=== PATIENT | male | born 1970 | race Caucasian/White ===

== ENCOUNTER → 2016-11-22 | Outpatient (CLI) | payer BC, OTHER ==
[~2016-11-22] MED LIST: ASPI81TA28 PO; ATOR-26 PO; CLOP1TAB15 PO; FENO48TA9 PO; INSDGI SC; INSDGI SQ; INSU100I SC; INSU100I2 SC; METO25TA3 PO; MULT-506 PO; NCY50 PO; NTRGSL/4 UT; ONDA4TAB10 SL; OXYC1TAB3 PO; PANT1TAB48 PO; TAMS0.4C38 PO; TAPE100T2 PO; ZOLP10TA PO
== END ==
LOC: C.PAIN 10:27
PROVIDERS: ATTEND Anesthesiology

== ENCOUNTER 2016-12-01 13:51 | Emergency (ER) | payer BC, OTHER ==
[~2016-12-01] VITALS: Ht 182.9 cm; Wt 133.8 kg
[~2016-12-01 13:51] MED LIST changes: -ATOR-26 PO; -INSDGI SC; -INSU100I SC; -METO25TA3 PO; -MULT-506 PO; -NTRGSL/4 UT; -ONDA4TAB10 SL; -TAMS0.4C38 PO; -TAPE100T2 PO; -ZOLP10TA PO
[2016-12-01 13:58] VITALS: TEMP 36.7; Ht 182.9 cm; Wt 133.8 kg
[2016-12-01] MEDS ORDERED: INSDGI SC (14:38)
[2016-12-01 14:40] LABS: BASO % 0.2 %; BASO ABS # 0.02 K/uL (0-0.2); COMPLETE YES; EOS % 1.4 %; HEMATOCRIT 43.6 % (42-52); IG% 0.6 %; LYMPH % 18.5 %; LYMPH ABS # 2.09 K/uL (1.2-3.4); MEAN CELL VOLUME 86.5 fL (80-100); MEAN CORPUSCULAR HEMOGLOBIN 31.2 pg (25-34); MEAN PLATELET VOLUME 12.1 fL (7.4-10.4); MONO % 12.6 %; NEUT % 66.7 %; PLATELET COUNT 237 K/uL (130-400); RED BLOOD COUNT 5.04 M/uL (4.7-6.1); WHITE BLOOD COUNT 11.28 K/uL (4.8-10.8)
[2016-12-01 14:46] LABS: INR 0.9 (0.9-1.1); PARTIAL THROMBOPLASTIN RATIO 0.9
[2016-12-01 14:46] LABS: URINE APPEARANCE CLEAR (CLEAR); URINE BILIRUBIN NEG (NEG); URINE COLOR YELLOW; URINE NITRITE NEG (NEG); URINE SPECIFIC GRAVITY 1.023 (1.000-1.030); UROBILINOGEN NEG (NEG); ZZUR CULT IF INDIC CLEAN CATCH NO
[2016-12-01 14:47] LABS: BUN/CREATININE RATIO 16.8 (10-20); CALCIUM 8.8 mg/dl (8.5-10.1); CREATININE 1.1 mg/dl (0.60-1.40); MAGNESIUM 1.9 mg/dl (1.8-2.4); POTASSIUM 4.6 mmol/L (3.5-5.1)
[2016-12-01 14:47] LABS: MANUAL MICROSCOPIC REQUIRED? NO; REVIEW REQ? NO
--- NOTE | 2016-12-01 14:47 | DIAGNOSTIC IMAGING REPORT ---
SINGLE VIEW CHEST CLINICAL HISTORY: Atypical chest pain. Angina. FINDINGS: An AP, portable, upright chest radiograph is compared to study dated 06/22/2016 and correlated with chest CT dated 01/10/2016. The examination is degraded by portable technique and large body habitus. An indeterminant catheter/line projects over the mid chest, possibly intrathecal in location. The patient is status post midline sternotomy. The heart is mildly enlarged and there is atherosclerotic calcification of the thoracic aorta. The pulmonary vasculature is noncongested. The lungs and pleural spaces are clear. No pneumothorax is seen. The bony thorax is grossly intact. IMPRESSION: Mild cardiac enlargement with no acute cardiopulmonary abnormality. Electronically signed by: Fernando Galindo M.D. 12/01/2016 2:45 PM Dictated Date/Time: 12/01/2016 2:43 PM
--- NOTE | 2016-12-01 14:56 | EMERGENCY ROOM VISIT NOTE ---
ED Visit Note First contact with patient: 14:07 I have seen and examined this patient with Robe Roman and generally agree with the treatment plan as discussed. GENERAL: Patient is a healthy-appearing well-nourished male HEAD: Normocephalic atraumatic EYES: Ocular movements intact pupils equal and react to light OROPHARYNX mucous membranes are moist no exudates present no erythema or edema present NECK: Supple no nuchal rigidity CHEST: Good equal expansion LUNGS: Clear and equal to auscultation CARDIAC: Normal S1 and S2 ABDOMEN: Soft nontender no guarding BACK: No CVA tenderness EXTREMITIES: No pain upon palpation normal muscle strength in all groups no clubbing cyanosis or edema NEURO: Patient is following commands is answering questions appropriately. Alert and oriented x3 Cranial Nerves 2-12 grossly intact This is a 46-year-old male who presents emergency part complaint of chest pain that was relieved by nitroglycerin. Pt was given 324 ASA and Nitropaste. Repeat examination revealed improvement in the pt symptoms. The patient's troponin is noted to be 10. The patient's case was discussed with Dr. Forte who came and saw the patient. He felt that the patient should be transferred to [place]. Transfer paperwork was obtained and signed by the patient. The patient was sent on IV heparin drip here in the emergency department. He was observed for a total of 9 hours while waiting transferred to [place]. I have personally spent greater than 90 minutes of critical care time in the direct management of this patient. This includes bedside care, interpretation of diagnostic studies, and testing, discussion with consultants, patient, and family members, and other required patient management activities. This 90 minutes is in excess of all separately billable procedures. Problem List Medical Problems: (1) Appendectomy Status: Resolved (2) Asthma Status: Chronic (3) Cardiac catheterization Status: Chronic (4) Coronary artery bypass grafts x 5 Status: Resolved (5) Coronary artery disease Status: Chronic (6) Diabetes Status: Chronic (7) Diabetes mellitus Status: Chronic (8) Hypertension Status: Chronic (9) Kidney stones Status: Resolved Current/Historical Medications Scheduled Aspirin (Aspirin Ec), 81 MG PO QAM Atorvastatin (Lipitor), 80 MG PO QAM Clopidogrel (Plavix), 75 MG PO QAM Fenofibrate (Tricor), 48 MG PO QAM Insulin Glargine (Lantus), 100 UNITS SQ QAM Metoprolol Succinate (Toprol Xl), 25 MG PO QAM Multivitamin (Multivitamin), 1 TAB PO DAILY Nitroglycerin (Nitrostat), 0.4 MG UT PRN Tapentadol HCl (Nucynta), 50 MG PO DAILY Zolpidem Tartrate (Ambien), 10 MG PO HS Scheduled PRN Insulin Glargine (Lantus), Unknown Dose SC QPM PRN for PRN Insulin Lispro (Human) (Humalog), UD PRN for PRN Allergies Coded Allergies: No Known Allergies (Verified , 12/01/16) Vital Signs Date Time Temp Pulse Resp B/P Pulse Ox O2 Delivery O2 Flow Rate FiO2 12/01/16 20:16 86 18 101/60 95 Room Air 12/01/16 18:39 88 18 107/57 97 Room Air 12/01/16 17:29 89 107/66 97 Room Air 12/01/16 16:19 94 17 147/85 98 12/01/16 15:05 90 18 113/68 97 Room Air 12/01/16 14:30 86 12/01/16 14:30 Room Air 12/01/16 14:09 97 Room Air 12/01/16 13:58 36.7 93 16 93/65 97 Room Air Laboratory Results 12/01/16 14:11 Red Blood Count 5.04, Mean Corpuscular Volume 86.5, Mean Corpuscular Hemoglobin 31.2, Mean Corpuscular Hemoglobin Concent 36.0, Mean Platelet Volume 12.1, Neutrophils (%) (Auto) 66.7, Lymphocytes (%) (Auto) 18.5, Monocytes (%) (Auto) 12.6, Eosinophils (%) (Auto) 1.4, Basophils (%) (Auto) 0.2, Neutrophils # (Auto ) 7.52, Lymphocytes # (Auto) 2.09, Monocytes # (Auto) 1.42, Eosinophils # (Auto ) 0.16, Basophils # (Auto) 0.02 12/01/16 14:11 Test 12/01/16 14:11 12/01/16 14:25 White Blood Count 11.28 K/uL (4.8-10.8) Red Blood Count 5.04 M/uL (4.7-6.1) Hemoglobin 15.7 g/dL (14.0-18.0) Hematocrit 43.6 % (42-52) Mean Corpuscular Volume 86.5 fL (80-100) Mean Corpuscular Hemoglobin 31.2 pg (25-34) Mean Corpuscular Hemoglobin Concent 36.0 g/dl (32-36) Platelet Count 237 K/uL (130-400) Mean Platelet Volume 12.1 fL (7.4-10.4) Neutrophils (%) (Auto) 66.7 % Lymphocytes (%) (Auto) 18.5 % Monocytes (%) (Auto) 12.6 % Eosinophils (%) (Auto) 1.4 % Basophils (%) (Auto) 0.2 % Neutrophils # (Auto) 7.52 K/uL (1.4-6.5) Lymphocytes # (Auto) 2.09 K/uL (1.2-3.4) Monocytes # (Auto) 1.42 K/uL (0.11-0.59) Eosinophils # (Auto) 0.16 K/uL (0-0.5) Basophils # (Auto) 0.02 K/uL (0-0.2) RDW Standard Deviation 40.2 fL (36.4-46.3) RDW Coefficient of Variation 12.6 % (11.5-14.5) Immature Granulocyte % (Auto) 0.6 % Immature Granulocyte # (Auto) 0.07 K/uL (0.00-0.02) Prothrombin Time 10.0 SECONDS (9.0-12.0) Prothromb Time International Ratio 0.9 (0.9-1.1) Activated Partial Thromboplast Time 24.4 SECONDS (21.0-31.0) Partial Thromboplastin Ratio 0.9 Anion Gap 12.0 mmol/L (3-11) Est Creatinine Clear Calc Drug Dose 118.8 ml/min Estimated GFR () 92.8 Estimated GFR (Non- 80.1 BUN/Creatinine Ratio 16.8 (10-20) Calcium Level 8.8 mg/dl (8.5-10.1) Magnesium Level 1.9 mg/dl (1.8-2.4) Total Bilirubin 0.6 mg/dl (0.2-1) Aspartate Amino Transf (AST/SGOT) 104 U/L (15-37) Alanine Aminotransferase (ALT/SGPT) 49 U/L (12-78) Alkaline Phosphatase 51 U/L (45-117) Total Creatine Kinase 464 U/L (39-308) Creatine Kinase MB 22.2 ng/ml (0.5-3.6) Creatine Kinase MB Ratio 4.8 (0-3.0) Troponin I 10.800 ng/ml (0-0.045) Total Protein 7.2 gm/dl (6.4-8.2) Albumin 3.7 gm/dl (3.4-5.0) Globulin 3.5 gm/dl (2.5-4.0) Albumin/Globulin Ratio 1.1 (0.9-2) Lipase 211 U/L (73-393) Thyroid Stimulating Hormone (TSH) 1.160 uIu/ml (0.300-4.500) Urine Color YELLOW Urine Appearance CLEAR (CLEAR) Urine pH 5.0 (4.5-7.5) Urine Specific [place] 1.023 (1.000-1.030) Urine Protein NEG (NEG) Urine Glucose (UA) 1+ (NEG) Urine Ketones NEG (NEG) Urine Occult Blood NEG (NEG) Urine Nitrite NEG (NEG) Urine Bilirubin NEG (NEG) Urine Urobilinogen NEG (NEG) Urine Leukocyte Esterase NEG (NEG) Medications Administered Medications (Trade) Dose Ordered Sig/Rainer Route Start Time Stop Time Status Last Admin Dose Admin Aspirin (Aspirin Chew) 324 mg NOW STAT PO 12/01/16 15:29 12/01/16 15:31 DC 12/01/16 16:20 324 MG Nitroglycerin (Nitroglycerin 2% Oint) 1 inch NOW STAT EXT 12/01/16 15:29 12/01/16 15:31 DC 12/01/16 16:23 1 INCH Heparin Sodium/ Dextrose 1 ea NOW STAT N/A 12/01/16 16:12 12/01/16 16:13 DC 12/01/16 16:56 1 EA Heparin Sodium/ Dextrose (Heparin 25,000 Unit/500ml D5W) 25,000 unit STK-MED ONCE .ROUTE 12/01/16 16:34 12/01/16 16:37 DC 12/01/16 16:41 25,000 UNIT Heparin Sodium (Porcine) (Heparin Sq 5000 Unit/0.5ml) 10,000 unit STK-MED ONCE .ROUTE 12/01/16 16:34 12/01/16 16:37 DC 12/01/16 16:43 8,000 UNIT Morphine Sulfate (MoRPHine SULFATE INJ) 4 mg NOW ONCE IV 12/01/16 20:00 12/01/16 20:01 DC 12/01/16 20:00 4 MG Morphine Sulfate (MoRPHine SULFATE INJ) 4 mg NOW ONCE IV 12/01/16 21:30 12/01/16 21:31 DC 12/01/16 21:27 4 MG Departure Information Impression Primary Impression: NSTEMI (non-ST elevated myocardial infarction) Referrals Clare JohnsonDCeciliaOCecilia (PCP) Patient Instructions My [facility]
[2016-12-01 15:14] LABS: ALB/GLOB RATIO 1.1 (0.9-2); THYROID STIMULATING HORMONE 1.16 uIu/ml (0.300-4.500)
[2016-12-01] MEDS ORDERED: NITROGLYCERIN OINT 2% 1GM PACKET EXT STA (15:29)
[2016-12-01] MEDS ORDERED: ASPIRIN 81 MG CHEW PO STA (15:29)
[2016-12-01 15:59] LABS: CKMB/CK RATIO 4.8 (0-3.0)
--- NOTE | 2016-12-01 16:03 | EMERGENCY ROOM VISIT NOTE ---
History First contact with patient: 14:07 Chief Complaint: CARDIAC ASSESSMENT Stated Complaint: HEART AND BLOODWORK/VERIFIED WITH OUT PT NO ORDERS Nursing Triage Summary: Pt denies CP and SOB at present time. History of Present Illness The patient is a 46 year old male who presents to the Emergency Room with complaints of intermittent chest pain that radiates into his left sided jaw for the past 3-4 days. The patient has an extensive cardiac history with multivessel bypass 7 years ago when the patient was 39 years old. The patient follows with [facility] cardiology, and attempted to be seen by his primary care physician today, but was referred to the ER for further management. The patient states that about one week ago he was able to go [place] and walking through [place] without any difficulty. He states over the past 3 days he has had chest pain while laying on the couch. His pain has been relieved with nitroglycerin at home. He states that he had an episode about 14 hours ago where his chest pain woke him from sleep, he took nitroglycerin, and was able to go back to bed. The patient does not have chest pain or shortness of breath at this time. He states that he does have intermittent anginal symptoms, but he has never had radiation to his jaw like he has had the past few days. He has been without fever or chills. He is on Plavix. He did not take aspirin today. He is diabetic. He rates his current discomfort a 0/10. Review of Systems More than 10 systems were reviewed and otherwise negative with the exception of history of present illness. Past Medical/Surgical History Medical Problems: (1) Appendectomy (2) Asthma (3) Cardiac catheterization (4) Coronary artery bypass grafts x 5 (5) Coronary artery disease (6) Diabetes (7) Diabetes mellitus (8) Hypertension (9) Kidney stones Family History Diabetes mellitus Gallbladder disease Heart disease Hypertension Kidney disease Kidney stones Social History Smoking Status: Never Smoker Alcohol Use: occasionally Drug Use: none Marital Status: Housing Status: lives with family Occupation Status: employed Current/Historical Medications Scheduled Aspirin (Aspirin Ec), 81 MG PO QAM Atorvastatin (Lipitor), 80 MG PO QAM Clopidogrel (Plavix), 75 MG PO QAM Fenofibrate (Tricor), 48 MG PO QAM Insulin Glargine (Lantus), 100 UNITS SQ QAM Metoprolol Succinate (Toprol Xl), 25 MG PO QAM Multivitamin (Multivitamin), 1 TAB PO DAILY Nitroglycerin (Nitrostat), 0.4 MG UT PRN Tapentadol HCl (Nucynta), 50 MG PO DAILY Zolpidem Tartrate (Ambien), 10 MG PO HS Scheduled PRN Insulin Glargine (Lantus), Unknown Dose SC QPM PRN for PRN Insulin Lispro (Human) (Humalog), UD PRN for PRN Allergies Coded Allergies: No Known Allergies (Verified , 12/01/16) Physical Exam Vital Signs Date Time Temp Pulse Resp B/P Pulse Ox O2 Delivery O2 Flow Rate FiO2 12/01/16 20:16 86 18 101/60 95 Room Air 12/01/16 18:39 88 18 107/57 97 Room Air 12/01/16 17:29 89 107/66 97 Room Air 12/01/16 16:19 94 17 147/85 98 12/01/16 15:05 90 18 113/68 97 Room Air 12/01/16 14:30 86 12/01/16 14:30 Room Air 12/01/16 14:09 97 Room Air 12/01/16 13:58 36.7 93 16 93/65 97 Room Air Physical Exam VITALS: Vitals are noted on the nurse's note and reviewed by myself. Vital signs stable. GENERAL: Well-developed, well-nourished, white male, who is in no acute distress and resting comfortably. Patient is cooperative with the examination. HEAD: Normocephalic atraumatic. NECK: Supple without nuchal rigidity. No lymphadenopathy. No thyromegaly. Cervical spine is nontender. HEART: Regular rate and rhythm without murmurs gallops or rubs. LUNGS: Clear to auscultation bilaterally without wheezes, rales or rhonchi. No retractions or accessory muscle use. MUSCULOSKELETAL: No muscle atrophy, erythema, or edema noted. Full range of motion without joint tenderness in all extremities. NEURO: Patient was alert and oriented to person place and time. CN II through XII grossly intact. Medical Decision & Procedures ER Provider Diagnostic Interpretation: SINGLE VIEW CHEST CLINICAL HISTORY: Atypical chest pain. Angina. FINDINGS: An AP, portable, upright chest radiograph is compared to study dated 06/22/2016 and correlated with chest CT dated 01/10/2016. The examination is degraded by portable technique and large body habitus. An indeterminant catheter/line projects over the mid chest, possibly intrathecal in location. The patient is status post midline sternotomy. The heart is mildly enlarged and there is atherosclerotic calcification of the thoracic aorta. The pulmonary vasculature is noncongested. The lungs and pleural spaces are clear. No pneumothorax is seen. The bony thorax is grossly intact. IMPRESSION: Mild cardiac enlargement with no acute cardiopulmonary abnormality. Laboratory Results 12/01/16 14:11 Red Blood Count 5.04, Mean Corpuscular Volume 86.5, Mean Corpuscular Hemoglobin 31.2, Mean Corpuscular Hemoglobin Concent 36.0, Mean Platelet Volume 12.1, Neutrophils (%) (Auto) 66.7, Lymphocytes (%) (Auto) 18.5, Monocytes (%) (Auto) 12.6, Eosinophils (%) (Auto) 1.4, Basophils (%) (Auto) 0.2, Neutrophils # (Auto ) 7.52, Lymphocytes # (Auto) 2.09, Monocytes # (Auto) 1.42, Eosinophils # (Auto ) 0.16, Basophils # (Auto) 0.02 12/01/16 14:11 Test 12/01/16 14:11 12/01/16 14:25 White Blood Count 11.28 K/uL (4.8-10.8) Red Blood Count 5.04 M/uL (4.7-6.1) Hemoglobin 15.7 g/dL (14.0-18.0) Hematocrit 43.6 % (42-52) Mean Corpuscular Volume 86.5 fL (80-100) Mean Corpuscular Hemoglobin 31.2 pg (25-34) Mean Corpuscular Hemoglobin Concent 36.0 g/dl (32-36) Platelet Count 237 K/uL (130-400) Mean Platelet Volume 12.1 fL (7.4-10.4) Neutrophils (%) (Auto) 66.7 % Lymphocytes (%) (Auto) 18.5 % Monocytes (%) (Auto) 12.6 % Eosinophils (%) (Auto) 1.4 % Basophils (%) (Auto) 0.2 % Neutrophils # (Auto) 7.52 K/uL (1.4-6.5) Lymphocytes # (Auto) 2.09 K/uL (1.2-3.4) Monocytes # (Auto) 1.42 K/uL (0.11-0.59) Eosinophils # (Auto) 0.16 K/uL (0-0.5) Basophils # (Auto) 0.02 K/uL (0-0.2) RDW Standard Deviation 40.2 fL (36.4-46.3) RDW Coefficient of Variation 12.6 % (11.5-14.5) Immature Granulocyte % (Auto) 0.6 % Immature Granulocyte # (Auto) 0.07 K/uL (0.00-0.02) Prothrombin Time 10.0 SECONDS (9.0-12.0) Prothromb Time International Ratio 0.9 (0.9-1.1) Activated Partial Thromboplast Time 24.4 SECONDS (21.0-31.0) Partial Thromboplastin Ratio 0.9 Anion Gap 12.0 mmol/L (3-11) Est Creatinine Clear Calc Drug Dose 118.8 ml/min Estimated GFR () 92.8 Estimated GFR (Non- 80.1 BUN/Creatinine Ratio 16.8 (10-20) Calcium Level 8.8 mg/dl (8.5-10.1) Magnesium Level 1.9 mg/dl (1.8-2.4) Total Bilirubin 0.6 mg/dl (0.2-1) Aspartate Amino Transf (AST/SGOT) 104 U/L (15-37) Alanine Aminotransferase (ALT/SGPT) 49 U/L (12-78) Alkaline Phosphatase 51 U/L (45-117) Total Creatine Kinase 464 U/L (39-308) Creatine Kinase MB 22.2 ng/ml (0.5-3.6) Creatine Kinase MB Ratio 4.8 (0-3.0) Troponin I 10.800 ng/ml (0-0.045) Total Protein 7.2 gm/dl (6.4-8.2) Albumin 3.7 gm/dl (3.4-5.0) Globulin 3.5 gm/dl (2.5-4.0) Albumin/Globulin Ratio 1.1 (0.9-2) Lipase 211 U/L (73-393) Thyroid Stimulating Hormone (TSH) 1.160 uIu/ml (0.300-4.500) Urine Color YELLOW Urine Appearance CLEAR (CLEAR) Urine pH 5.0 (4.5-7.5) Urine Specific [place] 1.023 (1.000-1.030) Urine Protein NEG (NEG) Urine Glucose (UA) 1+ (NEG) Urine Ketones NEG (NEG) Urine Occult Blood NEG (NEG) Urine Nitrite NEG (NEG) Urine Bilirubin NEG (NEG) Urine Urobilinogen NEG (NEG) Urine Leukocyte Esterase NEG (NEG) Medications Administered Medications (Trade) Dose Ordered Sig/Rainer Route Start Time Stop Time Status Last Admin Dose Admin Aspirin (Aspirin Chew) 324 mg NOW STAT PO 12/01/16 15:29 12/01/16 15:31 DC 12/01/16 16:20 324 MG Nitroglycerin (Nitroglycerin 2% Oint) 1 inch NOW STAT EXT 12/01/16 15:29 12/01/16 15:31 DC 12/01/16 16:23 1 INCH Heparin Sodium/ Dextrose 1 ea NOW STAT N/A 12/01/16 16:12 12/01/16 16:13 DC 12/01/16 16:56 1 EA Heparin Sodium/ Dextrose (Heparin 25,000 Unit/500ml D5W) 25,000 unit STK-MED ONCE .ROUTE 12/01/16 16:34 12/01/16 16:37 DC 12/01/16 16:41 25,000 UNIT Heparin Sodium (Porcine) (Heparin Sq 5000 Unit/0.5ml) 10,000 unit STK-MED ONCE .ROUTE 12/01/16 16:34 12/01/16 16:37 DC 12/01/16 16:43 8,000 UNIT Morphine Sulfate (MoRPHine SULFATE INJ) 4 mg NOW ONCE IV 12/01/16 20:00 12/01/16 20:01 DC 12/01/16 20:00 4 MG Morphine Sulfate (MoRPHine SULFATE INJ) 4 mg NOW ONCE IV 12/01/16 21:30 12/01/16 21:31 DC 12/01/16 21:27 4 MG ECG Change: Normal sinus rhythm Incomplete right bundle branch block Right ventricular hypertrophy Septal infarct (cited on or before 20-AUG-2013) Abnormal ECG When compared with ECG of 22-JUN-2016 18:17, Incomplete right bundle branch block is now Present Questionable change in initial forces of Septal leads Confirmed by JAIR PAINTING ([id number]) on 12/01/2016 3:34:16 PM ED Course Physical exam and history were performed. Nursing notes and EMR were reviewed. Patient appears to have a significant cardiac history that is now presenting with what sounds like unstable angina. EKG was performed and is as above. IV access was established and labs were obtained. Single view chest x-ray did not show acute findings. The patient was placed on a monitoring specialist. The case was discussed with my attending physician, Dr. Fong, who also evaluated the patient. The patient's blood work is as above and was reviewed. He does not have a significantly elevated white blood count, gross anemia, bandemia, or significant electrolyte imbalance. Glucose is elevated over 200. The patient's troponin is markedly elevated at 10.80. Upon discussion of this with Dr. Fong, we did start patient on aspirin and nitroglycerin. Heparin was initiated. I discussed the case with the on-call [facility] tile power shear operator, Dr. Forte, who agreed to evaluate the patient here in the emergency department. Following discussion with the patient and patient's family, Dr. Forte recommended transfer to [facility] in [place] for further care and management. The patient will likely need a catheterization, and anatomically is very challenging due to his extensive cardiac history. The matlab developer here is unable to perform any interventions because of his unique situation, and overall the patient was felt to be best cared for in [place]. The family was agreeable to this, and Dr. Forte was able to discuss the case with the accepting physician in [facility]. Dr. Fong completed appropriate consents to transfer paperwork. The patient remained in stable addition throughout the remainder of his emergency department course. He did require small amounts of IV morphine after developing a headache from nitroglycerin. The patient was also given a small amount of Zofran for nausea. The patient was transferred via ALS without deterioration of his condition. The chart was completed utilizing [employer] Speech Voice Recognition Software. Grammatical errors, random word insertions, pronoun errors, and incomplete sentences are an occasional consequence of this system due to software limitations, ambient noise, and hardware issues. Any formal questions or concerns about the content, text, or information contained within the body of this dictation should be directly addressed to the provider for clarification. . Medical Decision Differential diagnosis includes, but is not limited to: Myocardial infarction, dysrhythmia, pericarditis, pneumothorax, aortic aneurysm/dissection, DVT/PE, anxiety, GERD, PUD, electrolyte imbalance, thyroid disorder, pneumonia, bronchitis, pancreatitis, and others Impression Primary Impression: NSTEMI (non-ST elevated myocardial infarction) Additional Impressions: Elevated troponin Chest pain Departure Information Referrals Clare Johnson D.O. (PCP) Patient Instructions My [facility] Problem Qualifiers
[2016-12-01] MEDS ORDERED: NITROGLYCERIN OINT 2% 1GM PACKET ONE (16:19)
[2016-12-01] MEDS ORDERED: HEPARIN 25000 UNIT/500 ML D5W ONE (16:34)
[2016-12-01] MEDS ORDERED: HEPARIN SOD 5000 UNIT/0.5 ML CARP ONE (16:34)
[2016-12-01] MEDS ORDERED: ATOR-26 PO (16:38)
[2016-12-01] MEDS ORDERED: METO25TA3 PO (16:38)
[2016-12-01] MEDS ORDERED: INSU100I (16:39)
[2016-12-01] MEDS ORDERED: ZOLP10TA PO (16:41)
[2016-12-01] MEDS ORDERED: NTRGSL/4 UT (16:42)
[2016-12-01] MEDS ORDERED: MULT-506 PO (16:42)
--- NOTE | 2016-12-01 16:48 | CARDIOLOGY CONSULTATION ---
DATE OF CONSULTATION: 12/01/2016 ADDENDUM Discussion was made with the patient regarding current complaints and symptoms consistent with crescendo angina, significant elevated troponin of 10, now pain free. Suggested the patient to undergo diagnostic cardiac catheterization and he wishes to have procedure performed at [facility] and [place], given past histories and treatment there. I noted this would likely entail procedure done on Sunday with the patient to be maintained on medical therapy until then he is aware of plans. Will begin initial therapies with aspirin, heparin and topical nitrates and an additional dose of Toprol this evening. Arrangements have been made for transfer to [facility] as a bed becomes available this evening. Receiving physician, Dr. Tomasa Norris.
--- NOTE | 2016-12-01 17:09 | CARDIOLOGY CONSULTATION ---
DATE OF CONSULTATION: 12/01/2016 REFERRING PHYSICIAN: Roni Fong M.D. PRIMARY CARE PHYSICIAN: Clare Johnson DO PRIMARY MEDIA MARKETING COORDINATOR: Robe Valverde DO INDICATIONS: Crescendo angina, elevated troponin. HISTORY OF PRESENT ILLNESS: The patient is a 46-year-old male whose history is notable for prior coronary bypass grafting for premature coronary atherosclerosis in 2009 at age 36. The patient at that time received 5 separate grafts including a VALENZUELA graft to the LAD and 4 saphenous vein grafts; a saphenous vein graft sequentially from D1 to OM1 and OM2 and a saphenous vein graft to posterior descending artery. The patient since that time has undergone balloon angioplasty to the distal LAD for recurrent angina in 2012. Last diagnostic cardiac catheterization was performed in September 2014 with medical management recommended at that time for diffuse atherosclerosis, but patent grafts. The patient had been doing well and made modifications in lifestyle and habits per records and history with weight loss and attention to medical care. He presents now having done well recently until approximately 2-3 days prior to presentation when he began experiencing symptoms of chest pain generally at rest, experienced a severe episode the day prior to admission with severe pain radiating to the left jaw. He used nitroglycerin for complaints and did not feel it work "quite well today" and presented to the Emergency Room for further evaluation. Initial EKGs did not demonstrate a dynamic ST elevation. There is mild fluctuation at baseline ST segment changes. Troponins, however, returned significantly elevated with a troponin of 10.0. He is currently pain free. Notes no recent fevers, chills or infections. Notes no cough, hoarseness, wheeze or hemoptysis. Notes no melena or hematochezia, dysuria or hematuria. Notes no medical noncompliance and has remained on Plavix, so he has been "out of aspirin" very recently. REVIEW OF SYSTEMS: Otherwise negative. ALLERGIES: None. MEDICATIONS: Prior to hospitalization were aspirin 81 mg per day, though patient currently out; Plavix 75 mg p.o. every day; fenofibrate 48 mg p.o. every day; Lantus insulin and Nucynta 50 mg b.i.d. PAST SURGICAL HISTORY: As described, notable for coronary bypass grafting in 2009, coronary intervention with balloon angioplasty to left descending in 2011, appendectomy, bilateral carpal tunnel surgery, vasectomy and left knee arthroscopic surgery. FAMILY HISTORY: Positive for coronary artery disease. SOCIAL HISTORY: The patient is a nonsmoker, nondrinker. MEDICAL HISTORY: As above, notable for type 2 diabetes mellitus insulin requiring, obesity, and dyslipidemia. PHYSICAL EXAMINATION: VITAL SIGNS: Heart rate is 88. Blood pressure is 113/68. HEENT: Normocephalic, atraumatic. Nares without discharge. Throat was clear. NECK: Supple without thyromegaly, lymphadenopathy, JVD or bruit. LUNGS: Clear to auscultation. CARDIOVASCULAR: Regular with a less than grade 1/6 systolic murmur. There is no diastolic murmur. ABDOMEN: Soft, nontender. No hepatosplenomegaly or hepatojugular reflux. EXTREMITIES: Without cyanosis or clubbing. No peripheral edema. LABORATORY DATA: EKG reveals sinus rhythm with a rate of 88 with incomplete right bundle branch block, voltage criteria for right ventricular hypertrophy and minor ST flattening in leads II and AVR, V5 and V6. IMPRESSION: A 46-year-old male with underlying history of ischemic heart disease presents now with symptoms of crescendo angina and significantly elevated troponin. PLAN: We will discuss with the patient options of management raised considering whether to proceed with diagnostic cardiac catheterization either here or through [facility]. We will accommodate all cares after further recommendations and further thorough discussion with the patient.
[2016-12-01] MEDS ORDERED: MoRPHine SULFATE 4 MG/ML 1 ML CARP\\VIAL IV ONE ×2 (20:00→21:30)
[2016-12-01] MEDS ORDERED: ONDANSETRON INJ 2 MG/ML 2 ML VIAL IV STA (21:22)
[2016-12-01 22:39] VITALS: BP 103/62; PULSE 89; O2SAT 96
== END 2016-12-01 23:01 | disposition short-term general hospital (02) ==
LOC: C.EDB 14:38
DX: I21.4 Non-ST elevation (NSTEMI) myocardial infarction (principal); R79.89 Other specified abnormal findings of blood chemistry; R07.9 Chest pain, unspecified; J45.909 Unspecified asthma, uncomplicated; I25.10 Atherosclerotic heart disease of native coronary artery without angina pectoris; E11.9 Type 2 diabetes mellitus without complications; I10 Essential (primary) hypertension; Z79.82 Long term (current) use of aspirin; Z79.4 Long term (current) use of insulin; Z95.5 Presence of coronary angioplasty implant and graft; Z87.442 Personal history of urinary calculi; Z83.3 Family history of diabetes mellitus; Z82.49 Family history of ischemic heart disease and other diseases of the circulatory system; Z84.1 Family history of disorders of kidney and ureter

== ENCOUNTER 2017-08-13 14:33 | Emergency (ER) | payer BC, OTHER ==
[~2017-08-13] VITALS: Ht 182.9 cm; Wt 133.0 kg
[~2017-08-13 14:33] MED LIST changes: -ASPI81TA28 PO; -CLOP1TAB15 PO; -INSDGI SQ; -INSU100I2 SC; +MULT-506 PO; -OXYC1TAB3 PO; -PANT1TAB48 PO
[2017-08-13] MEDS ORDERED: INSDGI SC (14:38)
[2017-08-13 14:44] VITALS: TEMP 36.7; Ht 182.9 cm; Wt 133.0 kg
[2017-08-13] MEDS ORDERED: HYDROmorphone INJ 1 MG/ML SYR IV STA (15:01)
[2017-08-13] MEDS ORDERED: KETOROLAC TROMETHAMINE 30 MG/ML VIAL IV STA (15:01)
[2017-08-13] MEDS ORDERED: ONDANSETRON INJ 2 MG/ML 2 ML VIAL IV STA (15:01)
[2017-08-13] MEDS ORDERED: SODIUM CHLORIDE 0.9% 1000ML 1,000 ML IV STA (15:01)
[2017-08-13 15:21] LABS: URINE APPEARANCE CLEAR (CLEAR); URINE BILIRUBIN NEG (NEG); URINE COLOR YELLOW; URINE EPITHELIAL CELL AUTO 0-5 /lpf (0-5); URINE NITRITE NEG (NEG); UROBILINOGEN NEG (NEG)
[2017-08-13 15:26] LABS: MANUAL MICROSCOPIC REQUIRED? NO; REVIEW REQ? NO
[2017-08-13 15:29] LABS: BASO % 0.3 %; BASO ABS # 0.02 K/uL (0-0.2); COMPLETE YES; EOS % 2.5 %; HEMATOCRIT 42.4 % (42-52); IG% 0.4 %; LYMPH % 27.5 %; LYMPH ABS # 2.09 K/uL (1.2-3.4); MEAN CELL VOLUME 87.2 fL (80-100); MEAN CORPUSCULAR HEMOGLOBIN 30.5 pg (25-34); MEAN CORPUSCULAR HGB CONC 34.9 g/dl (32-36); MEAN PLATELET VOLUME 11.3 fL (7.4-10.4); MONO % 9.1 %; NEUT % 60.2 %; PLATELET COUNT 203 K/uL (130-400); RED BLOOD COUNT 4.86 M/uL (4.7-6.1)
[2017-08-13] MEDS ORDERED: TAPE100T2 PO (15:34)
--- NOTE | 2017-08-13 15:59 | DIAGNOSTIC IMAGING REPORT ---
CT SCAN OF THE ABDOMEN AND PELVIS WITHOUT CONTRAST CLINICAL HISTORY: RIGHT FLANK PAIN COMPARISON STUDY: 06/15/2016 TECHNIQUE: CT scan of the abdomen and pelvis was performed from the lung bases to the proximal femurs. Images are reviewed in the axial, sagittal, and coronal planes. IV contrast was not administered for this examination. A dose lowering technique was utilized adhering to the principles of ALARA. CT DOSE: 1911.69 mGy.cm FINDINGS: Lower chest: There is a 7.8 mm subpleural left lower lobe pulmonary nodule, similar in size to the preceding study. Liver: The unenhanced liver is normal in size, contour, and attenuation. There is no intrahepatic biliary ductal dilatation. Gallbladder: Unremarkable. Spleen: Normal in size and attenuation. Pancreas: Unremarkable. Adrenal glands: Bilateral adrenal nodules remain stable. The left adrenal nodule contains macroscopic fat and probably represents an adenoma. The right adrenal nodule also likely represents an adenoma. Kidneys: There is a 2 mm nonobstructing right renal calculus. No left renal calculi are visualized. There is no hydronephrosis. No ureteral or bladder calculi are visualized. Bowel: There are no transition zone to indicate bowel obstruction. The appendix appears surgically absent. There is no acute diverticulitis. Peritoneum: There is no intraperitoneal free air or abdominal ascites. Vasculature: The abdominal aorta is normal in course and caliber. Adenopathy: None. Pelvic viscera: The bladder, and pelvic viscera are unremarkable. Skeletal structures: An intrathecal catheters visualized. No destructive skeletal lesions are delineated. IMPRESSION: 1. Nonobstructing 2 mm right renal calculus 2. No ureteral or bladder calculi identified 3. No evidence of bowel obstruction. No evidence of free air 4. Surgically absent appendix. No evidence of acute diverticulitis 5. Stable adrenal nodules. 6. Essentially stable 7.8 mm left lower lobe pulmonary nodule Electronically signed by: Samm Vivar M.D. 08/13/2017 3:58 PM Dictated Date/Time: 08/13/2017 3:53 PM
[2017-08-13] MEDS ORDERED: HYDROmorphone INJ 0.5 MG/0.5 ML SYR IV STA ×2 (16:08→17:31)
[2017-08-13 16:36] LABS: CREATININE 0.95 mg/dl (0.60-1.40)
[2017-08-13 16:38] LABS: BUN/CREATININE RATIO 18.7 (10-20); CALCIUM 8.3 mg/dl (8.5-10.1)
[2017-08-13] MEDS ORDERED: ATOR-26 PO (16:38)
[2017-08-13] MEDS ORDERED: METO25TA3 PO (16:38)
[2017-08-13] MEDS ORDERED: INSU100I SC (16:39)
[2017-08-13] MEDS ORDERED: ZOLP10TA PO (16:41)
[2017-08-13] MEDS ORDERED: NTRGSL/4 UT (16:42)
[2017-08-13 17:03] LABS: ALB/GLOB RATIO 1.1 (0.9-2); POTASSIUM 4.4 mmol/L (3.5-5.1)
[2017-08-13] MEDS ORDERED: ONDA4TAB10 SL (17:34)
[2017-08-13] MEDS ORDERED: OXYC1TAB3 PO (17:34)
[2017-08-13] MEDS ORDERED: TAMS0.4C38 PO (17:34)
--- NOTE | 2017-08-13 17:35 | EMERGENCY ROOM VISIT NOTE ---
History First contact with patient: 14:50 Chief Complaint: FLANK PAIN Stated Complaint: SHOOTING PAIN IN BACK, VOMITING History of Present Illness Patient is a 47-year-old white male with past medical history significant for coronary artery disease status post ND and CABG, hypertension, dyslipidemia, and insulin-requiring diabetes, and history of kidney stones who presents the emergency department for evaluation of right flank pain that started today. Patient states that he did not feel well yesterday, but attributed this to being outside in the cold/rainy weather the day prior for the first day of . Patient notes that when he woke up today, he had some aching in the right back/flank. He tried using [id number] medications including Tylenol and ibuprofen with minimal relief. The pain was manageable at first, and he tried going back to bed to see if the rest would help, but he woke up around 1:00, roughly 2 hours ago, with severe, colicky right flank pain. It is located in the right mid back, wrapping slightly around to the right side. He vomited once at home, and once en route while driving himself to the hospital. He does have a history of kidney stones, but states that he hasn't had one in over 20 years. He believes that he noticed some blood in his urine earlier today. He otherwise has been able to void. He denies any fever or chills. He rates his discomfort and 8/10. He is status post appendectomy. Review of Systems Review of systems as per HPI. All other systems reviewed were negative. 10 systems reviewed. Past Medical/Surgical History Medical Problems: (1) Abdominal pain (2) Asthma (3) Brachial Plexus Disorders (4) Chest pain (5) Coronary artery disease (6) Diabetes mellitus (7) Elevated troponin (8) Hyperlipidemia Nec/Nos (9) Hypertension (10) Kidney stones (11) Morbid Obesity (12) Myocardial infarction (13) Nausea & vomiting (14) NSTEMI (non-ST elevated myocardial infarction) (15) Right upper quadrant abdominal pain Surgical Problems: (1) Appendectomy (2) Cardiac catheterization (3) Coronary artery bypass grafts x 5 Electronic medical records are reviewed and summarized as above/below. See Problem List. Family History Diabetes mellitus Gallbladder disease Heart disease Hypertension Kidney disease Kidney stones Social History Smoking Status: Never Smoker Alcohol Use: occasionally Drug Use: none Marital Status: Housing Status: lives with family Occupation Status: employed Current/Historical Medications Scheduled Aspirin (Aspirin Ec), 81 MG PO QAM Atorvastatin (Lipitor), 80 MG PO QAM Clopidogrel (Plavix), 75 MG PO QAM Fenofibrate (Tricor), 48 MG PO QAM Insulin Glargine (Lantus), 100 UNITS SQ QAM Metoprolol Succinate (Toprol Xl), 25 MG PO QAM Tamsulosin Hcl (Flomax), 0.4 MG PO DAILY Tapentadol Hcl (Nucynta), 100 MG PO DAILY Zolpidem Tartrate (Ambien), 10 MG PO HS Scheduled PRN Insulin Glargine (Lantus), 1 DOSE SC QPM PRN for Hyperglycemia Insulin Lispro (Human) (Humalog), 1 DOSE SC UD PRN for Coverage Elevated BSG Nitroglycerin (Nitrostat), 0.4 MG UT UD PRN for Chest Pain Ondasetron Odt (Zofran Odt), 4 MG SL Q4 PRN for Nausea or Vomiting Oxycodone Immediate Rel Tab (Roxicodone Ir), 1-2 TAB PO Q4H PRN for Severe Pain Physical Exam Vital Signs Date Time Temp Pulse Resp B/P (MAP) Pulse Ox O2 Delivery O2 Flow Rate FiO2 08/13/17 18:00 80 18 148/80 99 Room Air 08/13/17 16:06 82 144/80 98 Room Air 08/13/17 14:44 36.7 93 22 142/96 95 Room Air Physical Exam CONSTITUTIONAL: Patient is an overweight 47-year-old white male who is awake and alert and in moderate distress due to his stated complaint. EYES: Pupils equal, round, reactive to light and accommodation. EOMs intact without nystagmus. Sclera are anicteric. ENT: Tympanic membranes intact, with normal landmarks. External canals are clear. Oral and nasopharynx are clear. Mucous membranes are moist, no lesions , tongue and gums appear normal. CARDIOVASCULAR: Regular rate and rhythm. Peripheral pulses easily palpable. RESPIRATORY: Breath sounds equal and clear to auscultation without wheezes, rales, or rhonchi heard. Full and equal chest expansion without accessory muscle use or retractions. ABDOMEN: Bowel sounds are present. Abdomen is soft, nondistended, mild tenderness to deep palpation in the right lower quadrant without guarding, rebound or rigidity. Positive right CVA tenderness. INTEGUMENTARY: No lesions or rash, normal skin turgor. LYMPH: No lymphadenopathy. Medical Decision & Procedures ER Provider Diagnostic Interpretation: CT SCAN OF THE ABDOMEN AND PELVIS WITHOUT CONTRAST CLINICAL HISTORY: RIGHT FLANK PAIN COMPARISON STUDY: 06/15/2016 TECHNIQUE: CT scan of the abdomen and pelvis was performed from the lung bases to the proximal femurs. Images are reviewed in the axial, sagittal, and coronal planes. IV contrast was not administered for this examination. A dose lowering technique was utilized adhering to the principles of ALARA. CT DOSE: 1911.69 mGy.cm FINDINGS: Lower chest: There is a 7.8 mm subpleural left lower lobe pulmonary nodule, similar in size to the preceding study. Liver: The unenhanced liver is normal in size, contour, and attenuation. There is no intrahepatic biliary ductal dilatation. Gallbladder: Unremarkable. Spleen: Normal in size and attenuation. Pancreas: Unremarkable. Adrenal glands: Bilateral adrenal nodules remain stable. The left adrenal nodule contains macroscopic fat and probably represents an adenoma. The right adrenal nodule also likely represents an adenoma. Kidneys: There is a 2 mm nonobstructing right renal calculus. No left renal calculi are visualized. There is no hydronephrosis. No ureteral or bladder calculi are visualized. Bowel: There are no transition zone to indicate bowel obstruction. The appendix appears surgically absent. There is no acute diverticulitis. Peritoneum: There is no intraperitoneal free air or abdominal ascites. Vasculature: The abdominal aorta is normal in course and caliber. Adenopathy: None. Pelvic viscera: The bladder, and pelvic viscera are unremarkable. Skeletal structures: An intrathecal catheters visualized. No destructive skeletal lesions are delineated. IMPRESSION: 1. Nonobstructing 2 mm right renal calculus 2. No ureteral or bladder calculi identified 3. No evidence of bowel obstruction. No evidence of free air 4. Surgically absent appendix. No evidence of acute diverticulitis 5. Stable adrenal nodules. 6. Essentially stable 7.8 mm left lower lobe pulmonary nodule Laboratory Results 08/13/17 15:10 Red Blood Count 4.86, Mean Corpuscular Volume 87.2, Mean Corpuscular Hemoglobin 30.5, Mean Corpuscular Hemoglobin Concent 34.9, Mean Platelet Volume 11.3, Neutrophils (%) (Auto) 60.2, Lymphocytes (%) (Auto) 27.5, Monocytes (%) (Auto) 9.1, Eosinophils (%) (Auto) 2.5, Basophils (%) (Auto) 0.3, Neutrophils # (Auto) 4.58, Lymphocytes # (Auto) 2.09, Monocytes # (Auto) 0.69, Eosinophils # (Auto) 0.19, Basophils # (Auto) 0.02 08/13/17 15:10 Test 08/13/17 15:04 08/13/17 15:10 Urine Color YELLOW Urine Appearance CLEAR (CLEAR) Urine pH 5.0 (4.5-7.5) Urine Specific [place] 1.030 (1.000-1.030) Urine Protein NEG (NEG) Urine Glucose (UA) 3+ (NEG) Urine Ketones TRACE (NEG) Urine Occult Blood 3+ (NEG) Urine Nitrite NEG (NEG) Urine Bilirubin NEG (NEG) Urine Urobilinogen NEG (NEG) Urine Leukocyte Esterase NEG (NEG) Urine WBC (Auto) 1-5 /hpf (0-5) Urine RBC (Auto) >30 /hpf (0-4) Urine Hyaline Casts (Auto) 1-5 /lpf (0-5) Urine Epithelial Cells (Auto) 0-5 /lpf (0-5) Urine Bacteria (Auto) NEG (NEG) White Blood Count 7.60 K/uL (4.8-10.8) Red Blood Count 4.86 M/uL (4.7-6.1) Hemoglobin 14.8 g/dL (14.0-18.0) Hematocrit 42.4 % (42-52) Mean Corpuscular Volume 87.2 fL (80-100) Mean Corpuscular Hemoglobin 30.5 pg (25-34) Mean Corpuscular Hemoglobin Concent 34.9 g/dl (32-36) Platelet Count 203 K/uL (130-400) Mean Platelet Volume 11.3 fL (7.4-10.4) Neutrophils (%) (Auto) 60.2 % Lymphocytes (%) (Auto) 27.5 % Monocytes (%) (Auto) 9.1 % Eosinophils (%) (Auto) 2.5 % Basophils (%) (Auto) 0.3 % Neutrophils # (Auto) 4.58 K/uL (1.4-6.5) Lymphocytes # (Auto) 2.09 K/uL (1.2-3.4) Monocytes # (Auto) 0.69 K/uL (0.11-0.59) Eosinophils # (Auto) 0.19 K/uL (0-0.5) Basophils # (Auto) 0.02 K/uL (0-0.2) RDW Standard Deviation 39.6 fL (36.4-46.3) RDW Coefficient of Variation 12.3 % (11.5-14.5) Immature Granulocyte % (Auto) 0.4 % Immature Granulocyte # (Auto) 0.03 K/uL (0.00-0.02) Anion Gap 7.0 mmol/L (3-11) Est Creatinine Clear Calc Drug Dose 135.7 ml/min Estimated GFR () 110.0 Estimated GFR (Non- 94.9 BUN/Creatinine Ratio 18.7 (10-20) Calcium Level 8.3 mg/dl (8.5-10.1) Total Bilirubin 0.7 mg/dl (0.2-1) Aspartate Amino Transf (AST/SGOT) 29 U/L (15-37) Alanine Aminotransferase (ALT/SGPT) 37 U/L (12-78) Alkaline Phosphatase 56 U/L (45-117) Total Protein 6.9 gm/dl (6.4-8.2) Albumin 3.6 gm/dl (3.4-5.0) Globulin 3.3 gm/dl (2.5-4.0) Albumin/Globulin Ratio 1.1 (0.9-2) Lipase 312 U/L (73-393) Beta-Hydroxybutyric Acid 1.59 mg/dL (0.2-2.81) Chemistry Specimen Hemolysis Medications Administered Medications (Trade) Dose Ordered Sig/Rainer Route Start Time Stop Time Status Last Admin Dose Admin Sodium Chloride 1,000 ml @ 999 mls/hr Q1H1M STAT IV 08/13/17 15:01 08/13/17 16:01 DC 08/13/17 15:11 999 MLS/HR Ondansetron HCl (Zofran Inj) 4 mg NOW STAT IV 08/13/17 15:01 08/13/17 15:04 DC 08/13/17 15:11 4 MG Ketorolac Tromethamine (Toradol Inj) 30 mg NOW STAT IV 08/13/17 15:01 08/13/17 15:04 DC 08/13/17 15:18 30 MG Hydromorphone HCl (Dilaudid Inj) 1 mg NOW STAT IV 08/13/17 15:01 08/13/17 15:04 DC 08/13/17 15:18 1 MG Hydromorphone HCl (Dilaudid Inj) 0.5 mg NOW STAT IV 08/13/17 16:08 08/13/17 16:09 DC 08/13/17 16:16 0.5 MG Hydromorphone HCl (Dilaudid Inj) 0.5 mg NOW STAT IV 08/13/17 17:31 08/13/17 17:32 DC 08/13/17 17:47 0.5 MG Tamsulosin HCl (Flomax Cap) 0.4 mg NOW ONCE PO 08/13/17 17:45 08/13/17 17:46 DC 08/13/17 17:46 0.4 MG ED Course The patient was seen and evaluated as above. Old records were reviewed, including prior diagnostic imaging studies. IV lock was initiated and he was hydrated with normal saline solution. CBC with differential, CMP, lipase and urinalysis were ordered. He was medicated with Zofran 4 mg IV, Toradol 30 mg IV and received a total of 2 mg of Dilaudid IV for pain. He was later given Flomax 0.4 mg orally. Given his history of kidney stones and his colicky right flank pain, CT scan of the abdomen and pelvis without contrast was ordered. Laboratory studies noted a normal white count at 7600, H&H is normal. Electrolytes and renal functions are completely within normal limits. LFTs are not elevated. Lipase is normal. Urinalysis notes trace ketones, 3+ occult blood and greater than 30 RBCs. No nitrates, leuk esterase, white blood cells or bacteria to suspect infection. CT scan of the abdomen and pelvis noted a 2 mm nonobstructing right renal calculus, without ureteral or bladder calculi identified. There was no hydronephrosis noted. There is no evidence for bowel obstruction, free air or acute diverticulitis. All laboratory and diagnostic imaging studies were reviewed with attending physician, and discussed with the patient at length. He has noted nephrolithiasis. There is no ureteral calculi are high, but the patient could be passing debris that is too small to be detected by CAT scan, particularly given the hematuria. He is otherwise well-appearing and hemodynamically stable. Renal function is normal. Glucose was elevated on the venous blood draw. This was discussed with the patient and he prefers to correct for this at home with his own insulin. Conservative care measures were discussed. He will be placed on Flomax for the next 2 weeks, and was encouraged to strain his urine to see if he passes any debris. He otherwise has had kidney stones in the past and is aware of what to expect. He was prescribed Zofran and OxyIR for pain and nausea. He was educated on the worrisome signs or symptoms for which she should return to the emergency department. The patient rated his pain a 6.5/10 at discharge. His is driving. Differential diagnoses entertained included UTI, pyelonephritis, renal colic, bowel obstruction, perforation, hernia, testicular torsion, epididymitis, orchitis, musculoskeletal pain, shingles, among others. Medical Decision See Emergency Department course. [place] Drug Monitoring Program Search Results: patient reviewed within database, no issues identified Medication Reconcilliation Current Medication List: was personally reviewed by me Blood Pressure Screening Patient's blood pressure: Elevated blood pressure Blood pressure disposition: Elevated BP felt to be situational Impression Primary Impression: Right flank pain Additional Impression: Hematuria Departure Information Prescriptions Oxycodone Immediate Rel Tab (ROXICODONE IR) 5 Mg Tab 1-2 TAB PO Q4H Y for Severe Pain, #30 TAB For Initial Treatment Prov: Acacia Oliva PA 08/13/17 Ondasetron Odt (ZOFRAN ODT) 4 Mg Tab 4 MG SL Q4 Y for Nausea or Vomiting, #20 TAB Prov: Acacia Oliva PA 08/13/17 Tamsulosin Hcl (FLOMAX) 0.4 Mg Cap 0.4 MG PO DAILY, #14 CAP Prov: Acacia Oliva PA 08/13/17 Referrals Clare Johnson D.O. (PCP) Patient Instructions My [facility] Additional Instructions DO NOT drive, drink alcohol, operate machinery, or perform dangerous activities today. You were given medications in the ER that can affect your ability to safely function or operate a vehicle. Oxycodone Immediate Release (OxyIR) 5mg: Take 1-2 pills every four hours for pain. Avoid alcohol, operating machinery or dangerous equipment, working on ladders or roofs, DRIVING, or situations where being under the influence may be dangerous. It is recommended to use an [id number] stool softener such as Colace, 100mg twice daily while taking this medication to avoid constipation. Zofran(odansetron) tablets 4mg: Take one and allow it to dissolve in your mouth every four to six hours as needed for nausea or vomiting. Flomax 0.4 mg: Take 1 tablet daily 2 weeks Acetaminophen(Tylenol) may be used for fever or pain. Use 1000mg every six hours as needed. Avoid using more than 4000mg in a 24 hour period. This medication can be taken if you need to drive, work, or perform activities which may be dangerous when taking narcotic pain medication. Strain your urine and collect all the stones or debris for possible analysis. Rest and avoid strenuous activity until your stone passes and symptoms resolve. Drink plenty of fluids. Continue current medications. Monitor your blood sugars closely, and corrected accordingly. Return to the ER for worsening abdominal or back pain, vomiting, fevers, passing out, or as needed. Follow up with your primary care provider next week for recheck and follow-up ED visit. Problem Qualifiers
[2017-08-13 17:40] LABS: BETA-HYDROXYBUTYRATE 1.59 mg/dL (0.2-2.81)
[2017-08-13] MEDS ORDERED: TAMSULOSIN HCL 0.4 MG CAP PO ONE (17:45)
[2017-08-13] MEDS ORDERED: INSDGI SQ (17:59)
[2017-08-13 18:00] VITALS: BP 148/80; PULSE 80; O2SAT 99
[2017-08-13] MEDS ORDERED: ASPI81TA28 PO (18:26)
[2017-08-13] MEDS ORDERED: CLOP1TAB15 PO (18:33)
== END 2017-08-13 18:03 | disposition home or self-care (01) ==
LOC: C.EDB 14:34 → C.EDC 18:03
DX: N20.0 Calculus of kidney (principal); I25.10 Atherosclerotic heart disease of native coronary artery without angina pectoris; I25.2 Old myocardial infarction; Z95.1 Presence of aortocoronary bypass graft; I10 Essential (primary) hypertension; E78.5 Hyperlipidemia, unspecified; E11.9 Type 2 diabetes mellitus without complications; Z87.442 Personal history of urinary calculi; J45.909 Unspecified asthma, uncomplicated; E66.01 Morbid (severe) obesity due to excess calories; Z68.39 Body mass index [BMI] 39.0-39.9, adult; Z83.3 Family history of diabetes mellitus; Z82.49 Family history of ischemic heart disease and other diseases of the circulatory system; Z84.1 Family history of disorders of kidney and ureter; Z79.82 Long term (current) use of aspirin; Z79.01 Long term (current) use of anticoagulants; Z79.4 Long term (current) use of insulin; Z79.899 Other long term (current) drug therapy

== ENCOUNTER 2017-11-08 18:01 | Emergency (ER) | payer OTHER ==
[~2017-11-08] VITALS: Ht 182.9 cm; Wt 129.0 kg
[~2017-11-08 18:01] MED LIST changes: +ASPI81TA28 PO; +ATOR-26 PO; +CLOP1TAB15 PO; +INSDGI SC; +INSDGI SQ; +INSU100I SC; +METO25TA4 PO; -MULT-506 PO; -NCY50 PO; +NTRGSL/4 UT; +ONDA4TAB10 SL; +OXYC1TAB3 PO; +TAPE100T2 PO; +ZOLP10TA PO
[2017-11-08 18:10] VITALS: Ht 182.9 cm; Wt 129.0 kg
[2017-11-08 18:24] VITALS: O2SAT 98
[2017-11-08 18:40] LABS: BASO % 0.1 %; BASO ABS # 0.01 K/uL (0-0.2); EOS % 3.3 %; EOS ABS # 0.22 K/uL (0-0.5); HEMATOCRIT 41.4 % (42-52); HEMOGLOBIN 14.7 g/dL (14.0-18.0); IG# 0.05 K/uL (0.00-0.02); LYMPH % 35.7 %; LYMPH ABS # 2.41 K/uL (1.2-3.4); MEAN CELL VOLUME 85.5 fL (80-100); MEAN CORPUSCULAR HEMOGLOBIN 30.4 pg (25-34); MEAN CORPUSCULAR HGB CONC 35.5 g/dl (32-36); MEAN PLATELET VOLUME 11.2 fL (7.4-10.4); MONO % 11.1 %; MONO ABS # 0.75 K/uL (0.11-0.59); NEUT % 49.1 %; NEUT ABS # 3.31 K/uL (1.4-6.5); PLATELET COUNT 215 K/uL (130-400); RED CELL DISTRIBUTION WIDTH CV 12.6 % (11.5-14.5); RED CELL DISTRIBUTION WIDTH SD 39.5 fL (36.4-46.3); WHITE BLOOD COUNT 6.75 K/uL (4.8-10.8)
[2017-11-08 18:50] LABS: PTT PATIENT 22.7 SECONDS (21.0-31.0)
[2017-11-08 18:58] LABS: ALBUMIN 3.9 gm/dl (3.4-5.0); ALT/SGPT 33 U/L (12-78); AST/SGOT 19 U/L (15-37); BLOOD UREA NITROGEN 10 mg/dl (7-18); CALCIUM 8.6 mg/dl (8.5-10.1); CARBON DIOXIDE 24 mmol/L (21-32); CREATININE 0.95 mg/dl (0.60-1.40); GLUCOSE 75 mg/dl (70-99); LIPASE 351 U/L (73-393); POTASSIUM 3.8 mmol/L (3.5-5.1); SODIUM 138 mmol/L (136-145)
--- NOTE | 2017-11-08 19:07 | EMERGENCY ROOM VISIT NOTE ---
History First contact with patient: 18:28 Chief Complaint: CHEST PAIN Stated Complaint: CHEST PAIN, SOB- PREVIOUS HISTORY OF HEART ATTACK Nursing Triage Summary: pt has significant cardiac hx pt had 5 bipasses at 39, [place] and stents 1 year ago pt has had intermittent chest pain last few days pain in right side of jaw pt has anxious affect on arrival History of Present Illness The patient is a 47 year old male who presents to the Emergency Room with complaints of chest pain. Patient has significant past medical history of cardiac disease including 5 bypasses at age 39, and stents about a year ago. He presented today with chest heaviness associated with shortness of breath on exertion. He also complains of some jaw pain but denies any palpitations, dizziness or lightheadedness. He stated that he took 4 baby aspirins prior to arrival. Denies any orthopnea or shortness of breath at rest. Denies any nausea, vomiting, abdominal pain, diaphoresis, heartburn. Denies any history of smoking, long haul travels or recent immobilization. Denies calf swelling or tenderness. Denies any fevers or chills, coughing. Source of History: patient, family Symptom Intensity: mild Quality: other (heaviness) Timing: constant Modifying Factors (Worsening): exertion Associated Symptoms: + SOB, No fevers, No chills, No headache, No cough Review of Systems See HPI for pertinent positives & negatives. A total of 10 systems reviewed and were otherwise negative. Constitutional: No fever, No chills Eyes: No worsening of vision ENT: No hearing loss Respiratory: + shortness of breath, + dyspnea on exertion, No cough Cardiovascular: + chest pain Abdomen: No pain, No nausea, No vomiting Musculoskeletal: No joint pain Genitourinary - Male: No hematuria Neurologic: No memory loss Psychiatric: No depression symptoms Past Medical/Surgical History Medical Problems: (1) Abdominal pain (2) Asthma (3) Brachial Plexus Disorders (4) Chest pain (5) Coronary artery disease (6) Diabetes mellitus (7) Elevated troponin (8) Heart disease (9) Hyperlipidemia Nec/Nos (10) Hypertension (11) Kidney stones (12) Morbid Obesity (13) Myocardial infarction (14) Nausea & vomiting (15) NSTEMI (non-ST elevated myocardial infarction) (16) Pulmonary embolism (17) Right upper quadrant abdominal pain Surgical Problems: (1) Appendectomy (2) Cardiac catheterization (3) Coronary artery bypass grafts x 5 (4) H/O heart artery stent (5) Hx of CABG Family History Diabetes mellitus Gallbladder disease Heart disease Hypertension Kidney disease Kidney stones Social History Smoking Status: Never Smoker Alcohol Use: occasionally Drug Use: none Marital Status: Housing Status: lives with family Occupation Status: employed Current/Historical Medications Scheduled Amitriptyline HCl (Amitriptyline HCl), 10 MG PO HS Aspirin (Aspirin Ec), 81 MG PO QAM Atorvastatin (Lipitor), 80 MG PO QAM Clopidogrel (Plavix), 75 MG PO QAM Insulin Glargine (Lantus), 100 UNITS SQ QAM Zolpidem Tartrate (Ambien), 10 MG PO HS Scheduled PRN Insulin Glargine (Lantus), 1 DOSE SC QPM PRN for Hyperglycemia Insulin Lispro (Human) (Humalog), 1 DOSE SC UD PRN for Coverage Elevated BSG Nitroglycerin (Nitrostat), 0.4 MG UT UD PRN for Chest Pain Physical Exam Vital Signs Date Time Temp Pulse Resp B/P (MAP) Pulse Ox O2 Delivery O2 Flow Rate FiO2 11/08/17 20:58 80 16 133/76 97 11/08/17 20:01 90 16 130/86 96 Room Air 11/08/17 18:42 92 11/08/17 18:28 Room Air 11/08/17 18:24 98 Room Air 11/08/17 18:10 97 Room Air 11/08/17 18:10 99 20 130/92 98 Room Air Physical Exam GENERAL: Patient is in no acute distress. HEENT: No acute trauma, normocephalic atraumatic, mucous membranes moist, no nasal congestion, no scleral icterus. NECK: No stridor, no adenopathy, no meningismus, trachea is midline. LUNGS: Clear to auscultation bilaterally, no wheeze, no rhonchi, breath sounds equal. HEART: Without murmurs gallops or rubs, regular rate and rhythm. ABDOMEN: Soft, nontender, bowel sounds positive, no hernias, no peritonitis. EXTREMITIES: No cyanosis or edema, full range of motion of all the joints without pain or difficulty, no signs for acute trauma. NEUROLOGIC: Oriented x 3, no acute motor or sensory deficits, no focal weakness. SKIN: No rash, no jaundice, no diaphoresis. Medical Decision & Procedures ER Provider Diagnostic Interpretation: [~ rep ct add3]] CHEST ONE VIEW PORTABLE HISTORY: Evaluate Fever/Sepsis COMPARISON: Chest 12/01/2016. FINDINGS: The heart remains mildly enlarged. There are poststernotomy changes. No pneumothorax. No pleural effusions. The lungs are clear. No evidence for pulmonary edema. Intrathecal catheter is seen throughout the thoracic and lumbar spine and is only partially imaged. This remains unchanged. IMPRESSION: No significant change compared to the prior study. No acute process. Electronically signed by: Anderson Mcelroy M.D. 11/08/2017 7:47 PM Dictated Date/Time: 11/08/2017 7:46 PM Laboratory Results 11/08/17 18:25 Red Blood Count 4.84, Mean Corpuscular Volume 85.5, Mean Corpuscular Hemoglobin 30.4, Mean Corpuscular Hemoglobin Concent 35.5, Mean Platelet Volume 11.2, Neutrophils (%) (Auto) 49.1, Lymphocytes (%) (Auto) 35.7, Monocytes (%) (Auto) 11.1, Eosinophils (%) (Auto) 3.3, Basophils (%) (Auto) 0.1, Neutrophils # (Auto ) 3.31, Lymphocytes # (Auto) 2.41, Monocytes # (Auto) 0.75, Eosinophils # (Auto ) 0.22, Basophils # (Auto) 0.01 11/08/17 18:25 Test 11/08/17 18:25 11/08/17 19:10 White Blood Count 6.75 K/uL (4.8-10.8) Red Blood Count 4.84 M/uL (4.7-6.1) Hemoglobin 14.7 g/dL (14.0-18.0) Hematocrit 41.4 % (42-52) Mean Corpuscular Volume 85.5 fL (80-100) Mean Corpuscular Hemoglobin 30.4 pg (25-34) Mean Corpuscular Hemoglobin Concent 35.5 g/dl (32-36) Platelet Count 215 K/uL (130-400) Mean Platelet Volume 11.2 fL (7.4-10.4) Neutrophils (%) (Auto) 49.1 % Lymphocytes (%) (Auto) 35.7 % Monocytes (%) (Auto) 11.1 % Eosinophils (%) (Auto) 3.3 % Basophils (%) (Auto) 0.1 % Neutrophils # (Auto) 3.31 K/uL (1.4-6.5) Lymphocytes # (Auto) 2.41 K/uL (1.2-3.4) Monocytes # (Auto) 0.75 K/uL (0.11-0.59) Eosinophils # (Auto) 0.22 K/uL (0-0.5) Basophils # (Auto) 0.01 K/uL (0-0.2) RDW Standard Deviation 39.5 fL (36.4-46.3) RDW Coefficient of Variation 12.6 % (11.5-14.5) Immature Granulocyte % (Auto) 0.7 % Immature Granulocyte # (Auto) 0.05 K/uL (0.00-0.02) Prothrombin Time 10.0 SECONDS (9.0-12.0) Prothromb Time International Ratio 1.0 (0.9-1.1) Activated Partial Thromboplast Time 22.7 SECONDS (21.0-31.0) Partial Thromboplastin Ratio 0.9 Anion Gap 7.0 mmol/L (3-11) Est Creatinine Clear Calc Drug Dose 133.5 ml/min Estimated GFR () 110.0 Estimated GFR (Non- 94.9 BUN/Creatinine Ratio 10.3 (10-20) Calcium Level 8.6 mg/dl (8.5-10.1) Total Bilirubin 0.5 mg/dl (0.2-1) Direct Bilirubin 0.1 mg/dl (0-0.2) Aspartate Amino Transf (AST/SGOT) 19 U/L (15-37) Alanine Aminotransferase (ALT/SGPT) 33 U/L (12-78) Alkaline Phosphatase 56 U/L (45-117) Total Creatine Kinase 159 U/L (39-308) Creatine Kinase MB 2.2 ng/ml (0.5-3.6) Creatine Kinase MB Ratio 1.4 (0-3.0) Troponin I < 0.015 ng/ml (0-0.045) Total Protein 7.2 gm/dl (6.4-8.2) Albumin 3.9 gm/dl (3.4-5.0) Lipase 351 U/L (73-393) Thyroid Stimulating Hormone (TSH) 1.740 uIu/ml (0.300-4.500) Bedside Glucose 103 mg/dl (70-99) ECG Per My Interpretation Indication: chest pain Rate (beats per minute): 95 Rhythm: normal sinus Findings: RBBB (vital) Medical Decision Prior records/ancillary studies reviewed. Triage Nursing notes reviewed. Additional history obtained from patient and his . The patient's history was concerning for chest pain. Differential diagnosis: Etiologies such as cardiac ischemia, aortic dissection, pulmonary embolism, pneumonia, pneumothorax, musculoskeletal, infections, pericarditis, myocarditis , esophageal rupture, gastrointestinal, as well as others were entertained. Physical examination: As above. ER treatment provided: CBC, CMP, troponin , chest x-ray was ordered On reassessment the patient felt better. Diagnostic interpretation by me: The electrocardiogram was negative for pathologic change. Imaging studies: Chest x-ray as above By the evaluation outlined above emergent etiologies such as cardiac ischemia, aortic dissection, pulmonary embolism, pneumonia, pneumothorax, infections, pericarditis, myocarditis, gastrointestinal, as well as others were deemed relatively unlikely. The patient was informed about the findings as listed above. All questions were answered and is pleased with the treatment. Return instructions were outlined and the patient was discharged in stable condition. Referral: The patient was referred back to his primary care physician and mailroom messenger for follow-up in 2 to 3 days for a recheck of the current condition. 47-year-old with the significant past medical history of heart disease including 5 bypasses and stents presented with chest pain and shortness of breath on exertion he was evaluated in the ER with CBC, CMP, troponins, EKG and a chest x-ray which were unremarkable. He was hyperglycemic while in the ER with a blood sugar of 66 and was given crackers with some orange juice and repeat check on his blood sugar was 105. He was discharged in stable condition and recommended to follow-up with his PCP and mailroom messenger in the next few days Impression Primary Impression: Substernal precordial chest pain Departure Information Referrals Clare Johnson D.O. (PCP) Patient Instructions My [facility] Resident Tracking Resident Involvement: Resident Care Provided Care Provided: Adult ED
[2017-11-08 19:09] LABS: ALKALINE PHOSPHATASE 56 U/L (45-117); CKMB 2.2 ng/ml (0.5-3.6); TOTAL PROTEIN 7.2 gm/dl (6.4-8.2)
[2017-11-08] MEDS ORDERED: AMT10 PO (19:23)
--- NOTE | 2017-11-08 19:49 | DIAGNOSTIC IMAGING REPORT ---
CHEST ONE VIEW PORTABLE HISTORY: Evaluate Fever/Sepsis COMPARISON: Chest 12/01/2016. FINDINGS: The heart remains mildly enlarged. There are poststernotomy changes. No pneumothorax. No pleural effusions. The lungs are clear. No evidence for pulmonary edema. Intrathecal catheter is seen throughout the thoracic and lumbar spine and is only partially imaged. This remains unchanged. IMPRESSION: No significant change compared to the prior study. No acute process. Electronically signed by: Anderson Mcelroy M.D. 11/08/2017 7:47 PM Dictated Date/Time: 11/08/2017 7:46 PM
--- NOTE | 2017-11-08 20:40 | EMERGENCY ROOM VISIT NOTE ---
History Report prepared by Merry: Judah Coffey Under the Supervision of: Dr. Roni Moscoso D.O. First contact with patient: 18:23 Chief Complaint: CHEST PAIN Stated Complaint: CHEST PAIN, SOB- PREVIOUS HISTORY OF HEART ATTACK Nursing Triage Summary: pt has significant cardiac hx pt had 5 bipasses at 39, [place] and stents 1 year ago pt has had intermittent chest pain last few days pain in right side of jaw pt has anxious affect on arrival History of Present Illness The patient is a 47 year old male who presents to the Emergency Room with complaints of constant, mild chest pain beginning 2 days ago. The patient states that he has a history of heart disease and has had multiple bypasses and stents placed. He notes that he had 5 bypasses 8 years ago, and 2 stents placed two years ago. He reports that following his bypasses, he had 2 heart attacks. The patient also complains of SOB on exertion, jaw pain, and mild anxiety. He states that his current symptoms feel similar to when he had his previous heart attacks. He denies any diaphoresis and nausea. He notes that he currently takes Plavix, aspirin, Lipitor, and lisinopril. He reports that he took 4 aspirin prior to arriving to the emergency department. The patient states that he also has a history of diabetes. Source of History: patient, other (resident) Onset: 2 days ago Position: chest Symptom Intensity: mild Timing: constant Associated Symptoms: + SOB (on exertion), No diaphoresis, No nausea Note: He also complains of jaw pain and mild anxiety. Review of Systems See HPI for pertinent positives & negatives. A total of 10 systems reviewed and were otherwise negative. Past Medical & Surgical Medical Problems: (1) Abdominal pain (2) Asthma (3) Brachial Plexus Disorders (4) Chest pain (5) Coronary artery disease (6) Diabetes mellitus (7) Elevated troponin (8) Heart disease (9) Hyperlipidemia Nec/Nos (10) Hypertension (11) Kidney stones (12) Morbid Obesity (13) Myocardial infarction (14) Nausea & vomiting (15) NSTEMI (non-ST elevated myocardial infarction) (16) Pulmonary embolism (17) Right upper quadrant abdominal pain Surgical Problems: (1) Appendectomy (2) Cardiac catheterization (3) Coronary artery bypass grafts x 5 (4) H/O heart artery stent (5) Hx of CABG Family History Diabetes mellitus Gallbladder disease Heart disease Hypertension Kidney disease Kidney stones Social History Smoking Status: Never Smoker Alcohol Use: occasionally Drug Use: none Marital Status: Housing Status: lives with family Occupation Status: employed Current/Historical Medications Scheduled Amitriptyline HCl (Amitriptyline HCl), 10 MG PO HS Aspirin (Aspirin Ec), 81 MG PO QAM Atorvastatin (Lipitor), 80 MG PO QAM Clopidogrel (Plavix), 75 MG PO QAM Insulin Glargine (Lantus), 100 UNITS SQ QAM Zolpidem Tartrate (Ambien), 10 MG PO HS Scheduled PRN Insulin Glargine (Lantus), 1 DOSE SC QPM PRN for Hyperglycemia Insulin Lispro (Human) (Humalog), 1 DOSE SC UD PRN for Coverage Elevated BSG Nitroglycerin (Nitrostat), 0.4 MG UT UD PRN for Chest Pain Allergies Coded Allergies: No Known Allergies (Verified , 11/08/17) Physical Exam Vital Signs Date Time Temp Pulse Resp B/P (MAP) Pulse Ox O2 Delivery O2 Flow Rate FiO2 11/08/17 20:01 90 16 130/86 96 Room Air 11/08/17 18:42 92 11/08/17 18:28 Room Air 11/08/17 18:24 98 Room Air 11/08/17 18:10 97 Room Air 11/08/17 18:10 99 20 130/92 98 Room Air Physical Exam CONSTITUTIONAL/VITAL SIGNS: Reviewed / noted above. GENERAL: Non-toxic in appearance. INTEGUMENTARY: Warm, dry, and [place]. HEAD: Normocephalic. EYES: without scleral icterus or trauma. ENT/OROPHARYNX: clear and moist. LYMPHADENOPATHY/NECK: Is supple without lymphadenopathy or meningismus. RESPIRATORY: Lungs clear and equal. CARDIOVASCULAR: Regular rate and rhythm. GI/ABDOMEN: Soft and nontender. No organomegaly or pulsatile mass. No rebound or guarding. Normal bowel sounds. EXTREMITIES: Warm and well perfused. BACK: No CVA tenderness. NEUROLOGICAL: Intact without focal deficits. PSYCHIATRIC: normal affect. MUSCULOSKELETAL: Normally developed with good muscle tone. Medical Decision & Procedures ER Provider Diagnostic Interpretation: Radiology results as stated below per my review and radiologist interpretation: CHEST ONE VIEW PORTABLE FINDINGS: The heart remains mildly enlarged. There are poststernotomy changes. No pneumothorax. No pleural effusions. The lungs are clear. No evidence for pulmonary edema. Intrathecal catheter is seen throughout the thoracic and lumbar spine and is only partially imaged. This remains unchanged. IMPRESSION: No significant change compared to the prior study. No acute process. Electronically signed by: Anderson Mcelroy M.D. 11/08/2017 7:47 PM Laboratory Results 11/08/17 18:25 Red Blood Count 4.84, Mean Corpuscular Volume 85.5, Mean Corpuscular Hemoglobin 30.4, Mean Corpuscular Hemoglobin Concent 35.5, Mean Platelet Volume 11.2, Neutrophils (%) (Auto) 49.1, Lymphocytes (%) (Auto) 35.7, Monocytes (%) (Auto) 11.1, Eosinophils (%) (Auto) 3.3, Basophils (%) (Auto) 0.1, Neutrophils # (Auto ) 3.31, Lymphocytes # (Auto) 2.41, Monocytes # (Auto) 0.75, Eosinophils # (Auto ) 0.22, Basophils # (Auto) 0.01 11/08/17 18:25 Test 11/08/17 18:25 White Blood Count 6.75 K/uL (4.8-10.8) Red Blood Count 4.84 M/uL (4.7-6.1) Hemoglobin 14.7 g/dL (14.0-18.0) Hematocrit 41.4 % (42-52) Mean Corpuscular Volume 85.5 fL (80-100) Mean Corpuscular Hemoglobin 30.4 pg (25-34) Mean Corpuscular Hemoglobin Concent 35.5 g/dl (32-36) Platelet Count 215 K/uL (130-400) Mean Platelet Volume 11.2 fL (7.4-10.4) Neutrophils (%) (Auto) 49.1 % Lymphocytes (%) (Auto) 35.7 % Monocytes (%) (Auto) 11.1 % Eosinophils (%) (Auto) 3.3 % Basophils (%) (Auto) 0.1 % Neutrophils # (Auto) 3.31 K/uL (1.4-6.5) Lymphocytes # (Auto) 2.41 K/uL (1.2-3.4) Monocytes # (Auto) 0.75 K/uL (0.11-0.59) Eosinophils # (Auto) 0.22 K/uL (0-0.5) Basophils # (Auto) 0.01 K/uL (0-0.2) RDW Standard Deviation 39.5 fL (36.4-46.3) RDW Coefficient of Variation 12.6 % (11.5-14.5) Immature Granulocyte % (Auto) 0.7 % Immature Granulocyte # (Auto) 0.05 K/uL (0.00-0.02) Prothrombin Time 10.0 SECONDS (9.0-12.0) Prothromb Time International Ratio 1.0 (0.9-1.1) Activated Partial Thromboplast Time 22.7 SECONDS (21.0-31.0) Partial Thromboplastin Ratio 0.9 Anion Gap 7.0 mmol/L (3-11) Est Creatinine Clear Calc Drug Dose 133.5 ml/min Estimated GFR () 110.0 Estimated GFR (Non- 94.9 BUN/Creatinine Ratio 10.3 (10-20) Calcium Level 8.6 mg/dl (8.5-10.1) Total Bilirubin 0.5 mg/dl (0.2-1) Direct Bilirubin 0.1 mg/dl (0-0.2) Aspartate Amino Transf (AST/SGOT) 19 U/L (15-37) Alanine Aminotransferase (ALT/SGPT) 33 U/L (12-78) Alkaline Phosphatase 56 U/L (45-117) Total Creatine Kinase 159 U/L (39-308) Creatine Kinase MB 2.2 ng/ml (0.5-3.6) Creatine Kinase MB Ratio 1.4 (0-3.0) Troponin I < 0.015 ng/ml (0-0.045) Total Protein 7.2 gm/dl (6.4-8.2) Albumin 3.9 gm/dl (3.4-5.0) Lipase 351 U/L (73-393) Thyroid Stimulating Hormone (TSH) 1.740 uIu/ml (0.300-4.500) Laboratory results as stated above per my review. ECG Per My Interpretation Indication: chest pain Rate (beats per minute): 95 Rhythm: normal sinus Findings: other (Incomplete RBBB, no ST elevations) ED Course 1906: Previous medical records were reviewed. The patient was evaluated in room C5. A complete history and physical examination was performed. Medical Decision the differential was considered includes acute myocardial infarction, acute coronary syndrome, myocarditis, pericarditis, pericardial effusions /tamponade, esophageal perforation, thoracic aortic dissection, pulmonary embolism, pneumonia, pneumothorax, pancreatitis, shingles, acute cholecystitis, perforated abdominal viscus. This is a 47-year-old male who presents to the ED with a chief complaint of chest discomfort. The patient has a history of bypass surgery when he was 39 and has had stents since then. The patient has intermittent chest pains and some intermittent right jaw pain. Further details are listed above. The patient is a diabetic. His physical exam was normal. His EKG shows a normal sinus rhythm without acute ischemic changes. A CBC and complete metabolic panel were normal, troponin was negative, TSH was normal and a chest x-ray did not show acute disease. The patient was told the results of the test. He felt comfortable going home. He was to follow-up with his PCP and return for any worsening or changes. Impression Primary Impression: Substernal precordial chest pain Scribe Attestation The scribe's documentation has been prepared under my direction and personally reviewed by me in its entirety. I confirm that the note above accurately reflects all work, treatment, procedures, and medical decision making performed by me. Departure Information Referrals Clare Johnson D.O. (PCP) Patient Instructions My [facility]
[2017-11-08 20:58] VITALS: BP 133/76; PULSE 80; O2SAT 97
== END 2017-11-08 20:58 | disposition home or self-care (01) ==
LOC: C.EDB 18:03 → C.EDC 20:58
DX: R07.2 Precordial pain (principal); I25.2 Old myocardial infarction; Z95.1 Presence of aortocoronary bypass graft; J45.909 Unspecified asthma, uncomplicated; I25.10 Atherosclerotic heart disease of native coronary artery without angina pectoris; E11.9 Type 2 diabetes mellitus without complications; E78.5 Hyperlipidemia, unspecified; I10 Essential (primary) hypertension; Z87.442 Personal history of urinary calculi; E66.01 Morbid (severe) obesity due to excess calories; Z86.711 Personal history of pulmonary embolism; Z83.3 Family history of diabetes mellitus; Z83.79 Family history of other diseases of the digestive system; Z82.49 Family history of ischemic heart disease and other diseases of the circulatory system; Z84.1 Family history of disorders of kidney and ureter; Z79.82 Long term (current) use of aspirin; Z79.02 Long term (current) use of antithrombotics/antiplatelets; Z79.4 Long term (current) use of insulin; Z79.899 Other long term (current) drug therapy

== ENCOUNTER 2020-08-02 17:02 | Observation (INO) ==
[2020-08-02 18:25] LABS: Basophils # (auto) 0.02 K/uL (0-0.2); Basophils % (auto) 0.3 %; Eosinophils # (auto) 0.22 K/uL (0-0.5); Hematocrit (blood only) 39.5 % (42-52); Hemoglobin 13.5 g/dL (14.0-18.0); Immature Granulocytes # (auto) 0.09 K/uL (0.00-0.02); Immature Granulocytes % (auto) 1.2 %; Lymphocytes % (auto) 16.5 %; Mean Corpuscular Hemoglobin 30.5 pg (25-34); Mean Corpuscular Hgb Conc 34.2 g/dL (32-36); Mean Corpuscular Volume 89.4 fL (80-100); Mean Platelet Volume 10.7 fL (7.4-10.4); Monocytes # (auto) 1.31 K/uL (0.11-0.59); Neutrophils # (auto) 4.42 K/uL (1.4-6.5); Platelet Count 303 K/uL (130-400); RDW Coefficient of Variation 12.6 % (11.5-14.5); RDW Standard Deviation 40.7 fL (36.4-46.3); Red Blood Count 4.42 M/uL (4.7-6.1); White Blood Count 7.26 K/uL (4.8-10.8)
[2020-08-02 18:36] LABS: Partial Thromboplastin Ratio 0.9; Partial Thromboplastin Time 24.8 Seconds (21.0-31.0); Prothrombin Time 10.8 Seconds (9.0-12.0)
--- NOTE | 2020-08-02 18:42 | XRay Report ---
SINGLE VIEW CHEST CLINICAL HISTORY: Sepsis. Recent cardiac catheterization. FINDINGS: An AP, portable, upright chest radiograph is compared to study dated 07/25/2020. The examina tion is degraded by portable technique and apical lordotic positioning. The the patient is status pos t midline sternotomy. The heart is enlarged noting atherosclerotic calcification of the thoracic aort a. A coronary artery stent is noted. The pulmonary vasculature is noncongested. There is chronic elev ation of the right hemidiaphragm with associated atelectasis. The lungs and pleural spaces are otherw ise clear. No pneumothorax is seen. The bony thorax is grossly intact. A stimulator lead projects ove r the cervicothoracic spine. IMPRESSION: Cardiomegaly with no acute cardiopulmonary abnormality. ACT 112: Negative or not required by law. Electronically signed by: Fernando Galindo M.D. 08/02/2020 6:41 PM
[2020-08-02 18:50] LABS: Albumin Level 3.7 gm/dl (3.4-5.0); BUN Creatinine Ratio 10.7 (10-20); Calcium 10.2 mg/dl (8.5-10.1); Creatinine Clr Calc Pharmacy 67.5 ml/min; Est GFR (African American) 45.2; Magnesium 2.3 mg/dl (1.8-2.4); Potassium 4.3 mmol/L (3.5-5.1)
[2020-08-02 18:53] LABS: Albumin Globulin Ratio 0.8 (0.9-2); Bilirubin,Total 0.5 mg/dl (0.2-1); Globulin 4.5 gm/dl (2.5-4.0); Total Protein 8.2 gm/dl (6.4-8.2)
[2020-08-02 19:04] LABS: Procalcitonin 0.35 ng/ml (0-0.5)
[2020-08-02 19:14] LABS: Lyme Ab IgM w/WB Rflx Negative (Negative)
[2020-08-02 19:16] LABS: Lyme Ab IgG w/WB Rflx Positive (Negative)
[2020-08-02 19:28] LABS: Adenovirus PCR Not Detected (NotDetected); Bordetella parapertussis PCR Not Detected (NotDetected); Bordetella pertussis PCR Not Detected (NotDetected); Chlamydia pneumoniae PCR Not Detected (NotDetected); Coronavirus 229E PCR Not Detected (NotDetected); Coronavirus CoV-2 (COVID19)PCR Not Detected (NotDetected); Coronavirus HKU1 PCR Not Detected (NotDetected); Coronavirus NL63 PCR Not Detected (NotDetected); Coronavirus OC43PCR Not Detected (NotDetected); Human Metapneumovirus PCR Not Detected (NotDetected); Influenza A PCR Not Detected (NotDetected); Influenza B PCR Not Detected (NotDetected); Mycoplasma pneumoniae PCR Not Detected (NotDetected); Parainfluenza Virus 1 PCR Not Detected (NotDetected); Parainfluenza Virus 2 PCR Not Detected (NotDetected); Parainfluenza Virus 3 PCR Not Detected (NotDetected); Parainfluenza Virus 4 PCR Not Detected (NotDetected); Respiratory Syncytial VirusPCR Not Detected (NotDetected); Rhinovirus/Enterovirus PCR Not Detected (NotDetected)
[2020-08-02] MEDS ORDERED: SODIUM CHLORIDE 0.9% 1000ML 1,000 ML IV ONE (19:41)
[2020-08-02] MEDS ORDERED: cefTRIAXone SODIUM 2,000 MG/70 ML BAG IV STA (19:41)
--- NOTE | 2020-08-02 20:01 | CT Scan Report ---
CT SCAN OF THE BRAIN WITHOUT IV CONTRAST CLINICAL HISTORY: Fall. Change in mental status. COMPARISON STUDY: CT of the brain dated 07/28/2020. TECHNIQUE: Unenhanced axial CT scan of the brain is performed from the vertex to the skull base. A d ose lowering technique was utilized adhering to the principles of ALARA. CT DOSE: 853.38 mGy.cm FINDINGS: Brain parenchyma: There is minimal microangiopathic disease. The chronic lacunar infarct within the l eft internal capsule/mendoza radiata is unchanged. There is no hemorrhage, mass effect, or evidence of acute territorial ischemia by CT criteria. Forman-white matter differentiation is preserved. No extra- axial fluid collection is seen. Ventricles, sulci, cisterns: Normal in configuration. Intracranial vasculature: There is atherosclerotic calcification of the cavernous carotid arteries. Calvarium: Unremarkable. Sinuses and mastoids: The visualized paranasal sinuses are clear. The mastoid air cells are well pneu matized. Orbits: The bony orbits are grossly intact. IMPRESSION: There is no hemorrhage, mass effect, or evidence of acute territorial ischemia by CT agustin palacios. ACT 112: Negative or not required by law. Electronically signed by: Fernando Galindo M.D. 08/02/2020 8:00 PM
--- NOTE | 2020-08-02 22:26 | History & Physical Report ---
Date of Service August 02, 2020 Assessment & Plan (1) Head injury: (2) Acute shoulder pain: (3) Nocturnal hypoxemia: (4) Severe obstructive sleep apnea: (5) Attention deficit disorder without hyperactivity: (6) Type 2 diabetes mellitus: (7) History of non-ST elevation myocardial infarction (NSTEMI): (8) Obesity: (9) Coronary artery disease: (10) Fall: (11) Fever: Americo is a 50-year-old male with a history of sleep apnea, ADHD, type 2 diabetes, hypertension, CAD with CABG/PCI/multiple catheterizations, hyperlipidemia, and several episodes of Lyme disease who presents with fever, muscle aches, concern for desaturations. Fever Several tick exposures Mild transaminitis, febrile to [id number] Respiratory panel including Covid negative Lyme serology positive IgG with recent negative prior Suspect Lyme versus anaplasmosis Patient with headache/photosensitivity, suspect due to concussion Rocephin daily Doxy 100 mg twice daily IV Anaplasmosis testing pending Tylenol 650 mg every 4 hours as needed - EKG nsr without heart block Concussion Patient with a fall sustaining a concussion with subsequent sequelae including difficulty with balance, headache, photosensitivity CThead negative No saccade/nystagmus on neuro exam Follow clinically Zofran as needed DINA - Suspect prerenal with decreased appetite/vomting -Balance fluid hydration with severe CAD and reduced EF. - IVFM, recieved 1 L ED - Cr 1.95 from baseline <1 - BMP daily - Hold ANDIE and torsemide - Lactate elevated, trend CAD with hx CABG, PCI - Pt with recurrent severe CAD - Last cath in the past month, shows graft occlusion not amenable to stending per pt - Follow clinically, no chest pain at time of admit - Continue DAPT, BB. ANDIE held for DINA - Continue rosuvastatin DM - Glucose checks ac/hs - Lantus + SSi weight based BMP daily DVT PPx: SCDs, Heparin SQ. Diet: DM Dispo: Medtele Code: Full History of Present Illness Chief Complaint: Fever, hypoxia Primary Care Provider: Clare Johnson DO Americo is a 50-year-old male with a history of sleep apnea, ADHD, type 2 diabetes, hypertension, CAD with CABG/PCI/multiple catheterizations, hyperlipidemia, and several episodes of Lyme disease who presents with fever, muscle aches, concern for desaturations. He reports that 4 days ago he had a 101 fever and muscle aches and body aches. He had had a femoral heart cath for worsening exercise tolerance and shortness of breath previously, access site was not red/warm/tender/swollen. 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 He has not had an erythema migrans rash. He reports he has had some headache and photosensitivity which she attributes to a concussion, see further below. He was last treated with Doxy in April 2019. Not had a cough, but has felt short of breath with desaturation to the 70s to 80s. He has been working with his PCP and deputy program manager to try to get set up with oxygen with his BiPAP due to evening desats and a sleep apnea index of 38, however this is been difficult during and he is potentially pending a work-up and sleep study this Sunday. He reports a history of recurrent severe cardiac disease. He had a heart cath July 23 for worsening in exercise tolerance and diaphoresis with shortness of breath. His heart cath showed a 100% bypass occlusion and 50% additional occlusion which was not amenable to stenting. He is continuing to be followed by cardiology. He reports he had an echo in April that showed an EF in the 40s. He has not had swelling in his legs and his feet, however he notes that his breathing has been improved since his deputy program manager put him on torsemide 10 mg every morning. Reports he also fell and struck the back of his head on a concrete wall 6 days ago when he tripped over a baby gate used for his pets. He did not have a loss of consciousness, but is felt dizzy with poor balance since. He has had nausea and vomiting 3 times over the last week. He is not nauseous at time of assessment. No diarrhea or constipation. With his concussion and with his fever his appetite has been decreased. He has not had any urinary changes or dysuria. Hay retention. Family history: Strong family history of coronary artery disease (father with a heart attack at 62, mother 56), mother and her other children all had diabetes. Medications: Reviewed with patient. Surgical history: Reviewed in EMR Allergies: No known drug allergies Social: Denies tobacco use, alcohol 2 to 3 glasses per night. Last 1 several days without alcohol last week. No history of tremors or withdrawal symptoms. Denies recreational drug use. Lives with his , 3 children occasionally in the house none of which have been sick. He has had negative Covid test. CODE STATUS: Full code Allergies Allergy/AdvReac Type Severity Reaction Status Date / Time No Known Allergies Allergy Verified 08/02/20 22:24 Home Medications Home Medications Medication Instructions Recorded Confirmed Type clopidogrel 75 mg PO QAM 01/28/19 08/02/20 History rosuvastatin 40 mg PO HS 01/28/19 08/02/20 History zolpidem 10 mg PO HS PRN 01/28/19 08/02/20 History Basaglar KwikPen U-100 Insulin 100 unit SUBCUT BID 02/04/19 08/02/20 History insulin aspart U-100 [Novolog See Rx Instructions .ROUTE .COMPLEX 02/04/19 08/02/20 History U-100 Insulin aspart] nitroglycerin 0.4 mg SUBLINGUAL DIRECTED PRN 02/24/19 08/02/20 History sildenafil 100 mg tablet 100 mg PO DAILY PRN 11/03/19 08/02/20 History amitriptyline 25 mg PO HS 05/10/20 08/02/20 History diazepam 5 mg PO QID PRN 05/10/20 08/02/20 History hydroxyzine HCl 25 mg PO HS PRN 05/10/20 08/02/20 History multivitamin 1 tab PO QAM 05/10/20 08/02/20 History pantoprazole 40 mg PO QAM 05/10/20 08/02/20 History duloxetine 30 mg capsule,delayed 60 mg PO QAM 30 Days #60 cap 05/21/20 08/02/20 Rx release torsemide 10 mg tablet 10 mg PO QAM 07/19/20 08/02/20 History aspirin [Aspirin Low Dose] 81 mg PO AMHS 08/02/20 08/02/20 History lisinopril 2.5 mg PO HS 08/02/20 08/02/20 History metformin 500 mg PO HS 08/02/20 08/02/20 History metoprolol succinate 100 mg PO QAM 08/02/20 08/02/20 History nitroglycerin 1 patch TOPICAL DIRECTED 08/02/20 08/02/20 History oxycodone 5 mg PO Q6H PRN 08/02/20 08/02/20 History doxycycline hyclate 100 mg PO BID 14 Days #28 cap 08/03/20 Rx Past Med/Surg History Medical History (Updated 08/04/20 @ 00:02 by William Dhillon) Acute shoulder pain Brachial plexopathy Right Coronary artery disease Fall History of non-ST elevation myocardial infarction (NSTEMI) History of Salmonella gastroenteritis Hx of renal calculi Hyperlipidemia Hypertension Neuropathic pain Obesity Seizure AGE 10 S/P ACCIDENT-WAS ON MEDS COUPLE YRS-OFF MEDS AND NO SEIZURES 30+ YRS Substernal precordial chest pain Surgical History History of appendectomy History of arthroscopic knee surgery 1985, LEFT History of cardiac cath MULTIPLE-LAST ONE 12/2018?-NO STENTS NEEDED LAST STENT PLACED 10/2017 [facility] [place] History of carpal tunnel release of both wrists History of coronary artery bypass graft 5 [facility] History of tonsillectomy and adenoidectomy History of vasectomy Hx of heart artery stent X5-LAST ONE 10/2017 [facility] [place] Status post insertion of spinal cord stimulator [employer] Family History Grandfather (Maternal) Family history of diabetes mellitus Mother Family history of diabetes mellitus Stroke Uncle Obstructive sleep apnea Grandmother (Maternal) Stroke Father Coronary heart disease Social History Smoking Status: Never smoker Second Hand Exposure: Yes (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 NAD. Cooperative. no erythema migrans appreciated. HEENT: Atraumatic, normocephalic.Visual acuity intact, hearing intact. Pulm: CTAB A&P. -wheezes, -rales, -rhonchi. Symmetrical chest rise. No increase work of breathing. No respiratory distress. Cardiac: RRR, -mrg. Radial pulses intact and symmetrical. Abdominal: Nontender, nondistended, soft. BS present. CRANIAL NERVES: II: Pupils equal and reactive, no relative afferent pupillary defect III, IV, : EOM intact, no gaze preference or deviation, no nystagmus, no saccades V: normal sensation in V1, V2, and V3 segments bilaterally VII: no asymmetry, no nasolabial fold flattening VIII: normal hearing to speech IX, X: normal palatal elevation, no uvular deviation XI: 5/5 head turn XII: midline tongue protrusion MOTOR: RUE: 5/5 Shoulder internal rotation, external rotation, flexion, extension, abduction, adduction 5/5 Elbow flexion/extension, wrist flexion/extension 5/5 oil rag washer strength, finger flexion/extension, interosseus LUE: 5/5 Shoulder internal rotation, external rotation, flexion, extension, abduction, adduction 5/5 Elbow flexion/extension, wrist flexion/extension 5/5 oil rag washer strength, finger flexion/extension, interosseus RLE: 5/5 to hip flexion/extension, ankle dorsiflexion/plantarflexion LLE: 5/5 to hip flexion/extension, ankle dorsiflexion/plantarflexion SENSORY: Normal to touch in upper and lower extremities without deficit or asymmetry No hemineglect, no extinction to double sided stimulation (visual & tactile) Romberg absent COORD: Normal finger to nose and heel to long, no tremor, no dysmetria Results & Data Results & Data ([facility]) Vital Signs (Past 12 Hours) Vital Signs Temp Pulse Pulse Resp BP BP Pulse Ox 08/02/20 20:30 96 08/02/20 20:02 94 08/02/20 20:00 98/58 L 94 08/02/20 19:59 97/46 L 94 08/02/20 19:30 88 128/72 95 08/02/20 19:00 84 120/57 L 98 08/02/20 18:30 122/64 99 08/02/20 18:14 86 14 113/60 99 08/02/20 18:00 90 20 99 08/02/20 17:50 86 18 100 08/02/20 17:43 86 20 99 08/02/20 17:40 86 20 107/57 L 94 08/02/20 17:39 86 20 107/57 L 100 08/02/20 17:13 37.1 C 87 20 92/59 L 99 Supervising Physician Co-Signing Physician Notes Attending addendum: I have physically seen this patient, have supervised the medical residents activities, and agree with the H&P unless as otherwise noted. Assessment and Plan: Febrile illness- Recurrent tick exposures, with history of Lyme and anaplasmosis infections that were treated. Laboratories show conversion of Lyme IgG from being negative on 05/10 to positive today 08/02. Ceftriaxone 1 g IV daily. Doxycycline 100 mg IV twice daily Follow anaplasmosis testing Postconcussive syndrome- Symptoms may overlap with Lyme infection. Continue to follow clinically. Remaining orders and notations as noted Resident Activity Tracking Resident Involvement: Resident Care Provided Care Provided: Adult Hospital Medicine (1) Acute shoulder pain Laterality: left Qualified Code(s): M25.512 - Pain in left shoulder (2) Head injury Encounter type: initial encounter Qualified Code(s): S09.90XA - Unspecified injury of head, initial encounter (3) Fall Encounter type: initial encounter Qualified Code(s): W19.XXXA - Unspecified fall, initial encounter
[2020-08-02 23:43] LABS: Appearance Urine Clear (Clear); Bilirubin Urine Negative (Negative); Blood Urine 1+ (Negative); Color Urine Yellow; Epithelial Cell Urine Auto >30 /lpf (0-5); Glucose Urine UA Negative (Negative); Ketones Urine Negative (Negative); Leukocyte Esterase Urine Negative (Negative); Nitrite Urine Negative (Negative); Protein Urine 1+ (Negative); RBC Urine Automated 0-4 /hpf (0-4); Specific Gravity Urine 1.013 (1.000-1.030); Urobilinogen Urine Negative (Negative)
--- NOTE | 2020-08-02 23:47 | Emergency Department Note ---
History of Present Illness General Chief complaint: Fever Stated complaint: CONCUSSION, OXYGEN LEVEL LOW, FEVER, COVID- Time Seen by Provider: 08/02/20 17:40 Source: patient and RN notes reviewed Mode of arrival: ambulatory Limitations: no limitations History of Present Illness Provider complaint: Fevers, concussion Maximum Pain Intensity: 8 This patient is a 50-year-old male who presents emergency department with complaints of intermittent fevers, confusion, muscle aches and fatigue. His states he had a cardiac catheterization done at the end of June. The patient has had temperatures up to 102 to 103 degrees. His states he has been in the emergency department twice over the last week. He did develop his fevers the night after his cardiac catheterization and was seen in the ED the next night. He had a chest x-ray that was clear at that time. He had been placed on Bactrim for an apparent urinary tract infection however the urine culture was negative. Patient states several days later he had a fall down the stairs and hurt his shoulder and neck. He came to the emergency department at that time and had a negative CT scan of the head and neck. 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 He was treated for Lyme and anaplasmosis in 2019. He denies any significant cough or headache at this time. He states he is much more fatigued than usual and unable to keep up with his normal levels of exerti on. He denies any chest pain, shortness of breath, abdominal pain or diarrhea. Home Medications Home Medications Medication Instructions Recorded Confirmed Type clopidogrel 75 mg PO QAM 01/28/19 08/02/20 History rosuvastatin 40 mg PO HS 01/28/19 08/02/20 History zolpidem 10 mg PO HS PRN 01/28/19 08/02/20 History Basaglar KwikPen U-100 Insulin 100 unit SUBCUT BID 02/04/19 08/02/20 History insulin aspart U-100 [Novolog See Rx Instructions .ROUTE .COMPLEX 02/04/19 08/02/20 History U-100 Insulin aspart] nitroglycerin 0.4 mg SUBLINGUAL DIRECTED PRN 02/24/19 08/02/20 History sildenafil 100 mg tablet 100 mg PO DAILY PRN 11/03/19 08/02/20 History amitriptyline 25 mg PO HS 05/10/20 08/02/20 History diazepam 5 mg PO QID PRN 05/10/20 08/02/20 History hydroxyzine HCl 25 mg PO HS PRN 05/10/20 08/02/20 History multivitamin 1 tab PO QAM 05/10/20 08/02/20 History pantoprazole 40 mg PO QAM 05/10/20 08/02/20 History duloxetine 30 mg capsule,delayed 60 mg PO QAM 30 Days #60 cap 05/21/20 08/02/20 Rx release torsemide 10 mg tablet 10 mg PO QAM 07/19/20 08/02/20 History aspirin [Aspirin Low Dose] 81 mg PO AMHS 08/02/20 08/02/20 History lisinopril 2.5 mg PO HS 08/02/20 08/02/20 History metformin 500 mg PO HS 08/02/20 08/02/20 History metoprolol succinate 100 mg PO QAM 08/02/20 08/02/20 History nitroglycerin 1 patch TOPICAL DIRECTED 08/02/20 08/02/20 History oxycodone 5 mg PO Q6H PRN 08/02/20 08/02/20 History doxycycline hyclate 100 mg PO BID 14 Days #28 cap 08/03/20 Rx Allergies Allergy/AdvReac Type Severity Reaction Status Date / Time No Known Allergies Allergy Verified 08/02/20 22:24 Past Med/Surg History Medical History (Updated 08/06/20 @ 11:35 by Aidee Sol MD) Acute shoulder pain Brachial plexopathy Right Coronary artery disease Fall History of non-ST elevation myocardial infarction (NSTEMI) History of Salmonella gastroenteritis Hx of renal calculi Hyperlipidemia Hypertension Neuropathic pain Obesity Seizure AGE 10 S/P ACCIDENT-WAS ON MEDS COUPLE YRS-OFF MEDS AND NO SEIZURES 30+ YRS Substernal precordial chest pain Surgical History History of appendectomy History of arthroscopic knee surgery 1986, LEFT History of cardiac cath MULTIPLE-LAST ONE 12/2018?-NO STENTS NEEDED LAST STENT PLACED 10/2017 [facility] [place] History of carpal tunnel release of both wrists History of coronary artery bypass graft 5 [facility] History of tonsillectomy and adenoidectomy History of vasectomy Hx of heart artery stent X5-LAST ONE 10/2017 [facility] Status post insertion of spinal cord stimulator [employer] Family History Grandfather (Maternal) Family history of diabetes mellitus Mother Family history of diabetes mellitus Stroke Uncle Obstructive sleep apnea Grandmother (Maternal) Stroke Father Coronary heart disease Social History Smoking Status: Never smoker Second Hand Exposure: Yes (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 and A total of 10 systems reviewed and were otherwise negative Physical Exam Vital Signs Vital Signs - 24 hr 08/02/20 17:13 08/02/20 17:39 08/02/20 17:40 Temperature 37.1 C Temperature Source Oral Pulse Rate 87 86 Pulse Rate [Apical] 86 Pulse Rate from SpO2 Sensor 86 Respiratory Rate 20 20 20 Respiratory Effort / Characteristics Non-Labored Non-Labored Spontaneous Respiratory Depth Normal Normal Respiratory Pattern Regular Regular Blood Pressure 92/59 L 107/57 L Blood Pressure [Right Arm] 107/57 L Blood Pressure Mean 70 64 Blood Pressure Mean [Right Arm] 73 Blood Pressure Position Sitting Pulse Oximetry 99 100 94 Oxygen Delivery Method Room Air Room Air Sepsis Recent Fever Within 48 Hours Yes Sepsis New/Unexplained Change in Mental Status No Sepsis Action Taken by Nursing No Action Required 08/02/20 17:43 08/02/20 17:50 08/02/20 18:00 Temperature Temperature Source Pulse Rate 86 86 90 Pulse Rate [Apical] Pulse Rate from SpO2 Sensor 86 91 H Respiratory Rate 20 18 20 Respiratory Effort / Characteristics Respiratory Depth Respiratory Pattern Blood Pressure Blood Pressure [Right Arm] Blood Pressure Mean Blood Pressure Mean [Right Arm] Blood Pressure Position Pulse Oximetry 99 100 99 Oxygen Delivery Method Room Air Sepsis Recent Fever Within 48 Hours Sepsis New/Unexplained Change in Mental Status Sepsis Action Taken by Nursing 08/02/20 18:14 08/02/20 18:30 08/02/20 19:00 Temperature Temperature Source Pulse Rate 86 84 Pulse Rate [Apical] Pulse Rate from SpO2 Sensor 86 89 84 Respiratory Rate 14 Respiratory Effort / Characteristics Respiratory Depth Respiratory Pattern Blood Pressure 113/60 122/64 120/57 L Blood Pressure [Right Arm] Blood Pressure Mean 82 80 64 Blood Pressure Mean [Right Arm] Blood Pressure Position Pulse Oximetry 99 99 98 Oxygen Delivery Method Sepsis Recent Fever Within 48 Hours Sepsis New/Unexplained Change in Mental Status Sepsis Action Taken by Nursing 08/02/20 19:30 08/02/20 19:59 08/02/20 20:00 Temperature Temperature Source Pulse Rate 88 Pulse Rate [Apical] Pulse Rate from SpO2 Sensor 89 89 89 Respiratory Rate Respiratory Effort / Characteristics Respiratory Depth Respiratory Pattern Blood Pressure 128/72 97/46 L 98/58 L Blood Pressure [Right Arm] Blood Pressure Mean 94 68 68 Blood Pressure Mean [Right Arm] Blood Pressure Position Pulse Oximetry 95 94 94 Oxygen Delivery Method Sepsis Recent Fever Within 48 Hours Sepsis New/Unexplained Change in Mental Status Sepsis Action Taken by Nursing 08/02/20 20:02 08/02/20 20:30 Temperature Temperature Source Pulse Rate Pulse Rate [Apical] Pulse Rate from SpO2 Sensor 89 86 Respiratory Rate Respiratory Effort / Characteristics Respiratory Depth Respiratory Pattern Blood Pressure Blood Pressure [Right Arm] Blood Pressure Mean Blood Pressure Mean [Right Arm] Blood Pressure Position Pulse Oximetry 94 96 Oxygen Delivery Method Sepsis Recent Fever Within 48 Hours Sepsis New/Unexplained Change in Mental Status Sepsis Action Taken by Nursing Vital signs reviewed. General: Obese, somewhat ill-appearing 50-year-old male, in some discomfort. HEENT: No scleral icterus, PERRLA, neck supple. Cardiovascular: Regular rate and rhythm, no extra sounds. Distant heart tones. Pulmonary: Clear to auscultation bilaterally, normal work of breathing. Abdomen: Soft, obese, nontender, nondistended, positive bowel sounds. Musculoskeletal: Atraumatic, no peripheral edema. No significant discomfort to palpation of cervical paraspinous muscles, trapezius, nontender cervical spine. Neurologic: Patient awake alert and oriented x 3, full strength in all 4 extremities. Cranial nerves 2 through 12 grossly intact. No meningeal signs. Skin: Warm, dry, no rash Course Administered Medications Discontinued Medications Clopidogrel [facility]ulfate ([facility]op[facility] 75 Mg Tab) [facility] [place]: 09/02/20 08:59 Last Admin: 08/03/20 08:36 Dose: 75 mg Documented by: [id number] Duloxetine HCl (Duloxetine Hcl 60 Mg Cap) 60 mg PO QAM PERRY Stop: 09/02/20 08:59 Last Admin: 08/03/20 08:36 Dose: 60 mg Documented by: [id number] Heparin Sodium (Porcine) (Heparin Sod 5,000 Unit/0.5 Ml Vial) 5,000 units SQ Q8 PERRY Stop: 09/02/20 05:59 Last Admin: 08/03/20 12:28 Dose: 5,000 units Documented by: [id number] Admin: 08/03/20 05:52 Dose: 5,000 units Documented by: [id number] Hydroxyzine HCl (Hydroxyzine Hcl 25 Mg Tab) 25 mg PO HS PRN PRN Reason: Anxiety Stop: 09/01/20 23:49 Last Admin: 08/03/20 00:32 Dose: 25 mg Documented by: [id number] Sodium Chloride (Nss 1000ml) 1,000 mls @ 999 mls/hr IV .Q1H1M ONE Stop: 08/02/20 20:41 Last Infusion: 08/02/20 22:10 Dose: 0 mls/hr Documented by: [id number] Admin: 08/02/20 20:38 Dose: 999 mls/hr Documented by: [id number] Ceftriaxone Sodium (Rocephin) 2,000 mg in 70 mls @ 140 mls/hr IV NOW STA Stop: 08/02/20 20:10 Last Infusion: 08/02/20 21:10 Dose: 0 mls/hr Documented by: [id number] Admin: 08/02/20 20:38 Dose: 140 mls/hr Documented by: [id number] Sodium Chloride (Nss 1000ml) 1,000 mls @ 100 mls/hr IV .Q10H PERRY Stop: 08/04/20 15:49 Last Infusion: 08/03/20 16:00 Dose: 0 mls/hr Documented by: [id number] Infusion: 08/03/20 15:25 Dose: 999 mls/hr Documented by: [id number] Admin: 08/03/20 10:54 Dose: 100 mls/hr Documented by: [id number] Infusion: 08/03/20 10:32 Dose: 100 mls/hr Documented by: [id number] Admin: 08/03/20 00:32 Dose: 100 mls/hr Documented by: [id number] Doxycycline Hyclate 100 mg/ (Dextrose) 110 mls @ 50 mls/hr IV Q12H [facility] Stop: 08/13/20 00:00 Last Infusion: 08/03/20 15:06 Dose: 0 mls/hr Documented by: [id number] Admin: 08/03/20 12:55 Dose: 50 mls/hr Documented by: [id number] Infusion: 08/03/20 02:51 Dose: 0 mls/hr Documented by: [id number] Admin: 08/03/20 00:31 Dose: 50 mls/hr Documented by: [id number] Insulin Aspart (Insulin Aspart 100 Units/Ml 3 Ml Pen) 0 units SC ACHS [facility] Stop: 09/02/20 07:29 Last Admin: 08/03/20 17:53 Dose: 27 units Documented by: [id number] Cosigned by: [id number] Admin: 08/03/20 12:26 Dose: 20 units Documented by: [id number] Cosigned by: [id number] Admin: 08/03/20 08:37 Dose: 5 units Documented by: [id number] Cosigned by: [id number] Insulin Glargine (Insulin Glargine Solostar 100 Units/Ml 3 Ml Pen) 14 units SC BID [facility] Stop: 09/02/20 08:59 Last Admin: 08/03/20 08:39 Dose: 14 units Documented by: [id number] Cosigned by: [id number] Insulin Glargine (Insulin Glargine Solostar 100 Units/Ml 3 Ml Pen) 50 units SC BID [facility] Stop: 09/02/20 11:59 Last Admin: 08/03/20 12:28 Dose: 50 units Documented by: [id number] Cosigned by: [id number] Metoprolol Succinate (Metoprolol Succ 50mg Ext Rel Tab) 50 mg PO QAM [facility] Stop: 09/02/20 08:59 Last Admin: 08/03/20 08:36 Dose: 50 mg Documented by: [id number] Pantoprazole Sodium (Pantoprazole 40 Mg Tab) 40 mg PO QAM [facility] Stop: 09/02/20 08:59 Last Admin: 08/03/20 08:36 Dose: 40 mg Documented by: [id number] Medical Decision Making Differential Diagnosis Viral syndrome, Covid, tickborne illness, otitis, pharyngitis, pneumonia, influenza, meningitis, urinary tract infection, sepsis, bacteremia, as well as other pathologies. Medical Records Attestation: I reviewed the patient's medical records. Home Medications Current Medication List: was personally reviewed by me Laboratory Data Attestation: I reviewed the patient's lab results. Result diagrams: 08/03/20 07:46 08/03/20 07:46 Lab Results 08/02/20 08/02/20 08/02/20 Range/Units 18:00 18:10 18:10 WBC 7.26 (4.8-10.8) K/uL RBC 4.42 L (4.7-6.1) M/uL Hgb 13.5 L (14.0-18.0) g/dL Hct 39.5 L (42-52) % MCV 89.4 (80-100) fL MCH 30.5 (25-34) pg MCHC 34.2 (32-36) g/dL RDW Std Deviation 40.7 (36.4-46.3) fL RDW Coeff of Triny 12.6 (11.5-14.5) % Plt Count 303 (130-400) K/uL MPV 10.7 H (7.4-10.4) fL Immature Gran % (Auto) 1.2 % Neut % (Auto) 61.0 % Lymph % (Auto) 16.5 % Russell % (Auto) 18.0 % Eos % (Auto) 3.0 % Baso % (Auto) 0.3 % Neut # (Auto) 4.42 (1.4-6.5) K/uL Lymph # (Auto) 1.20 (1.2-3.4) K/uL Russell # (Auto) 1.31 H (0.11-0.59) K/uL Eos # (Auto) 0.22 (0-0.5) K/uL Baso # (Auto) 0.02 (0-0.2) K/uL Immature Gran # (Auto) 0.09 H (0.00-0.02) K/uL PT 10.8 (9.0-12.0) Seconds INR 1.0 (0.9-1.1) APTT 24.8 (21.0-31.0) Seconds PTT Ratio 0.9 Sodium (136-145) mmol/L Potassium (3.5-5.1) mmol/L Chloride (98-107) mmol/L Carbon Dioxide (21-32) mmol/L Anion Gap (3-11) BUN (7-18) mg/dl Creatinine (0.6-1.4) mg/dl Est Cr Clr Drug Dosing ml/min Est GFR ( Amer) Est GFR (Non-Af Amer) BUN/Creatinine Ratio (10-20) Glucose (70-99) mg/dl Lactate (0.4-2.0) mmol/L Calcium (8.5-10.1) mg/dl Magnesium (1.8-2.4) mg/dl Total Bilirubin (0.2-1) mg/dl AST (15-37) U/L ALT (12-78) U/L Alkaline Phosphatase (45-117) U/L Total Creatine Kinase (39-308) U/L Total Protein (6.4-8.2) gm/dl Albumin (3.4-5.0) gm/dl Globulin (2.5-4.0) gm/dl Albumin/Globulin Ratio (0.9-2) Procalcitonin (0-0.5) ng/ml Urine Color Urine Appearance (Clear) Urine pH (4.5-7.5) Ur Specific [place] (1.000-1.030) Urine Protein (Negative) Urine Glucose (UA) (Negative) Urine Ketones (Negative) Urine Blood (Negative) Urine Nitrite (Negative) Urine Bilirubin (Negative) Urine Urobilinogen (Negative) Ur Leukocyte Esterase (Negative) Urine WBC (Auto) (0-5) /hpf Urine RBC (Auto) (0-4) /hpf U Hyaline Cast (Auto) (0-5) /lpf U Epithel Cells (Auto) (0-5) /lpf Urine Bacteria (Auto) (Negative) Ur Renal Epithelial Cell Urine Mucus (None Prsent) Adenovirus (PCR) Not Detected (NotDetected) Anaplasma Smear See Comment A. phagocytophilum DNA B. pertussis DNA (PCR) Not Detected (NotDetected) B.parapertussis DNA PCR Not Detected (NotDetected) Lyme Disease IgG Ab (Negative) Lyme IgG (Western Blot) (NEGATIVE) Lyme IgG 18 kDa Band Lyme IgG 23 kDa Band Lyme IgG 28 kDa Band Lyme IgG 30 kDa Band Lyme IgG 39 kDa Band Lyme IgG 41 kDa Band Lyme IgG 45 kDa Band Lyme IgG 58 kDa Band Lyme IgG 66 kDa Band Lyme IgG 93 kDa Band Lyme IgM Ab (WB) (NEGATIVE) Lyme Disease IgM Ab (Negative) Lyme IgM 23 kDa Band Lyme IgM 39 kDa Band Lyme IgM 41 kDa Band C. pneumoniae DNA (PCR) Not Detected (NotDetected) Coronavirus OC43 (PCR) Not Detected (NotDetected) Coronavirus HKU1 (PCR) Not Detected (NotDetected) Coronavirus 229E (PCR) Not Detected (NotDetected) COVID-19 PCR Not Detected (NotDetected) Coronavirus NL63 (PCR) Not Detected (NotDetected) Human Metapneumovir PCR Not Detected (NotDetected) Influenza Type A (PCR) Not Detected (NotDetected) Influenza Type B (PCR) Not Detected (NotDetected) M. pneumoniae (PCR) Not Detected (NotDetected) Parainfluenza 1 (PCR) Not Detected (NotDetected) Parainfluenza 2 (PCR) Not Detected (NotDetected) Parainfluenza 3 (PCR) Not Detected (NotDetected) Parainfluenza 4 (PCR) Not Detected (NotDetected) RSV (PCR) Not Detected (NotDetected) Entero/Rhino (PCR) Not Detected (NotDetected) 08/02/20 08/02/20 08/02/20 Range/Units 18:10 18:10 18:10 WBC (4.8-10.8) K/uL RBC (4.7-6.1) M/uL Hgb (14.0-18.0) g/dL Hct (42-52) % MCV (80-100) fL MCH (25-34) pg MCHC (32-36) g/dL RDW Std Deviation (36.4-46.3) fL RDW Coeff of Triny (11.5-14.5) % Plt Count (130-400) K/uL MPV (7.4-10.4) fL Immature Gran % (Auto) % Neut % (Auto) % Lymph % (Auto) % Russell % (Auto) % Eos % (Auto) % Baso % (Auto) % Neut # (Auto) (1.4-6.5) K/uL Lymph # (Auto) (1.2-3.4) K/uL Russell # (Auto) (0.11-0.59) K/uL Eos # (Auto) (0-0.5) K/uL Baso # (Auto) (0-0.2) K/uL Immature Gran # (Auto) (0.00-0.02) K/uL PT (9.0-12.0) Seconds INR (0.9-1.1) APTT (21.0-31.0) Seconds PTT Ratio Sodium 130 L (136-145) mmol/L Potassium 4.3 (3.5-5.1) mmol/L Chloride 97 L (98-107) mmol/L Carbon Dioxide 26 (21-32) mmol/L Anion Gap 7.0 (3-11) BUN 21 H (7-18) mg/dl Creatinine 1.95 H (0.6-1.4) mg/dl Est Cr Clr Drug Dosing 67.5 ml/min Est GFR ( Amer) 45.2 Est GFR (Non-Af Amer) 39.0 BUN/Creatinine Ratio 10.7 (10-20) Glucose 251 H (70-99) mg/dl Lactate 2.1 H* (0.4-2.0) mmol/L Calcium 10.2 H (8.5-10.1) mg/dl Magnesium 2.3 (1.8-2.4) mg/dl Total Bilirubin 0.5 (0.2-1) mg/dl AST 74 H (15-37) U/L ALT 93 H (12-78) U/L Alkaline Phosphatase 74 (45-117) U/L Total Creatine Kinase (39-308) U/L Total Protein 8.2 (6.4-8.2) gm/dl Albumin 3.7 (3.4-5.0) gm/dl Globulin 4.5 H (2.5-4.0) gm/dl Albumin/Globulin Ratio 0.8 L (0.9-2) Procalcitonin 0.35 (0-0.5) ng/ml Urine Color Urine Appearance (Clear) Urine pH (4.5-7.5) Ur Specific [place] (1.000-1.030) Urine Protein (Negative) Urine Glucose (UA) (Negative) Urine Ketones (Negative) Urine Blood (Negative) Urine Nitrite (Negative) Urine Bilirubin (Negative) Urine Urobilinogen (Negative) Ur Leukocyte Esterase (Negative) Urine WBC (Auto) (0-5) /hpf Urine RBC (Auto) (0-4) /hpf U Hyaline Cast (Auto) (0-5) /lpf U Epithel Cells (Auto) (0-5) /lpf Urine Bacteria (Auto) (Negative) Ur Renal Epithelial Cell Urine Mucus (None Prsent) Adenovirus (PCR) (NotDetected) Anaplasma Smear A. phagocytophilum DNA B. pertussis DNA (PCR) (NotDetected) B.parapertussis DNA PCR (NotDetected) Lyme Disease IgG Ab Positive A (Negative) Lyme IgG (Western Blot) (NEGATIVE) Lyme IgG 18 kDa Band Lyme IgG 23 kDa Band Lyme IgG 28 kDa Band Lyme IgG 30 kDa Band Lyme IgG 39 kDa Band Lyme IgG 41 kDa Band Lyme IgG 45 kDa Band Lyme IgG 58 kDa Band Lyme IgG 66 kDa Band Lyme IgG 93 kDa Band Lyme IgM Ab (WB) (NEGATIVE) Lyme Disease IgM Ab Negative (Negative) Lyme IgM 23 kDa Band Lyme IgM 39 kDa Band Lyme IgM 41 kDa Band C. pneumoniae DNA (PCR) (NotDetected) Coronavirus OC43 (PCR) (NotDetected) Coronavirus HKU1 (PCR) (NotDetected) Coronavirus 229E (PCR) (NotDetected) COVID-19 PCR (NotDetected) Coronavirus NL63 (PCR) (NotDetected) Human Metapneumovir PCR (NotDetected) Influenza Type A (PCR) (NotDetected) Influenza Type B (PCR) (NotDetected) M. pneumoniae (PCR) (NotDetected) Parainfluenza 1 (PCR) (NotDetected) Parainfluenza 2 (PCR) (NotDetected) Parainfluenza 3 (PCR) (NotDetected) Parainfluenza 4 (PCR) (NotDetected) RSV (PCR) (NotDetected) Entero/Rhino (PCR) (NotDetected) 08/02/20 08/02/20 08/02/20 Range/Units 18:10 18:10 18:10 WBC (4.8-10.8) K/uL RBC (4.7-6.1) M/uL Hgb (14.0-18.0) g/dL Hct (42-52) % MCV (80-100) fL MCH (25-34) pg MCHC (32-36) g/dL RDW Std Deviation (36.4-46.3) fL RDW Coeff of Triny (11.5-14.5) % Plt Count (130-400) K/uL MPV (7.4-10.4) fL Immature Gran % (Auto) % Neut % (Auto) % Lymph % (Auto) % Russell % (Auto) % Eos % (Auto) % Baso % (Auto) % Neut # (Auto) (1.4-6.5) K/uL Lymph # (Auto) (1.2-3.4) K/uL Russell # (Auto) (0.11-0.59) K/uL Eos # (Auto) (0-0.5) K/uL Baso # (Auto) (0-0.2) K/uL Immature Gran # (Auto) (0.00-0.02) K/uL PT (9.0-12.0) Seconds INR (0.9-1.1) APTT (21.0-31.0) Seconds PTT Ratio Sodium (136-145) mmol/L Potassium (3.5-5.1) mmol/L Chloride (98-107) mmol/L Carbon Dioxide (21-32) mmol/L Anion Gap (3-11) BUN (7-18) mg/dl Creatinine (0.6-1.4) mg/dl Est Cr Clr Drug Dosing ml/min Est GFR ( Amer) Est GFR (Non-Af Amer) BUN/Creatinine Ratio (10-20) Glucose (70-99) mg/dl Lactate (0.4-2.0) mmol/L Calcium (8.5-10.1) mg/dl Magnesium (1.8-2.4) mg/dl Total Bilirubin (0.2-1) mg/dl AST (15-37) U/L ALT (12-78) U/L Alkaline Phosphatase (45-117) U/L Total Creatine Kinase 129 (39-308) U/L Total Protein (6.4-8.2) gm/dl Albumin (3.4-5.0) gm/dl Globulin (2.5-4.0) gm/dl Albumin/Globulin Ratio (0.9-2) Procalcitonin (0-0.5) ng/ml Urine Color Urine Appearance (Clear) Urine pH (4.5-7.5) Ur Specific [place] (1.000-1.030) Urine Protein (Negative) Urine Glucose (UA) (Negative) Urine Ketones (Negative) Urine Blood (Negative) Urine Nitrite (Negative) Urine Bilirubin (Negative) Urine Urobilinogen (Negative) Ur Leukocyte Esterase (Negative) Urine WBC (Auto) (0-5) /hpf Urine RBC (Auto) (0-4) /hpf U Hyaline Cast (Auto) (0-5) /lpf U Epithel Cells (Auto) (0-5) /lpf Urine Bacteria (Auto) (Negative) Ur Renal Epithelial Cell Urine Mucus (None Prsent) Adenovirus (PCR) (NotDetected) Anaplasma Smear A. phagocytophilum DNA Cancelled B. pertussis DNA (PCR) (NotDetected) B.parapertussis DNA PCR (NotDetected) Lyme Disease IgG Ab (Negative) Lyme IgG (Western Blot) NEGATIVE (NEGATIVE) Lyme IgG 18 kDa Band REACTIVE A Lyme IgG 23 kDa Band NON-REACTIVE Lyme IgG 28 kDa Band NON-REACTIVE Lyme IgG 30 kDa Band NON-REACTIVE Lyme IgG 39 kDa Band REACTIVE A Lyme IgG 41 kDa Band NON-REACTIVE Lyme IgG 45 kDa Band NON-REACTIVE Lyme IgG 58 kDa Band NON-REACTIVE Lyme IgG 66 kDa Band NON-REACTIVE Lyme IgG 93 kDa Band NON-REACTIVE Lyme IgM Ab (WB) NEGATIVE (NEGATIVE) Lyme Disease IgM Ab (Negative) Lyme IgM 23 kDa Band NON-REACTIVE Lyme IgM 39 kDa Band REACTIVE A Lyme IgM 41 kDa Band NON-REACTIVE C. pneumoniae DNA (PCR) (NotDetected) Coronavirus OC43 (PCR) (NotDetected) Coronavirus HKU1 (PCR) (NotDetected) Coronavirus 229E (PCR) (NotDetected) COVID-19 PCR (NotDetected) Coronavirus NL63 (PCR) (NotDetected) Human Metapneumovir PCR (NotDetected) Influenza Type A (PCR) (NotDetected) Influenza Type B (PCR) (NotDetected) M. pneumoniae (PCR) (NotDetected) Parainfluenza 1 (PCR) (NotDetected) Parainfluenza 2 (PCR) (NotDetected) Parainfluenza 3 (PCR) (NotDetected) Parainfluenza 4 (PCR) (NotDetected) RSV (PCR) (NotDetected) Entero/Rhino (PCR) (NotDetected) 08/02/20 08/02/20 Range/Units 20:31 23:30 WBC (4.8-10.8) K/uL RBC (4.7-6.1) M/uL Hgb (14.0-18.0) g/dL Hct (42-52) % MCV (80-100) fL MCH (25-34) pg MCHC (32-36) g/dL RDW Std Deviation (36.4-46.3) fL RDW Coeff of Triny (11.5-14.5) % Plt Count (130-400) K/uL MPV (7.4-10.4) fL Immature Gran % (Auto) % Neut % (Auto) % Lymph % (Auto) % Russell % (Auto) % Eos % (Auto) % Baso % (Auto) % Neut # (Auto) (1.4-6.5) K/uL Lymph # (Auto) (1.2-3.4) K/uL Russell # (Auto) (0.11-0.59) K/uL Eos # (Auto) (0-0.5) K/uL Baso # (Auto) (0-0.2) K/uL Immature Gran # (Auto) (0.00-0.02) K/uL PT (9.0-12.0) Seconds INR (0.9-1.1) APTT (21.0-31.0) Seconds PTT Ratio Sodium (136-145) mmol/L Potassium (3.5-5.1) mmol/L Chloride (98-107) mmol/L Carbon Dioxide (21-32) mmol/L Anion Gap (3-11) BUN (7-18) mg/dl Creatinine (0.6-1.4) mg/dl Est Cr Clr Drug Dosing ml/min Est GFR ( Amer) Est GFR (Non-Af Amer) BUN/Creatinine Ratio (10-20) Glucose (70-99) mg/dl Lactate 2.4 H* (0.4-2.0) mmol/L Calcium (8.5-10.1) mg/dl Magnesium (1.8-2.4) mg/dl Total Bilirubin (0.2-1) mg/dl AST (15-37) U/L ALT (12-78) U/L Alkaline Phosphatase (45-117) U/L Total Creatine Kinase (39-308) U/L Total Protein (6.4-8.2) gm/dl Albumin (3.4-5.0) gm/dl Globulin (2.5-4.0) gm/dl Albumin/Globulin Ratio (0.9-2) Procalcitonin (0-0.5) ng/ml Urine Color Yellow Urine Appearance Clear (Clear) Urine pH 6.0 (4.5-7.5) Ur Specific [place] 1.013 (1.000-1.030) Urine Protein 1+ H (Negative) Urine Glucose (UA) Negative (Negative) Urine Ketones Negative (Negative) Urine Blood 1+ H (Negative) Urine Nitrite Negative (Negative) Urine Bilirubin Negative (Negative) Urine Urobilinogen Negative (Negative) Ur Leukocyte Esterase Negative (Negative) Urine WBC (Auto) 5-10 H (0-5) /hpf Urine RBC (Auto) 0-4 (0-4) /hpf U Hyaline Cast (Auto) 0 (0-5) /lpf U Epithel Cells (Auto) >30 H (0-5) /lpf Urine Bacteria (Auto) 1+ H (Negative) Ur Renal Epithelial Cell Not Reportable Urine Mucus Present A (None Prsent) Adenovirus (PCR) (NotDetected) Anaplasma Smear A. phagocytophilum DNA B. pertussis DNA (PCR) (NotDetected) B.parapertussis DNA PCR (NotDetected) Lyme Disease IgG Ab (Negative) Lyme IgG (Western Blot) (NEGATIVE) Lyme IgG 18 kDa Band Lyme IgG 23 kDa Band Lyme IgG 28 kDa Band Lyme IgG 30 kDa Band Lyme IgG 39 kDa Band Lyme IgG 41 kDa Band Lyme IgG 45 kDa Band Lyme IgG 58 kDa Band Lyme IgG 66 kDa Band Lyme IgG 93 kDa Band Lyme IgM Ab (WB) (NEGATIVE) Lyme Disease IgM Ab (Negative) Lyme IgM 23 kDa Band Lyme IgM 39 kDa Band Lyme IgM 41 kDa Band C. pneumoniae DNA (PCR) (NotDetected) Coronavirus OC43 (PCR) (NotDetected) Coronavirus HKU1 (PCR) (NotDetected) Coronavirus 229E (PCR) (NotDetected) COVID-19 PCR (NotDetected) Coronavirus NL63 (PCR) (NotDetected) Human Metapneumovir PCR (NotDetected) Influenza Type A (PCR) (NotDetected) Influenza Type B (PCR) (NotDetected) M. pneumoniae (PCR) (NotDetected) Parainfluenza 1 (PCR) (NotDetected) Parainfluenza 2 (PCR) (NotDetected) Parainfluenza 3 (PCR) (NotDetected) Parainfluenza 4 (PCR) (NotDetected) RSV (PCR) (NotDetected) Entero/Rhino (PCR) (NotDetected) Imaging Data Radiologist's Impression: CT SCAN OF THE BRAIN WITHOUT IV CONTRAST CLINICAL HISTORY: Fall. Change in mental status. COMPARISON STUDY: CT of the brain dated 07/28/2020. TECHNIQUE: Unenhanced axial CT scan of the brain is performed from the vertex to the skull base. A dose lowering technique was utilized adhering to the princi ples of COLLINS. CT DOSE: 853.38 mGy.cm FINDINGS: Brain parenchyma: There is minimal microangiopathic disease. The chronic lacunar infarct within the left internal capsule/mendoza radiata is unchanged. There is no hemorrhage, mass effect, or evidence of acute territorial ischemia by CT criteria. Forman-white matter differentiation is preserved. No extra-axial fluid collection is seen. Ventricles, sulci, cisterns: Normal in configuration. Intracranial vasculature: There is atherosclerotic calcification of the cavernous carotid arteries. Calvarium: Unremarkable. Sinuses and mastoids: The visualized paranasal sinuses are clear. The mastoid air cells are well pneumatized. Orbits: The bony orbits are grossly intact. IMPRESSION: There is no hemorrhage, mass effect, or evidence of acute terr itorial ischemia by CT criteria. ACT 112: Negative or not required by law. Electronically signed by: Fernando Galindo M.D. 08/02/2020 8:00 PM Dictated: 08/02/[id number]: 08/02/201956 SINGLE VIEW CHEST CLINICAL HISTORY: Sepsis. Recent cardiac catheterization. FINDINGS: An AP, portable, upright chest radiograph is compared to study dated 07/25/2020. The examination is degraded by portable technique and apical lordotic positioning. The the patient is status post midline sternotomy. The heart is enlarged noting atherosclerotic calcification of the thoracic aorta. A coronary artery stent is noted. The pulmonary vasculature is noncongested. There is chronic elevation of the right hemidiaphragm with associated atelectasis. The lungs and pleural spaces are otherwise clear. No pneumothorax is seen. The bony thorax is grossly intact. A stimulator lead projects over the cervicothoracic spine. IMPRESSION: Cardiomegaly with no acute cardiopulmonary abnormality. ACT 112: Negative or not required by law. Electronically signed by: Fernando Galindo M.D. 08/02/2020 6:41 PM Dictated: 08/02/[id number]: 08/02/201838 Blood Pressure Blood Pressure Findings: Low blood pressure Blood Pressure Disposition: further management by hospitalist MDM Narrative This pt was evaluated and appeared to be in no distress, but in some discomfort. IV access was obtained and lab work was drawn. An order for cardiac monitoring was placed and the pt is noted to be in a NSR at 86 bpm. IVF were initiated. Lab work reveals a normal WBC but an DINA, likely prerenal. Blood cx were obtained. Biofire is negative for COVID, flu. Lyme IgG is positive, IgM negative. Anaplasma and babesiosis are pending. Pt had previously tested Lyme negative. 2 gm IV ceftriaxone were administered. Pt case was d/w [facility] hospitalist service who will evaluate for further management. Pt and are aware of the plan and agree. Impression & Plan Fever, intermittent, Positive Lyme disease serology, CHI (closed head injury), Morbid obesity with BMI of 40.0-44.9, adult, DINA (acute kidney injury) Discharge Plan Visit Data Chief Complaint: Fever Stated Complaint: CONCUSSION, OXYGEN LEVEL LOW, FEVER, COVID- ED Provider: Aidee Sol Discharge Problem: Fever, intermittent, Positive Lyme disease serology, CHI (closed head injury), Morbid obesity with BMI of 40.0-44.9, adult, DINA (acute kidney injury) Patient Disposition: Admitted As Inpatient Discharge Instructions Interventions: ED Discharge Assessment Last Done: 08/03/20 00:15 Discharge Problem: CHI (closed head injury) Qualifiers: Encounter type: subsequent encounter Qualified Code(s): S09.90XD - Unspecified injury of head, subsequent encounter
[2020-08-02] MEDS ORDERED: GLUCOSE 10 TABS/TUBE PO PRN (23:50)
[2020-08-02] MEDS ORDERED: hydrOXYzine HCl 25 MG TAB PO PRN (23:50)
[2020-08-02] MEDS ORDERED: DEXTROSE 50% 50 ML SYRINGE IV PRN (23:50)
[2020-08-02] MEDS ORDERED: GLUCAGON FOR INJ 1 MG VIAL SQ PRN (23:50)
[2020-08-02] MEDS ORDERED: GLUCOSE 40% GEL 15 GM TUBE PO PRN (23:50)
[2020-08-02] MEDS ORDERED: ACETAMINOPHEN 325 MG TAB PO PRN (23:50)
[2020-08-02] MEDS ORDERED: CARBOHYDRATES FOR HYPOGLYCEMIA PO PRN (23:50)
[2020-08-03 00:01] LABS: Bacteria Urine Automated 1+ (Negative); Mucus Urine Present (None Prsent)
[2020-08-03 00:02] LABS: Cast Urine Automated 0 /lpf (0-5)
[2020-08-03] MEDS: DOXYCYCLINE HYCLATE 100 MG in DEXTROSE 5% 100 ML IV SCH ×2 (00:31→12:55)
[2020-08-03] MEDS: SODIUM CHLORIDE 0.9% 1000ML 1,000 ML IV SCH ×2 (00:32→10:54)
[2020-08-03] MEDS: HEPARIN SOD 5,000 UNIT/0.5 ML VIAL SQ SCH ×2 (05:52→12:28)
[2020-08-03 08:23] LABS: Basophils # (auto) 0.01 K/uL (0-0.2); Basophils % (auto) 0.1 %; Eosinophils # (auto) 0.26 K/uL (0-0.5); Eosinophils % (auto) 3.7 %; Hematocrit (blood only) 36.8 % (42-52); Hemoglobin 12.4 g/dL (14.0-18.0); Immature Granulocytes # (auto) 0.08 K/uL (0.00-0.02); Immature Granulocytes % (auto) 1.1 %; Lymphocytes # (auto) 1.46 K/uL (1.2-3.4); Lymphocytes % (auto) 20.7 %; Mean Corpuscular Hemoglobin 29.9 pg (25-34); Mean Corpuscular Hgb Conc 33.7 g/dL (32-36); Mean Corpuscular Volume 88.7 fL (80-100); Mean Platelet Volume 10.6 fL (7.4-10.4); Monocytes # (auto) 1.44 K/uL (0.11-0.59); Monocytes % (auto) 20.4 %; Neutrophils # (auto) 3.82 K/uL (1.4-6.5); Platelet Count 292 K/uL (130-400); RDW Coefficient of Variation 12.7 % (11.5-14.5); RDW Standard Deviation 40.7 fL (36.4-46.3); Red Blood Count 4.15 M/uL (4.7-6.1); White Blood Count 7.07 K/uL (4.8-10.8)
[2020-08-03] MEDS: INSULIN ASPART 100 UNITS/ML 3 ML PEN SC SCH ×3 (08:37→17:53)
[2020-08-03 08:57] LABS: Albumin Level 3.2 gm/dl (3.4-5.0); BUN Creatinine Ratio 10.5 (10-20); Calcium 9.5 mg/dl (8.5-10.1); Creatinine Clr Calc Pharmacy 76.3 ml/min; Est GFR (African American) 52.2; Potassium 3.9 mmol/L (3.5-5.1)
[2020-08-03 09:00] LABS: Albumin Globulin Ratio 0.8 (0.9-2); Bilirubin,Total 0.6 mg/dl (0.2-1); Globulin 4.2 gm/dl (2.5-4.0); Total Protein 7.4 gm/dl (6.4-8.2)
[2020-08-03] MEDS ORDERED: PANTOprazole 40 MG TAB PO SCH (09:00)
[2020-08-03] MEDS ORDERED: INSULIN GLARGINE SOLOSTAR 100 UNITS/ML 3 ML PEN SC SCH ×2 (09:00→12:00)
[2020-08-03] MEDS ORDERED: METOPROLOL SUCC 50MG EXT REL TAB PO SCH (09:00)
[2020-08-03] MEDS ORDERED: CLOPIDOGREL BISULFATE 75 MG TAB PO SCH (09:00)
[2020-08-03] MEDS ORDERED: DULoxetine HCL 60 MG CAP PO SCH (09:00)
--- NOTE | 2020-08-03 11:40 | Electrocardiogram Report ---
Test Reason : Blood Pressure : / mmHG Vent. Rate : 085 BPM Atrial Rate : 085 BPM P-R Int : 200 ms QRS Dur : 100 ms QT Int : 374 ms P-R-T Axes : -13 114 076 degrees QTc Int : 445 ms Normal sinus rhythm Right axis deviation Abnormal ECG When compared with ECG of 10-MAY-2020 08:50, No significant change Confirmed by Sheldon Leal ([id number]) on 08/03/2020 11:40:14 AM Referred By: REFERRED SELF Confirmed By:Sheldon Leal
[2020-08-03] MEDS ORDERED: PHARMACY GLYCEMIC MGMT CONSULT PRN (11:43)
--- NOTE | 2020-08-03 12:28 | Pharmacy Report ---
Glycemic Control Consultation - Date of Service August 03, 2020 - Scope Scope: Glycemic Pharmacist consulted for glycemic control and to write orders per [facility] inpatient glycemic control protocol. - Objective Weight: 147.6 kg Accuchecks BSG (last 24hrs): 08/02/20 08/03/20 08/03/20 18:10 07:38 07:46 Glucose 251 H 138 H POC Glucose 146 H 08/03/20 11:18 Glucose POC Glucose 226 H Laboratory Data (last 24hrs): 08/02/20 08/03/20 18:10 07:46 Potassium 4.3 3.9 Carbon Dioxide 26 24 Anion Gap 7.0 9.0 Creatinine 1.95 H 1.73 H Est Cr Clr Drug Dosing 67.5 76.3 - Recent Pertinent Medications Outpatient Anti-diabetic Regimen: * Basaglar 100 units BID * Regular insulin up to 200-300 units/day * A1c ordered The patient is currently receiving: * Basal insulin: Lantus 14 units every 12 hours * Correctional Insulin: Novolog Correction per scale ACHS Goal Range: Low 110 mg/dL - High 140 mg/dL Correction Factor: 30 mg/dL/unit * Prandial insulin: Per carb ratio of 1 unit per 10 grams CHO consumed * Oral Agents: Risk Factors for Insulin Resistance: * Infection: Rocephin and doxycycline * Diet: T2DM - Assessment & Plan Assessment & Plan: ASSESSMENT: * Mr Forman is a very pleasant 50 y/o M admitted with a fall. He is currently on Rocephin and doxycycline. HbA1C ordered for tomorrow. * Per interview with patient, he has insulin resistance. Confirmed Basaglar 100 units BID plus regular insulin based upon what he eats. Patient reports that high carb, refined meals require high insulin coverage. He was concerned about insulin being received here. * Reviewed plan with patient -- will give Lantus 50 units BID starting at lunch extra 14 units will likely not impact BSG control). Will utilize weight-based stress of 3 Novolog for now. Can tighten carbohydrate coverage based upon BSG trends. PLAN FOR INPATIENT GLYCEMIC CONTROL: * Basal insulin * Lantus 50 units SQ BID * Bolus insulin * NovoLog per scale ACHS or Q6hrs while NPO * Goal Range: Low 110 mg/dL - High 140 mg/dL * Correction Factor: 15 mg/dL/unit * Nutritional / Prandial insulin per carb ratio of 1 unit per 4 grams CHO consumed * Please note that the plan above was derived based on current level of insulin resistance and hospital stress. These recommendations are appropriate for inpatient admission only. Plan of care upon discharge will need to be reassessed to avoid potential outpatient hypo/hyperglycemia. Thank you.
[2020-08-03] MEDS ORDERED: Continuous Glucose Monitor SCH (16:30)
--- NOTE | 2020-08-03 16:58 | Discharge Summary ---
Date of Service August 03, 2020 Admission HPI Per Admitting Provider Americo is a 50-year-old male with a history of sleep apnea, ADHD, type 2 diabetes, hypertension, CAD with CABG/PCI/multiple catheterizations, hyperlipidemia, and several episodes of Lyme disease who presents with fever, muscle aches, concern for desaturations. He reports that 4 days ago he had a 101 fever and muscle aches and body aches. He had had a femoral heart cath for worsening exercise tolerance and shortness of breath previously, access site was not red/warm/tender/swollen. 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 He has not had an erythema migrans rash. He reports he has had some headache and photo sensitivity which she attributes to a concussion, see further below. He was last treated with Doxy in April 2019. Not had a cough, but has felt short of breath with desaturation to the 70s to 80s. He has been working with his PCP and foundry worker to try to get set up with oxygen with his BiPAP due to evening desats and a sleep apnea index of 38, however this is been difficult during and he is potentially pending a work-up and sleep study this Sunday. He reports a history of recurrent severe cardiac disease. He had a heart cath July 23 for worsening in exercise tolerance and diaphoresis with shortness of breath. His heart cath showed a 100% bypass occlusion and 50% additional occlusion which was not amenable to stenting. He is continuing to be followed by cardiology. He reports he had an echo in April that showed an EF in the 40s. He has not had swelling in his legs and his feet, however he notes that his breathing has been improved since his foundry worker put him on torsemide 10 mg every morning. Reports he also fell and struck the back of his head on a concrete wall 6 days ago when he tripped over a baby gate used for his pets. He did not have a loss of consciousness, but is felt dizzy with poor balance since. He has had nausea and vomiting 3 times over the last week. He is not nauseous at time of assessment. No diarrhea or constipation. With his concussion and with his fever his appetite has been decreased. He has not had any urinary changes or dysuria. Hay retention. Family history: Strong family history of coronary artery disease (father with a heart attack at 62, mother 56), mother and her other children all had diabetes. Medications: Reviewed with patient. Surgical history: Reviewed in EMR Allergies: No known drug allergies Social: Denies tobacco use, alcohol 2 to 3 glasses per night. Last 1 several days without alcohol last week. No history of tremors or withdrawal symptoms. Denies recreational drug use. Lives with his , 3 children occasionally in the house none of which have been sick. He has had negative Covid test. CODE STATUS: Full code Admission Exam Per Admitting Provider General: A&Ox3. NAD. Cooperative. no erythema migrans appreciated. HEENT: Atraumatic, normocephalic.Visual acuity intact, hearing intact. Pulm: CTAB A&P. -wheezes, -rales, -rhonchi. Symmetrical chest rise. No increase work of breathing. No respiratory distress. Cardiac: RRR, -mrg. Radial pulses intact and symmetrical. Abdominal: Nontender, nondistended, soft. BS present. CRANIAL NERVES: II: Pupils equal and reactive, no relative afferent pupillary defect III, IV, : EOM intact, no gaze preference or deviation, no nystagmus, no saccades V: normal sensation in V1, V2, and V3 segments bilaterally VII: no asymmetry, no nasolabial fold flattening VIII: normal hearing to speech IX, X: normal palatal elevation, no uvular deviation XI: 5/5 head turn XII: midline tongue protrusion MOTOR: RUE: 5/5 Shoulder internal rotation, external rotation, flexion, extension, abduction, adduction 5/5 Elbow flexion/extension, wrist flexion/extension 5/5 screen making technician strength, finger flexion/extension, interosseus LUE: 5/5 Shoulder internal rotation, external rotation, flexion, extension, abduction, adduction 5/5 Elbow flexion/extension, wrist flexion/extension 5/5 screen making technician strength, finger flexion/extension, interosseus RLE: 5/5 to hip flexion/extension, ankle dorsiflexion/plantarflexion LLE: 5/5 to hip flexion/extension, ankle dorsiflexion/plantarflexion SENSORY: Normal to touch in upper and lower extremities without deficit or asymmetry No hemineglect, no extinction to double sided stimulation (visual & tactile) Romberg absent COORD: Normal finger to nose and heel to long, no tremor, no dysmetria Principal Diagnosis Tickborne Illness Discharge Exam Constitutional WD/WN, vitals as above Respiratory normal respiratory effort, lungs clear to auscultation Cardiovascular RRR, no murmur, no edema Gastrointestinal (Abdomen) normal bowel sounds, soft, nontender, no hepatosplenomegaly Musculoskeletal no cyanosis or clubbing, extremities motor strength 5/5 Skin no rashes, warm and dry Psychiatric A+Ox3, euthymic affect Discharge Data Allergies Allergy/AdvReac Type Severity Reaction Status Date / Time No Known Allergies Allergy Verified 08/02/20 22:24 Consultations 08/02/20 20:58 ED Decision to Admit Stat Ordered Studies 08/02/20 18:47 CT head/brain wo con Stat Hospital Course (1) Head injury: (2) Acute shoulder pain: (3) Nocturnal hypoxemia: (4) Severe obstructive sleep apnea: (5) Attention deficit disorder without hyperactivity: (6) Type 2 diabetes mellitus: (7) History of non-ST elevation myocardial infarction (NSTEMI): (8) Obesity: (9) Coronary artery disease: (10) Fall: (11) Fever: Americo is a 50-year-old male with a history of sleep apnea, ADHD, type 2 diabetes, hypertension, CAD with CABG/PCI/multiple catheterizations, hyperlipidemia, and several episodes of Lyme disease who presents with fever, muscle aches, concern for desaturations. Fever Several tick exposures Mild transaminitis, febrile to 308347 Respiratory panel including Covid negative Lyme serology positive IgG with recent negative prior Suspect Lyme versus anaplasmosis Doxy 100 mg twice daily IV started on 08/02 PM - continue 100mg PO BID x14 days on discharge Anaplasmosis testing pending - Patient will follow up with PCP after discharge DINA - Suspect prerenal with decreased appetite/vomiting - received 1L NSS in ED and 2L NSS on floor: Cr 1.95 --> 1.73 - Cr baseline <1 - Patient would like to leave on 08/03 due to scheduled sleep study; he will follow up tomorrow morning with serial BMP to ensure further improvement in Cr - encouraged adequate hydration on discharge Concussion Patient with a fall sustaining a concussion with subsequent sequelae including difficulty with balance, headache, photosensitivity CThead negative No saccade/nystagmus on neuro exam - f/u with PCP as above CAD with h/o CABG, PCI - Pt with recurrent severe CAD - Last cath in the past month, shows graft occlusion not amenable to stenting per pt - Follow clinically, no chest pain at time of admit - Continue DAPT, BB, ANDIE-I - Continue rosuvastatin DM - Continue home meds Total Time Total Time Spent Total Time Spent (In Minutes): >30 minutes Discharge Plan Discharge Items Patient Disposition: Home - Self-Care Reason For Visit: FEVER, TRANSAMINITIS Discharge Diagnosis: Tickborne Illness Activity: Per Instructions section Non-emergency contact: Primary Care Provider Call non-emergency contact if: you have any medication questions, your symptoms worsen and you have a fever Follow-up/Referrals: Clare Johnson, [Primary Care Provider] - Diet: Carb Consistent or DM2 and Heart Healthy Addtl Attending Provider Instructions: You were admitted to [facility] on 08/02/2020 for over 10 days of persistent [id number] grade fevers as well as muscle/joint aches. Given your frequent tick exposures in addition to a positive Lyme disease marker called IgG, mildly elevated liver markers, and lack of signs for other types of infection, it is most likely that your symptoms are due to a tickborne illness. We took several blood tests for some of the common types of tickborne illnesses, but these results will not be ready for at least several days. You were also found to have an acute kidney which is likely due to dehydration from having a fever for almost two weeks - you were started on IV fluids for the kidney injury which led to some improvement in kidney function. You otherwise did well in the hospital. You will be discharged on 08/03/2020 in improving condition. You should continue Doxycycline for 14 days - you can pepper picker this prescription at your pharmacy. You should continue to take all of your home medications as prescribed. You should make sure to get the blood test that was prescribed to you at a [facility] facility tomorrow morning, so that we can ensure that your kidney function continues to improve. You should also make sure to stay well-hydrated as this will help to heal your kidneys as well. Lastly, you should follow up closely with your PCP and make sure to let them know if your fevers return and/or if your symptoms worsen. Pending Studies at Discharge: Yes Studies:: tick panel for anaplasmosis and erlichiosis Stand-Alone Forms: [facility], Smoking Cessation Medications and DC Order Prescriptions: New doxycycline hyclate 100 mg capsule 100 mg PO BID 14 Days Qty: 28 RF: 0 Continued duloxetine 30 mg capsule,delayed release(DR/EC) 60 mg PO QAM 30 Days Qty: 60 RF: 1 torsemide 10 mg tablet 10 mg PO QAM RF: 0 sildenafil [Viagra] 100 mg tablet 100 mg PO DAILY PRN (Reason: Erectile Dysfunction) RF: 0 rosuvastatin 40 mg Tablet 40 mg PO HS RF: 0 clopidogrel 75 mg Tablet 75 mg PO QAM RF: 0 zolpidem 10 mg Tablet 10 mg PO HS PRN (Reason: Sleep) RF: 0 insulin aspart U-100 [Novolog U-100 Insulin aspart] 100 unit/mL Solution See Rx Instructions .ROUTE .COMPLEX RF: 0 Basaglar KwikPen U-100 Insulin 100 unit/mL (3 mL) Insulin Pen 100 unit SUBCUT BID RF: 0 metoprolol succinate 100 mg tablet extended release 24 hr 100 mg PO QAM RF: 0 nitroglycerin 0.4 mg/hr patch 24 hour 1 patch topical DIRECTED RF: 0 metformin 500 mg tablet extended release 24 hr 500 mg PO HS RF: 0 lisinopril 2.5 mg tablet 2.5 mg PO HS RF: 0 oxycodone 5 mg tablet 5 mg PO Q6H PRN (Reason: Pain) RF: 0 aspirin [Aspirin Low Dose] 81 mg Tablet,Delayed Release (Dr/Ec) 81 mg PO AMHS RF: 0 nitroglycerin 0.4 mg tablet, sublingual 0.4 mg sublingual DIRECTED PRN (Reason: Chest Pain) RF: 0 amitriptyline 25 mg tablet 25 mg PO HS RF: 0 pantoprazole 40 mg tablet,delayed release (DR/EC) 40 mg PO QAM RF: 0 multivitamin Tablet 1 tab PO QAM RF: 0 hydroxyzine HCl 25 mg tablet 25 mg PO HS PRN (Reason: Anxiety) RF: 0 diazepam 5 mg tablet 5 mg PO QID PRN (Reason: Anxiety) RF: 0 Discontinued sulfamethoxazole-trimethoprim 800-160 mg tablet 1 tab PO BID RF: 0 Discharge Orders: Discharge Order (Routine); Ordered 08/03/20 Ordered By: Uriel Moore Admission Data Admit Date/Time: 08/02/20 23:50 Attending Provider: Armando Sales Admit Provider: Jc Polo Primary Care Provider: Clare Johnson Other Providers: Jesse Pritchett Other Interventions: Discharge Summary Assessment (RN) Last Done: 08/03/20 18:04 Supervising Physician Co-Signing Physician Notes I personally examined the patient and verified all varghese points of history and exam, discussed case, and agree with decision making with Dr Teresa coleman feeling better. notes that he needs O2 w CPAP and they've had a nearly impossible time getting him qualified for it - will require actual sleep study - which by unfortunate timing is scheduled for tonight - and she harbors understandable concerns on not knowing when it might be rescheduled. vitals noted nad heent nc at mmm breathing unlabored no accessory muscles good effort skin no rashes no pallor or icterus neuro no focal deficits febrile illness - almost certainly tick borne - some of findings/labs plead towards lyme, some toward anaplasmosis. nothign really hinting at babesiosis at this time - so safe for doxy and f/u DINA - likely prerenal +/- some element of contrast nephropathy - IVF given - creatnine improving some. with creat improving - and urgency of needing O2 w CPAP to avoid complications from undertreated JOY in a gentleman w known fairly severe CAD - felt that risk/benefit was best to allow him to dc for sleep study (bolused remaining ~500ml fluids), avoid nephrotoxins/NSAIDs, repeat BMP in AM. if creatinine still improving - ongoing outpt management, if worsens/fails to improve, then may need to bring back for further IVF. pt agreeable to this plan otherwise as above Resident Activity Tracking Resident Involvement: Resident Care Provided Care Provided: Adult Hospital Medicine
--- NOTE | 2020-08-03 18:01 | Communication Note ---
Date of Service: August 03, 2020 By CMS guidelines, a determination that the admission or continued stay is not medically necessary has been made by a member of the UR committee and mauricio hedrick for this hospital stay, therefore a Code 44 will be completed and the Inpatient admission will be changed to outpatient.
[2020-08-03] MEDS ORDERED: cefTRIAXone SODIUM 2,000 MG in DEXTROSE 5% 50 ML IV SCH (20:00)
--- NOTE | 2020-08-03 20:12 | Billing Data ---
Date of Service August 03, 2020 Coding Level of Care Code 79268 OBS Care - Discharge
[2020-08-03] MEDS ORDERED: DOXYCYCLINE HYCLATE 100 MG CAP PO SCH (21:00)
[2020-08-03] MEDS ORDERED: AMITRIPTYLINE HCL 25 MG TAB PO SCH (21:00)
[2020-08-03] MEDS ORDERED: ROSUVASTATIN CALCIUM 20 MG TAB PO SCH (21:00)
[2020-08-03] MEDS ORDERED: ASPIRIN 81 MG ECTAB PO SCH (21:00)
[2020-08-05 00:12] LABS: 18KDIGG Band REACTIVE; 23KDIGG Band NON-REACTIVE; 23KDIGM Band NON-REACTIVE; 28KDIGG Band NON-REACTIVE; 30KDIGG Band NON-REACTIVE; 39KDIGG Band REACTIVE; 39KDIGM Band REACTIVE; 41KDIGG Band NON-REACTIVE; 41KDIGM Band NON-REACTIVE; 45KDIGG Band NON-REACTIVE; 58KDIGG Band NON-REACTIVE; 66KDIGG Band NON-REACTIVE; 93KDIGG Band NON-REACTIVE; Lyme Antibodies, WB IgG NEGATIVE (NEGATIVE); Lyme Antibodies, WB IgM NEGATIVE (NEGATIVE)
--- NOTE | 2020-08-05 06:00 | Billing Data ---
Date of Service August 05, 2020 Coding Level of Care Code 45329 Initial Inpt Care Lvl 3
[2020-08-10 04:17] LABS: Babesia microti DNA Not Detected (Not Detected)
== END 2020-08-03 18:33 | disposition home or self-care (01) | DRG 868 ==
LOC: ED 17:02 → SUATTDRO 22:04 → 2N 22:04 → INTOOBSV 23:50 → 2W 08-03 00:15

== ENCOUNTER 2021-01-26 10:17 | Inpatient (IN) ==
[2021-01-26] MEDS ORDERED: ASPIRIN CHEW 324 MG PO STA (11:00)
[2021-01-26] MEDS ORDERED: NITROGLYCERIN 2% OINTMENT 30GM TUBE EXT STA (11:00)
--- NOTE | 2021-01-26 11:05 | Emergency Department Note ---
Impression & Plan Left-sided chest pain, Coronary artery disease, History of non-ST elevation myocardial infarction (NSTEMI), Acute electrocardiogram changes ED Provider Note INFORMANT: Patient ED PROVIDER(S): Ezequiel Garcia MD CHIEF COMPLAINT: Chest pain PLAN: Disposition: Admitted Condition: Good Outpatient prescription management: none Referral: None MEDICAL DECISION MAKING: Patient presented to the emergency room with concerning chest pain symptoms. He had abnormal findings on his ECG. Blood work was obtained and the patient was found to have an elevated troponin. He was also hyperglycemic. The patient was given additional aspirin. He had Nitropaste applied. He had no additional pain . He had a consultation placed with Dr. Humphreys cardiology. He evaluated the patient in the ER. He did consider possible transfer to [facility] after discussion with his colleagues this was felt to be unnecessary. He recommended heparinization and inpatient treatment here. The patient was given IV insulin. Initially 10 units ordered however his sugar improved to 244 and he was only given 6 units. He was placed on IV heparin. The patient was doing well on reassessment. Consultation was made with the hospitalist service, Dr. Gutierrez. Triage Nursing notes reviewed and agree them. Vital Signs: reviewed and remarkable for no significant abnormalities Differential diagnosis: Cardiac ischemia, aortic dissection, pulmonary embolism, pneumothorax, pneumonia, pericarditis, myocarditis, esophageal rupture, GERD, cholecystitis, pancreatitis, musculoskeletal, as well as other pathologies. Diagnostics interpreted by me: ECG: Twelve-lead ECG reveals normal sinus rhythm at 96 beats per minute. There is new lateral ST segment depression. When compared to 08/02/2020 this is new. No ST elevation. No PVCs or PACs. Normal axis. Cardiac Monitoring: Cardiac monitoring ordered by me: The patient was placed on continuous cardiac monitoring and observed. It revealed a normal sinus rhythm at 90 beats per minute without ectopy or evidence of dysrhythmia. Her chest x-ray HPI: The patient is a 50 year old male who presents to the Emergency Room with complaints of chest pain. This started this morning while hiking during hunting and is now resolved. The patient also notes the following associated symptoms, SOB, nausea, vomiting x 1 and syncope. The patient has taken nitro x 2 and asa x 2 relieving factors. Current pain is rated as 0/10. Hx of SD, bypass, and stents. Pt denies headache, fevers, chills, diaphoresis, visual changes, neck pain, breathing difficulties, back pain, melena, hematochezia, urinary symptoms, numbness, weakness, lymphadenopathy, rash, or other complaints. ROS: See above HPI for pertinent positives & negatives. A total of 10 systems reviewed and were otherwise negative. PAST MEDICAL HISTORY:See Below , CAD PAST SURGICAL HISTORY:See Below, Bypass FAMILY HISTORY:See Below SOCIAL HISTORY:See Below, HOME MEDICATIONS:See Below ALLERGIES:See Below VITALS:See Below PHYSICAL EXAMINATION: GENERAL: Awake, alert, well-appearing, in no distress HENT: Normocephalic, atraumatic. Oropharynx unremarkable. EYES: Normal conjunctiva. Sclera non-icteric. NECK: Inspection normal. Non-tender. Supple. No nuchal rigidity. FROM. No masses. RESPIRATORY: Clear to auscultation. No wheezes. No rales. Normal respiratory effort. CARDIAC: Normal rate. Normal rhythm. No murmurs. No rubs. Extremities warm and well perfused. Pulses equal. No JVD. GI: Soft, non-distended. No tenderness to palpation. No rebound or guarding. No masses. RECTAL: Deferred. MUSCULOSKELETAL: Atraumatic. Chest examination reveals no tenderness.No joint edema. LOWER EXTREMITIES: Calves are equal size bilaterally and non-tender. No edema. No discoloration. NEURO: Normal sensorium. No sensory or motor deficits noted. SKIN: No rash or jaundice noted. CRITICAL CARE: I have personally spent greater than 35 minutes of critical care time in the direct management of this patient. This includes bedside care, interpretation of diagnostic studies, and testing, discussion with consultants, patient, and family members, and other required patient management activities. These minutes are in excess of all separately billable procedures. Ezequiel Garcia MD Past Med/Surg History Medical History (Updated 01/26/21 @ 14:40 by Dinorah Gutierrez MD) Acute shoulder pain Brachial plexopathy Right CKD (chronic kidney disease) stage 3, GFR 30-59 ml/min Coronary artery disease Fall History of non-ST elevation myocardial infarction (NSTEMI) History of Salmonella gastroenteritis Hx of renal calculi Hyperlipidemia Hypertension Ischemic cardiomyopathy Neuropathic pain Obesity Seizure AGE 10 S/P ACCIDENT-WAS ON MEDS COUPLE YRS-OFF MEDS AND NO SEIZURES 30+ YRS Substernal precordial chest pain Surgical History History of appendectomy History of arthroscopic knee surgery 1986, LEFT History of cardiac cath MULTIPLE-LAST ONE 12/2018?-NO STENTS NEEDED [place]ST [place] [facility] [place] of carpal tunnel release of both wrists History of coronary artery bypass graft 5 [facility] History of tonsillectomy and adenoidectomy History of vasectomy Hx of heart artery stent X5-LAST ONE 10[place] [facility] [place] post insertion of spinal cord stimulator [employer] Family History Grandfather (Maternal) Family history of diabetes mellitus Mother Family history of diabetes mellitus Stroke Uncle Obstructive sleep apnea Grandmother (Maternal) Stroke Father Coronary heart disease Social History Smoking Status: Never smoker Second Hand Exposure: No; Do You Dip or Chew Tobacco: No; Tobacco Cessation Education Requested by Patient: No Hx Alcohol Use: Yes Alcohol type: hard liquor Hx Substance Use: No Preferred Language: Serbian Communication Ability: Effective Product Safety Technician Required: No Beliefs That Will Affect Care: None marital status: Current Living Situation: Spouse and Family current occupational status: unemployed How many Children do You have: 2 Other Information That Helps Us Care for You: No Feels Safe at Home: Yes Safety Concerns: Feels Safe At This Time Assistive Devices: Glasses Allergies Allergies Allergy/AdvReac Type Severity Reaction Status Date / Time No Known Allergies Allergy Verified 01/26/21 14:12 Home Meds Home Medications Medication Instructions Recorded Confirmed clopidogrel 75 mg PO QAM 01/28/19 01/26/21 rosuvastatin 40 mg PO HS 01/28/19 01/26/21 zolpidem 10 mg PO HS 01/28/19 01/26/21 Basaglar KwikPen U-100 Insulin 100 unit SUBCUT BID 02/04/19 01/26/21 insulin aspart U-100 [Novolog See Rx Instructions .ROUTE .COMPLEX 02/04/19 01/26/21 U-100 Insulin aspart] nitroglycerin 0.4 mg SUBLINGUAL DIRECTED PRN 02/24/19 01/26/21 sildenafil 100 mg tablet 100 mg PO DAILY PRN 11/03/19 01/26/21 diazepam 5 mg PO QID PRN 05/10/20 01/26/21 hydroxyzine HCl 25 mg PO HS PRN 05/10/20 01/26/21 pantoprazole 40 mg PO QAM 05/10/20 01/26/21 torsemide 10 mg tablet 10 mg PO QAM 07/19/20 01/26/21 aspirin [Aspirin Low Dose] 81 mg PO AMHS 08/02/20 01/26/21 lisinopril 2.5 mg PO HS 08/02/20 01/26/21 metformin 500 mg PO HS 08/02/20 01/26/21 metoprolol succinate 100 mg PO QAM 08/02/20 01/26/21 nitroglycerin 1 patch TOPICAL DIRECTED 08/02/20 01/26/21 cetirizine [Zyrtec] 10 mg PO DAILY PRN 01/26/21 01/26/21 doxycycline hyclate 100 mg PO BID 01/26/21 01/26/21 Previous Rx's Medication Instructions Recorded amitriptyline 25 mg tablet 25 mg PO HS #30 tab 11/02/20 duloxetine 30 mg capsule,delayed 60 mg PO QAM #30 cap 11/02/20 release Results & Data (ED) Vital Signs Vital Signs - 24 hr 01/26/21 10:24 01/26/21 10:54 01/26/21 10:58 Temperature 36.8 C Temperature Source Skin Pulse Rate 89 90 Pulse Rate from SpO2 Sensor Pulse Rhythm Regular Pulse Strength Normal Respiratory Rate 20 12 Respiratory Effort / Characteristics Non-Labored Spontaneous Respiratory Depth Normal Respiratory Pattern Regular Blood Pressure 119/85 131/78 Blood Pressure Mean 96 95 Pulse Oximetry 96 98 Oxygen Delivery Method Room Air Room Air Sepsis Recent Fever Within 48 Hours No Sepsis New/Unexplained Change in Mental Status N/A Sepsis Action Taken by Nursing No Action Required 01/26/21 10:59 01/26/21 11:00 01/26/21 11:30 Temperature Temperature Source Pulse Rate 89 84 Pulse Rate from SpO2 Sensor 90 84 Pulse Rhythm Pulse Strength Respiratory Rate 18 11 L Respiratory Effort / Characteristics Respiratory Depth Respiratory Pattern Blood Pressure 117/72 127/79 Blood Pressure Mean 87 95 Pulse Oximetry 97 94 Oxygen Delivery Method Room Air Sepsis Recent Fever Within 48 Hours Sepsis New/Unexplained Change in Mental Status Sepsis Action Taken by Nursing 01/26/21 12:00 01/26/21 12:31 01/26/21 13:00 Temperature Temperature Source Pulse Rate 81 77 77 Pulse Rate from SpO2 Sensor 81 77 77 Pulse Rhythm Pulse Strength Respiratory Rate 17 23 22 Respiratory Effort / Characteristics Respiratory Depth Respiratory Pattern Blood Pressure 118/74 112/64 117/76 Blood Pressure Mean 88 80 89 Pulse Oximetry 99 98 92 Oxygen Delivery Method Sepsis Recent Fever Within 48 Hours Sepsis New/Unexplained Change in Mental Status Sepsis Action Taken by Nursing 01/26/21 13:30 01/26/21 14:01 Temperature Temperature Source Pulse Rate 77 Pulse Rate from SpO2 Sensor 77 75 Pulse Rhythm Pulse Strength Respiratory Rate 15 Respiratory Effort / Characteristics Respiratory Depth Respiratory Pattern Blood Pressure 132/83 110/70 Blood Pressure Mean 99 83 Pulse Oximetry 95 98 Oxygen Delivery Method Sepsis Recent Fever Within 48 Hours Sepsis New/Unexplained Change in Mental Status Sepsis Action Taken by Nursing Laboratory Data Result diagrams: 01/26/21 10:50 01/26/21 10:50 Lab Results 01/26/21 01/26/21 01/26/21 Range/Units 10:50 10:50 10:50 WBC 8.45 (4.8-10.8) K/uL RBC 4.71 (4.7-6.1) M/uL Hgb 14.0 (14.0-18.0) g/dL Hct 41.3 L (42-52) % MCV 87.7 (80-100) fL MCH 29.7 (25-34) pg MCHC 33.9 (32-36) g/dL RDW Std Deviation 40.4 (36.4-46.3) fL RDW Coeff of Triny 12.5 (11.5-14.5) % Plt Count 234 (130-400) K/uL MPV 10.9 H (7.4-10.4) fL Immature Gran % (Auto) 1.1 % Neut % (Auto) 63.3 % Lymph % (Auto) 22.7 % [place] % (Auto) 11.4 % Eos % (Auto) 1.3 % Baso % (Auto) 0.2 % Neut # (Auto) 5.35 (1.4-6.5) K/uL Lymph # (Auto) 1.92 (1.2-3.4) K/uL [place] # (Auto) 0.96 H (0.11-0.59) K/uL Eos # (Auto) 0.11 (0-0.5) K/uL Baso # (Auto) 0.02 (0-0.2) K/uL Immature Gran # (Auto) 0.09 H (0.00-0.02) K/uL PT Cancelled INR Cancelled APTT Cancelled PTT Ratio Cancelled Sodium 134 L (136-145) mmol/L Potassium 4.7 (3.5-5.1) mmol/L Chloride 103 (98-107) mmol/L Carbon Dioxide 24 (21-32) mmol/L Anion Gap 7.0 (3-11) BUN 30 H (7-18) mg/dl Creatinine 1.60 H (0.6-1.4) mg/dl Est Cr Clr Drug Dosing 84.1 ml/min Est GFR ( Amer) 57.4 Est GFR (Non-Af Amer) 49.5 BUN/Creatinine Ratio 18.6 (10-20) Glucose 303 H* (70-99) mg/dl POC Glucose (70-99) mg/dl Calcium 8.8 (8.5-10.1) mg/dl Total Bilirubin 0.5 (0.2-1) mg/dl AST 52 H (15-37) U/L ALT 56 (12-78) U/L Alkaline Phosphatase 54 (45-117) U/L Troponin I 0.483 H* (0-0.045) ng/ml Total Protein 7.3 (6.4-8.2) gm/dl Albumin 3.7 (3.4-5.0) gm/dl Globulin 3.6 (2.5-4.0) gm/dl Albumin/Globulin Ratio 1.0 (0.9-2) Beta-Hydroxybutyric Acd (0.2-2.81) mg/dl Specimen Hemolysis COVID-19 Eval Order SARS-CoV-2 (PCR) (Negative) Influenza Type A (PCR) (Neg) Influenza Type B (PCR) (Neg) RSV (RT-PCR) (Neg) 01/26/21 01/26/21 01/26/21 Range/Units 11:53 12:10 12:10 WBC (4.8-10.8) K/uL RBC (4.7-6.1) M/uL Hgb (14.0-18.0) g/dL Hct (42-52) % MCV (80-100) fL MCH (25-34) pg MCHC (32-36) g/dL RDW Std Deviation (36.4-46.3) fL RDW Coeff of Triny (11.5-14.5) % Plt Count (130-400) K/uL MPV (7.4-10.4) fL Immature Gran % (Auto) % Neut % (Auto) % Lymph % (Auto) % [place] % (Auto) % Eos % (Auto) % Baso % (Auto) % Neut # (Auto) (1.4-6.5) K/uL Lymph # (Auto) (1.2-3.4) K/uL [place] # (Auto) (0.11-0.59) K/uL Eos # (Auto) (0-0.5) K/uL Baso # (Auto) (0-0.2) K/uL Immature Gran # (Auto) (0.00-0.02) K/uL PT 10.1 INR 1.0 APTT 22.8 PTT Ratio 0.9 Sodium (136-145) mmol/L Potassium (3.5-5.1) mmol/L Chloride (98-107) mmol/L Carbon Dioxide (21-32) mmol/L Anion Gap (3-11) BUN (7-18) mg/dl Creatinine (0.6-1.4) mg/dl Est Cr Clr Drug Dosing ml/min Est GFR ( Amer) Est GFR (Non-Af Amer) BUN/Creatinine Ratio (10-20) Glucose (70-99) mg/dl POC Glucose (70-99) mg/dl Calcium (8.5-10.1) mg/dl Total Bilirubin (0.2-1) mg/dl AST (15-37) U/L ALT (12-78) U/L Alkaline Phosphatase (45-117) U/L Troponin I (0-0.045) ng/ml Total Protein (6.4-8.2) gm/dl Albumin (3.4-5.0) gm/dl Globulin (2.5-4.0) gm/dl Albumin/Globulin Ratio (0.9-2) Beta-Hydroxybutyric Acd (0.2-2.81) mg/dl Specimen Hemolysis COVID-19 Eval Order CovFluRsv at [facility] SARS-CoV-2 (PCR) NEGATIVE (Negative) Influenza Type A (PCR) Negative (Neg) Influenza Type B (PCR) Negative (Neg) RSV (RT-PCR) Negative (Neg) 01/26/21 Range/Units 13:04 WBC (4.8-10.8) K/uL RBC (4.7-6.1) M/uL Hgb (14.0-18.0) g/dL Hct (42-52) % MCV (80-100) fL MCH (25-34) pg MCHC (32-36) g/dL RDW Std Deviation (36.4-46.3) fL RDW Coeff of Triny (11.5-14.5) % Plt Count (130-400) K/uL MPV (7.4-10.4) fL Immature Gran % (Auto) % Neut % (Auto) % Lymph % (Auto) % [place] % (Auto) % Eos % (Auto) % Baso % (Auto) % Neut # (Auto) (1.4-6.5) K/uL Lymph # (Auto) (1.2-3.4) K/uL [place] # (Auto) (0.11-0.59) K/uL Eos # (Auto) (0-0.5) K/uL Baso # (Auto) (0-0.2) K/uL Immature Gran # (Auto) (0.00-0.02) K/uL PT INR APTT PTT Ratio Sodium (136-145) mmol/L Potassium (3.5-5.1) mmol/L Chloride (98-107) mmol/L Carbon Dioxide (21-32) mmol/L Anion Gap (3-11) BUN (7-18) mg/dl Creatinine (0.6-1.4) mg/dl Est Cr Clr Drug Dosing ml/min Est GFR ( Amer) Est GFR (Non-Af Amer) BUN/Creatinine Ratio (10-20) Glucose (70-99) mg/dl POC Glucose 244 H (70-99) mg/dl Calcium (8.5-10.1) mg/dl Total Bilirubin (0.2-1) mg/dl AST (15-37) U/L ALT (12-78) U/L Alkaline Phosphatase (45-117) U/L Troponin I (0-0.045) ng/ml Total Protein (6.4-8.2) gm/dl Albumin (3.4-5.0) gm/dl Globulin (2.5-4.0) gm/dl Albumin/Globulin Ratio (0.9-2) Beta-Hydroxybutyric Acd (0.2-2.81) mg/dl Specimen Hemolysis COVID-19 Eval Order SARS-CoV-2 (PCR) (Negative) Influenza Type A (PCR) (Neg) Influenza Type B (PCR) (Neg) RSV (RT-PCR) (Neg) Administered Medications Clopidogrel Bisulfate (Clopidogrel Bisulfate 75 Mg Tab) [facility] [place] Stop: 02/25/21 14:19 Last Admin: 01/26/21 17:21 Dose: 75 mg Documented by: [id number] Duloxetine HCl (Duloxetine Hcl 30 Mg Cap) 60 mg PO [facility] Stop: 02/25/21 14:19 Last Admin: 01/26/21 17:21 Dose: 60 mg Documented by: [id number] Heparin Sodium/Dextrose (Heparin Sodium/Dextrose) 25,000 units in 500 mls @ 39 mls/hr IV .[id number] [facility]; Protocol Stop: 02/25/21 12:02 Last Titration: 01/26/21 18:45 Dose: 2,050 units/hr, 41 mls/hr Documented by: [id number] Cosigned by: [id number] Titration: 01/26/21 16:28 Dose: 1,950 units/hr, 39 mls/hr Documented by: [id number] Cosigned by: [id number] Admin: 01/26/21 12:17 Dose: 1,950 units/hr, 39 mls/hr Documented by: [id number] Cosigned by: [id number] Insulin Aspart (Insulin Aspart 100 Units/Ml 3 Ml Pen) 0 units SC [facility] Stop: 02/25/21 16:29 Last Admin: 01/26/21 17:19 Dose: 7 units Documented by: [id number] Cosigned by: [id number] Lorazepam (Lorazepam 0.5 Mg Tab) 0.5 mg PO Q8 PRN PRN Reason: Anxiety Stop: 02/25/21 14:21 Last Admin: 01/26/21 17:34 Dose: 0.5 mg Documented by: [id number] Metoprolol Succinate (Metoprolol Succ 50mg Ext Rel Tab) 100 mg PO QAM [facility] Stop: 02/25/21 14:19 Last Admin: 01/26/21 17:22 Dose: 100 mg Documented by: [id number] Nitroglycerin (Nitroglycerin 2% Ointment 30gm Tube) 0.5 inch EXT Q6 [facility] Stop: 02/25/21 17:59 Last Admin: 01/26/21 17:35 Dose: 0.5 inch Documented by: [id number] Pantoprazole Sodium (Pantoprazole 40 Mg Tab) 40 mg PO QAM [facility] Stop: 02/25/21 14:19 Last Admin: 01/26/21 17:21 Dose: 40 mg Documented by: [id number] Discontinued Medications Aspirin (Aspirin Chew 324 Mg) 162 mg PO NOW STA Stop: 01/26/21 11:01 Last Admin: 01/26/21 11:08 Dose: 162 mg Documented by: [id number] Heparin Sodium (Porcine) (Heparin Sod (Porcine) 1000 Unit/Ml) 1 units IV NOW ONE Stop: 01/26/21 12:04 Last Admin: 01/26/21 12:16 Dose: 5,000 units Documented by: [id number] Cosigned by: [id number] Heparin Sodium/Dextrose (Heparin Iv Adult Wt-Based Standard With Bolus Protocol) 1 ea N/A NOW [facility]; Protocol Stop: 01/26/21 11:49 Last Admin: 01/26/21 12:19 Dose: Not Given Documented by: [id number] Insulin Human Regular (Novolin-R Insulin Per Unit Charge) 10 units IV NOW STA Stop: 01/26/21 12:27 Last Admin: 01/26/21 13:02 Dose: 10 units Documented by: [id number] Cosigned by: [id number] Nitroglycerin (Nitroglycerin 2% Ointment 30gm Tube) 0.5 inch EXT NOW STA Stop: 01/26/21 11:01 Last Admin: 01/26/21 11:08 Dose: 0.5 inch Documented by: [id number] Imaging Data Radiologist's Impression: Chest X-Ray 01/26/21 10:31 XR chest 1V portable CLINICAL HISTORY: Atypical chest pain COMPARISON STUDY: 08/02/2020 FINDINGS: There are postsurgical changes of midline sternotomy. There is mild central vascular prominence. This could relate to the patient's large body habitus or be a reflection of mild pulmonary vascular congestion. There is no lobar consolidation. There are no pleural effusions. A spinal catheter is again visualized in the midline.[ IMPRESSION: 1. Mild interstitial prominence. While this may be related to technical factors given the patient's body habitus, mild pulmonary vascular congestion cannot be excluded. 2. No evidence of focal pulmonary consolidation ACT 112: Negative or not required by law. Electronically signed by: Samm Vivar M.D. 01/26/2021 11:07 AM Discharge Plan Visit Data Chief Complaint: Cardiac Assessment Stated Complaint: CHEST PAIN/RADIATING TO LEFT ARM SOB ED Provider: Ezequiel Garcia Discharge Problem: Left-sided chest pain, Coronary artery disease, History of non-ST elevation myocardial infarction (NSTEMI), Acute electrocardiogram changes Patient Disposition: Admitted As Inpatient Discharge Instructions Interventions: ED Discharge Assessment Last Done: 01/26/21 15:47
[2021-01-26 11:08] LABS: Basophils # (auto) 0.02 K/uL (0-0.2); Basophils % (auto) 0.2 %; Eosinophils # (auto) 0.11 K/uL (0-0.5); Eosinophils % (auto) 1.3 %; Hematocrit (blood only) 41.3 % (42-52); Immature Granulocytes # (auto) 0.09 K/uL (0.00-0.02); Immature Granulocytes % (auto) 1.1 %; Lymphocytes # (auto) 1.92 K/uL (1.2-3.4); Lymphocytes % (auto) 22.7 %; Mean Corpuscular Hemoglobin 29.7 pg (25-34); Mean Corpuscular Hgb Conc 33.9 g/dL (32-36); Mean Corpuscular Volume 87.7 fL (80-100); Mean Platelet Volume 10.9 fL (7.4-10.4); Monocytes # (auto) 0.96 K/uL (0.11-0.59); Monocytes % (auto) 11.4 %; Neutrophils # (auto) 5.35 K/uL (1.4-6.5); Neutrophils % (auto) 63.3 %; Platelet Count 234 K/uL (130-400); RDW Coefficient of Variation 12.5 % (11.5-14.5); RDW Standard Deviation 40.4 fL (36.4-46.3); Red Blood Count 4.71 M/uL (4.7-6.1); White Blood Count 8.45 K/uL (4.8-10.8)
--- NOTE | 2021-01-26 11:09 | XRay Report ---
XR chest 1V portable CLINICAL HISTORY: Atypical chest pain COMPARISON STUDY: 08/02/2020 FINDINGS: There are postsurgical changes of midline sternotomy. There is mild central vascular promin ence. This could relate to the patient's large body habitus or be a reflection of mild pulmonary vasc ular congestion. There is no lobar consolidation. There are no pleural effusions. A spinal catheter i s again visualized in the midline.[ IMPRESSION: 1. Mild interstitial prominence. While this may be related to technical factors given the patient's b [place] habitus, mild pulmonary vascular congestion cannot be excluded. 2. No evidence of focal pulmonary consolidation ACT 112: Negative or not required by law. Electronically signed by: Samm Vivar M.D. 01/26/2021 11:07 AM
[2021-01-26 11:46] LABS: Albumin Level 3.7 gm/dl (3.4-5.0); BUN Creatinine Ratio 18.6 (10-20); Bilirubin,Total 0.5 mg/dl (0.2-1); Calcium 8.8 mg/dl (8.5-10.1); Creatinine Clr Calc Pharmacy 84.1 ml/min; Est GFR (African American) 57.4; Est GFR (Non-African American) 49.5; Globulin 3.6 gm/dl (2.5-4.0); Potassium 4.7 mmol/L (3.5-5.1); Total Protein 7.3 gm/dl (6.4-8.2); Troponin I 0.483 ng/ml (0-0.045)
[2021-01-26] MEDS ORDERED: Heparin IV Adult Wt-Based Standard WITH Bolus Protocol STA (11:48)
[2021-01-26] MEDS ORDERED: HEPARIN SOD (PORCINE) 1000 UNIT/ML IV ONE (12:03)
[2021-01-26] MEDS: HEPARIN SODIUM/DEXTROSE 25,000 UNITS/500 ML BAG IV SCH (12:17)
[2021-01-26] MEDS ORDERED: NovoLIN-R INSULIN PER UNIT CHARGE IV STA (12:26)
[2021-01-26 12:29] LABS: Partial Thromboplastin Ratio 0.9; Partial Thromboplastin Time 22.8 Seconds (21.0-31.0); Prothrombin Time 10.1 Seconds (9.0-12.0)
--- NOTE | 2021-01-26 12:34 | Cardiology Consultation ---
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 Valverde. The patient has known coronary artery disease and was just cathed in June and deemed medical therapy at that time. He has known exertional angina. At this time we feel he would not gain from a repeat cardiac catheterization. He will be admitted to the hospital. He should be started on heparin. His other medications should remain the same. We will cycle his cardiac markers and if he has had marked increase in his cardiac troponin then we will reconsider sending him for heart catheterization at [facility]. If his cardiac markers remain low, we may consider continued medical management. We will follow along with you during his hospital stay. History of Present Illness History of Present Illness This is a 50-year-old diabetic male with metabolic syndrome who has a history of early onset atherosclerotic vascular disease. He underwent coronary artery bypass surgery in 2009 and has had multiple coronary interventions related to unstable angina with the last being in 2017. In June 2020 he failed an exercise stress test and was referred to cardiac catheterization at [facility]. According to records, he had an occlusion of the vein graft to the first obtuse marginal. It was decided that medical therapy was indicated. The patient has had chronic stable exertional angina. Today he was out hunting turkey. He was carrying a lot of gear, it was raining and he was climbing up a mountain. He had the sudden onset of angina which he describes as severe. He then passed out. When he regained consciousness he vomited. At that point he called his on his cell phone and asked her to pick him up. Usually, he states his angina will resolve if he sits down or takes a sublingual nitroglycerin. This episode was for more severe. He also did not have his sublingual nitroglycerin as he had [place] usually [place] the nitroglycerin. Upon presentation to the emergency department he is pain- free. EKG shows some lateral changes which are unchanged from previous studies. His first cardiac markers are a little bit elevated. Past cardiac interventional/surgical history: 1.Early-onset aggressive atherosclerotic cardiovascular disease having presented initially with exertional angina at the age of 39 in 2009, diagnosed with multivessel coronary artery disease prompting CABG x5 on 12/07/2009 2.In November 2016 and patient jonelndo angina, cardiac catheterization at [facility] revealed new complete occlusion of the vein graft to the right coronary artery and also high-grade occlusion to the saphenous vein graft toDiag1 and om 2 he therefore underwent drug-eluting stent to the vein graft to the obtuse marginal and the occlusion of the graft to the right coronary artery was treated medically 3.October 2017, crescendo angina, cardiac catheterization demonstrating 100% sh[place]bannock vessel disease, SVG to RCA occluded, with 90% stenosis of the SVG to OM 2 that was treated with a drug-eluting stent 4.Cardiac catheterization 01/16/2019 in the setting of somewhat atypical angina symptoms, stable angiography findings ongoing medical management recommended 5.Cardiac catheterization 07/23/2020 progression of disease in the sequential vein graft to diagonal 1, obtuse marginal 1, and obtuse marginal 2.The sequential saphenous vein graft to diagonal 1, obtuse marginal 1, and obtuse marginal 2 was noted to have a 50% stenosis in the first portion of the graft. A 100% occlusion of the vein graft was noted between obtuse marginal 1 and obtuse marginal to with no distal runoff to the obtuse marginal 2 branch. The appearance the graft was such that there was concern of a high risk of complication should wire be placed. The VALENZUELA to LAD graft was noted to be crouch nt. The SVG to RCA was known to be occluded from previous studies and was not imaged again. The patient's shosh[place]bannock coronary disease was unchanged compared to prior angiography in 2019. Allergies Allergy/AdvReac Type Severity Reaction Status Date / Time No Known Allergies Allergy Verified 08/02/20 22:24 Home Medications Medication Instructions Recorded Confirmed Type clopidogrel 75 mg PO QAM 01/28/19 08/02/20 History rosuvastatin 40 mg PO HS 01/28/19 08/02/20 History zolpidem 10 mg PO HS PRN 01/28/19 08/02/20 History Basaglar KwikPen U-100 Insulin 100 unit SUBCUT BID 02/04/19 08/02/20 History insulin aspart U-100 [Novolog See Rx Instructions .ROUTE .COMPLEX 02/04/19 08/02/20 History U-100 Insulin aspart] nitroglycerin 0.4 mg SUBLINGUAL DIRECTED PRN 02/24/19 08/02/20 History sildenafil 100 mg tablet 100 mg PO DAILY PRN 11/03/19 08/02/20 History diazepam 5 mg PO QID PRN 05/10/20 08/02/20 History hydroxyzine HCl 25 mg PO HS PRN 05/10/20 08/02/20 History multivitamin 1 tab PO QAM 05/10/20 08/02/20 History pantoprazole 40 mg PO QAM 05/10/20 08/02/20 History torsemide 10 mg tablet 10 mg PO QAM 07/19/20 08/02/20 History aspirin [Aspirin Low Dose] 81 mg PO AMHS 08/02/20 08/02/20 History lisinopril 2.5 mg PO HS 08/02/20 08/02/20 History metformin 500 mg PO HS 08/02/20 08/02/20 History metoprolol succinate 100 mg PO QAM 08/02/20 08/02/20 History nitroglycerin 1 patch TOPICAL DIRECTED 08/02/20 08/02/20 History oxycodone 5 mg PO Q6H PRN 08/02/20 08/02/20 History amitriptyline 25 mg tablet 25 mg PO HS #30 tab 11/02/20 11/02/20 Rx duloxetine 30 mg capsule,delayed 60 mg PO QAM #30 cap 11/02/20 11/02/20 Rx release Patient History Medical History (Updated 01/26/21 @ 12:59 by Valeriano Humphreys DO) Acute shoulder pain Brachial plexopathy Right Coronary artery disease Fall History of non-ST elevation myocardial infarction (NSTEMI) History of Salmonella gastroenteritis Hx of renal calculi Hyperlipidemia Hypertension Neuropathic pain Obesity Seizure AGE 10 S/P ACCIDENT-WAS ON MEDS COUPLE YRS-OFF MEDS AND NO SEIZURES 30+ YRS Substernal precordial chest pain Surgical History History of appendectomy History of arthroscopic knee surgery 1986, LEFT History of cardiac cath MULTIPLE-LAST ONE 12/2018?-NO STENTS NEEDED LAST STENT PLACED 10/2017 [facility] History of carpal tunnel release of both wrists History of coronary artery bypass graft 5 VESSELS History of tonsillectomy and adenoidectomy History of vasectomy Hx of heart artery stent X5-LAST ONE 10/2017 [facility] Status post insertion of spinal cord stimulator [employer] Family History Grandfather (Maternal) Family history of diabetes mellitus Mother Family history of diabetes mellitus Stroke Uncle Obstructive sleep apnea Grandmother (Maternal) Stroke Father Coronary heart disease Social History Smoking Status: Never smoker Second Hand Exposure: Yes (FAMILY OWNED BAR GROWING UP); Hx Alcohol Use: Yes Alcohol type: wine Hx Substance Use: No Preferred Language: Croatian Communication Ability: Effective Director Account Management Required: No Beliefs That Will Affect Care: None marital status: Current Living Situation: Spouse and Family current occupational status: unemployed How many Children do You have: 2 Feels Safe at Home: Yes Assistive Devices: CPAP Review of Systems Review of Systems: All systems reviewed & are unremarkable except as noted in HPI & below Nothing additional to add. Physical Exam Physical Exam: General: no acute distress and stated age Head: normocephalic, no masses, lesions, tenderness or abnormalities Eyes: conjunctiva are pink and non-injected, sclera clear Neck: supple, no adenopathy, no bruits, normal jugular venous pulse, no hepatojugular reflux Chest: normal shape and normal respiratory effort Lungs: clear to auscultation and percussion Cardiac Exam: - regular rate & rhythm, no murmurs gallops or rubs - normal S1, normal S2 Pulses: 2(+) throughout Abdomen: abdomen soft, non-tender, no abnormal masses and no hepatosplenomegaly Musculoskeletal: no gait disturbance, no joint inflammation, no deforming arthritis Extremities: no edema and no cyanosis Neuro: grossly normal exam Results & Data ([facility]) Vital Signs (Past 12 Hours) Vital Signs Temp Pulse Resp BP Pulse Ox 01/26/21 10:54 90 12 131/78 98 01/26/21 10:24 36.8 C 89 20 119/85 96 Laboratory Results Laboratory Results - last 24 hr 01/26/21 01/26/21 01/26/21 10:50 10:50 10:50 WBC 8.45 RBC 4.71 Hgb 14.0 Hct 41.3 L MCV 87.7 MCH 29.7 MCHC 33.9 RDW Std Deviation 40.4 RDW Coeff of Triny 12.5 Plt Count 234 MPV 10.9 H Immature Gran % (Auto) 1.1 Neut % (Auto) 63.3 Lymph % (Auto) 22.7 [place] % (Auto) 11.4 Eos % (Auto) 1.3 Baso % (Auto) 0.2 Neut # (Auto) 5.35 Lymph # (Auto) 1.92 [place] # (Auto) 0.96 H Eos # (Auto) 0.11 Baso # (Auto) 0.02 Immature Gran # (Auto) 0.09 H PT Cancelled INR Cancelled APTT Cancelled PTT Ratio Cancelled Sodium 134 L Potassium 4.7 Chloride 103 Carbon Dioxide 24 Anion Gap 7.0 BUN 30 H Creatinine 1.60 H Est Cr Clr Drug Dosing 84.1 Est GFR ( Amer) 57.4 Est GFR (Non-Af Amer) 49.5 BUN/Creatinine Ratio 18.6 Glucose 303 H* Calcium 8.8 Total Bilirubin 0.5 AST 52 H ALT 56 Alkaline Phosphatase 54 Troponin I 0.483 H* Total Protein 7.3 Albumin 3.7 Globulin 3.6 Albumin/Globulin Ratio 1.0 Beta-Hydroxybutyric Acd Specimen Hemolysis 01/26/21 11:53 WBC RBC Hgb Hct MCV MCH MCHC RDW Std Deviation RDW Coeff of Triny Plt Count MPV Immature Gran % (Auto) Neut % (Auto) Lymph % (Auto) [place] % (Auto) Eos % (Auto) Baso % (Auto) Neut # (Auto) Lymph # (Auto) [place] # (Auto) Eos # (Auto) Baso # (Auto) Immature Gran # (Auto) PT 10.1 INR 1.0 APTT 22.8 PTT Ratio 0.9 Sodium Potassium Chloride Carbon Dioxide Anion Gap BUN Creatinine Est Cr Clr Drug Dosing Est GFR ( Amer) Est GFR (Non-Af Amer) BUN/Creatinine Ratio Glucose Calcium Total Bilirubin AST ALT Alkaline Phosphatase Troponin I Total Protein Albumin Globulin Albumin/Globulin Ratio Beta-Hydroxybutyric Acd Specimen Hemolysis Medications Administered Current Inpatient Medications Heparin Sodium/Dextrose (Heparin Sodium/Dextrose) 25,000 units in 500 mls @ 39 mls/hr IV .[id number] [facility]; Protocol Stop: 02/25/21 12:02 Last Admin: 01/26/21 12:17 Dose: 1,950 units/hr, 39 mls/hr Documented by:
--- NOTE | 2021-01-26 13:00 | History & Physical Report ---
Date of Service January 26, 2021 Assessment & Plan (1) Non-ST elevation VA (NSTEMI): With extensive history of CABG at age 39 followed by multiple percutaneous interventions since that time, complex case managed by [facility] cardiology Here with NSTEMI, initial troponin 0.4, with lateral ST depressions on ECG, Chest pain-free currently after receiving sublingual nitroglycerin and nitroglycerin paste -Seen by cardiology in the ER and recommendation was to stay here for medical management of NSTEMI, but if troponin becomes significantly elevated, would transfer out to [place] for cardiac catheterization given complex history -Trend serial troponin, ECG -Check echocardiogram for new wall motion abnormalities -Appreciate cardiology consultation -Did not take his morning medications-we will give Toprol-XL, Plavix now; he already received his aspirin this morning prior to arrival -Continue Nitropaste for now, however he does typically use a nitro patch at home-unsure if this is available on our formulary -Continue heparin drip likely for 48 hours (2) Coronary artery disease: As noted above Continue dual antiplatelet therapy, Crestor, Toprol-XL, lisinopril (3) Ischemic cardiomyopathy: With recent echocardiogram in our system in 2018 with mildly reduced EF 45-50% with multiple wall motion abnormalities -Hold torsemide for today but will start again tomorrow morning Continue Toprol-XL, lisinopril as above Strict I's and O's, daily weights (4) Hyperlipidemia: Continue statin (5) Hypertension: Patient states typically his blood pressures run in the 90s to 100s systolic Continue Toprol-XL, lisinopril, torsemide (6) Morbid obesity with BMI of 40.0-44.9, adult: BMI 45.6 Needs weight loss and low carbohydrate diet (7) Neuropathic pain: With 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 requiring spinal cord stimulator which has since run out of battery Continue home amitriptyline at bedtime Continue Cymbalta Follows with neurology (8) Peripheral neuropathy: Follows with neurology Continue amitriptyline (9) Severe obstructive sleep apnea: Continue CPAP 11 cm H2O at bedtime (10) Type 2 diabetes mellitus: Last hemoglobin A1c in our system is 10.7% in 2019 He was hyperglycemic here in the 300s on arrival and was given 10 units of regular insulin IV x1 in the ER He is on very large doses of insulin at home with Basaglar 100 units twice daily as well as NovoLog supplemental insulin with meals and Metformin -Hold Metformin here -Continue basilar 100 units twice daily -Continue NovoLog supplemental insulin before meals and at bedtime Check hemoglobin A1c in the morning Consult glycemic control pharmacy for assistance as he will likely be labile (11) CKD (chronic kidney disease) stage 3, GFR 30-59 ml/min: Creatinine baseline around 1.4-1.6 Patient was unaware of this diagnosis and this was discussed upon admission Continue lisinopril -Avoid nephrotoxins -renally dose meds when appropriate -follow BMP (12) Hyponatremia: Sodium chronically low around 134-135 Could be secondary to volume overload from CHF Continue torsemide Follow BMP (13) Anxiety: Continue Cymbalta, does take Valium at home as needed We will hold Valium here and give shorter acting lorazepam 0.5 mg as needed Continue hydroxyzine as needed (14) DVT prophylaxis: Heparin drip Disposition-admit to PCU Full code History of Present Illness Chief Complaint: Chest pain Primary Care Provider: Clare Johnson DO This patient is a 50-year-old male with a history of CAD status post CABG at age 39 and multiple percutaneous interventions since that time, DM 2, morbid obesity, neuropathy, JOY on CPAP, CKD stage III bilateral brachial plexopathy with spinal cord stimulator, hyperlipidemia, remote history of seizures, and nephrolithiasis who presents to the ER with acute onset of chest pressure that came on while he was out [place] after he had walked several miles before that. The pain was severe and he sat down to rest and when he stood up, he then passed out. After he regained consciousness, he had nausea with vomiting x1, shortness of breath. He called his to come get him but it took her 40 minutes to get there-she brought him 2 nitroglycerin and 2 baby aspirin which he took at that time prior to arrival and his pain was resolved by the time he got to the ER. He had an EKG which showed some lateral changes changed from previous ECG and his initial troponin was slightly elevated at 0.483. His pain started to come back slightly and he was put on Nitropaste in the ER and is now completely resolved. He was seen by cardiology in the ER who discussed his care with both his primary physician coding specialist, Dr. Valverde, as well as with cardiology at [place] to see if he should be transferred for cardiac catheterization there given his complex cardiac history. They recommended admission to [facility] for medical management of his NSTEMI and transfer out only if his troponin significantly elevated. He was started on heparin drip as well as Nitropaste. Allergies Allergy/AdvReac Type Severity Reaction Status Date / Time No Known Allergies Allergy Verified 01/26/21 14:12 Home Medications Medication Instructions Recorded Confirmed Type clopidogrel 75 mg PO QAM 01/28/19 08/02/20 History rosuvastatin 40 mg PO HS 01/28/19 08/02/20 History zolpidem 10 mg PO HS PRN 01/28/19 08/02/20 History Basaglar KwikPen U-100 Insulin 100 unit SUBCUT BID 02/04/19 08/02/20 History insulin aspart U-100 [Novolog See Rx Instructions .ROUTE .COMPLEX 02/04/19 08/02/20 History U-100 Insulin aspart] nitroglycerin 0.4 mg SUBLINGUAL DIRECTED PRN 02/24/19 08/02/20 History sildenafil 100 mg tablet 100 mg PO DAILY PRN 11/03/19 08/02/20 History diazepam 5 mg PO QID PRN 05/10/20 08/02/20 History hydroxyzine HCl 25 mg PO HS PRN 05/10/20 08/02/20 History pantoprazole 40 mg PO QAM 05/10/20 08/02/20 History torsemide 10 mg tablet 10 mg PO QAM 07/19/20 08/02/20 History aspirin [Aspirin Low Dose] 81 mg PO AMHS 08/02/20 08/02/20 History lisinopril 2.5 mg PO HS 08/02/20 08/02/20 History metformin 500 mg PO HS 08/02/20 08/02/20 History metoprolol succinate 100 mg PO QAM 08/02/20 08/02/20 History nitroglycerin 1 patch TOPICAL DIRECTED 08/02/20 08/02/20 History amitriptyline 25 mg tablet 25 mg PO HS #30 tab 11/02/20 11/02/20 Rx duloxetine 30 mg capsule,delayed 60 mg PO QAM #30 cap 11/02/20 11/02/20 Rx release cetirizine [Zyrtec] 10 mg PO DAILY PRN 01/26/21 01/26/21 History Past Med/Surg History Medical History (Updated 01/26/21 @ 14:40 by Dinorah Gutierrez MD) Acute shoulder pain Brachial plexopathy Right CKD (chronic kidney disease) stage 3, GFR 30-59 ml/min Coronary artery disease Fall History of non-ST elevation myocardial infarction (NSTEMI) History of Salmonella gastroenteritis Hx of renal calculi Hyperlipidemia Hypertension Ischemic cardiomyopathy Neuropathic pain Obesity Seizure AGE 10 S/P ACCIDENT-WAS ON MEDS COUPLE YRS-OFF MEDS AND NO SEIZURES 30+ YRS Substernal precordial chest pain Surgical History History of appendectomy History of arthroscopic knee surgery 1985, LEFT History of cardiac cath MULTIPLE-LAST ONE 12/2018?-NO STENTS NEEDED LAST STENT PLACED 10/2017 [facility] [place] History of carpal tunnel release of both wrists History of coronary artery bypass graft 5 VESSELS History of tonsillectomy and adenoidectomy History of vasectomy Hx of heart artery stent X5-LAST ONE 10/2017 [facility] [place] Status post insertion of spinal cord stimulator [employer] Family History Grandfather (Maternal) Family history of diabetes mellitus Mother Family history of diabetes mellitus Stroke Uncle Obstructive sleep apnea Grandmother (Maternal) Stroke Father Coronary heart disease Social History Smoking Status: Never smoker Second Hand Exposure: Yes (FAMILY OWNED BAR GROWING UP); Hx Alcohol Use: Yes Alcohol type: wine Hx Substance Use: No Preferred Language: Tongan Communication Ability: Effective Asphalt Patcher Required: No Beliefs That Will Affect Care: None marital status: Current Living Situation: Spouse and Family current occupational status: unemployed How many Children do You have: 2 Feels Safe at Home: Yes Assistive Devices: CPAP Review of Systems Review of Systems: All systems reviewed & are unremarkable except as noted in HPI & below Denies any recent fevers or chills, no further nausea since this morning, no abdominal pain. No injuries from the fall when he passed out. He received his Covid vaccine the second dose about 4 weeks ago Denies any ongoing shortness of breath, no leg swelling ever Has chronic pain in his upper extremities Also with ongoing anxiety, worsened by current situation-requesting something for this Physical Exam Constitutional: WD/WN, vitals as above + morbidly obese Eyes: + anicteric sclerae ENMT: Ears: no hearing impairment Neck: trachea midline, no thyromegaly Respiratory: normal respiratory effort, lungs clear to auscultation Cardiovascular: RRR, no murmur, no edema Extremities: no calf tenderness Chest (Breasts): Chest: + abnormal inspection of chest (Sternotomy scar) Gastrointestinal (Abdomen): normal bowel sounds, soft, nontender, no hepat osplenomegaly Musculoskeletal: Extremities: extremities normal to inspection; no cyanosis and no clubbing Skin: no rashes, warm and dry Neurologic: moves all extremities and awake; no focal motor deficits Psychiatric: A+Ox3, euthymic affect Lymphatic: no lymphedema Results & Data Results & Data ([facility]) Vital Signs (Past 12 Hours) Vital Signs Temp Pulse Resp BP Pulse Ox 01/26/21 10:54 90 12 131/78 98 01/26/21 10:24 36.8 C 89 20 119/85 96 Laboratory Results 01/26/21 01/26/21 01/26/21 Range/Units 13:04 12:10 12:10 WBC (4.8-10.8) K/uL RBC (4.7-6.1) M/uL Hgb (14.0-18.0) g/dL Hct (42-52) % MCV (80-100) fL MCH (25-34) pg MCHC (32-36) g/dL RDW Std Deviation (36.4-46.3) fL RDW Coeff of Triny (11.5-14.5) % Plt Count (130-400) K/uL MPV (7.4-10.4) fL Immature Gran % (Auto) % Neut % (Auto) % Lymph % (Auto) % Bibb % (Auto) % Eos % (Auto) % Baso % (Auto) % Neut # (Auto) (1.4-6.5) K/uL Lymph # (Auto) (1.2-3.4) K/uL Bibb # (Auto) (0.11-0.59) K/uL Eos # (Auto) (0-0.5) K/uL Baso # (Auto) (0-0.2) K/uL Immature Gran # (Auto) (0.00-0.02) K/uL PT INR APTT PTT Ratio Sodium (136-145) mmol/L Potassium (3.5-5.1) mmol/L Chloride (98-107) mmol/L Carbon Dioxide (21-32) mmol/L Anion Gap (3-11) BUN (7-18) mg/dl Creatinine (0.6-1.4) mg/dl Est Cr Clr Drug Dosing ml/min Est GFR ( Amer) Est GFR (Non-Af Amer) BUN/Creatinine Ratio (10-20) Glucose (70-99) mg/dl POC Glucose 244 H (70-99) mg/dl Calcium (8.5-10.1) mg/dl Total Bilirubin (0.2-1) mg/dl AST (15-37) U/L ALT (12-78) U/L Alkaline Phosphatase (45-117) U/L Troponin I (0-0.045) ng/ml Total Protein (6.4-8.2) gm/dl Albumin (3.4-5.0) gm/dl Globulin (2.5-4.0) gm/dl Albumin/Globulin Ratio (0.9-2) Beta-Hydroxybutyric Acd (0.2-2.81) mg/dl Specimen Hemolysis COVID-19 Eval Order CovFluRsv at [facility] SARS-CoV-2 (PCR) Pending Influenza Type A (PCR) Pending Influenza Type B (PCR) Pending RSV (RT-PCR) Pending 01/26/21 01/26/21 01/26/21 Range/Units 11:53 10:50 10:50 WBC (4.8-10.8) K/uL RBC (4.7-6.1) M/uL Hgb (14.0-18.0) g/dL Hct (42-52) % MCV (80-100) fL MCH (25-34) pg MCHC (32-36) g/dL RDW Std Deviation (36.4-46.3) fL RDW Coeff of Triny (11.5-14.5) % Plt Count (130-400) K/uL MPV (7.4-10.4) fL Immature Gran % (Auto) % Neut % (Auto) % Lymph % (Auto) % Bibb % (Auto) % Eos % (Auto) % Baso % (Auto) % Neut # (Auto) (1.4-6.5) K/uL Lymph # (Auto) (1.2-3.4) K/uL Bibb # (Auto) (0.11-0.59) K/uL Eos # (Auto) (0-0.5) K/uL Baso # (Auto) (0-0.2) K/uL Immature Gran # (Auto) (0.00-0.02) K/uL PT 10.1 Cancelled INR 1.0 Cancelled APTT 22.8 Cancelled PTT Ratio 0.9 Cancelled Sodium 134 L (136-145) mmol/L Potassium 4.7 (3.5-5.1) mmol/L Chloride 103 (98-107) mmol/L Carbon Dioxide 24 (21-32) mmol/L Anion Gap 7.0 (3-11) BUN 30 H (7-18) mg/dl Creatinine 1.60 H (0.6-1.4) mg/dl Est Cr Clr Drug Dosing 84.1 ml/min Est GFR ( Amer) 57.4 Est GFR (Non-Af Amer) 49.5 BUN/Creatinine Ratio 18.6 (10-20) Glucose 303 H* (70-99) mg/dl POC Glucose (70-99) mg/dl Calcium 8.8 (8.5-10.1) mg/dl Total Bilirubin 0.5 (0.2-1) mg/dl AST 52 H (15-37) U/L ALT 56 (12-78) U/L Alkaline Phosphatase 54 (45-117) U/L Troponin I 0.483 H* (0-0.045) ng/ml Total Protein 7.3 (6.4-8.2) gm/dl Albumin 3.7 (3.4-5.0) gm/dl Globulin 3.6 (2.5-4.0) gm/dl Albumin/Globulin Ratio 1.0 (0.9-2) Beta-Hydroxybutyric Acd (0.2-2.81) mg/dl Specimen Hemolysis COVID-19 Eval Order SARS-CoV-2 (PCR) Influenza Type A (PCR) Influenza Type B (PCR) RSV (RT-PCR) 01/26/21 Range/Units 10:50 WBC 8.45 (4.8-10.8) K/uL RBC 4.71 (4.7-6.1) M/uL Hgb 14.0 (14.0-18.0) g/dL Hct 41.3 L (42-52) % MCV 87.7 (80-100) fL MCH 29.7 (25-34) pg MCHC 33.9 (32-36) g/dL RDW Std Deviation 40.4 (36.4-46.3) fL RDW Coeff of Triny 12.5 (11.5-14.5) % Plt Count 234 (130-400) K/uL MPV 10.9 H (7.4-10.4) fL Immature Gran % (Auto) 1.1 % Neut % (Auto) 63.3 % Lymph % (Auto) 22.7 % Bibb % (Auto) 11.4 % Eos % (Auto) 1.3 % Baso % (Auto) 0.2 % Neut # (Auto) 5.35 (1.4-6.5) K/uL Lymph # (Auto) 1.92 (1.2-3.4) K/uL Bibb # (Auto) 0.96 H (0.11-0.59) K/uL Eos # (Auto) 0.11 (0-0.5) K/uL Baso # (Auto) 0.02 (0-0.2) K/uL Immature Gran # (Auto) 0.09 H (0.00-0.02) K/uL PT INR APTT PTT Ratio Sodium (136-145) mmol/L Potassium (3.5-5.1) mmol/L Chloride (98-107) mmol/L Carbon Dioxide (21-32) mmol/L Anion Gap (3-11) BUN (7-18) mg/dl Creatinine (0.6-1.4) mg/dl Est Cr Clr Drug Dosing ml/min Est GFR ( Amer) Est GFR (Non-Af Amer) BUN/Creatinine Ratio (10-20) Glucose (70-99) mg/dl POC Glucose (70-99) mg/dl Calcium (8.5-10.1) mg/dl Total Bilirubin (0.2-1) mg/dl AST (15-37) U/L ALT (12-78) U/L Alkaline Phosphatase (45-117) U/L Troponin I (0-0.045) ng/ml Total Protein (6.4-8.2) gm/dl Albumin (3.4-5.0) gm/dl Globulin (2.5-4.0) gm/dl Albumin/Globulin Ratio (0.9-2) Beta-Hydroxybutyric Acd (0.2-2.81) mg/dl Specimen Hemolysis COVID-19 Eval Order SARS-CoV-2 (PCR) Influenza Type A (PCR) Influenza Type B (PCR) RSV (RT-PCR) Diagnostic Findings Chest X-Ray 01/26/21 10:31 XR chest 1V portable CLINICAL HISTORY: Atypical chest pain COMPARISON STUDY: 08/02/2020 FINDINGS: There are postsurgical changes of midline sternotomy. There is mild central vascular prominence. This could relate to the patient's large body habitus or be a reflection of mild pulmonary vascular congestion. There is no lobar consolidation. There are no pleural effusions. A spinal catheter is again visualized in the midline.[ IMPRESSION: 1. Mild interstitial prominence. While this may be related to technical factors given the patient's body habitus, mild pulmonary vascular congestion cannot be excluded. 2. No evidence of focal pulmonary consolidation ACT 112: Negative or not required by law. Electronically signed by: Samm Vivar M.D. 01/26/2021 11:07 AM ECG Additional Comments: ECG on 01/26/2021 at 1037 with normal sinus rhythm, significant right axis deviation with ST depression in lateral leads Code Status & VTE Plan Code Status Full code VTE Prophylaxis Plan VTE Prophylaxis will be ordered: Yes PG Care Time/CCT Total # of Minutes Spent Total Time Spent with Patient: Total time spent is greater than 50% in coordination of care (as documented) at patient's floor/unit and/or counseling patient: Coding Level of Care Code 62825 Initial Inpt Care Lvl 3 Diagnoses Non-ST elevation VA (NSTEMI) I21.4 Coronary artery disease I25.10 Ischemic cardiomyopathy I25.5 Hyperlipidemia E78.5 Hypertension I10 Morbid obesity with BMI of 40.0-44.9, adult E66.01; Z68.41 Neuropathic pain M79.2 Peripheral neuropathy G62.9 Severe obstructive sleep apnea G47.33 Type 2 diabetes mellitus E11.9 CKD (chronic kidney disease) stage 3, GFR 30-59 ml/min N18.30 Hyponatremia E87.1 Anxiety F41.9 DVT prophylaxis Z29.9
[2021-01-26 14:16] LABS: Influenza A virus by PCR Negative (Neg); Influenza B virus by PCR Negative (Neg); RSV by PCR Negative (Neg); SARS CoV2 RNA(COVID-19) InHosp NEGATIVE (Negative)
[2021-01-26] MEDS ORDERED: GLUCOSE 10 TABS/TUBE PO PRN (14:20)
[2021-01-26] MEDS ORDERED: GLUCAGON FOR INJ 1 MG VIAL SQ PRN (14:20)
[2021-01-26] MEDS ORDERED: PHARMACY GLYCEMIC MGMT CONSULT STA (14:20)
[2021-01-26] MEDS ORDERED: DEXTROSE 50% 50 ML SYRINGE IV PRN (14:20)
[2021-01-26] MEDS ORDERED: GLUCOSE 40% GEL 15 GM TUBE PO PRN (14:20)
[2021-01-26] MEDS ORDERED: CARBOHYDRATES FOR HYPOGLYCEMIA PO PRN (14:20)
[2021-01-26] MEDS ORDERED: LORazepam 0.5 MG TAB PO PRN (14:22)
[2021-01-26] MEDS ORDERED: ZOLPIDEM TARTRATE 10 MG TAB PO PRN (16:14)
[2021-01-26] MEDS ORDERED: hydrOXYzine HCl 25 MG TAB PO PRN (16:14)
[2021-01-26] MEDS ORDERED: ONDANSETRON INJ 2 MG/ML 2 ML VIAL IV PRN (16:14)
[2021-01-26] MEDS ORDERED: oxyCODONE HCL IR 5 MG TAB (IMMEDIATE RELEASE) PO PRN (16:27)
--- NOTE | 2021-01-26 16:37 | Electrocardiogram Report ---
Test Reason : Blood Pressure : / mmHG Vent. Rate : 096 BPM Atrial Rate : 096 BPM P-R Int : 198 ms QRS Dur : 116 ms QT Int : 386 ms P-R-T Axes : 061 138 131 degrees QTc Int : 487 ms Normal sinus rhythm Left atrial enlargement Non-specific intra-ventricular conduction delay Right axis deviation Poor R wave progression, consider anterior WA vs. lead placement vs. LVH ST depression in Anterolateral leads , consider ischemia Abnormal ECG When compared with ECG of 02-AUG-2020 17:37, QRS duration has increased ST depression in Anterolateral leads now present Confirmed by Siddhartha Forman ([id number]) on 01/26/2021 4:37:33 PM Referred By: REFERRED SELF Confirmed By:Siddhartha Forman
[2021-01-26] MEDS: INSULIN ASPART 100 UNITS/ML 3 ML PEN SC SCH ×3 (17:19→23:33)
[2021-01-26] MEDS: CLOPIDOGREL BISULFATE 75 MG TAB PO SCH (17:21)
[2021-01-26] MEDS: DULoxetine HCL 30 MG CAP PO SCH (17:21)
[2021-01-26] MEDS: PANTOprazole 40 MG TAB PO SCH (17:21)
[2021-01-26] MEDS: METOPROLOL SUCC 50MG EXT REL TAB PO SCH (17:22)
[2021-01-26] MEDS: NITROGLYCERIN 2% OINTMENT 30GM TUBE EXT SCH ×2 (17:35→23:26)
[2021-01-26 18:32] LABS: Partial Thromboplastin Ratio 1.6; Partial Thromboplastin Time 41.9 Seconds (21.0-31.0)
[2021-01-26] MEDS ORDERED: INSULIN GLARGINE SOLOSTAR 100 UNITS/ML 3 ML PEN SQ SCH (21:00)
[2021-01-26] MEDS ORDERED: ROSUVASTATIN CALCIUM 20 MG TAB PO SCH (21:00)
[2021-01-26] MEDS ORDERED: AMITRIPTYLINE HCL 25 MG TAB PO SCH (21:00)
[2021-01-26] MEDS ORDERED: lisinopril 2.5 MG TAB PO SCH (21:00)
[2021-01-26] MEDS: ASPIRIN 81 MG ECTAB PO SCH (21:05)
[2021-01-26] MEDS ORDERED: PHARMACY GLYCEMIC MGMT CONSULT PRN (21:23)
[2021-01-26] MEDS ORDERED: INSULIN GLARGINE 100 UNIT/ML VIAL SC ONE (21:45)
--- NOTE | 2021-01-26 22:00 | Pharmacy Report ---
Pharmacy Glycemic Short Note 2 - Date of Service January 26, 2021 - Glycemic Short BSG Results (Last 24 hours): 01/26/21 01/26/21 01/26/21 10:50 13:04 16:16 Glucose 303 H* POC Glucose 244 H 252 H 01/26/21 20:08 Glucose POC Glucose 228 H OUTPATIENT ANTIDIABETIC REGIMEN: * Lantus 100 units bid, Novolog 40-50 units with meals (typically 2 meals/day) * A1c ~8.4% per patient, not sure when taken ASSESSMENT: * 50 year old with NSTEMI. Pharmacy consulted as patient on very large doses of insulin at home * Confirmed patient did not take any basal insulin this AM or any short acting. BSGs on arrival in the 300s. Given 10 iv insulin in ER * BSG at HS 228 mg/dL - plan to decrease basal insulin by ~60% as patient NPO and likely PO intake much less. He reports he eats typically only 2 meals per day. First meal at 2pm, 2nd meal at 7 pm and then will eat pork rinds/snack at bedtime. Patient reports following [facility] in [employer] for BSG management that he videochats and they help make adjustments on insulin. * Plan to add overnight checks PLAN FOR INPATIENT GLYCEMIC CONTROL: * Hold outpatient oral diabetes medications * Basal insulin * Lantus 70 x 1 * Bolus insulin * NovoLog per scale ACHS or Q6hrs while NPO * Goal Range: Low 110 mg/dL - High 140 mg/dL * Correction Factor: 12 mg/dL/unit * Nutritional / Prandial insulin per carb ratio of 1 unit per 4 grams CHO consumed PLAN FOR DISCHARGE: * tbd
--- NOTE | 2021-01-26 23:03 | Communication Note ---
Date of Service: January 26, 2021 Of note, patient is taking doxycycline for recent tick bite for an empiric course for Lyme disease. I added this back onto his medication profile for the morning.
[2021-01-26] MEDS: MoRPHine SULFATE 2 MG/ML CARP IV PRN (23:21)
[2021-01-27 01:28] LABS: Partial Thromboplastin Ratio 1.8
[2021-01-27] MEDS: HEPARIN SODIUM/DEXTROSE 25,000 UNITS/500 ML BAG IV SCH ×2 (01:32→14:58)
[2021-01-27] MEDS: INSULIN ASPART 100 UNITS/ML 3 ML PEN SC SCH ×4 (03:50→16:55)
[2021-01-27] MEDS: NITROGLYCERIN 2% OINTMENT 30GM TUBE EXT SCH ×3 (05:37→18:12)
[2021-01-27 07:07] LABS: Basophils # (auto) 0.02 K/uL (0-0.2); Basophils % (auto) 0.2 %; Eosinophils # (auto) 0.22 K/uL (0-0.5); Eosinophils % (auto) 2.5 %; Hematocrit (blood only) 38.9 % (42-52); Hemoglobin 13.1 g/dL (14.0-18.0); Immature Granulocytes # (auto) 0.07 K/uL (0.00-0.02); Immature Granulocytes % (auto) 0.8 %; Lymphocytes # (auto) 2.38 K/uL (1.2-3.4); Lymphocytes % (auto) 27.3 %; Mean Corpuscular Hemoglobin 30.2 pg (25-34); Mean Corpuscular Hgb Conc 33.7 g/dL (32-36); Mean Corpuscular Volume 89.6 fL (80-100); Monocytes % (auto) 11.5 %; Neutrophils # (auto) 5.03 K/uL (1.4-6.5); Neutrophils % (auto) 57.7 %; Platelet Count 204 K/uL (130-400); RDW Coefficient of Variation 12.6 % (11.5-14.5); RDW Standard Deviation 40.6 fL (36.4-46.3); Red Blood Count 4.34 M/uL (4.7-6.1); White Blood Count 8.72 K/uL (4.8-10.8)
[2021-01-27 07:15] LABS: Estimated Average Glucose 217 mg/dl; Hemoglobin A1C 9.2 % (4.5-5.6)
[2021-01-27 07:27] LABS: Partial Thromboplastin Ratio 1.9
[2021-01-27 07:33] LABS: Partial Thromboplastin Time 50.4 Seconds (21.0-31.0)
[2021-01-27 07:46] LABS: Albumin Level 3.4 gm/dl (3.4-5.0); BUN Creatinine Ratio 16.3 (10-20); Bilirubin Direct 0.1 mg/dl (0-0.2); Calcium 8.4 mg/dl (8.5-10.1); Creatinine Clr Calc Pharmacy 90.3 ml/min; Est GFR (African American) 63.6; Est GFR (Non-African American) 54.8; Potassium 3.8 mmol/L (3.5-5.1)
[2021-01-27 07:51] LABS: Bilirubin,Total 0.6 mg/dl (0.2-1); Globulin 3.5 gm/dl (2.5-4.0); Total Protein 6.9 gm/dl (6.4-8.2); Troponin I 11.7 ng/ml (0-0.045)
[2021-01-27] MEDS: ACETAMINOPHEN 325 MG TAB PO PRN ×2 (08:06→19:00)
[2021-01-27] MEDS: METOPROLOL SUCC 50MG EXT REL TAB PO SCH (08:07)
[2021-01-27] MEDS: ASPIRIN 81 MG ECTAB PO SCH (08:08)
--- NOTE | 2021-01-27 08:12 | Electrocardiogram Report ---
Test Reason : Blood Pressure : / mmHG Vent. Rate : 076 BPM Atrial Rate : 076 BPM P-R Int : 200 ms QRS Dur : 100 ms QT Int : 430 ms P-R-T Axes : 046 127 134 degrees QTc Int : 483 ms Normal sinus rhythm Minor Non-specific intra-ventricular conduction delay Right axis deviation Poor R wave progression, consider anterior AK vs. lead placement vs. LVH ST depression in Anterolateral leads , consider ischemia Prolonged QT Abnormal ECG When compared with ECG of 26-JAN-2021 10:37, No significant change Confirmed by Siddhartha Forman ([id number]) on 01/27/2021 8:11:56 AM Referred By: REFERRED SELF Confirmed By:Siddhartha Forman
--- NOTE | 2021-01-27 08:33 | Hospitalist Progress Note ---
Date of Service January 27, 2021 Assessment & Plan (1) Non-ST elevation CA (NSTEMI): With extensive history of CABG at age 39 followed by multiple percutaneous interventions since that time, complex case managed by [facility] cardiology Here with NSTEMI, initial troponin 0.4, with lateral ST depressions on ECG, Chest pain-free currently after receiving sublingual nitroglycerin and nitroglycerin paste -Seen by cardiology in the ER and recommendation was to stay here for medical management of NSTEMI, but if troponin becomes significantly elevated, would transfer out to [place] for cardiac catheterization given complex history -Trend serial troponin, ECG -Check echocardiogram for new wall motion abnormalities -Appreciate cardiology consultation -Did not take his morning medications-we will give Toprol-XL, Plavix now; he already received his aspirin this morning prior to arrival -Continue Nitropaste for now, however he does typically use a nitro patch at home-unsure if this is available on our formulary -Continue heparin drip likely for 48 hours (2) Coronary artery disease: As noted above Continue dual antiplatelet therapy, Crestor, Toprol-XL, lisinopril (3) Ischemic cardiomyopathy: With recent echocardiogram in our system in 2018 with mildly reduced EF 45-50% with multiple wall motion abnormalities -Hold torsemide for today but will start again tomorrow morning Continue Toprol-XL, lisinopril as above Strict I's and O's, daily weights (4) Hyperlipidemia: Continue statin (5) Hypertension: Patient states typically his blood pressures run in the 90s to 100s systolic Continue Toprol-XL, lisinopril, torsemide (6) Morbid obesity with BMI of 40.0-44.9, adult: BMI 45.6 Needs weight loss and low carbohydrate diet (7) Neuropathic pain: With 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 requiring spinal cord stimulator which has since run out of battery Continue home amitriptyline at bedtime Continue Cymbalta Follows with neurology (8) Peripheral neuropathy: Follows with neurology Continue amitriptyline (9) Severe obstructive sleep apnea: Continue CPAP 11 cm H2O at bedtime (10) Type 2 diabetes mellitus: Last hemoglobin A1c in our system is 10.7% in 2019 He was hyperglycemic here in the 300s on arrival and was given 10 units of regular insulin IV x1 in the ER He is on very large doses of insulin at home with Basaglar 100 units twice daily as well as NovoLog supplemental insulin with meals and Metformin -Hold Metformin here -Continue basilar 100 units twice daily -Continue NovoLog supplemental insulin before meals and at bedtime Check hemoglobin A1c in the morning Consult glycemic control pharmacy for assistance as he will likely be labile (11) CKD (chronic kidney disease) stage 3, GFR 30-59 ml/min: Creatinine baseline around 1.4-1.6 Patient was unaware of this diagnosis and this was discussed upon admission Continue lisinopril -Avoid nephrotoxins -renally dose meds when appropriate -follow BMP (12) Hyponatremia: Sodium chronically low around 134-135 Could be secondary to volume overload from CHF Continue torsemide Follow BMP (13) Anxiety: Continue Cymbalta, does take Valium at home as needed We will hold Valium here and give shorter acting lorazepam 0.5 mg as needed Continue hydroxyzine as needed (14) DVT prophylaxis: Heparin drip Disposition-admit to PCU Full code Admission and Anticipated Discharge Date Admission Date: January 26, 2021 Results & Data Results & Data ([facility]) Vital Signs (Past 12 Hours) Vital Signs Temp Pulse Resp BP Pulse Ox 01/27/21 07:38 36.4 C L 73 17 103/66 96 01/27/21 03:23 36.5 C 73 14 96/58 L 98 01/26/21 23:30 74 99/64 L 92 01/26/21 23:08 36.9 C 73 12 88/56 L 96 Laboratory Results 01/27/21 01/27/21 01/27/21 Range/Units 07:36 06:44 06:44 WBC (4.8-10.8) K/uL RBC (4.7-6.1) M/uL Hgb (14.0-18.0) g/dL Hct (42-52) % MCV (80-100) fL MCH (25-34) pg MCHC (32-36) g/dL RDW Std Deviation (36.4-46.3) fL RDW Coeff of Triny (11.5-14.5) % Plt Count (130-400) K/uL MPV (7.4-10.4) fL Immature Gran % (Auto) % Neut % (Auto) % Lymph % (Auto) % Dixie % (Auto) % Eos % (Auto) % Baso % (Auto) % Neut # (Auto) (1.4-6.5) K/uL Lymph # (Auto) (1.2-3.4) K/uL Dixie # (Auto) (0.11-0.59) K/uL Eos # (Auto) (0-0.5) K/uL Baso # (Auto) (0-0.2) K/uL Immature Gran # (Auto) (0.00-0.02) K/uL PT INR APTT 50.4 H* PTT Ratio 1.9 Sodium (136-145) mmol/L Potassium (3.5-5.1) mmol/L Chloride (98-107) mmol/L Carbon Dioxide (21-32) mmol/L Anion Gap (3-11) BUN (7-18) mg/dl Creatinine (0.6-1.4) mg/dl Est Cr Clr Drug Dosing ml/min Est GFR ( Amer) Est GFR (Non-Af Amer) BUN/Creatinine Ratio (10-20) Glucose (70-99) mg/dl POC Glucose 221 H (70-99) mg/dl Estimat Average Glucose 217 mg/dl Hemoglobin A1c 9.2 H (4.5-5.6) % Calcium (8.5-10.1) mg/dl Total Bilirubin (0.2-1) mg/dl Direct Bilirubin (0-0.2) mg/dl AST (15-37) U/L ALT (12-78) U/L Alkaline Phosphatase (45-117) U/L Troponin I (0-0.045) ng/ml Total Protein (6.4-8.2) gm/dl Albumin (3.4-5.0) gm/dl Globulin (2.5-4.0) gm/dl Albumin/Globulin Ratio (0.9-2) Beta-Hydroxybutyric Acd (0.2-2.81) mg/dl Specimen Hemolysis COVID-19 Eval Order SARS-CoV-2 (PCR) (Negative) Influenza Type A (PCR) (Neg) Influenza Type B (PCR) (Neg) RSV (RT-PCR) (Neg) 01/27/21 01/27/21 01/27/21 Range/Units 06:44 06:44 03:18 WBC 8.72 (4.8-10.8) K/uL RBC 4.34 L (4.7-6.1) M/uL Hgb 13.1 L (14.0-18.0) g/dL Hct 38.9 L (42-52) % MCV 89.6 (80-100) fL MCH 30.2 (25-34) pg MCHC 33.7 (32-36) g/dL RDW Std Deviation 40.6 (36.4-46.3) fL RDW Coeff of Triny 12.6 (11.5-14.5) % Plt Count 204 (130-400) K/uL MPV 11.0 H (7.4-10.4) fL Immature Gran % (Auto) 0.8 % Neut % (Auto) 57.7 % Lymph % (Auto) 27.3 % Dixie % (Auto) 11.5 % Eos % (Auto) 2.5 % Baso % (Auto) 0.2 % Neut # (Auto) 5.03 (1.4-6.5) K/uL Lymph # (Auto) 2.38 (1.2-3.4) K/uL Dixie # (Auto) 1.00 H (0.11-0.59) K/uL Eos # (Auto) 0.22 (0-0.5) K/uL Baso # (Auto) 0.02 (0-0.2) K/uL Immature Gran # (Auto) 0.07 H (0.00-0.02) K/uL PT INR APTT PTT Ratio Sodium 136 (136-145) mmol/L Potassium 3.8 D (3.5-5.1) mmol/L Chloride 104 (98-107) mmol/L Carbon Dioxide 27 (21-32) mmol/L Anion Gap 5.0 (3-11) BUN 24 H (7-18) mg/dl Creatinine 1.47 H (0.6-1.4) mg/dl Est Cr Clr Drug Dosing 90.3 ml/min Est GFR ( Amer) 63.6 Est GFR (Non-Af Amer) 54.8 BUN/Creatinine Ratio 16.3 (10-20) Glucose 234 H (70-99) mg/dl POC Glucose 223 H (70-99) mg/dl Estimat Average Glucose mg/dl Hemoglobin A1c (4.5-5.6) % Calcium 8.4 L (8.5-10.1) mg/dl Total Bilirubin 0.6 (0.2-1) mg/dl Direct Bilirubin 0.1 (0-0.2) mg/dl AST 102 H (15-37) U/L ALT 55 (12-78) U/L Alkaline Phosphatase 53 (45-117) U/L Troponin I 11.700 H* (0-0.045) ng/ml Total Protein 6.9 (6.4-8.2) gm/dl Albumin 3.4 (3.4-5.0) gm/dl Globulin 3.5 (2.5-4.0) gm/dl Albumin/Globulin Ratio 1.0 (0.9-2) Beta-Hydroxybutyric Acd (0.2-2.81) mg/dl Specimen Hemolysis COVID-19 Eval Order SARS-CoV-2 (PCR) (Negative) Influenza Type A (PCR) (Neg) Influenza Type B (PCR) (Neg) RSV (RT-PCR) (Neg) 01/27/21 01/27/21 01/26/21 Range/Units 00:43 00:43 23:31 WBC (4.8-10.8) K/uL RBC (4.7-6.1) M/uL Hgb (14.0-18.0) g/dL Hct (42-52) % MCV (80-100) fL MCH (25-34) pg MCHC (32-36) g/dL RDW Std Deviation (36.4-46.3) fL RDW Coeff of Triny (11.5-14.5) % Plt Count (130-400) K/uL MPV (7.4-10.4) fL Immature Gran % (Auto) % Neut % (Auto) % Lymph % (Auto) % Dixie % (Auto) % Eos % (Auto) % Baso % (Auto) % Neut # (Auto) (1.4-6.5) K/uL Lymph # (Auto) (1.2-3.4) K/uL Dixie # (Auto) (0.11-0.59) K/uL Eos # (Auto) (0-0.5) K/uL Baso # (Auto) (0-0.2) K/uL Immature Gran # (Auto) (0.00-0.02) K/uL PT INR APTT 47.0 H* PTT Ratio 1.8 Sodium (136-145) mmol/L Potassium (3.5-5.1) mmol/L Chloride (98-107) mmol/L Carbon Dioxide (21-32) mmol/L Anion Gap (3-11) BUN (7-18) mg/dl Creatinine (0.6-1.4) mg/dl Est Cr Clr Drug Dosing ml/min Est GFR ( Amer) Est GFR (Non-Af Amer) BUN/Creatinine Ratio (10-20) Glucose (70-99) mg/dl POC Glucose 233 H (70-99) mg/dl Estimat Average Glucose mg/dl Hemoglobin A1c (4.5-5.6) % Calcium (8.5-10.1) mg/dl Total Bilirubin (0.2-1) mg/dl Direct Bilirubin (0-0.2) mg/dl AST (15-37) U/L ALT (12-78) U/L Alkaline Phosphatase (45-117) U/L Troponin I 15.800 H* (0-0.045) ng/ml Total Protein (6.4-8.2) gm/dl Albumin (3.4-5.0) gm/dl Globulin (2.5-4.0) gm/dl Albumin/Globulin Ratio (0.9-2) Beta-Hydroxybutyric Acd (0.2-2.81) mg/dl Specimen Hemolysis COVID-19 Eval Order SARS-CoV-2 (PCR) (Negative) Influenza Type A (PCR) (Neg) Influenza Type B (PCR) (Neg) RSV (RT-PCR) (Neg) 01/26/21 01/26/21 01/26/21 Range/Units 20:08 18:16 18:16 WBC (4.8-10.8) K/uL RBC (4.7-6.1) M/uL Hgb (14.0-18.0) g/dL Hct (42-52) % MCV (80-100) fL MCH (25-34) pg MCHC (32-36) g/dL RDW Std Deviation (36.4-46.3) fL RDW Coeff of Triny (11.5-14.5) % Plt Count (130-400) K/uL MPV (7.4-10.4) fL Immature Gran % (Auto) % Neut % (Auto) % Lymph % (Auto) % Dixie % (Auto) % Eos % (Auto) % Baso % (Auto) % Neut # (Auto) (1.4-6.5) K/uL Lymph # (Auto) (1.2-3.4) K/uL Dixie # (Auto) (0.11-0.59) K/uL Eos # (Auto) (0-0.5) K/uL Baso # (Auto) (0-0.2) K/uL Immature Gran # (Auto) (0.00-0.02) K/uL PT INR APTT 41.9 H PTT Ratio 1.6 Sodium (136-145) mmol/L Potassium (3.5-5.1) mmol/L Chloride (98-107) mmol/L Carbon Dioxide (21-32) mmol/L Anion Gap (3-11) BUN (7-18) mg/dl Creatinine (0.6-1.4) mg/dl Est Cr Clr Drug Dosing ml/min Est GFR ( Amer) Est GFR (Non-Af Amer) BUN/Creatinine Ratio (10-20) Glucose (70-99) mg/dl POC Glucose 228 H (70-99) mg/dl Estimat Average Glucose mg/dl Hemoglobin A1c (4.5-5.6) % Calcium (8.5-10.1) mg/dl Total Bilirubin (0.2-1) mg/dl Direct Bilirubin (0-0.2) mg/dl AST (15-37) U/L ALT (12-78) U/L Alkaline Phosphatase (45-117) U/L Troponin I 15.700 H* (0-0.045) ng/ml Total Protein (6.4-8.2) gm/dl Albumin (3.4-5.0) gm/dl Globulin (2.5-4.0) gm/dl Albumin/Globulin Ratio (0.9-2) Beta-Hydroxybutyric Acd (0.2-2.81) mg/dl Specimen Hemolysis COVID-19 Eval Order SARS-CoV-2 (PCR) (Negative) Influenza Type A (PCR) (Neg) Influenza Type B (PCR) (Neg) RSV (RT-PCR) (Neg) 01/26/21 01/26/21 01/26/21 Range/Units 16:16 13:04 12:10 WBC (4.8-10.8) K/uL RBC (4.7-6.1) M/uL Hgb (14.0-18.0) g/dL Hct (42-52) % MCV (80-100) fL MCH (25-34) pg MCHC (32-36) g/dL RDW Std Deviation (36.4-46.3) fL RDW Coeff of Triny (11.5-14.5) % Plt Count (130-400) K/uL MPV (7.4-10.4) fL Immature Gran % (Auto) % Neut % (Auto) % Lymph % (Auto) % Dixie % (Auto) % Eos % (Auto) % Baso % (Auto) % Neut # (Auto) (1.4-6.5) K/uL Lymph # (Auto) (1.2-3.4) K/uL Dixie # (Auto) (0.11-0.59) K/uL Eos # (Auto) (0-0.5) K/uL Baso # (Auto) (0-0.2) K/uL Immature Gran # (Auto) (0.00-0.02) K/uL PT INR APTT PTT Ratio Sodium (136-145) mmol/L Potassium (3.5-5.1) mmol/L Chloride (98-107) mmol/L Carbon Dioxide (21-32) mmol/L Anion Gap (3-11) BUN (7-18) mg/dl Creatinine (0.6-1.4) mg/dl Est Cr Clr Drug Dosing ml/min Est GFR ( Amer) Est GFR (Non-Af Amer) BUN/Creatinine Ratio (10-20) Glucose (70-99) mg/dl POC Glucose 252 H 244 H (70-99) mg/dl Estimat Average Glucose mg/dl Hemoglobin A1c (4.5-5.6) % Calcium (8.5-10.1) mg/dl Total Bilirubin (0.2-1) mg/dl Direct Bilirubin (0-0.2) mg/dl AST (15-37) U/L ALT (12-78) U/L Alkaline Phosphatase (45-117) U/L Troponin I (0-0.045) ng/ml Total Protein (6.4-8.2) gm/dl Albumin (3.4-5.0) gm/dl Globulin (2.5-4.0) gm/dl Albumin/Globulin Ratio (0.9-2) Beta-Hydroxybutyric Acd (0.2-2.81) mg/dl Specimen Hemolysis COVID-19 Eval Order SARS-CoV-2 (PCR) NEGATIVE (Negative) Influenza Type A (PCR) Negative (Neg) Influenza Type B (PCR) Negative (Neg) RSV (RT-PCR) Negative (Neg) 01/26/21 01/26/21 01/26/21 Range/Units 12:10 11:53 10:50 WBC (4.8-10.8) K/uL RBC (4.7-6.1) M/uL Hgb (14.0-18.0) g/dL Hct (42-52) % MCV (80-100) fL MCH (25-34) pg MCHC (32-36) g/dL RDW Std Deviation (36.4-46.3) fL RDW Coeff of Triny (11.5-14.5) % Plt Count (130-400) K/uL MPV (7.4-10.4) fL Immature Gran % (Auto) % Neut % (Auto) % Lymph % (Auto) % Dixie % (Auto) % Eos % (Auto) % Baso % (Auto) % Neut # (Auto) (1.4-6.5) K/uL Lymph # (Auto) (1.2-3.4) K/uL Dixie # (Auto) (0.11-0.59) K/uL Eos # (Auto) (0-0.5) K/uL Baso # (Auto) (0-0.2) K/uL Immature Gran # (Auto) (0.00-0.02) K/uL PT 10.1 INR 1.0 APTT 22.8 PTT Ratio 0.9 Sodium 134 L (136-145) mmol/L Potassium 4.7 (3.5-5.1) mmol/L Chloride 103 (98-107) mmol/L Carbon Dioxide 24 (21-32) mmol/L Anion Gap 7.0 (3-11) BUN 30 H (7-18) mg/dl Creatinine 1.60 H (0.6-1.4) mg/dl Est Cr Clr Drug Dosing 84.1 ml/min Est GFR ( Amer) 57.4 Est GFR (Non-Af Amer) 49.5 BUN/Creatinine Ratio 18.6 (10-20) Glucose 303 H* (70-99) mg/dl POC Glucose (70-99) mg/dl Estimat Average Glucose mg/dl Hemoglobin A1c (4.5-5.6) % Calcium 8.8 (8.5-10.1) mg/dl Total Bilirubin 0.5 (0.2-1) mg/dl Direct Bilirubin (0-0.2) mg/dl AST 52 H (15-37) U/L ALT 56 (12-78) U/L Alkaline Phosphatase 54 (45-117) U/L Troponin I 0.483 H* (0-0.045) ng/ml Total Protein 7.3 (6.4-8.2) gm/dl Albumin 3.7 (3.4-5.0) gm/dl Globulin 3.6 (2.5-4.0) gm/dl Albumin/Globulin Ratio 1.0 (0.9-2) Beta-Hydroxybutyric Acd (0.2-2.81) mg/dl Specimen Hemolysis COVID-19 Eval Order CovFluRsv at [facility] SARS-CoV-2 (PCR) (Negative) Influenza Type A (PCR) (Neg) Influenza Type B (PCR) (Neg) RSV (RT-PCR) (Neg) 01/26/21 01/26/21 Range/Units 10:50 10:50 WBC 8.45 (4.8-10.8) K/uL RBC 4.71 (4.7-6.1) M/uL Hgb 14.0 (14.0-18.0) g/dL Hct 41.3 L (42-52) % MCV 87.7 (80-100) fL MCH 29.7 (25-34) pg MCHC 33.9 (32-36) g/dL RDW Std Deviation 40.4 (36.4-46.3) fL RDW Coeff of Triny 12.5 (11.5-14.5) % Plt Count 234 (130-400) K/uL MPV 10.9 H (7.4-10.4) fL Immature Gran % (Auto) 1.1 % Neut % (Auto) 63.3 % Lymph % (Auto) 22.7 % Dixie % (Auto) 11.4 % Eos % (Auto) 1.3 % Baso % (Auto) 0.2 % Neut # (Auto) 5.35 (1.4-6.5) K/uL Lymph # (Auto) 1.92 (1.2-3.4) K/uL Dixie # (Auto) 0.96 H (0.11-0.59) K/uL Eos # (Auto) 0.11 (0-0.5) K/uL Baso # (Auto) 0.02 (0-0.2) K/uL Immature Gran # (Auto) 0.09 H (0.00-0.02) K/uL PT Cancelled INR Cancelled APTT Cancelled PTT Ratio Cancelled Sodium (136-145) mmol/L Potassium (3.5-5.1) mmol/L Chloride (98-107) mmol/L Carbon Dioxide (21-32) mmol/L Anion Gap (3-11) BUN (7-18) mg/dl Creatinine (0.6-1.4) mg/dl Est Cr Clr Drug Dosing ml/min Est GFR ( Amer) Est GFR (Non-Af Amer) BUN/Creatinine Ratio (10-20) Glucose (70-99) mg/dl POC Glucose (70-99) mg/dl Estimat Average Glucose mg/dl Hemoglobin A1c (4.5-5.6) % Calcium (8.5-10.1) mg/dl Total Bilirubin (0.2-1) mg/dl Direct Bilirubin (0-0.2) mg/dl AST (15-37) U/L ALT (12-78) U/L Alkaline Phosphatase (45-117) U/L Troponin I (0-0.045) ng/ml Total Protein (6.4-8.2) gm/dl Albumin (3.4-5.0) gm/dl Globulin (2.5-4.0) gm/dl Albumin/Globulin Ratio (0.9-2) Beta-Hydroxybutyric Acd (0.2-2.81) mg/dl Specimen Hemolysis COVID-19 Eval Order SARS-CoV-2 (PCR) (Negative) Influenza Type A (PCR) (Neg) Influenza Type B (PCR) (Neg) RSV (RT-PCR) (Neg) PG Care Time/CCT Total # of Minutes Spent Total Time Spent with Patient: Total time spent is greater than 50% in coordination of care (as documented) at patient's floor/unit and/or counseling patient: Coding Diagnoses Non-ST elevation CA (NSTEMI) I21.4 Coronary artery disease I25.10 Ischemic cardiomyopathy I25.5 Hyperlipidemia E78.5 Hypertension I10 Morbid obesity with BMI of 40.0-44.9, adult E66.01; Z68.41 Neuropathic pain M79.2 Peripheral neuropathy G62.9 Severe obstructive sleep apnea G47.33 Type 2 diabetes mellitus E11.9 CKD (chronic kidney disease) stage 3, GFR 30-59 ml/min N18.30 Hyponatremia E87.1 Anxiety F41.9 DVT prophylaxis Z29.9
[2021-01-27] MEDS ORDERED: INSULIN GLARGINE 100 UNIT/ML VIAL SC SCH (09:00)
[2021-01-27] MEDS ORDERED: TORSEMIDE 10 MG TAB PO SCH (09:00)
[2021-01-27] MEDS ORDERED: MULTIVITAMIN TAB PO SCH (09:00)
[2021-01-27] MEDS ORDERED: DOXYCYCLINE HYCLATE 100 MG CAP PO SCH (09:00)
[2021-01-27] MEDS: CLOPIDOGREL BISULFATE 75 MG TAB PO SCH (09:43)
[2021-01-27] MEDS: DULoxetine HCL 30 MG CAP PO SCH (09:43)
[2021-01-27] MEDS: PANTOprazole 40 MG TAB PO SCH (09:44)
[2021-01-27] MEDS: MoRPHine SULFATE 2 MG/ML CARP IV PRN (09:44)
--- NOTE | 2021-01-27 09:46 | Cardiology Progress Note ---
Date of Service January 27, 2021 Assessment & Plan (1) Non-ST elevation LA (NSTEMI): Mr. Forman is a 50-year-old male with a longstanding history of severe premature aggressive atherosclerotic cardiovascular disease, having initially undergone CABG x5 in 2009 at the age of 39. Due to symptoms of crescendo angina, he underwent drug-eluting stents to the vein graft to the obtuse marginal in 2016. In October,, saphenous vein graft to OM 2 was treated with a drug-eluting stent. Most recent cardiac catheterization took place July 23, 2020 with findings of severe [place] vessel disease and severe graft disease for which medical management was recommended. He has a longstanding history of class II chronic exertional angina which usually exhibits itself is exertional dyspnea and diaphoresis that is relieved with rest. He is an avid outdoorsman. Earlier this week on Sunday he went turkey hunting and states he walks 6-1/2 miles and felt well. Sunday he went hunting again and walked 4-1/2 miles and felt well. Yesterday, 01/26/2021, he once again went hunting in the rain. He walked approximately 2-1/2 miles, and had abrupt onset of chest discomfort, jaw discomfort, left arm pain and subsequently passed out. When he regained consciousness, he vomited. He did not have any mobile phone licensed massage practitioner so he was able to crawl to an area with better licensed massage practitioner and his was able to come and find him in the helm to take him to the emergency department. Initial EKG performed yesterday revealed sinus rhythm with lateral ST segment depression relatively unchanged compared to August 2020. His troponin I however has peaked at 15 NG per mL overnight last night, repeat EKG this morning reveals resolution of the previously noted lateral ST segment depression. The patient's echocardiogram is technically limited, and not sufficient to allow for analysis of regional wall motion or LVEF at this time. Options include ongoing medical management or referral for repeat high risk cardiac catheterization. After long discussion with the patient and his spouse, we are agreement to proceed with referral to [facility] for consideration of repeat cardiac catheterization to see if there is a new lesion amenable to PCI, and also even repeat surgical revascularization may be a consideration at this point. DINA was present on presentation yesterday with creatinine of 1.6, this is improved to 1.47 today. With previous baseline of 1.2-1.3. Patient stable for transfer when a bed is available with transfer by ACLS ground. Admission and Anticipated Discharge Date Admission Date: January 26, 2021 Subjective Patient seen in follow-up of his chief complaint of chest discomfort and syncope. He notes that since presented to the emergency department , he had one brief ongoing chest discomfort that was a 1/10 discomfort while on the telemetry floor, on the heparin infusion. Topical nitroglycerin paste is in place. Telemetry reveals sinus rhythm in the 70s. Review of Systems Review of Systems: All systems reviewed & are unremarkable except as noted in HPI & below Physical Exam Physical Exam: Cardiac Enzymes 01/26/21 01/26/21 01/27/21 Range/Units 10:50 18:16 00:43 AST 52 H (15-37) U/L Troponin I 0.483 H* 15.700 H* 15.800 H* (0-0.045) ng/ml 01/27/21 Range/Units 06:44 AST 102 H (15-37) U/L Troponin I 11.700 H* (0-0.045) ng/ml Coagulation 01/26/21 01/26/21 01/26/21 Range/Units 10:50 11:53 18:16 PT Cancelled 10.1 APTT Cancelled 22.8 41.9 H 01/27/21 01/27/21 Range/Units 00:43 06:44 PT APTT 47.0 H* 50.4 H* CBC 01/26/21 01/27/21 Range/Units 10:50 06:44 WBC 8.45 8.72 (4.8-10.8) K/uL RBC 4.71 4.34 L (4.7-6.1) M/uL Hgb 14.0 13.1 L (14.0-18.0) g/dL Hct 41.3 L 38.9 L (42-52) % Plt Count 234 204 (130-400) K/uL Neut # (Auto) 5.35 5.03 (1.4-6.5) K/uL Lymph # (Auto) 1.92 2.38 (1.2-3.4) K/uL Waldo # (Auto) 0.96 H 1.00 H (0.11-0.59) K/uL Eos # (Auto) 0.11 0.22 (0-0.5) K/uL Baso # (Auto) 0.02 0.02 (0-0.2) K/uL Comprehensive Metabolic Panel 01/26/21 01/27/21 Range/Units 10:50 06:44 Sodium 134 L 136 (136-145) mmol/L Potassium 4.7 3.8 D (3.5-5.1) mmol/L Chloride 103 104 (98-107) mmol/L Carbon Dioxide 24 27 (21-32) mmol/L BUN 30 H 24 H (7-18) mg/dl Creatinine 1.60 H 1.47 H (0.6-1.4) mg/dl Glucose 303 H* 234 H (70-99) mg/dl Calcium 8.8 8.4 L (8.5-10.1) mg/dl Direct Bilirubin 0.1 (0-0.2) mg/dl AST 52 H 102 H (15-37) U/L ALT 56 55 (12-78) U/L Alkaline Phosphata se 54 53 (45-117) U/L Total Protein 7.3 6.9 (6.4-8.2) gm/dl Albumin 3.7 3.4 (3.4-5.0) gm/dl Intake and Output 01/26/21 01/27/21 01/27/21 22:59 06:59 14:59 Intake Total 1545.183 / 1780.00 0 234.817 / 1780.000 275.384 / 275.384 Output Total 725 / 1525 800 / 1525 Balance 820.183 / 255.000 -565.183 / 255.000 275.384 / 275.384 Intake: IV 265.183 / 500.000 234.817 / 500.000 275.384 / 275.384 Heparin Sodium /Dextrose 25,000 265.183 / 500.000 234.817 / 500.000 275.384 / 275.384 units In 500 m l @ 2,050 UNITS/ HR 41 mls/hr I V .[id number] [facility] Rx #:[id number] Oral 1280 / 1280 Output: Urine 725 / 1525 800 / 1525 Other: Other Intake Gina rce NPO Weight 147.8 kg 149.2 kg Weight Measureme nt Method Standing Scale Standing Scale Constitutional: WD/WN, vitals as above Respiratory: normal respiratory effort, lungs clear to auscultation Cardiovascular: RRR, no murmur, no edema Gastrointestinal (Abdomen): normal bowel sounds, soft, nontender, no hepatosplenomegaly Neurologic: PERRL, EOMI, accommodation nl, no face palsy, no dysarthria Results & Data ([facility]) Vital Signs (Past 12 Hours) Vital Signs Temp Pulse Resp BP Pulse Ox 01/27/21 07:38 36.4 C L 73 17 103/66 96 01/27/21 03:23 36.5 C 73 14 96/58 L 98 01/26/21 23:30 74 99/64 L 92 01/26/21 23:08 36.9 C 73 12 88/56 L 96 Laboratory Results Cardiac Enzymes 01/26/21 01/26/21 01/27/21 Range/Units 10:50 18:16 00:43 AST 52 H (15-37) U/L Troponin I 0.483 H* 15.700 H* 15.800 H* (0-0.045) ng/ml 01/27/21 Range/Units 06:44 AST 102 H (15-37) U/L Troponin I 11.700 H* (0-0.045) ng/ml Coagulation 01/26/21 01/26/21 01/26/21 Range/Units 10:50 11:53 18:16 PT Cancelled 10.1 APTT Cancelled 22.8 41.9 H 01/27/21 01/27/21 Range/Units 00:43 06:44 PT APTT 47.0 H* 50.4 H* CBC 01/26/21 01/27/21 Range/Units 10:50 06:44 WBC 8.45 8.72 (4.8-10.8) K/uL RBC 4.71 4.34 L (4.7-6.1) M/uL Hgb 14.0 13.1 L (14.0-18.0) g/dL Hct 41.3 L 38.9 L (42-52) % Plt Count 234 204 (130-400) K/uL Neut # (Auto) 5.35 5.03 (1.4-6.5) K/uL Lymph # (Auto) 1.92 2.38 (1.2-3.4) K/uL Waldo # (Auto) 0.96 H 1.00 H (0.11-0.59) K/uL Eos # (Auto) 0.11 0.22 (0-0.5) K/uL Baso # (Auto) 0.02 0.02 (0-0.2) K/uL Comprehensive Metabolic Panel 01/26/21 01/27/21 Range/Units 10:50 06:44 Sodium 134 L 136 (136-145) mmol/L Potassium 4.7 3.8 D (3.5-5.1) mmol/L Chloride 103 104 (98-107) mmol/L Carbon Dioxide 24 27 (21-32) mmol/L BUN 30 H 24 H (7-18) mg/dl Creatinine 1.60 H 1.47 H (0.6-1.4) mg/dl Glucose 303 H* 234 H (70-99) mg/dl Calcium 8.8 8.4 L (8.5-10.1) mg/dl Direct Bilirubin 0.1 (0-0.2) mg/dl AST 52 H 102 H (15-37) U/L ALT 56 55 (12-78) U/L Alkaline Phosphatase 54 53 (45-117) U/L Total Protein 7.3 6.9 (6.4-8.2) gm/dl Albumin 3.7 3.4 (3.4-5.0) gm/dl Intake and Output 01/26/21 01/27/21 01/27/21 22:59 06:59 14:59 Intake Total 1545.183 / 1780.000 234.817 / 1780.000 275.384 / 275.384 Output Total 725 / 1525 800 / 1525 Balance 820.183 / 255.000 -565.183 / 255.000 275.384 / 275.384 Intake: IV 265.183 / 500.000 234.817 / 500.000 275.384 / 275.384 Heparin Sodium/Dextrose 25,000 265.183 / 500.000 234.817 / 500.000 275.384 / 275.384 units In 500 ml @ 2,050 UNITS/ HR 41 mls/hr IV .[id number] [facility] Rx #:[id number] Oral 1280 / 1280 Output: Urine 725 / 1525 800 / 1525 Other: Other Intake Source NPO Weight 147.8 kg 149.2 kg Weight Measurement Method Standing Scale Standing Scale
--- NOTE | 2021-01-27 09:49 | Discharge Summary ---
Date of Service January 27, 2021 Admission HPI Per Admitting Provider This patient is a 50-year-old male with a history of CAD status post CABG at age 39 and multiple percutaneous interventions since that time, DM 2, morbid obesity, neuropathy, JOY on CPAP, CKD stage III bilateral brachial plexopathy with spinal cord stimulator, hyperlipidemia, remote history of seizures, and nephrolithiasis who presents to the ER with acute onset of chest pressure that came on while he was out hunting [place] a mountain after he had walked several miles before that. The pain was severe and he sat down to rest and when he stood up, he then passed out. After he regained consciousness, he had nausea with vomiting x1, shortness of breath. He called his to come get him but it took her 40 minutes to get there-she brought him 2 nitroglycerin and 2 baby aspirin which he took at that time prior to arrival and his pain was resolved by the time he got to the ER. He had an EKG which showed some lateral changes changed from previous ECG and his initial troponin was slightly elevated at 0.483. His pain started to come back slightly and he was put on Nitropaste in the ER and is now completely resolved. He was seen by cardiology in the ER who discussed his care with both his primary missile control pilot, Dr. Valverde, as well as with cardiology at [place] to see if he should be transferred for cardiac catheterization there given his complex cardiac history. They recommended admission to [facility] for medical management of his NSTEMI and transfer out only if his troponin significantly elevated. He was started on heparin drip as well as Nitropaste. Admission Exam Per Admitting Provider Constitutional: WD/WN, vitals as above + morbidly obese Eyes: + anicteric sclerae ENMT: Ears: no hearing impairment Neck: trachea midline, no thyromegaly Respiratory: normal respiratory effort, lungs clear to auscultation Cardiovascular: RRR, no murmur, no edema Extremities: no calf tenderness Chest (Breasts): Chest: + abnormal inspection of chest (Sternotomy scar) Gastrointestinal (Abdomen): normal bowel sounds, soft, nontender, no hepatosplenomegaly Musculoskeletal: Extremities: extremities normal to inspection; no cyanosis and no clubbing Skin: no rashes, warm and dry Neurologic: moves all extremities and awake; no focal motor deficits Psychiatric: A+Ox3, euthymic affect Lymphatic: no lymphedema Principal Diagnosis NSTEMI Discharge Exam Constitutional WD/WN, vitals as above + morbidly obese Eyes + anicteric sclerae ENMT Ears: no hearing impairment Neck trachea midline, no thyromegaly Respiratory normal respiratory effort, lungs clear to auscultation (on 2L nasal cannula) Cardiovascular RRR, no murmur, no edema Extremities: no calf tenderness Chest (Breasts) Chest: + abnormal inspection of chest (Sternotomy scar) Gastrointestinal (Abdomen) normal bowel sounds, soft, nontender, no hepatosplenomegaly Musculoskeletal Extremities: extremities normal to inspection; no cyanosis and no clubbing Skin no rashes, warm and dry Neurologic moves all extremities and awake; no focal motor deficits Psychiatric A+Ox3, euthymic affect Lymphatic no lymphedema Discharge Data Allergies Allergy/AdvReac Type Severity Reaction Status Date / Time No Known Allergies Allergy Verified 01/26/21 14:12 Consultations 01/26/21 12:29 ED Decision to Admit Stat 01/26/21 16:14 Consult Cardiology Routine Ordered Studies ECHO CXR Hospital Course (1) Non-ST elevation CO (NSTEMI): With extensive history of CABG at age 39 followed by multiple percutaneous interventions since that time, complex case managed by [facility] cardiology Here with NSTEMI, initial troponin 0.4 with elevation to 15.8 last evening, with lateral ST depressions on ECG, Chest pain-free currently after receiving sublingual nitroglycerin and nitroglycerin paste on admission but did get dose of pain medication this morning with oxycodone 5mg PO x1 and morphine 2mg IV to remain chest pain free today Cardiology, Dr Valverde's Note: * "Mr. Forman is a 50-year-old male with a longstanding history of severe premature aggressive atherosclerotic cardiovascular disease, having initially undergone CABG x5 in 2009 at the age of 39. * Due to symptoms of crescendo angina, he underwent drug-eluting stents to the vein graft to the obtuse marginal in 2016. * In October,, saphenous vein graft to OM 2 was treated with a drug- eluting stent. * Most recent cardiac catheterization took place July 23, 2020 with findings of severe [place] vessel disease and severe graft disease for which medical management was recommended. * He has a longstanding history of class II chronic exertional angina which usually exhibits itself is exertional dyspnea and diaphoresis that is relieved with rest. * He is an avid outdoorsman. Earlier this week on Sunday he went turkey hunting and states he walks 6-1/2 miles and felt well. Sunday he went hunting again and walked 4-1/2 miles and felt well. Yesterday, 01/26/2021, he once again went hunting in the rain. He walked approximately 2-1/2 miles, and had abrupt onset of chest discomfort, jaw discomfort, left arm pain and subsequently passed out. When he regained consciousness, he vomited. He did not have any mobile phone medical reception specialist so he was able to crawl to an area with better medical reception specialist and his was able to come and find him in the helm to take him to the emergency department. * Initial EKG performed yesterday revealed sinus rhythm with lateral ST segment depression relatively unchanged compared to August 2020. His troponin I however has peaked at 15 NG per mL overnight last night, repeat EKG this morning reveals resolution of the previously noted lateral ST segment depression. The patient's echocardiogram is technically limited, and not sufficient to allow for analysis of regional wall motion or LVEF at this time. * Options include ongoing medical management or referral for repeat high risk cardiac catheterization. After long discussion with the patient and his spouse, we are agreement to proceed with referral to [facility] for consideration of repeat cardiac catheterization to see if there is a new lesion amenable to PCI, and also even repeat surgical revascularization may be a consideration at this point. * DINA was present on presentation yesterday with creatinine of 1.6, this is im proved to 1.47 today. With previous baseline of 1.2-1.3. * Patient stable for transfer when a bed is available with transfer by ACLS ground." ECHO mild concentric LVH, poor delineation of endocardial border and therefore regional wma cannot be analyzed, LV EF cannot be determined. RV normal in size and function. Grade II diastolic dysfunction. Continuing on Heparin gtt while inpatient Nitropaste Troponin peaked 15.8, repeat 11.7 --> currently 8.350 Allowed to eat today, NPO after midnight Transportation arranged by Dr. Valverde -- accepting physician Dr. Palmer Balderas when bed and transportation available (2) Coronary artery disease: As noted above Continue dual antiplatelet therapy, Crestor, Toprol-XL, lisinopril (3) Ischemic cardiomyopathy: With recent echocardiogram in our system in 2018 with mildly reduced EF 45-50% with multiple wall motion abnormalities Torsemide continued, metoprolol XL, lisinopril Strict I's and O's, daily weights (4) Hyperlipidemia: Continue statin (5) Hypertension: Patient states typically his blood pressures run in the 90s to 100s systolic Continue Toprol-XL, lisinopril, torsemide (6) Morbid obesity with BMI of 40.0-44.9, adult: BMI 45.6 Needs weight loss and low carbohydrate diet (7) Neuropathic pain: With 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 requiring spinal cord stimulator which has since run out of battery Continue home amitriptyline at bedtime Continue Cymbalta Follows with neurology and can follow up routine outpatient given needing regis jauregui replaced (8) Peripheral neuropathy: Follows with neurology Continue amitriptyline (9) Severe obstructive sleep apnea: Continue CPAP 11 cm H2O at bedtime (10) Type 2 diabetes mellitus: Last hemoglobin A1c in our system is 10.7% in 2019 -- down to 9.2 currently He was hyperglycemic here in the 300s on arrival and was given 10 units of regular insulin IV x1 in the ER He is on very large doses of insulin at home with Basaglar 100 units twice daily as well as NovoLog supplemental insulin with meals and Metformin -Hold Metformin here -Continue basilar 100 units twice daily -Continue NovoLog supplemental insulin before meals and at bedtime Consult glycemic control pharmacy for assistance as he will likely be labile Recommend following up with PCP at discharge for tighter control/prevention of complications given complex cardiac disease as above (11) CKD (chronic kidney disease) stage 3, GFR 30-59 ml/min: Creatinine baseline around 1.4-1.6, currently 1.47 (baseline closer to 1.2-1.[address] Valverde's notes) Patient was unaware of this diagnosis and this was discussed upon admission Continue lisinopril -Avoid nephrotoxins -renally dose meds when appropriate -follow BMP (12) Hyponatremia: Sodium chronically low around 134-135 Could be secondary to volume overload from CHF Continue torsemide Follow BMP (13) Anxiety: Continue Cymbalta, does take Valium at home as needed We will hold Valium here and give shorter acting lorazepam 0.5 mg as needed Continue hydroxyzine as needed (14) DVT prophylaxis: Heparin drip while inpatient Awaiting transportation to [facility] with ACLS when bed available Accepting MD Palmer Balderas NPO after midnight Total Time Total Time Spent Total Time Spent (In Minutes): 90 Discharge Plan Discharge Items Reason For Visit: NSTEMI Medications and DC Order Prescriptions: No Action torsemide 10 mg tablet 10 mg PO QAM RF: 0 sildenafil [Viagra] 100 mg tablet 100 mg PO DAILY PRN (Reason: Erectile Dysfunction) RF: 0 amitriptyline 25 mg tablet 25 mg PO HS Qty: 30 RF: 7 duloxetine 30 mg capsule,delayed release(DR/EC) 60 mg PO QAM Qty: 30 RF: 7 rosuvastatin 40 mg Tablet 40 mg PO HS RF: 0 clopidogrel 75 mg Tablet 75 mg PO QAM RF: 0 zolpidem 10 mg Tablet 10 mg PO HS RF: 0 insulin aspart U-100 [Novolog U-100 Insulin aspart] 100 unit/mL Solution See Rx Instructions .ROUTE .COMPLEX RF: 0 Basaglar KwikPen U-100 Insulin 100 unit/mL (3 mL) Insulin Pen 100 unit SUBCUT BID RF: 0 metoprolol succinate 100 mg tablet extended release 24 hr 100 mg PO QAM RF: 0 nitroglycerin 0.4 mg/hr patch 24 hour 1 patch topical DIRECTED RF: 0 metformin 500 mg tablet extended release 24 hr 500 mg PO HS RF: 0 lisinopril 2.5 mg tablet 2.5 mg PO HS RF: 0 aspirin [Aspirin Low Dose] 81 mg Tablet,Delayed Release (Dr/Ec) 81 mg PO AMHS RF: 0 nitroglycerin 0.4 mg tablet, sublingual 0.4 mg sublingual DIRECTED PRN (Reason: Chest Pain) RF: 0 pantoprazole 40 mg tablet,delayed release (DR/EC) 40 mg PO QAM RF: 0 hydroxyzine HCl 25 mg tablet 25 mg PO HS PRN (Reason: Anxiety) RF: 0 diazepam 5 mg tablet 5 mg PO QID PRN (Reason: Anxiety) RF: 0 cetirizine [Zyrtec] 10 mg Tablet 10 mg PO DAILY PRN (Reason: Allergy Symptoms) RF: 0 doxycycline hyclate 100 mg tablet 100 mg PO BID RF: 0 Admission Data Admit Date/Time: 01/26/21 14:20 Attending Provider: Daniel Lozada Admit Provider: Dinorah Gutierrez Primary Care Provider: Clare Johnson Other Providers: Dinorah Gutierrez ; Valeriano Humphreys Coding Level of Care Code D/C Day Management >30 mins Diagnoses Non-ST elevation CO (NSTEMI) I21.4 Coronary artery disease I25.10 Ischemic cardiomyopathy I25.5 Hyperlipidemia E78.5 Hypertension I10 Morbid obesity with BMI of 40.0-44.9, adult E66.01; Z68.41 Neuropathic pain M79.2 Peripheral neuropathy G62.9 Severe obstructive sleep apnea G47.33 Type 2 diabetes mellitus E11.9 CKD (chronic kidney disease) stage 3, GFR 30-59 ml/min N18.30 Hyponatremia E87.1 Anxiety F41.9 DVT prophylaxis Z29.9
--- NOTE | 2021-01-27 10:09 | Communication Note ---
Date of Service: January 27, 2021 Spoke to transfer center with [facility], accepting physician is Dr Palmer Balderas. OK to feed patient now. NPO after Midnight. Continue heparin gtt.
[2021-01-27] MEDS ORDERED: MECLIZINE HCL 25 MG TAB PO STA (17:31)
== END 2021-01-27 19:36 | disposition short-term general hospital (02) | DRG 281 ==
LOC: ED 10:17 → 2S 14:20 → SUATTDRO 14:20 → 2S 15:47

== ENCOUNTER 2022-01-05 20:07 | Inpatient (IN) ==
[2022-01-05] MEDS ORDERED: SODIUM CHLORIDE 0.9% 1000ML 1,000 ML IV ONE (20:13)
--- NOTE | 2022-01-05 20:36 | Emergency Department Note ---
Impression & Plan Acute alteration in mental status, Hypoxia, Acute hypotension, Acute respiratory acidosis ED Provider Note NAME: LJ CEDILLO AGE: 51 SEX: M : 1970 ARRIVES VIA: Ambulance INFORMANT: Patient, EMS ED PROVIDER(S): Miguel A Cardona DO CHIEF COMPLAINT: Altered mental status HPI: The patient is a 51-year-old male who presented to the emergency department for an evaluation of altered mental status. The patient was found on the couch by his significant other hypoxic and discolored. He was very slow to respond. 911 was called and the patient arrived at the emergency department via ambulance. The patient was able to awaken a little bit once he was placed on supplemental oxygen by the paramedics. He was still slow to answer questions but he is denying having any chest pain. He denies having any abdominal pain. He still seems to be slow to answer questions. Additional history was obtained from the family member as well as EMS. There is no reported trauma today. There is no reported drug abuse or alcohol abuse. There was no reported fever or cough. ROS: See above HPI for pertinent positives & negatives. A total of 10 systems reviewed and were otherwise negative. PAST MEDICAL HISTORY: See Below PAST SURGICAL HISTORY: See Below FAMILY HISTORY: See Below SOCIAL HISTORY: See Below HOME MEDICATIONS: See Below ALLERGIES: See Below VITALS: See Below PHYSICAL EXAMINATION: GENERAL: The patient is awake to loud verbal commands. He falls asleep easily. EYES: The conjunctivae are clear. The pupils are round and reactive. EARS, NOSE, MOUTH AND THROAT: The nose is without any evidence of any deformity. NECK: The neck is nontender and supple. RESPIRATORY: Normal respiratory effort is noted there is no evidence of wheezing rhonchi or rales CARDIOVASCULAR: Regular rate and rhythm noted there no murmurs rubs or gallops normal S1 normal S2. GASTROINTESTINAL: The abdomen is soft. Abdomen is nontender. MUSCULOSKELETAL/EXTREMITIES: There is no evidence of gross deformity full range of motion is noted in the hips and shoulders. SKIN: Skin is warm and dry. There is pedal edema bilaterally. There is a boot on the left foot for a reported diabetic ulcer. NEUROLOGIC: Patient is awake to verbal commands. He is oriented to person but not place or time. MEDICAL DECISION MAKING: The patient is a 51-year-old male who presented to the emergency department by ambulance for an evaluation of altered mental status. The history was mostly obtained from the paramedics as well as the patient's significant other. Apparently he has had decreasing mental status especially over the course the last few weeks. He does take chronic pain medication. He was not known to abuse alcohol. The patient did not have any focal neurologic deficits but his mental status appeared to be decreased especially when he was left alone he would fall asleep easily. I discussed patient's laboratory and radiographic studies with him and his significant other. He was treated with empiric antibiotics although no definite infectious source was noted. The patient was not felt to be a good candidate for outpatient management. He does not normally wear oxygen at home and found to be hypoxic. I think this is more of a hypoventilation process as the patient had a negative D-dimer and a chest x-ray that showed no acute disease. Triage Nursing notes reviewed. Prior medical records reviewed Vital Signs: reviewed and remarkable for hypoxia. The patient also had initial hypotension. Differential diagnosis: Infection, hypoglycemia, electrolyte abnormalities, overdose, toxicologic, cardiac sources, intracerebral event, neurologic, trauma, as well as other pathologies. ER treatment provided: See below Diagnostics interpreted by me: ECG: EKG was obtained in the emergency department. My interpretation is sinus rhythm at 62 bpm. There was no ectopy. Nonspecific ST segment depressions were noted throughout. Low voltage was noted. This was compared to a tracing from September 182020. No changes were noted. Cardiac Monitoring: An order was placed for continuous cardiac monitoring. The monitor shows a rate of 71 bpm with sinus rhythm. Laboratory studies: As stated above and show below. Imaging studies: See below Consultation(s): Dr. Cordon was notified about the patient. He will evaluate the patient in the emergency department. Past Med/Surg History Medical History Brachial plexopathy Right CKD (chronic kidney disease) stage 3, GFR 30-59 ml/min Coronary artery disease Difficult airway for intubation was told it was hard to intubate him for carpal tunnel surgery in 1999 at [place] History of COVID-19 diagnosed 05/2021--had sinus congestion, headache, productive cough--pt states he received monoclonal antibodies History of non-ST elevation myocardial infarction (NSTEMI) History of Salmonella gastroenteritis Hx of renal calculi Hyperlipidemia Hypertension Ischemic cardiomyopathy Morbid obesity with BMI of 40.0-44.9, adult Neuropathic pain NSTEMI (non-ST elevated myocardial infarction) NSTEMI at [facility] [place] [place] s/p PCI of the [id number] with HARSHA x 2 and HARSHA x1 to pRCA on 02/07/21; Recurrent HF related to LVEDP 30-34% Obesity On anticoagulant therapy plavix daily/aspirin 162mg daily Seizure AGE 10 S/P ACCIDENT-WAS ON MEDS COUPLE YRS-OFF MEDS AND NO SEIZURES 30+ YRS Severe obstructive sleep apnea cpap with 4L of oxygen at hs Substernal precordial chest pain hx of Type 2 diabetes mellitus Surgical History History of appendectomy History of arthroscopic knee surgery 1985, LEFT History of cardiac cath MULTIPLE-last 02/10/21 @ [facility] [place] [place]--per pt 2 stents placed 12/2018?-NO STENTS NEEDED LAST STENT PLACED 10/2017 [facility] [place] [place] History of carpal tunnel release of both wrists History of coronary artery bypass graft 5 VESSELS History of tonsillectomy and adenoidectomy History of vasectomy Hx of heart artery stent X6-LAST ONE 01/2021 [facility] [place] [place] Status post insertion of spinal cord stimulator [employer] Family History Grandfather (Maternal) Family history of diabetes mellitus Mother Family history of diabetes mellitus Stroke Uncle Obstructive sleep apnea Grandmother (Maternal) Stroke Family history of reaction to anesthesia "lost some cognitive ability after heart surgery" Father Coronary heart disease Social History Smoking Status: Never smoker Second Hand Exposure: No; Hx Alcohol Use: Yes Alcohol type: hard liquor Hx Substance Use: No Preferred Language: Polish Communication Ability: Effective Visual Impairment: No Limitations Hearing Ability: Normal Cartridge Maker Required: No Beliefs That Will Affect Care: None marital status: Current Living Situation: Spouse and Family Current Living Situation Comment: Lives with and son and daughter current occupational status: unemployed 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 How many Children do You have: 2 Feels Safe at Home: Yes during the past year weight has: other Do you think of yourself as: straight/heterosexual Gender Identity: Male Assistive Devices: CPAP and Glasses Allergies Allergies Allergy/AdvReac Type Severity Reaction Status Date / Time No Known Allergies Allergy Verified 01/05/22 21:29 Home Meds Home Medications Medication Instructions Recorded Confirmed clopidogrel 75 mg tablet 75 mg PO QAM 01/28/19 01/05/22 rosuvastatin 40 mg tablet 40 mg PO HS 01/28/19 01/05/22 zolpidem 10 mg tablet 10 mg PO HS 01/28/19 01/05/22 insulin aspart U-100 100 unit/mL See Rx Instructions .ROUTE .COMPLEX 02/04/19 01/05/22 subcutaneous solution (Novolog U-100 Insulin aspart) nitroglycerin 0.4 mg sublingual 0.4 mg SUBLINGUAL DIRECTED PRN 02/24/19 01/05/22 tablet pantoprazole 40 mg tablet,delayed 40 mg PO QAM 05/10/20 01/05/22 release aspirin 81 mg tablet,delayed 81 mg PO AMHS 08/02/20 01/05/22 release (Aspirin Low Dose) nitroglycerin 0.4 mg/hr 1 patch TOPICAL DIRECTED 08/02/20 01/05/22 transdermal 24 hour patch empagliflozin 10 mg tablet 10 mg PO QAM 05/18/21 01/05/22 icosapent ethyl 1 gram capsule 2 g PO BID 05/18/21 01/05/22 (Vascepa) metformin 500 mg tablet,extended 500 mg PO BID tab 08/30/21 01/05/22 release 24 hr metoprolol succinate 50 mg 50 mg PO HS 08/30/21 01/05/22 tablet,extended release 24 hr sacubitril 24 mg-valsartan 26 mg 1 tab PO BID 08/30/21 01/05/22 tablet (Entresto) alpha lipoic acid 600 mg capsule 600 mg PO BID cap 12/27/21 01/05/22 blood-glucose transmitter (Dexcom 12/27/21 01/05/22 G4 Transmitter) midodrine 10 mg tablet 10 mg PO TID 12/27/21 01/05/22 tapentadol 100 mg tablet (Nucynta) 100 mg PO Q6H PRN tab 12/27/21 01/05/22 torsemide 20 mg tablet 20 mg PO UD tab 12/27/21 01/05/22 torsemide 10 mg tablet 10 mg PO QAM 01/05/22 01/05/22 Previous Rx's Medication Instructions Recorded amitriptyline 25 mg tablet 50 mg PO HS #60 tab 08/30/21 duloxetine 60 mg capsule,delayed 60 mg PO QAM 90 Days #90 cap 11/25/21 release Results & Data (ED) Vital Signs Vital Signs - 24 hr 01/05/22 20:18 01/05/22 20:19 01/05/22 20:27 Temperature 36.6 C Temperature Source Oral Pulse Rate 72 73 73 Pulse Rate from SpO2 Sensor 73 71 Respiratory Rate 23 16 18 Respiratory Effort / Characteristics Blood Pressure 92/62 L 92/62 L Blood Pressure Mean 72 72 Blood Pressure Position Lying Pulse Oximetry 94 93 90 Oxygen Delivery Method Room Air Nasal Cannula Nasal Cannula Oxygen Flow Rate 4 4 Sepsis Recent Fever Within 48 Hours No Sepsis New/Unexplained Change in Mental Status Yes Sepsis Action Taken by Nursing No Action Required Oxygen Flow Rate - Titration Pulse Oximetry Post Tiitration 01/05/22 20:30 01/05/22 20:32 01/05/22 20:39 Temperature Temperature Source Pulse Rate 71 Pulse Rate from SpO2 Sensor 70 Respiratory Rate 12 Respiratory Effort / Characteristics Blood Pressure Blood Pressure Mean Blood Pressure Position Pulse Oximetry 97 94 88 L Oxygen Delivery Method Nasal Cannula Room Air Nasal Cannula Oxygen Flow Rate 4 Sepsis Recent Fever Within 48 Hours Sepsis New/Unexplained Change in Mental Status Sepsis Action Taken by Nursing Oxygen Flow Rate - Titration 3 Pulse Oximetry Post Tiitration 98 01/05/22 20:55 01/05/22 21:00 01/05/22 21:15 Temperature Temperature Source Pulse Rate 73 70 70 Pulse Rate from SpO2 Sensor 70 70 Respiratory Rate 14 16 16 Respiratory Effort / Characteristics Blood Pressure 95/74 L 106/69 Blood Pressure Mean 81 81 Blood Pressure Position Pulse Oximetry 98 99 Oxygen Delivery Method Nasal Cannula Nasal Cannula Oxygen Flow Rate 4 4 Sepsis Recent Fever Within 48 Hours Sepsis New/Unexplained Change in Mental Status Sepsis Action Taken by Nursing Oxygen Flow Rate - Titration Pulse Oximetry Post Tiitration 01/05/22 21:30 01/05/22 21:45 01/05/22 21:55 Temperature Temperature Source Pulse Rate 71 72 Pulse Rate from SpO2 Sensor 71 72 Respiratory Rate 12 12 12 Respiratory Effort / Characteristics Spontaneous Blood Pressure 103/75 109/76 Blood Pressure Mean 84 87 Blood Pressure Position Pulse Oximetry 96 97 94 Oxygen Delivery Method Nasal Cannula Nasal Cannula Nasal Cannula Oxygen Flow Rate 3 3 3 Sepsis Recent Fever Within 48 Hours Sepsis New/Unexplained Change in Mental Status Sepsis Action Taken by Nursing Oxygen Flow Rate - Titration Pulse Oximetry Post Tiitration 01/05/22 22:00 01/05/22 22:15 01/05/22 22:30 Temperature Temperature Source Pulse Rate 72 71 71 Pulse Rate from SpO2 Sensor 72 71 71 Respiratory Rate 12 12 14 Respiratory Effort / Characteristics Blood Pressure 109/75 114/72 131/71 Blood Pressure Mean 86 86 91 Blood Pressure Position Pulse Oximetry 96 98 97 Oxygen Delivery Method Nasal Cannula Nasal Cannula Nasal Cannula Oxygen Flow Rate 3 3 4 Sepsis Recent Fever Within 48 Hours Sepsis New/Unexplained Change in Mental Status Sepsis Action Taken by Nursing Oxygen Flow Rate - Titration Pulse Oximetry Post Tiitration Home Medications Current Medication List: was personally reviewed by me Laboratory Data Attestation: I reviewed the patient's lab results. Result diagrams: 01/05/22 20:20 01/05/22 20:20 Lab Results 01/05/22 01/05/22 01/05/22 Range/Units 20:20 20:20 20:20 WBC 10.87 H (4.8-10.8) K/uL RBC 4.76 (4.7-6.1) M/uL Hgb 14.7 (14.0-18.0) g/dL Hct 45.5 (42-52) % MCV 95.6 (80-100) fL MCH 30.9 (25-34) pg MCHC 32.3 (32-36) g/dL RDW Std Deviation 49.8 H (36.4-46.3) fL RDW Coeff of Triny 14.4 (11.5-14.5) % Plt Count 274 (130-400) K/uL MPV 10.6 H (7.4-10.4) fL Immature Gran % (Auto) 1.3 % Neut % (Auto) 64.3 % Lymph % (Auto) 22.2 % [place] % (Auto) 10.9 % Eos % (Auto) 1.1 % Baso % (Auto) 0.2 % Neut # (Auto) 7.00 H (1.4-6.5) K/uL Lymph # (Auto) 2.41 (1.2-3.4) K/uL [place] # (Auto) 1.18 H (0.11-0.59) K/uL Eos # (Auto) 0.12 (0-0.5) K/uL Baso # (Auto) 0.02 (0-0.2) K/uL Immature Gran # (Auto) 0.14 H (0.00-0.02) K/uL PT 10.3 (9.0-12.0) Seconds INR 1.0 (0.9-1.1) APTT 23.1 (21.0-31.0) Seconds PTT Ratio 0.8 D-Dimer 380 (0-500) ug/L FEU VBG pH (7.36-7.41) VBG pCO2 (38-50) mmHg VBG pO2 mmHg VBG HCO3 mmol/L VBG O2 Saturation % VBG Base Excess mEq/L Barometric Pressure mm/Hg Sodium 135 L (136-145) mmol/L Potassium 4.9 (3.5-5.1) mmol/L Chloride 100 (98-107) mmol/L Carbon Dioxide 31 (21-32) mmol/L Anion Gap 4 (3-11) BUN 28 H (6-23) mg/dl Creatinine 1.41 H (0.6-1.4) mg/dl Est Cr Clr Drug Dosing 93.4 ml/min Est GFR ( Amer) 66.4 ml/min Est GFR (Non-Af Amer) 57.3 ml/min BUN/Creatinine Ratio 19.9 (10-20) Glucose 192 H (70-99(Fasting)) mg/dl Lactate (0.4-2.0) mmol/L Calcium 9.2 (8.5-10.1) mg/dl Magnesium 2.5 H (1.7-2.4) mg/dl Total Bilirubin 0.5 (0.2-1.0) mg/dl AST 20 (13-39) U/L ALT 27 (7-52) U/L Alkaline Phosphatase 39 (34-104) U/L Troponin I High Sens 10.5 (0-20) pg/ml Total Protein 7.4 (6.0-8.3) gm/dl Albumin 4.4 (3.4-5.0) gm/dl Globulin 3.0 (2.5-4.0) gm/dl Albumin/Globulin Ratio 1.5 (0.9-2) Procalcitonin (0-0.5) ng/ml 01/05/22 01/05/22 01/05/22 Range/Units 20:20 20:20 20:40 WBC (4.8-10.8) K/uL RBC (4.7-6.1) M/uL Hgb (14.0-18.0) g/dL Hct (42-52) % MCV (80-100) fL MCH (25-34) pg MCHC (32-36) g/dL RDW Std Deviation (36.4-46.3) fL RDW Coeff of Triny (11.5-14.5) % Plt Count (130-400) K/uL MPV (7.4-10.4) fL Immature Gran % (Auto) % Neut % (Auto) % Lymph % (Auto) % [place] % (Auto) % Eos % (Auto) % Baso % (Auto) % Neut # (Auto) (1.4-6.5) K/uL Lymph # (Auto) (1.2-3.4) K/uL [place] # (Auto) (0.11-0.59) K/uL Eos # (Auto) (0-0.5) K/uL Baso # (Auto) (0-0.2) K/uL Immature Gran # (Auto) (0.00-0.02) K/uL PT (9.0-12.0) Seconds INR (0.9-1.1) APTT (21.0-31.0) Seconds PTT Ratio D-Dimer (0-500) ug/L FEU VBG pH 7.30 L (7.36-7.41) VBG pCO2 58 H (38-50) mmHg VBG pO2 75 mmHg VBG HCO3 28 mmol/L VBG O2 Saturation 94.0 % VBG Base Excess 0 mEq/L Barometric Pressure 730.0 mm/Hg Sodium (136-145) mmol/L Potassium (3.5-5.1) mmol/L Chloride (98-107) mmol/L Carbon Dioxide (21-32) mmol/L Anion Gap (3-11) BUN (6-23) mg/dl Creatinine (0.6-1.4) mg/dl Est Cr Clr Drug Dosing ml/min Est GFR ( Amer) ml/min Est GFR (Non-Af Amer) ml/min BUN/Creatinine Ratio (10-20) Glucose (70-99(Fasting)) mg/dl Lactate 1.0 (0.4-2.0) mmol/L Calcium (8.5-10.1) mg/dl Magnesium (1.7-2.4) mg/dl Total Bilirubin (0.2-1.0) mg/dl AST (13-39) U/L ALT (7-52) U/L Alkaline Phosphatase (34-104) U/L Troponin I High Sens (0-20) pg/ml Total Protein (6.0-8.3) gm/dl Albumin (3.4-5.0) gm/dl Globulin (2.5-4.0) gm/dl Albumin/Globulin Ratio (0.9-2) Procalcitonin < 0.05 (0-0.5) ng/ml Administered Medications Discontinued Medications Sodium Chloride (Nss 1000ml) 1,000 mls @ 999 mls/hr IV .Q1H1M ONE Stop: 01/05/22 21:13 Last Infusion: 01/05/22 22:22 Dose: 0 mls/hr Documented by: [id number] Admin: 01/05/22 21:00 Dose: 999 mls/hr Documented by: [id number] Ceftriaxone Sodium (Rocephin) 1,000 mg in 50 mls @ 100 mls/hr IV NOW STA Stop: 01/05/22 22:40 Last Infusion: 01/05/22 22:51 Dose: 0 mls/hr Documented by: [id number] Admin: 01/05/22 22:17 Dose: 100 mls/hr Documented by: [id number] Imaging Data Radiologist's Impression: Chest X-Ray 01/05/22 20:13 XR chest 1V portable CLINICAL HISTORY: SEPSIS. COMPARISON STUDY: 09/18/2021 TECHNIQUE: 1 view of the chest FINDINGS: Single frontal view of the chest demonstrates the heart size to be mildly enlarged status post previous cardiothoracic surgery. There is asymmetric elevation of the right hemidiaphragm. The lungs are clear of alveolar opacities. There is no evidence for pleural effusion. There is no evidence for vascular congestion. There is no acute osseous pathology. IMPRESSION: 1. No acute cardiopulmonary disease. ACT 112: Negative or not required by law. Electronically signed by: Scott Alvarez M.D. 01/05/2022 8:[address] 01/05/22 20:13 CT head/brain wo con CLINICAL HISTORY: AMS COMPARISON STUDY: 08/02/2020 CT DOSE: 537.48 mGy.cm TECHNIQUE: Standard CT of the Brain was performed without IV contrast. A dose lowering technique was utilized adhering to the principles of ALARA. FINDINGS: Extraaxial space: There is no evidence for subdural hematoma. There are no extra-axial fluid collections. Ventricles and cisterns: The ventricles are normal in size and configuration. There is no evidence for midline shift or mass effect. Parenchyma: There is no subarachnoid or intraparenchymal hemorrhage. There is no evidence for an acute infarct or cerebral edema. There is an old lacunar infarct in the periventricular white matter on the left. There is homogeneous attenuation of the brain parenchyma. There are no gross mass lesions. Osseous structures: There is no evidence for an acute fracture. The visualized paranasal sinuses are clear. The mastoid air cells are clear bilaterally. Soft tissues: There is no evidence for focal soft tissue swelling. IMPRESSION: 1. No acute intracerebral pathology. 2. Old lacunar infarct is again seen on the left. ACT 112: Negative or not required by law. Electronically signed by: Scott Alvarez M.D. 01/05/2022 9:05 PM Discharge Plan Visit Data Chief Complaint: Lethargic ED Provider: Miguel A Cardona Discharge Problem: Acute alteration in mental status, Hypoxia, Acute hypotension, Acute respiratory acidosis Patient Disposition: Being Evaluated by Hospitalist Forms Stand Alone Forms: My [facility] Prescriptions Prescriptions: No Action torsemide 20 mg tablet 20 mg PO UD RF: 0 alpha lipoic acid 600 mg capsule 600 mg PO BID RF: 0 (DME) Dexcom G4 Transmitter Device See Rx Instructions .ROUTE RF: 0 midodrine 10 mg tablet 10 mg PO TID RF: 0 amitriptyline 25 mg tablet 50 mg PO HS Qty: 60 RF: 5 duloxetine 60 mg capsule,delayed release(DR/EC) 60 mg PO QAM 90 Days Qty: 90 RF: 0 Nucynta 100 mg tablet 100 mg PO Q6H PRN (Reason: pain) RF: 0 icosapent ethyl [Vascepa] 1 gram capsule 2 g PO BID RF: 0 empagliflozin 10 mg tablet 10 mg PO QAM RF: 0 metoprolol succinate 50 mg tablet extended release 24 hr 50 mg PO HS RF: 0 Entresto 24-26 mg tablet 1 tab PO BID RF: 0 rosuvastatin 40 mg Tablet 40 mg PO HS RF: 0 clopidogrel 75 mg Tablet 75 mg PO QAM RF: 0 zolpidem 10 mg Tablet 10 mg PO HS RF: 0 insulin aspart U-100 [Novolog U-100 Insulin aspart] 100 unit/mL Solution See Rx Instructions .ROUTE .COMPLEX RF: 0 nitroglycerin 0.4 mg/hr patch 24 hour 1 patch topical DIRECTED RF: 0 aspirin [Aspirin Low Dose] 81 mg Tablet,Delayed Release (Dr/Ec) 81 mg PO AMHS RF: 0 metformin 500 mg tablet extended release 24 hr 500 mg PO BID RF: 0 nitroglycerin 0.4 mg tablet, sublingual 0.4 mg sublingual DIRECTED PRN (Reason: Chest Pain) RF: 0 pantoprazole 40 mg tablet,delayed release (DR/EC) 40 mg PO QAM RF: 0 torsemide 10 mg tablet 10 mg PO QAM RF: 0 Referrals Referrals: Clare Johnson DO [Primary Care Provider] -
[2022-01-05 20:47] LABS: Basophils # (auto) 0.02 K/uL (0-0.2); Basophils % (auto) 0.2 %; Eosinophils # (auto) 0.12 K/uL (0-0.5); Eosinophils % (auto) 1.1 %; Hematocrit (blood only) 45.5 % (42-52); Hemoglobin 14.7 g/dL (14.0-18.0); Immature Granulocytes # (auto) 0.14 K/uL (0.00-0.02); Immature Granulocytes % (auto) 1.3 %; Lymphocytes # (auto) 2.41 K/uL (1.2-3.4); Lymphocytes % (auto) 22.2 %; Mean Corpuscular Hemoglobin 30.9 pg (25-34); Mean Corpuscular Hgb Conc 32.3 g/dL (32-36); Mean Corpuscular Volume 95.6 fL (80-100); Mean Platelet Volume 10.6 fL (7.4-10.4); Monocytes # (auto) 1.18 K/uL (0.11-0.59); Monocytes % (auto) 10.9 %; Neutrophils % (auto) 64.3 %; Platelet Count 274 K/uL (130-400); RDW Coefficient of Variation 14.4 % (11.5-14.5); RDW Standard Deviation 49.8 fL (36.4-46.3); Red Blood Count 4.76 M/uL (4.7-6.1); White Blood Count 10.87 K/uL (4.8-10.8)
--- NOTE | 2022-01-05 20:54 | XRay Report ---
XR chest 1V portable CLINICAL HISTORY: SEPSIS. COMPARISON STUDY: 09/18/2021 TECHNIQUE: 1 view of the chest FINDINGS: Single frontal view of the chest demonstrates the heart size to be mildly enlarged status post previo us cardiothoracic surgery. There is asymmetric elevation of the right hemidiaphragm. The lungs are cl ear of alveolar opacities. There is no evidence for pleural effusion. There is no evidence for vascul ar congestion. There is no acute osseous pathology. IMPRESSION: 1. No acute cardiopulmonary disease. ACT 112: Negative or not required by law. Electronically signed by: Scott Alvarez M.D. 01/05/2022 8:53 PM
[2022-01-05 20:58] LABS: D Dimer 380 ug/L FEU (0-500); Partial Thromboplastin Ratio 0.8; Partial Thromboplastin Time 23.1 Seconds (21.0-31.0); Prothrombin Time 10.3 Seconds (9.0-12.0)
--- NOTE | 2022-01-05 21:06 | CT Scan Report ---
CT head/brain wo con CLINICAL HISTORY: AMS COMPARISON STUDY: 08/02/2020 CT DOSE: 537.48 mGy.cm TECHNIQUE: Standard CT of the Brain was performed without IV contrast. A dose lowering technique was utilized adhering to the principles of ALARA. FINDINGS: Extraaxial space: There is no evidence for subdural hematoma. There are no extra-axial fluid collecti ons. Ventricles and cisterns: The ventricles are normal in size and configuration. There is no evidence fo r midline shift or mass effect. Parenchyma: There is no subarachnoid or intraparenchymal hemorrhage. There is no evidence for an acut e infarct or cerebral edema. There is an old lacunar infarct in the periventricular white matter on t he left. There is homogeneous attenuation of the brain parenchyma. There are no gross mass lesions. Osseous structures: There is no evidence for an acute fracture. The visualized paranasal sinuses are clear. The mastoid air cells are clear bilaterally. Soft tissues: There is no evidence for focal soft tissue swelling. IMPRESSION: 1. No acute intracerebral pathology. 2. Old lacunar infarct is again seen on the left. ACT 112: Negative or not required by law. Electronically signed by: Scott Alvarez M.D. 01/05/2022 9:05 PM
[2022-01-05 21:11] LABS: Albumin Globulin Ratio 1.5 (0.9-2); Albumin Level 4.4 gm/dl (3.4-5.0); BUN Creatinine Ratio 19.9 (10-20); Bilirubin,Total 0.5 mg/dl (0.2-1.0); Calcium 9.2 mg/dl (8.5-10.1); Creatinine Clr Calc Pharmacy 93.4 ml/min; Est GFR (African American) 66.4 ml/min; Est GFR (Non-African American) 57.3 ml/min; Magnesium 2.5 mg/dl (1.7-2.4); Potassium 4.9 mmol/L (3.5-5.1); Total Protein 7.4 gm/dl (6.0-8.3)
[2022-01-05 21:17] LABS: Troponin I High Sensitivity 10.5 pg/ml (0-20)
[2022-01-05 21:20] LABS: pH VBG 7.3 (7.36-7.41)
[2022-01-05] MEDS ORDERED: cefTRIAXone SODIUM 1,000 MG/50 ML BAG IV STA (22:11)
[2022-01-05 23:06] LABS: Influenza A virus by PCR Negative (Negative); Influenza B virus by PCR Negative (Negative)
--- NOTE | 2022-01-05 23:42 | History & Physical Report ---
Date of Service January 05, 2022 Assessment & Plan (1) Confusion and disorientation: Plan: Confusion and disorientation- Significant other reports he has been gradually getting worse over the past few months. CT head was negative this evening, will order CTA head and neck to further assess for vascular disease Unable to perform MRI due to a dysfunctional battery for his electric stimulator in his back. Additional potential factors are more regular use of Nucynta, and complications of severe obstructive sleep apnea (2) Acute respiratory failure with hypoxia and hypercapnia: Plan: Continue nasal cannula, titrate to keep pulse ox around 92% DuoNebs every 2 hours as needed (3) Coronary artery disease: Plan: CAD/hypertension/ischemic cardiomyopathy/history of CABG/hypertension- The patient will be admitted to telemetry for serial cardiac enzymes, serial EKG's, cardiac rhythm monitoring and a 2-D echocardiogram with Dopplers. Continue aspirin 81 mg twice daily, clopidogrel 75 mg every morning, metoprolol succinate extended release 50 mg at bedtime, Entresto 1 p.o. twice daily, and torsemide as outpatient (4) Ischemic cardiomyopathy: Plan: See above (5) History of coronary artery bypass graft: Plan: See above (6) Hypertension: Plan: See above (7) Brachial plexopathy: Plan: Patient and significant other report this occurred during his CABG, at this time has persistent symptoms right hand greater than left. Over the past few months he has been more regularly taking Nucynta, which also coincides with the onset of his gradually worsening alteration in responsiveness noted by his . He reportedly has been through additional medications, including presently taking Cymbalta, but reportedly has also been on gabapentin and Lyrica in the past May benefit from a pain management consult For now, holding Nucynta, and if mentation clears, may benefit from a pain management consult Continue Cymbalta (8) Hyperlipidemia: Plan: Continue rosuvastatin 40 mg at bedtime (9) Type 2 diabetes mellitus: Plan: Hold empagliflozin and home insulin aspart Place on Accu-Cheks before meals and at bedtime with NovoLog coverage per scale (10) Attention deficit disorder without hyperactivity: Plan: No specific treatment (11) CHI (closed head injury): History of Present Illness Chief Complaint: The patient is brought to the emergency department due to alteration in mental status, hypoxia, acute hypotension and acute respiratory failure with hypoxia Primary Care Provider: Clare Johnson DO The patient is a 51-year-old male with a past medical history including lateral femoral cutaneous neuropathy, peripheral neuropathy, ADD, closed head injury, acute kidney injury, metabolic syndrome, non-STEMI, COVID-19 infection, left foot diabetic ulcer, diabetes mellitus type 2, ischemic cardiomyopathy, bilateral brachial plexopathy, status post insertion of spinal cord stimulator, status post CABG, CAD, and stented coronary artery. The patient was found by his significant other lying on the couch looking blue and breathing irregularly, and was very slow to respond. She reports that his pulse ox was 60%, she called 911, and when they arrived they recorded a pulse ox of 80%. He was placed on supplemental oxygen and taken to the emergency department for further assessment. The patient does wear CPAP at nighttime, however, his significant other thought he had fall asleep without this on, and became discolored as noted. Allergies Allergy/AdvReac Type Severity Reaction Status Date / Time No Known Allergies Allergy Verified 01/05/22 21:29 Home Medications Medication Instructions Recorded Confirmed Type clopidogrel 75 mg tablet 75 mg PO QAM 01/28/19 01/05/22 History rosuvastatin 40 mg tablet 40 mg PO HS 01/28/19 01/05/22 History zolpidem 10 mg tablet 10 mg PO HS 01/28/19 01/05/22 History insulin aspart U-100 100 unit/mL See Rx Instructions .ROUTE .COMPLEX 02/04/19 01/05/22 History subcutaneous solution (Novolog U-100 Insulin aspart) nitroglycerin 0.4 mg sublingual 0.4 mg SUBLINGUAL DIRECTED PRN 02/24/19 01/05/22 History tablet pantoprazole 40 mg tablet,delayed 40 mg PO QAM 05/10/20 01/05/22 History release aspirin 81 mg tablet,delayed 81 mg PO AMHS 08/02/20 01/05/22 History release (Aspirin Low Dose) nitroglycerin 0.4 mg/hr 1 patch TOPICAL DIRECTED 08/02/20 01/05/22 History transdermal 24 hour patch empagliflozin 10 mg tablet 10 mg PO QAM 05/18/21 01/05/22 History icosapent ethyl 1 gram capsule 2 g PO BID 05/18/21 01/05/22 History (Vascepa) amitriptyline 25 mg tablet 50 mg PO HS #60 tab 08/30/21 01/05/22 Rx metformin 500 mg tablet,extended 500 mg PO BID tab 08/30/21 01/05/22 History release 24 hr metoprolol succinate 50 mg 50 mg PO HS 08/30/21 01/05/22 History tablet,extended release 24 hr sacubitril 24 mg-valsartan 26 mg 1 tab PO BID 08/30/21 01/05/22 History tablet (Entresto) duloxetine 60 mg capsule,delayed 60 mg PO QAM 90 Days #90 cap 11/25/21 01/05/22 Rx release alpha lipoic acid 600 mg capsule 600 mg PO BID cap 12/27/21 01/05/22 History blood-glucose transmitter (Dexcom 12/27/21 01/05/22 History G4 Transmitter) midodrine 10 mg tablet 10 mg PO TID 12/27/21 01/05/22 History tapentadol 100 mg tablet (Nucynta) 100 mg PO Q6H PRN tab 12/27/21 01/05/22 History torsemide 20 mg tablet 20 mg PO UD tab 12/27/21 01/05/22 History torsemide 10 mg tablet 10 mg PO QAM 01/05/22 01/05/22 History Past Med/Surg History Medical History Brachial plexopathy Right CKD (chronic kidney disease) stage 3, GFR 30-59 ml/min Coronary artery disease Difficult airway for intubation was told it was hard to intubate him for carpal tunnel surgery in 1999 at [facility] History of COVID-19 diagnosed 05/2021--had sinus congestion, headache, productive cough--pt states he received monoclonal antibodies History of non-ST elevation myocardial infarction (NSTEMI) History of Salmonella gastroenteritis Hx of renal calculi Hyperlipidemia Hypertension Ischemic cardiomyopathy Morbid obesity with BMI of 40.0-44.9, adult Neuropathic pain NSTEMI (non-ST elevated myocardial infarction) NSTEMI at [facility] s/p PCI of the [id number] with HARSHA x 2 and HARSHA x1 to pRCA on 02/07/21; Recurrent HF related to LVEDP 30-34% Obesity On anticoagulant therapy plavix daily/aspirin 162mg daily Seizure AGE 10 S/P ACCIDENT-WAS ON MEDS COUPLE YRS-OFF MEDS AND NO SEIZURES 30+ YRS Severe obstructive sleep apnea cpap with 4L of oxygen at hs Substernal precordial chest pain hx of Type 2 diabetes mellitus Surgical History History of appendectomy History of arthroscopic knee surgery 1986, LEFT History of cardiac cath MULTIPLE-last 02/10/21 @ [facility]--per pt 2 stents placed 12/2018?-NO STENTS NEEDED LAST STENT PLACED 10/2017 [facility] History of carpal tunnel release of both wrists History of coronary artery bypass graft 5 [facility] History of tonsillectomy and adenoidectomy History of vasectomy Hx of heart artery stent X6-LAST ONE 01/2021 [facility] Status post insertion of spinal cord stimulator [employer] Family History Grandfather (Maternal) Family history of diabetes mellitus Mother Family history of diabetes mellitus Stroke Uncle Obstructive sleep apnea Grandmother (Maternal) Stroke Family history of reaction to anesthesia "lost some cognitive ability after heart surgery" Father Coronary heart disease Social History Smoking Status: Never smoker Second Hand Exposure: No; Do You Dip or Chew Tobacco: No; Tobacco Cessation Education Requested by Patient: No Hx Alcohol Use: Yes Alcohol type: other Hx Substance Use: No Preferred Language: Welsh Communication Ability: Effective Visual Impairment: No Limitations Hearing Ability: Normal Drafter Tool Design Required: No Beliefs That Will Affect Care: None marital status: Current Living Situation: Spouse Current Living Situation Comment: Lives with and son and daughter current occupational status: unemployed 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 How many Children do You have: 2 Other Information That Helps Us Care for You: No Feels Safe at Home: Yes Safety Concerns: Feels Safe At This Time during the past year weight has: other Do you think of yourself as: straight/heterosexual Gender Identity: Male Assistive Devices: CPAP and Oxygen - at Night Assistive Devices Comment: dexcom Review of Systems Review of Systems: The patient denies chest pain, palpitations, cough, lower extremity swelling, sore throat, fevers, chills, sweats, nausea, vomiting, diarrhea , constipation, abdominal pain, pelvic pain, blood in urine or stool, dysuria, urinary frequency or urgency, rash, abnormal bruising or bleeding, imbalance, focal weakness, numbness or tingling in arms or legs, generalized arthralgias or myalgias, back or neck pain, or night sweats. The review of systems is otherwise negative other than for that already noted above, and at least 10 systems have been reviewed. Physical Exam Physical Exam: The patient is awake, mildly lethargic, well developed and well nourished, normocephalic and atraumatic, lying in bed and in no acute distress. HEENT--PERRL, EOMI, mucous membranes and oropharynx dry. Neck--supple. No JVD. No bruits. Thyroid normal, trachea midline, no adenopathy. Heart--normal S1 and S2. No murmurs, rubs or gallops. Lungs--clear bilaterally, no respiratory distress, no accessory muscle use. Abdomen--normal bowel sounds and soft. Nontender. Nondistended. Morbidly obese Extremities--no cyanosis or clubbing. No edema. Dermatologic--normal skin turgor, normal color, no abnormal lymph nodes, no rash. Neurologic--cranial nerves II through XII grossly intact. Rheumatologic--normal range of motion. Psychiatric--mildly lethargic. Results & Data Results & Data ([facility]) Vital Signs (Past 12 Hours) Vital Signs Temp Pulse Resp BP Pulse Ox 01/05/22 23:30 70 12 115/65 100 01/05/22 23:00 73 12 101/68 98 01/05/22 22:45 71 15 116/73 96 01/05/22 22:30 71 14 131/71 97 01/05/22 22:15 71 12 114/72 98 01/05/22 22:00 72 12 109/75 96 01/05/22 21:55 12 94 01/05/22 21:45 72 12 109/76 97 01/05/22 21:30 71 12 103/75 96 01/05/22 21:15 70 16 106/69 99 01/05/22 21:00 70 16 95/74 L 98 01/05/22 20:55 73 14 01/05/22 20:39 88 L 01/05/22 20:32 94 01/05/22 20:30 71 12 97 01/05/22 20:27 73 18 92/62 L 90 01/05/22 20:19 73 16 93 01/05/22 20:18 36.6 C 72 23 92/62 L 94 Laboratory Results Laboratory Results WBC 10.87 K/uL (4.8-10.8) H 01/05/22 20:20 RBC 4.76 M/uL (4.7-6.1) 01/05/22 20:20 Hgb 14.7 g/dL (14.0-18.0) 01/05/22 20:20 Hct 45.5 % (42-52) 01/05/22 20:20 MCV 95.6 fL (80-100) 01/05/22 20:20 MCH 30.9 pg (25-34) 01/05/22 20:20 MCHC 32.3 g/dL (32-36) 01/05/22 20:20 RDW Std Deviation 49.8 fL (36.4-46.3) H 01/05/22 20:20 RDW Coeff of Triny 14.4 % (11.5-14.5) 01/05/22:20 Plt Count 274 K/uL (130-400) 01/05/22 20:20 MPV 10.6 fL (7.4-10.4) H 01/05/22 20:20 Immature Gran % (Auto) 1.3 % 01/05/22 20:20 Neut % (Auto) 64.3 % 01/05/22 20:20 Lymph % (Auto) 22.2 % 01/05/22 20:20 [place] % (Auto) 10.9 % 01/05/22 20:20 Eos % (Auto) 1.1 % 01/05/22 20:20 Baso % (Auto) 0.2 % 01/05/22 20:20 Neut # (Auto) 7.00 K/uL (1.4-6.5) H 01/05/22 20:20 Lymph # (Auto) 2.41 K/uL (1.2-3.4) 01/05/22 20:20 [place] # (Auto) 1.18 K/uL (0.11-0.59) H 01/05/22 20:20 Eos # (Auto) 0.12 K/uL (0-0.5) 01/05/22 20:20 Baso # (Auto) 0.02 K/uL (0-0.2) 01/05/22 20:20 Immature Gran # (Auto) 0.14 K/uL (0.00-0.02) H 01/05/22 20:20 PT 10.3 Seconds (9.0-12.0) 01/05/22 20:20 INR 1.0 (0.9-1.1) 01/05/22 20:20 APTT 23.1 Seconds (21.0-31.0) 01/05/22 20:20 PTT Ratio 0.8 01/05/22 20:20 D-Dimer 380 ug/L FEU (0-500) 01/05/22 20:20 VBG pH 7.30 (7.36-7.41) L 01/05/22 20:40 VBG pCO2 58 mmHg (38-50) H 01/05/22 20:40 VBG pO2 75 mmHg 01/05/22 20:40 VBG HCO3 28 mmol/L 01/05/22 20:40 VBG O2 Saturation 94.0 % 01/05/22 20:40 VBG Base Excess 0 mEq/L 01/05/22 20:40 Barometric Pressure 730.0 mm/Hg 01/05/22 20:40 Sodium 135 mmol/L (136-145) L 01/05/22 20:20 Potassium 4.9 mmol/L (3.5-5.1) 01/05/22 20:20 Chloride 100 mmol/L (98-107) 01/05/22 20:20 Carbon Dioxide 31 mmol/L (21-32) 01/05/22 20:20 Anion Gap 4 (3-11) 01/05/22 20:20 BUN 28 mg/dl (6-23) H 01/05/22 20:20 Creatinine 1.41 mg/dl (0.6-1.4) H 01/05/22 20:20 Est Cr Clr Drug Dosing 93.4 ml/min 01/05/22 20:20 Est GFR ( Amer) 66.4 ml/min 01/05/22 20:20 Est GFR (Non-Af Amer) 57.3 ml/min 01/05/22 20:20 BUN/Creatinine Ratio 19.9 (10-20) 01/05/22 20:20 Glucose 192 mg/dl (70-99(Fasting)) H 01/05/22 20:20 POC Glucose 158 mg/dl (70-99) H 01/06/22 01:08 Lactate 1.0 mmol/L (0.4-2.0) 01/05/22 20:20 Calcium 9.2 mg/dl (8.5-10.1) 01/05/22 20:20 Magnesium 2.5 mg/dl (1.7-2.4) H 01/05/22 20:20 Total Bilirubin 0.5 mg/dl (0.2-1.0) 01/05/22 20:20 AST 20 U/L (13-39) 01/05/22 20:20 ALT 27 U/L (7-52) 01/05/22 20:20 Alkaline Phosphatase 39 U/L (34-104) 01/05/22 20:20 Troponin I High Sens 10.5 pg/ml (0-20) 01/05/22 20:20 Total Protein 7.4 gm/dl (6.0-8.3) 01/05/22 20:20 Albumin 4.4 gm/dl (3.4-5.0) 01/05/22 20:20 Globulin 3.0 gm/dl (2.5-4.0) 01/05/22 20:20 Albumin/Globulin Ratio 1.5 (0.9-2) 01/05/22 20:20 Procalcitonin < 0.05 ng/ml (0-0.5) 01/05/22 20:20 Urine Color Yellow 01/06/22 01:50 Urine Appearance Clear (Clear) 01/06/22 01:50 Urine pH 5.0 (4.5-7.5) 01/06/22 01:50 Ur Specific [place] 1.032 (1.000-1.030) H 01/06/22 01:50 Urine Protein 1+ (Negative) H 01/06/22 01:50 Urine Glucose (UA) 3+ (Negative) H 01/06/22 01:50 Urine Ketones Negative (Negative) 01/06/22 01:50 Urine Blood Negative (Negative) 01/06/22 01:50 Urine Nitrite Negative (Negative) 01/06/22 01:50 Urine Bilirubin Negative (Negative) 01/06/22 01:50 Urine Urobilinogen Negative (Negative) 01/06/22 01:50 Ur Leukocyte Esterase Negative (Negative) 01/06/22 01:50 Urine WBC (Auto) 0 /hpf (0-5) 01/06/22 01:50 Urine RBC (Auto) 0-4 /hpf (0-4) 01/06/22 01:50 U Hyaline Cast (Auto) 1-5 /lpf (0-5) 01/06/22 01:50 U Epithel Cells (Auto) 0-5 /lpf (0-5) 01/06/22 01:50 Urine Bacteria (Auto) Negative (Negative) 01/06/22 01:50 Urine Opiates Screen Neg (Neg) 01/06/22 01:50 Ur Methadone, Qual Neg (Neg) 01/06/22 01:50 Urine Barbiturates Neg (Neg) 01/06/22 01:50 Ur Phencyclidine (PCP) Neg (Neg) 01/06/22 01:50 U Amphetamin/Meth Scrn Neg (Neg) 01/06/22 01:50 MDMA (Ecstasy) Screen Neg (Neg) 01/06/22 01:50 U Benzodiazepines Scrn Pos (Neg) H 01/06/22 01:50 Ur Cocaine Metabolite Neg (Neg) 01/06/22 01:50 U Marijuana (THC) Screen Neg (Neg) 01/06/22 01:50 Influ A Molecular Assay Negative (Negative) 01/05/22 21:21 Influ B Molecular Assay Negative (Negative) 01/05/22 21:21 SARS-CoV-2, RNA, NAAT NEGATIVE (NEGATIVE) 01/05/22 21:21 Impressions Chest X-Ray 01/05/22 20:13 XR chest 1V portable CLINICAL HISTORY: SEPSIS. COMPARISON STUDY: 09/18/2021 TECHNIQUE: 1 view of the chest FINDINGS: Single frontal view of the chest demonstrates the heart size to be mildly enlarged status post previous cardiothoracic surgery. There is asymmetric elevation of the right hemidiaphragm. The lungs are clear of alveolar opacities. There is no evidence for pleural effusion. There is no evidence for vascular congestion. There is no acute osseous pathology. IMPRESSION: 1. No acute cardiopulmonary disease. ACT 112: Negative or not required by law. Electronically signed by: Scott Alvarez M.D. 01/05/2022 8:[address] 01/05/22 20:13 CT head/brain wo con CLINICAL HISTORY: AMS COMPARISON STUDY: 08/02/2020 CT DOSE: 537.48 mGy.cm TECHNIQUE: Standard CT of the Brain was performed without IV contrast. A dose lowering technique was utilized adhering to the principles of ALARA. FINDINGS: Extraaxial space: There is no evidence for subdural hematoma. There are no extra-axial fluid collections. Ventricles and cisterns: The ventricles are normal in size and configuration. There is no evidence for midline shift or mass effect. Parenchyma: There is no subarachnoid or intraparenchymal hemorrhage. There is no evidence for an acute infarct or cerebral edema. There is an old lacunar infarct in the periventricular white matter on the left. There is homogeneous attenuation of the brain parenchyma. There are no gross mass lesions. Osseous structures: There is no evidence for an acute fracture. The visualized paranasal sinuses are clear. The mastoid air cells are clear bilaterally. Soft tissues: There is no evidence for focal soft tissue swelling. IMPRESSION: 1. No acute intracerebral pathology. 2. Old lacunar infarct is again seen on the left. ACT 112: Negative or not required by law. Electronically signed by: Scott Alvarez M.D. 01/05/2022 9:05 PM Code Status & VTE Plan Code Status Full code VTE Prophylaxis Plan VTE Prophylaxis will be ordered: Yes PG Care Time/CCT Total # of Minutes Spent Total Time Spent with Patient: Total time spent is greater than 50% in coordination of care (as documented) at patient's floor/unit and/or counseling patient: Coding Level of Care Code 27256 Initial Inpt Care Lvl 3 Diagnoses Acute respiratory failure with hypoxia and hypercapnia J96.01; J96.02 Ischemic cardiomyopathy I25.5 History of coronary artery bypass graft Z95.1 Brachial plexopathy G54.0 Hypertension I10 Coronary artery disease I25.10 Hyperlipidemia E78.5 Type 2 diabetes mellitus E11.9 Confusion and disorientation R41.0 Attention deficit disorder without hyperactivity F98.8 CHI (closed head injury) S09.90XD Encounter type: subsequent encounter (1) CHI (closed head injury) Encounter type: subsequent encounter Qualified Code(s): S09.90XD - Unspecified injury of head, subsequent encounter
[2022-01-06] MEDS ORDERED: OPTIRAY 320 125ml IV ONE ×2 (00:26→16:32)
[2022-01-06] MEDS ORDERED: CARBOHYDRATES FOR HYPOGLYCEMIA PO PRN (01:05)
[2022-01-06] MEDS ORDERED: GLUCAGON FOR INJ 1 MG VIAL SQ PRN (01:05)
[2022-01-06] MEDS ORDERED: ALBUT/IPRATROP 3MG/0.5MG NEB 3 ML VIAL NEB PRN ×2 (01:05→04:32)
[2022-01-06] MEDS ORDERED: NITROGLYCERIN SL 0.4 MG/TAB TAB SL PRN (01:05)
[2022-01-06] MEDS ORDERED: DEXTROSE 50% 50 ML SYRINGE IV PRN (01:05)
[2022-01-06] MEDS ORDERED: GLUCOSE 40% GEL 15 GM TUBE PO PRN (01:05)
[2022-01-06] MEDS ORDERED: GLUCOSE 10 TABS/TUBE PO PRN (01:05)
[2022-01-06] MEDS ORDERED: ACETAMINOPHEN 325 MG TAB PO PRN (01:05)
[2022-01-06] MEDS ORDERED: ONDANSETRON INJ 2 MG/ML 2 ML VIAL IV PRN (01:05)
[2022-01-06] MEDS ORDERED: ZOLPIDEM TARTRATE 10 MG TAB PO PRN (01:36)
--- NOTE | 2022-01-06 01:38 | Communication Note ---
Date of Service: January 06, 2022 Messaged about patient request for zolpidem qhs prn for sleep. This is his home med, so I will be adding this order. I have confirmed via his [facility] [employer] records.
[2022-01-06 02:03] LABS: Appearance Urine Clear (Clear); Bacteria Urine Automated Negative (Negative); Bilirubin Urine Negative (Negative); Blood Urine Negative (Negative); Color Urine Yellow; Epithelial Cell Urine Auto 0-5 /lpf (0-5); Glucose Urine UA 3+ (Negative); Ketones Urine Negative (Negative); Leukocyte Esterase Urine Negative (Negative); Nitrite Urine Negative (Negative); Protein Urine 1+ (Negative); RBC Urine Automated 0-4 /hpf (0-4); Specific Gravity Urine 1.032 (1.000-1.030); Urobilinogen Urine Negative (Negative); WBC Urine Automated 0 /hpf (0-5)
[2022-01-06 02:19] LABS: Amphetamines+Metham, Urine Neg (Neg); Barbiturates, Urine Neg (Neg); Benzodiazepine, Urine Pos (Neg); Cocaine, Urine Neg (Neg); MDMA (Ecstacy), Urine Neg (Neg); Methadone, Urine Neg (Neg); Opiate, Urine Neg (Neg); Phencyclidine, Urine Neg (Neg)
[2022-01-06] MEDS: VALSARTAN/SACUBITRIL 26/24MG TAB PO SCH ×2 (04:22→08:10)
[2022-01-06 06:21] LABS: Basophils # (auto) 0.02 K/uL (0-0.2); Basophils % (auto) 0.2 %; Eosinophils % (auto) 0.9 %; Hemoglobin 13.4 g/dL (14.0-18.0); Immature Granulocytes # (auto) 0.09 K/uL (0.00-0.02); Immature Granulocytes % (auto) 0.8 %; Lymphocytes # (auto) 2.53 K/uL (1.2-3.4); Lymphocytes % (auto) 23.7 %; Mean Corpuscular Hemoglobin 30.7 pg (25-34); Mean Corpuscular Hgb Conc 31.9 g/dL (32-36); Mean Corpuscular Volume 96.1 fL (80-100); Mean Platelet Volume 10.3 fL (7.4-10.4); Monocytes # (auto) 1.28 K/uL (0.11-0.59); Neutrophils # (auto) 6.66 K/uL (1.4-6.5); Neutrophils % (auto) 62.4 %; Platelet Count 220 K/uL (130-400); RDW Coefficient of Variation 14.6 % (11.5-14.5); RDW Standard Deviation 51.2 fL (36.4-46.3); Red Blood Count 4.37 M/uL (4.7-6.1); White Blood Count 10.68 K/uL (4.8-10.8)
[2022-01-06 06:32] LABS: Partial Thromboplastin Ratio 0.9; Partial Thromboplastin Time 23.8 Seconds (21.0-31.0); Prothrombin Time 10.3 Seconds (9.0-12.0)
[2022-01-06 07:16] LABS: Albumin Level 3.9 gm/dl (3.4-5.0); BUN Creatinine Ratio 21.1 (10-20); Calcium 8.9 mg/dl (8.5-10.1); Est GFR (African American) 74.6 ml/min; Est GFR (Non-African American) 64.4 ml/min; Magnesium 2.4 mg/dl (1.7-2.4); Phosphorus 4.2 mg/dl (2.5-4.9); Potassium 5.3 mmol/L (3.5-5.1)
[2022-01-06 07:18] LABS: Troponin I High Sensitivity 11.3 pg/ml (0-20)
[2022-01-06 07:57] LABS: Estimated Average Glucose 197 mg/dl; Hemoglobin A1C 8.5 % (4.5-5.6)
--- NOTE | 2022-01-06 08:05 | CT Scan Report ---
CT ANGIOGRAM OF THE BRAIN; CT ANGIOGRAM OF THE NECK CLINICAL HISTORY: Change in mental status. COMPARISON STUDY: Unenhanced CT of the brain performed the same day 01/05/2022. TECHNIQUE: Following the IV administration of 118 of Optiray 320, CT angiogram of the head and neck w as performed from the aortic arch to the vertex. Images are reviewed in the axial, sagittal, and roselyn nal planes. 3-D MIPS images are created and assessed. IV contrast was administered without complicati on. All measurements were calculated based on NASCET criteria. A dose lowering technique was utilize d adhering to the principles of ALARA. CT DOSE: 942.90 mGy.cm FINDINGS: Brain parenchyma: There is mild microangiopathic change. A chronic lacunar infarct is noted in the le ft periventricular white matter. There is no evidence of hemorrhage, mass effect, or acute territoria l ischemia noting angiographic phase technique. There is no evidence of enhancing mass lesion on the angiogram phase images. The ventricles, sulci, and cisterns are normal in configuration. Forman-white m atter differentiation is preserved. No extra-axial fluid collection is seen. Thoracic aorta: There is mild atherosclerotic calcification of the thoracic aorta. Visualized portion s of the thoracic aorta are normal in caliber. The aortic arch demonstrates bovine variant anatomy. Right carotid arterial system: The right common carotid artery is widely patent. Advanced plaque in t he right carotid bulb causes less than 50% luminal narrowing at the origin of the right internal guidry tid artery. The remainder of the right internal carotid artery and the external carotid artery are pa tent. The right internal carotid artery is somewhat diminutive. Left carotid arterial system: The left common carotid artery is widely patent, as are the left internet sales director al and external carotid arteries. Advanced atherosclerotic plaque is noted in the carotid bulb. Vertebral arteries: The vertebral arteries are widely patent bilaterally and codominant. Subclavian arteries: Widely patent bilaterally. Intracranial vasculature: There is mild atherosclerotic calcification of the carotid bulbs. The inter nal carotid arteries are patent at the skull base, as are the anterior and middle cerebral arteries b ilaterally. The right A1 segment is atretic. The vertebrobasilar system and posterior cerebral arteri es are widely patent. The vertebral arteries are codominant. There is no aneurysm, high-grade stenosi s, or focal vessel cut off seen throughout the intracranial circulation. Jugular veins: Patent bilaterally. Dural sinuses: Patent. Upper chest: Midline sternotomy wires are noted. Scarring/atelectasis is noted at the right apex. The visualized upper lobe lung parenchyma is otherwise clear. Soft tissues: The visualized pharyngeal soft tissues are normal in appearance noting angiographic pha se technique. The oropharyngeal airway appears widely patent. The salivary and thyroid glands are nor mal in appearance. No cervical lymphadenopathy is seen. Skeletal structures: The calvarium appears intact. The cervical spine is within normal limits. Intrat hecal leads are noted in the cervicothoracic spinal canal. Orbits: The bony orbits are intact. Orbital contents are normal as visualized. Sinuses and mastoids: The paranasal sinuses are clear. The mastoid air cells are well pneumatized. IMPRESSION: 1. There is no evidence of hemorrhage, mass effect, or acute territorial ischemia noting angiographic phase technique. 2. Unremarkable CT angiogram of the brain. 3. Atherosclerotic plaque causes less than 50% luminal narrowing at the origin of the right internal carotid artery. 4. Otherwise unremarkable CT angiogram of the neck. 5. Additional findings as above. ACT 112: Negative or not required by law. Electronically signed by: Fernando Galindo M.D. 01/06/2022 8:03 AM
[2022-01-06] MEDS: INSULIN ASPART PER UNIT SC SCH ×3 (08:48→16:57)
[2022-01-06] MEDS ORDERED: ASPIRIN 81 MG ECTAB PO SCH (09:00)
[2022-01-06] MEDS ORDERED: MIDODRINE HCL 10 MG TAB PO SCH (09:00)
[2022-01-06] MEDS ORDERED: DULoxetine HCL 60 MG CAP PO SCH (09:00)
[2022-01-06] MEDS ORDERED: PANTOprazole 40 MG TAB PO SCH (09:00)
[2022-01-06] MEDS ORDERED: CLOPIDOGREL BISULFATE 75 MG TAB PO SCH (09:00)
[2022-01-06] MEDS ORDERED: TORSEMIDE 10 MG TAB PO SCH (09:00)
[2022-01-06] MEDS ORDERED: NITROGLYCERIN 0.4 MG/HR PATCH TD SCH (09:00)
[2022-01-06] MEDS: MIDODRINE HCL 10 MG TAB PO SCH ×3 (09:54→17:03)
[2022-01-06 10:03] LABS: Thyroid Stimulating Hormone 5.121 uIu/ml (0.300-4.500)
[2022-01-06 10:50] LABS: T4 Free Thyroxine 0.72 ng/dl (0.61-1.60)
[2022-01-06 13:58] LABS: BUN Creatinine Ratio 22.6 (10-20); Calcium 9.4 mg/dl (8.5-10.1); Creatinine Clr Calc Pharmacy 105.3 ml/min; Est GFR (African American) 77.5 ml/min; Est GFR (Non-African American) 66.9 ml/min; Potassium 4.5 mmol/L (3.5-5.1)
[2022-01-06 14:01] LABS: Troponin I High Sensitivity 8.2 pg/ml (0-20)
--- NOTE | 2022-01-06 16:42 | CT Scan Report ---
CT angio chest PE protocol CLINICAL HISTORY: severe hypoxic event, recent travel; eval PE TECHNIQUE: Multidetector row helical CT of the chest was performed with angiographic protocol. Hanks l and sagittal reformations were obtained. Coronal and sagittal MIPS were obtained from the axial fabiola a set and were submitted for review. Automated dose lowering techniques and/or adjustment according to patient size were utilized for this exam. CT DOSE: 544.20 mGycm Comparison: None available at the time of this dictation. FINDINGS: Lungs and pleura: Normal. Heart and pericardium: There is cardiomegaly without evidence of pericardial effusion. Vessels: The pulmonary trunk is enlarged measuring 35 mm. No evidence of pulmonary embolism is seen. Moderate atherosclerotic disease is seen. Mediastinum and artur: Unremarkable. Chest wall and lower neck: Unremarkable. Abdomen: Unremarkable. Bones: Degenerative changes in the thoracic spine. IMPRESSION: No evidence of pulmonary embolism. Pulmonary hypertension is seen. Cardiomegaly is noted with biatria l enlargement. ACT 112: Negative or not required by law. Electronically signed by: Cedric Carvajal M.D. 01/06/2022 4:40 PM
--- NOTE | 2022-01-06 18:43 | Discharge Summary ---
Date of Service January 06, 2022 Admission HPI Per Admitting Provider The patient is a 51-year-old male with a past medical history including lateral femoral cutaneous neuropathy, peripheral neuropathy, ADD, closed head injury, acute kidney injury, metabolic syndrome, non-STEMI, COVID-19 infection, left foot diabetic ulcer, diabetes mellitus type 2, ischemic cardiomyopathy, bilateral brachial plexopathy, status post insertion of spinal cord stimulator, status post CABG, CAD, and stented coronary artery. The patient was found by his significant other lying on the couch looking blue and breathing irregularly, and was very slow to respond. She reports that his pulse ox was 60%, she called 911, and when they arrived they recorded a pulse ox of 80%. He was placed on supplemental oxygen and taken to the emergency department for further assessment. The patient does wear CPAP at nighttime, however, his significant other thought he had fall asleep without this on, and became discolored as noted. Discharge Data Allergies Allergy/AdvReac Type Severity Reaction Status Date / Time No Known Allergies Allergy Verified 01/05/22 21:29 Consultations 01/05/22 23:46 ED Decision to Admit Stat Ordered Studies 01/05/22 20:13 CT head/brain wo con Stat 01/05/22 23:50 CT angio head w con Urgent CT angio neck with con Urgent 01/06/22 14:39 CT angio chest PE protocol Routine Discharge Plan Discharge Items Patient Disposition: Home - Self-Care Reason For Visit: CONFUSION, LOW BLOOD OXYGEN LEVELS Discharge Diagnosis: 1. Confusion - due to high carbon dioxide levels and low oxygen levels at time of presentation - resolved 2. Low blood oxygen level - likely due to pain medication in the setting of a prolonged fast as well as not having CPAP in place during the event 3. Memory difficulty - multiple possibilities for this including nutritional deficiencies (B12, B1), prior stroke (small stroke seen in the left side of the brain on your CT head), alcohol usage, medications (pain medications, sedatives, etc), other factors Activity: Resume your previous activity Driving/Machine Use: NO DRIVING until Dr Johnson gives you clearance Non-emergency contact: Primary Care Provider and Substation Engineer Call non-emergency contact if: you have any medication questions and your symptoms worsen Follow-up/Referrals: Robe Valverde DO [Substation Engineer] - (1-2 weeks) Lalitha Tavares PA-C [Physician Wildland Firefighter] - 02/02/22 (keep this previously scheduled appointment with neurology ) Clare Johnson DO [Primary Care Provider] - (see Dr Johnson within 5-7 days) Diet: Carb Consistent or DM2 and Heart Healthy Fluids: 1800ml (7 cups) Ambulatory Orders: Basic Metabolic Panel (Routine) Timeframe: [id number] Location: Determined by Patient Ordered By: Jasiel Torres Attending Provider Instructions: Mr Forman, You were admitted to the hospital after you were found at home with confusion and cyanosis (blue lips/face). When EMS arrived to your home your oxygen levels were low. The oxygen levels improved with supplemental oxygen. By the time you arrived to [facility] your mentation was starting to improve. Labs showed that your carbon dioxide level in your blood was moderately high. People who have severe sleep apnea are prone to development of high carbon dioxide levels. Carbon dioxide levels can rise to dangerous levels if someone is drinking alcohol, taking sedatives, taking pain killer medications, has a respiratory infection/pneumonia, has a seizure, etc. I am concerned that pain medication (nucynta) may have contributed to the event last evening. Perhaps fasting all day for your colonoscopy prep played a minor roll as well. We did not find evidence of heart attack, abnormal heart rhythm, blood clots in the lungs, urine infection, pneumonia, COVID-19 infection, or other abnormalities. Recommendations - 1. Ideally it would be best if you abstain 100% from alcohol. The alcohol is not good for your heart, can harm your memory/cognition, and it can be dangerous when taken with nucynta, ambien, and amitriptyline. 2. Nucynta - ideally it would be best to not take this medication. However, you will need to wean off from it since you have been taking this for some time. I would recommend that for the next 5-7 days that you take the medication once per day or less. DO NOT DRINK ALCOHOL OR DRIVE A VEHICLE WHILE TAKING NUCYNTA. Please follow-up with Dr Johnson for further guidance regarding the Nucynta and to find a safe substitute to take for your neuropathy and pain. 3. Your vitamin B12 level was at the low end of normal (b12 level = 342). Please take an [id number] vitamin B12 supplement 1000mcg daily for about 6 months. Low B12 can contribute to neuropathy, cause memory impairment, etc. 4. A vitamin B1 (thiamine) level is pending at this time. We will notify you if the level is low. 5. Continue your CPAP at bedtime and with naps. Blend the Oxygen 4 L into the machine as directed by Dr Cedillo. Using your CPAP regularly will keep your carbon dioxide levels in check/in normal range. 6. Please HOLD your metformin at this time. On Sunday, 01/09, please go to the [place] office for a blood draw. If the lab is normal at that time you will be able to resume your metformin then. We will notify you of the results. 7. Your thyroid level was modestly abnormal. You could have the beginnings of underactive thyroid. Your TSH level was 5.1. Please have Dr Johnson repeat the TSH in about 4-[address] scans of the head/neck did NOT show any significant blocked artery. 9. The CT scan of the head appeared to show an old, small stroke in the left side of the brain. It is uncertain when this event occurred. It's possible that it happened when you had your cardiac cath in January 2021. We cannot date the stroke. Either way please continue your aspirin and plavix as previous - these medications will help protect you against any future stroke. 10. I spoke with Dr Valverde from cardiology and at this time we will defer on doing a home heart monitor. Your heart monitoring in the hospital was normal while here. 11. Please keep the appointment with neurology in January. Ask for neurocognitive (neuropsych) testing to be done given the memory difficulties you are reporting. Follow-up - see separate section Return to [facility] if - * you have chest pains * you are short of breath * you have a passing out spell * you develop any symptoms of a stroke - inability to speak, swallow, or use a specific limb; numbness/tingling that is new; severe vertigo; vision changes; etc * any other concerns It was our pleasure to care for you at [facility]! Dr Hope Pending Studies at Discharge: Yes Studies:: Vitamin B1 (thiamine) level Stand-Alone Forms: My [facility] [employer], Smoking Cessation Medications and DC Order Prescriptions: New cyanocobalamin (vitamin B-12) 1,000 mcg capsule 1,000 mcg PO DAILY Qty: 90 RF: 3 Continued torsemide 20 mg tablet 20 mg PO UD RF: 0 alpha lipoic acid 600 mg capsule 600 mg PO BID RF: 0 (DME) Dexcom G4 Transmitter Device See Rx Instructions .ROUTE RF: 0 midodrine 10 mg tablet 10 mg PO TID RF: 0 amitriptyline 25 mg tablet 50 mg PO HS Qty: 60 RF: 5 duloxetine 60 mg capsule,delayed release(DR/EC) 60 mg PO QAM 90 Days Qty: 90 RF: 0 icosapent ethyl [Vascepa] 1 gram capsule 2 g PO BID RF: 0 empagliflozin 10 mg tablet 10 mg PO QAM RF: 0 metoprolol succinate 50 mg tablet extended release 24 hr 50 mg PO HS RF: 0 Entresto 24-26 mg tablet 1 tab PO BID RF: 0 rosuvastatin 40 mg Tablet 40 mg PO HS RF: 0 clopidogrel 75 mg Tablet 75 mg PO QAM RF: 0 zolpidem 10 mg Tablet 10 mg PO HS RF: 0 insulin aspart U-100 [Novolog U-100 Insulin aspart] 100 unit/mL Solution See Rx Instructions .ROUTE .COMPLEX RF: 0 nitroglycerin 0.4 mg/hr patch 24 hour 1 patch topical DIRECTED RF: 0 aspirin [Aspirin Low Dose] 81 mg Tablet,Delayed Release (Dr/Ec) 81 mg PO AMHS RF: 0 nitroglycerin 0.4 mg tablet, sublingual 0.4 mg sublingual DIRECTED PRN (Reason: Chest Pain) RF: 0 pantoprazole 40 mg tablet,delayed release (DR/EC) 40 mg PO QAM RF: 0 torsemide 10 mg tablet 10 mg PO QAM RF: 0 Discontinued Nucynta 100 mg tablet 100 mg PO Q6H PRN (Reason: pain) RF: 0 metformin 500 mg tablet extended release 24 hr 500 mg PO BID RF: 0 Discharge Orders: Discharge Order (Routine); Ordered 01/06/22 Ordered By: Jasiel Gutierrez/Other Patient Handouts: Managing Type 2 Diabetes Admission Data Admit Date/Time: 01/05/22 23:42 Attending Provider: Jasiel Hope Admit Provider: Jesse Pritchett Primary Care Provider: Clare Johnson Other Providers: Jesse Pritchett Other Interventions: Discharge Summary Assessment (RN) Last Done: 01/06/22 18:21 Coding
[2022-01-06] MEDS ORDERED: ZOLPIDEM TARTRATE 10 MG TAB PO SCH (21:00)
[2022-01-06] MEDS ORDERED: METOPROLOL SUCC 50MG EXT REL TAB PO SCH (21:00)
[2022-01-06] MEDS ORDERED: AMITRIPTYLINE HCL 50 MG TAB PO SCH (21:00)
[2022-01-06] MEDS ORDERED: ROSUVASTATIN CALCIUM 20 MG TAB PO SCH (21:00)
--- NOTE | 2022-01-06 22:02 | Electrocardiogram Report ---
Test Reason : Blood Pressure : / mmHG Vent. Rate : 075 BPM Atrial Rate : 075 BPM P-R Int : 200 ms QRS Dur : 092 ms QT Int : 408 ms P-R-T Axes : 025 142 181 degrees QTc Int : 454 ms Sinus rhythm Nonspecific ST abnormality Abnormal ECG When compared with ECG of 18-SEP-2021 10:11, Incomplete right bundle branch block is no longer Present Criteria for Septal infarct are no longer Present Confirmed by Nic Quach ([id number]) on 01/06/2022 10:02:06 PM Referred By: REFERRED SELF Confirmed By:Nic Quach
[2022-01-08 07:31] LABS: 7-Aminoclonaz, Confirm NEGATIVE ng/mL (<25); Hydro-Alp Ur, GC/MS NEGATIVE ng/mL (<25); Hydroxyethylflurazepam, Conf NEGATIVE ng/mL (<50); Hydroxymidazolam Ur, GC/MS NEGATIVE ng/mL (<50); Hydroxytriazolam NEGATIVE ng/mL (<50); Lorazepam, Ur GC/MS NEGATIVE ng/mL (<50); Nordiazepam, Confirm 166 ng/mL (<50); Oxazepam Ur, GC/MS 559 ng/mL (<50); Temazepam, Confirm 322 ng/mL (<50)
== END 2022-01-06 19:08 | disposition home or self-care (01) | DRG 189 ==
LOC: ED 20:07 → SUATTDRO 23:42 → 2E 23:42

== ENCOUNTER 2022-08-09 15:59 | Inpatient (IN) ==
[2022-08-09] MEDS ORDERED: SODIUM CHLORIDE 0.9% 1000ML 1,000 ML IV STA (16:11)
--- NOTE | 2022-08-09 16:31 | Emergency Department Note ---
Impression & Plan Acute lower GI bleeding, Acute hyperglycemia ED Provider Note NAME: LJ CEDILLO AGE: 52 SEX: M : 1970 ARRIVES VIA: Walk-In INFORMANT: Patient, ED PROVIDER(S): Miguel A Cardona DO CHIEF COMPLAINT: GI bleeding HPI: The patient is a 52-year-old male who presented to the emergency department for an evaluation of GI bleeding. The patient's had ongoing GI bleeding for 1 year. He has been trying to have a colonoscopy but multiple issues have arise they kept the patient from having his colonoscopy. The patient most recently was set to have a colonoscopy but he developed COVID-19. The colonoscopy was canceled. He is noticing bright red blood per rectum. He is also noticed some lower abdominal tenderness. He denies having any fever. He denies having any back pain. He has had some weakness and difficulty breathing with exertion. He has a cardiac history and takes Plavix. He states has been compliant with his outpatient medications. He had a Cologaurd test done recently and abnormal DNA was picked up but the patient is still awaiting the colonoscopy to determine if there is a GI mass. ROS: See above HPI for pertinent positives & negatives. A total of 10 systems reviewed and were otherwise negative. PAST MEDICAL HISTORY: See Below PAST SURGICAL HISTORY: See Below FAMILY HISTORY: See Below SOCIAL HISTORY: See Below HOME MEDICATIONS: See Below ALLERGIES: See Below VITALS: See Below PHYSICAL EXAMINATION: GENERAL: Patient is awake alert in no acute distress patient is resting comfortably and showing no signs of anxiety EYES: The conjunctivae are clear. The pupils are round and reactive. EARS, NOSE, MOUTH AND THROAT: The nose is without any evidence of any deformity. Mucous membranes are moist. Tongue is midline. NECK: The neck is nontender and supple. RESPIRATORY: Normal respiratory effort is noted there is no evidence of wheezing rhonchi or rales CARDIOVASCULAR: Regular rate and rhythm noted there no murmurs rubs or gallops normal S1 normal S2. GASTROINTESTINAL: The abdomen was soft and mildly distended. There is tenderness to palpation which is suprapubic. There is no guarding or rigidity. MUSCULOSKELETAL/EXTREMITIES: There is no evidence of gross deformity full range of motion is noted in the hips and shoulders. SKIN: There is no obvious evidence of any rash. There are no petechiae, pallor or cyanosis noted. NEUROLOGIC: Patient is awake alert and oriented x3 MEDICAL DECISION MAKING: The patient is a 52-year-old male who presented to the emergency department for an evaluation of lower GI bleeding. The patient was having blood per rectum. He has had an ongoing episode of this for approximately 1 year. His symptoms started to worsen. He was unable to have a colonoscopy recently because of COVID-19. When his symptoms worsened over the last few days he presented to the emergency department for further evaluation. I discussed patient's laboratory and radiographic studies with him. He was treated with IV fluids in the emergency department for initial hypotension. On reevaluation his blood pressure was improved. I discussed his condition with the on-call [facility] hospitalist. Given the patient's medical history and his current medications he may be a better candidate for inpatient management of this lower GI bleeding. They have agreed to evaluate the patient in the emergency department for further management and disposition. Triage Nursing notes reviewed. Prior medical records reviewed Vital Signs: reviewed and remarkable for initial hypotension. Differential diagnosis: Diverticulosis, AVM, coagulopathy, colitis, inflammatory bowel disease, malignancy, Gwendolyn-Hills tear, esophagitis, peptic ulcer disease, variceal bleed, gastritis, epistaxis, fissure, hemorrhoids, as well as other pathologies. ER treatment provided: See below Diagnostics interpreted by me: ECG: EKG was obtained in the emergency department. My interpretation is normal sinus rhythm at 76 bpm. First-degree AV block noted. Nonspecific interventricular conduction delay was noted. Poor R wave progression was noted. This was compared to a tracing from January 05, 2022. No changes were noted. Cardiac Monitoring: An order was placed for continuous cardiac monitoring. The monitor shows a rate of 78 bpm with sinus rhythm. Laboratory studies: As stated above and show below. Imaging studies: See below Consultation(s): The case was discussed with Dr. Alvarado [facility]. Past Med/Surg History Medical History (Updated 08/09/22 @ 19:40 by Kusum Miller DO) Attention deficit disorder without hyperactivity Brachial plexopathy Right CHI (closed head injury) CKD (chronic kidney disease) stage 3, GFR 30-59 ml/min Coronary artery disease Difficult airway for intubation was told it was hard to intubate him for carpal tunnel surgery in 1999 at [facility] History of COVID-19 x2--diagnosed 06/25/22--sore throat, chills (states is improving at this time) via HOME TEST ONLY diagnosed 05/2021--had sinus congestion, headache, productive cough--pt states he received monoclonal antibodies History of Salmonella gastroenteritis Hx of renal calculi Hyperlipidemia Hypertension Morbid obesity with BMI of 40.0-44.9, adult Neuropathic pain NSTEMI (non-ST elevated myocardial infarction) [place] [facility] [place] PCI of the [id number] with HARSHA x 2 and HARSHA x1 to pRCA on 02/07/21; Recurrent HF related to LVEDP 30-34% Obesity On anticoagulant therapy plavix daily/aspirin 162mg daily Seizure AGE 10 S/P ACCIDENT-WAS ON MEDS COUPLE YRS-OFF MEDS AND NO SEIZURES 30+ YRS Severe obstructive sleep apnea cpap with 4L of oxygen at hs Substernal precordial chest pain hx of Type 2 diabetes mellitus Surgical History History of appendectomy History of arthroscopic knee surgery 1985, LEFT History of cardiac cath MULTIPLE-[place] [facility] [place] pt 2 stents placed 12/2018?-NO STENTS NEEDED LAST STENT PLACED 10/[place] [facility] [place] History of carpal tunnel release of both wrists History of coronary artery bypass graft 5 VESSELS History of tonsillectomy and adenoidectomy History of vasectomy Hx of heart artery stent X6-LAST ONE 01/20[place] [facility] [place] Status post insertion of spinal cord stimulator [employer] Family History Grandfather (Maternal) Family history of diabetes mellitus Mother Family history of diabetes mellitus Stroke Uncle Obstructive sleep apnea Grandmother (Maternal) Stroke Family history of reaction to anesthesia "lost some cognitive ability after heart surgery" Father Coronary heart disease Social History Smoking Status: Never smoker Second Hand Exposure: No; Hx Alcohol Use: Yes Alcohol type: other Hx Substance Use: No Preferred Language: Korean Communication Ability: Effective Visual Impairment: No Limitations Hearing Ability: Normal 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 Training Required: No Beliefs That Will Affect Care: None marital status: Current Living Situation: Spouse and Family Current Living Situation Comment: lives with and 2 kids current occupational status: unemployed 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 How many Children do You have: 2 Feels Safe at Home: Yes during the past year weight has: other Do you think of yourself as: straight/heterosexual Gender Identity: Male Assistive Devices: CPAP and Glasses Allergies Allergies Allergy/AdvReac Type Severity Reaction Status Date / Time No Known Allergies Allergy Verified 08/09/22 18:33 Home Meds Home Medications Medication Instructions Recorded Confirmed clopidogrel 75 mg tablet 75 mg PO QAM 01/28/19 08/09/22 rosuvastatin 40 mg tablet 40 mg PO HS 01/28/19 08/09/22 zolpidem 10 mg tablet 10 mg PO HS 01/28/19 08/09/22 insulin aspart U-100 100 unit/mL See Rx Instructions .Route .COMPLEX 02/04/19 08/09/22 subcutaneous solution (Novolog U-100 Insulin aspart) nitroglycerin 0.4 mg sublingual 0.4 mg sublingual DIRECTED PRN 02/24/19 08/09/22 tablet Chest Pain pantoprazole 40 mg tablet,delayed 40 mg PO QAM 05/10/20 08/09/22 release aspirin 81 mg tablet,delayed 81 mg PO DAILY 08/02/20 08/09/22 release (Howard Low Dose Aspirin) nitroglycerin 0.4 mg/hr 1 patch topical DIRECTED 08/02/20 08/09/22 transdermal 24 hour patch empagliflozin 10 mg tablet 10 mg PO QAM 05/18/21 08/09/22 icosapent ethyl 1 gram capsule 2 g PO BID 05/18/21 08/09/22 (Vascepa) metoprolol succinate 50 mg 50 mg PO QAM 08/30/21 08/09/22 tablet,extended release 24 hr sacubitril 24 mg-valsartan 26 mg 1 tab PO BID 08/30/21 08/09/22 tablet (Entresto) alpha lipoic acid 600 mg capsule 1,200 mg PO DAILY 12/27/21 08/09/22 blood-glucose transmitter (Dexcom 12/27/21 02/02/22 G4 Transmitter device) midodrine 10 mg tablet 0 mg PO DIRECTED 12/27/21 08/09/22 torsemide 20 mg tablet 20 mg PO UD PRN WT GAIN 12/27/21 08/09/22 torsemide 10 mg tablet 10 mg PO QAM 01/05/22 08/09/22 duloxetine 60 mg capsule,delayed 60 mg PO HS 07/05/22 08/09/22 release acetaminophen 500 mg tablet 500 mg PO Q4H PRN PAIN/FEVER 08/09/22 08/09/22 (Tylenol Extra Strength) diazepam 5 mg tablet 5 mg PO BID PRN Anxiety 08/09/22 08/09/22 ezetimibe 10 mg tablet (Zetia) 10 mg PO DAILY 08/09/22 08/09/22 hydroxyzine pamoate 25 mg capsule 25 mg PO DIRECTED PRN Anxiety 08/09/22 08/09/22 insulin glargine 100 unit/mL (3 30 unit subcut BID 08/09/22 08/09/22 mL) subcutaneous pen (Basaglar KwikPen U-100 Insulin) metformin 500 mg tablet,extended 1,000 mg PO QAM 08/09/22 08/09/22 release 24 hr tapentadol 100 mg tablet (Nucynta) 100 mg PO Q6H PRN Headache 08/09/22 08/09/22 Previous Rx's Medication Instructions Recorded amitriptyline 25 mg tablet 50 mg PO HS #60 tabs 08/30/21 cyanocobalamin (vitamin B-12) 1,000 mcg PO DAILY #90 caps 01/06/22 1,000 mcg capsule Results & Data (ED) Vital Signs Vital Signs - 24 hr 08/09/22 16:02 08/09/22 16:36 08/09/22 17:05 Temperature 36.6 C Temperature Source Temporal Artery Scan Pulse Rate 75 76 Pulse Rate from SpO2 Sensor 73 Respiratory Rate 18 20 Respiratory Effort / Characteristics Non-Labored Spontaneous Respiratory Depth Normal Respiratory Pattern Regular Blood Pressure 97/63 L Blood Pressure Mean 74 Blood Pressure Position Sitting Pulse Oximetry 99 99 94 Oxygen Delivery Method Room Air Room Air Sepsis Recent Fever Within 48 Hours No Sepsis New/Unexplained Change in Mental Status N/A Sepsis Action Taken by Nursing No Action Required 08/09/22 17:05 08/09/22 17:38 08/09/22 17:38 Temperature Temperature Source Pulse Rate Pulse Rate from SpO2 Sensor 79 Respiratory Rate Respiratory Effort / Characteristics Respiratory Depth Respiratory Pattern Blood Pressure 99/29 L 102/54 L Blood Pressure Mean 52 70 Blood Pressure Position Pulse Oximetry 94 Oxygen Delivery Method Sepsis Recent Fever Within 48 Hours Sepsis New/Unexplained Change in Mental Status Sepsis Action Taken by Nursing 08/09/22 18:26 08/09/22 18:28 08/09/22 18:29 Temperature Temperature Source Pulse Rate 78 78 Pulse Rate from SpO2 Sensor Respiratory Rate 18 Respiratory Effort / Characteristics Respiratory Depth Respiratory Pattern Blood Pressure 97/61 L Blood Pressure Mean 73 Blood Pressure Position Pulse Oximetry Oxygen Delivery Method Sepsis Recent Fever Within 48 Hours Sepsis New/Unexplained Change in Mental Status Sepsis Action Taken by Nursing 08/09/22 18:30 08/09/22 19:00 08/09/22 19:30 Temperature Temperature Source Pulse Rate 78 78 Pulse Rate from SpO2 Sensor Respiratory Rate 20 Respiratory Effort / Characteristics Respiratory Depth Respiratory Pattern Blood Pressure 101/60 103/74 115/60 Blood Pressure Mean 73 83 78 Blood Pressure Position Pulse Oximetry Oxygen Delivery Method Sepsis Recent Fever Within 48 Hours Sepsis New/Unexplained Change in Mental Status Sepsis Action Taken by [facility] Medications Current Medication List: was personally reviewed by me Laboratory Data Attestation: I reviewed the patient's lab results. Result diagrams: 08/09/22 16:30 08/09/22 16:30 Lab Results 08/09/22 08/09/22 08/09/22 Range/Units 16:30 16:30 16:30 WBC 10.45 (4.8-10.8) K/ul RBC 4.47 L (4.63-6.08) M/uL Hgb 13.1 L (14.0-18.0) g/dl Hct 38.7 L (40.1-51.0) % MCV 86.6 (80.0-100.0) fL MCH 29.3 (25.0-34.0) pg MCHC 33.9 (32.0-36.0) g/dL RDW Std Deviation 40.3 (36.4-46.3) fL RDW Coeff of Triny 12.9 (11.5-14.5) % Plt Count 270 (130-400) K/uL MPV 11.1 (9.4-12.4) fL Immature Gran % (Auto) 0.5 % Neut % (Auto) 62.5 % Lymph % (Auto) 24.6 % [place] % (Auto) 9.9 % Eos % (Auto) 2.1 % Baso % (Auto) 0.4 % Neut # (Auto) 6.54 H (1.4-6.5) K/uL Lymph # (Auto) 2.57 (1.2-3.4) K/uL [place] # (Auto) 1.03 H (0.24-0.82) K/uL Eos # (Auto) 0.22 (0-0.50) K/uL Baso # (Auto) 0.04 (0-0.2) K/uL Immature Gran # (Auto) 0.05 H (0.00-0.02) K/uL PT 10.3 (9.0-12.0) Seconds INR 1.0 (0.9-1.1) APTT 22.4 (21.0-31.0) Seconds PTT Ratio 0.8 Sodium 131 L (136-145) mmol/L Potassium 3.9 (3.5-5.1) mmol/L Chloride 96 L (98-107) mmol/L Carbon Dioxide 27 (21-32) mmol/L Anion Gap 8 (3-11) BUN 18 (6-23) mg/dl Creatinine 1.30 (0.6-1.4) mg/dl Est Cr Clr Drug Dosing 94.2 ml/min Est GFR ( Amer) 72.7 ml/min Est GFR (Non-Af Amer) 62.7 ml/min BUN/Creatinine Ratio 13.8 (10-20) Glucose 315 H* (70-99(Fasting)) mg/dl Calcium 9.2 (8.5-10.1) mg/dl Total Bilirubin 0.7 (0.2-1.0) mg/dl AST 12 L (13-39) U/L ALT 11 (7-52) U/L Alkaline Phosphatase 47 (34-104) U/L Troponin I High Sens 8.3 (0-20) pg/ml Total Protein 6.9 (6.0-8.3) gm/dl Albumin 4.1 (3.4-5.0) gm/dl Globulin 2.8 (2.5-4.0) gm/dl Albumin/Globulin Ratio 1.5 (0.9-2) Lipase 29 (11-82) U/L SARS-CoV-2, RNA, NAAT (NEGATIVE) Blood Type Antibody Screen 08/09/22 08/09/22 Range/Units 16:30 17:30 WBC (4.8-10.8) K/ul RBC (4.63-6.08) M/uL Hgb (14.0-18.0) g/dl Hct (40.1-51.0) % MCV (80.0-100.0) fL MCH (25.0-34.0) pg MCHC (32.0-36.0) g/dL RDW Std Deviation (36.4-46.3) fL RDW Coeff of Triny (11.5-14.5) % Plt Count (130-400) K/uL MPV (9.4-12.4) fL Immature Gran % (Auto) % Neut % (Auto) % Lymph % (Auto) % [place] % (Auto) % Eos % (Auto) % Baso % (Auto) % Neut # (Auto) (1.4-6.5) K/uL Lymph # (Auto) (1.2-3.4) K/uL [place] # (Auto) (0.24-0.82) K/uL Eos # (Auto) (0-0.50) K/uL Baso # (Auto) (0-0.2) K/uL Immature Gran # (Auto) (0.00-0.02) K/uL PT (9.0-12.0) Seconds INR (0.9-1.1) APTT (21.0-31.0) Seconds PTT Ratio Sodium (136-145) mmol/L Potassium (3.5-5.1) mmol/L Chloride (98-107) mmol/L Carbon Dioxide (21-32) mmol/L Anion Gap (3-11) BUN (6-23) mg/dl Creatinine (0.6-1.4) mg/dl Est Cr Clr Drug Dosing ml/min Est GFR ( Amer) ml/min Est GFR (Non-Af Amer) ml/min BUN/Creatinine Ratio (10-20) Glucose (70-99(Fasting)) mg/dl Calcium (8.5-10.1) mg/dl Total Bilirubin (0.2-1.0) mg/dl AST (13-39) U/L ALT (7-52) U/L Alkaline Phosphatase (34-104) U/L Troponin I High Sens (0-20) pg/ml Total Protein (6.0-8.3) gm/dl Albumin (3.4-5.0) gm/dl Globulin (2.5-4.0) gm/dl Albumin/Globulin Ratio (0.9-2) Lipase (11-82) U/L SARS-CoV-2, RNA, NAAT NEGATIVE (NEGATIVE) Blood Type AB Negative Antibody Screen NEGATIVE Administered Medications Discontinued Medications Sodium Chloride (Nss 1000ml) 1,000 mls @ 999 mls/hr IV .Q1H1M STA Stop: 08/09/22 17:11 Last Infusion: 08/09/22 18:08 Dose: 0 mls/hr Documented By: Admin: 08/09/22 17:07 Dose: 999 mls/hr Documented By: ERIC Ioversol (Optiray 350 100ml) 80 ml IV ONCE ONE Stop: 08/09/22 17:28 Last Admin: 08/09/22 17:32 Dose: 80 ml Documented By: MARIEL Oxycodone/Acetaminophen (Oxycodone/Acetaminophen 5mg/325mg Tab) 1 tab PO NOW STA Stop: 08/09/22 19:53 Last Admin: 08/09/22 20:04 Dose: 1 tab Documented By: GRETCHEN Imaging Data Radiologist's Impression: KUB X-Ray 08/09/22 16:11 KUB HISTORY: GI bleed. COMPARISON: None. FINDINGS: Moderate to large amount of well-formed stool seen throughout the colon. No dilated loops of bowel to suggest an obstruction. Suture material noted within the right lower quadrant. Spinal stimulator lead is partially visualized. There are poststernotomy changes. The lung bases appear clear. No renal calculi. No ureteral calculi. No pneumoperitoneum or pneumatosis. IMPRESSION: 1. No evidence for bowel obstruction. 2. Moderate to large amount of well-formed stool seen throughout the colon. ACT 112: Negative or not required by law. Electronically signed by: Anderson Mcelroy M.D. 08/09/2022 5:09 PM Chest X-Ray 08/09/22 16:12 XR chest 1V not portable CLINICAL HISTORY: GIB TECHNIQUE: Single frontal radiograph of the chest was obtained. Comparison: Comparison is made to chest radiograph 01/05/2022 FINDINGS: Median sternotomy wires are unchanged. Cardiomegaly is noted. The lungs are clear. No evidence of pleural effusion or pneumothorax. Partial visualization of a spinal stimulator. IMPRESSION: No acute chest disease. Cardiomegaly is noted. ACT 112: Negative or not required by law. Electronically signed by: Cedric Carvajal M.D. 08/09/2022 5:07 PM Abdomen/Pelvis CT 08/09/22 16:31 CT abd pelvis IV con only CLINICAL HISTORY: GIB TECHNIQUE: Helical axial images of the abdomen and pelvis were obtained and displayed. Automated dose lowering techniques and/or adjustment according to patient size were utilized for this exam. This exam was performed with intravenous contrast. CT DOSE: 1638.00 mGy.cm COMPARISON: Comparison is made to CT abdomen pelvis 08/13/2017 FINDINGS: Lower chest: Severe atherosclerotic disease is seen in the coronary arteries. There is a left lower lobe pulmonary nodule containing heterogeneous density, which may possibly represent a granuloma or hamartoma. Liver: Unremarkable. No focal lesions are seen. Gallbladder and biliary tree: No calcified gallstones. Normal caliber wall. No intra- or extrahepatic biliary ductal dilation. Pancreas: Unremarkable, no focal lesions. Spleen: Unremarkable. Adrenals: Bilateral adrenal lesions are seen which previously demonstrated signal characteristics of lipid rich adenoma. Kidneys and ureters: Perinephric stranding is noted bilaterally. Bladder: Diffuse homogeneous wall thickening is seen. Reproductive organs: Unremarkable. Bowel: Patient is status post appendectomy. Lymph nodes Retroperitoneal: Unremarkable. Pelvic: Unremarkable. Mesenteric: Unremarkable. Peritoneum: Normal. Vessels: Unremarkable. Abdominal wall: A spinal stimulator is noted. Bones: Degenerative changes in the visualized spine. IMPRESSION: 1. No acute abnormalities, in particular no evidence of intraperitoneal hemorrhage. 2. Status post appendectomy. 3. Left lower lobe pulmonary nodule as above. ACT 112: Negative or not required by law. Electronically signed by: Cedric Carvajal M.D. 08/09/2022 5:49 PM Discharge Plan Visit Data Chief Complaint: GI Bleed Stated Complaint: BLOOD IN STOOL,PASSING OUT,LOW BLOOD PRESSURE ED Provider: Miguel A Cardona Discharge Problem: Acute lower GI bleeding, Acute hyperglycemia Patient Disposition: Being Evaluated by Hospitalist Forms [facility] Prescriptions: No Action torsemide 20 mg tablet 20 mg PO UD PRN (Reason: WT GAIN) Rx Instructions: additional 20 mg prn for weight gain above 312lbs alpha lipoic acid 600 mg capsule 1,200 mg PO DAILY (DME) [employer] G4 Transmitter Device See Rx Instructions .Route Rx Instructions: As directed midodrine 10 mg tablet 0 mg PO DIRECTED Rx Instructions: 20 mg in AM, may take up to an additional 40 mg prn throughout the day amitriptyline 25 mg tablet 50 mg PO HS Qty: 60 5RF icosapent ethyl [Vascepa] 1 gram capsule 2 g PO BID empagliflozin 10 mg tablet 10 mg PO QAM metoprolol succinate 50 mg tablet extended release 24 hr 50 mg PO QAM Entresto 24-26 mg tablet 1 tab PO BID rosuvastatin 40 mg Tablet 40 mg PO HS clopidogrel 75 mg Tablet 75 mg PO QAM zolpidem 10 mg Tablet 10 mg PO HS insulin aspart U-100 [Novolog U-100 Insulin aspart] 100 unit/mL Solution See Rx Instructions .ROUTE .COMPLEX Rx Instructions: COVERAGE DIRECTED BY SLIDING SCALE BEFORE MEALS AND BEDTIME, SUBCUTANEOUSLY nitroglycerin 0.4 mg/hr patch 24 hour 1 patch topical DIRECTED Rx Instructions: APPLY ONE PATCH TOPICALLY EVERY DAY FOR 12 TO 14 HOURS THEN REMOVE aspirin [Howard Low Dose Aspirin] 81 mg Tablet,Delayed Release (Dr/Ec) 81 mg PO DAILY nitroglycerin 0.4 mg tablet, sublingual 0.4 mg sublingual DIRECTED PRN (Reason: Chest Pain) Rx Instructions: PLACE ONE TABLET UNDER THE TONGUE EVERY 5 MINUTES FOR UP TO 3 DOSES OVER 15 MINUTES IF NEEDED FOR CHEST PAIN pantoprazole 40 mg tablet,delayed release (DR/EC) 40 mg PO QAM duloxetine 60 mg capsule,delayed release(DR/EC) 60 mg PO HS torsemide 10 mg tablet 10 mg PO QAM cyanocobalamin (vitamin B-12) 1,000 mcg capsule 1,000 mcg PO DAILY Qty: 90 3RF Rx Instructions: purchase [id number] acetaminophen [Tylenol Extra Strength] 500 mg Tablet 500 mg PO Q4H PRN (Reason: PAIN/FEVER) metformin 500 mg tablet extended release 24 hr 1,000 mg PO QAM diazepam 5 mg Tablet 5 mg PO BID PRN (Reason: Anxiety) hydroxyzine pamoate 25 mg Capsule 25 mg PO DIRECTED PRN (Reason: Anxiety) ezetimibe [Zetia] 10 mg Tablet 10 mg PO DAILY insulin glargine [Basaglar KwikPen U-100 Insulin] 100 unit/mL (3 mL) Insulin Pen 30 unit SUBCUT BID Rx Instructions: PER PT 30 UNITS BID, PER GMG 80 UNITS BID Nucynta 100 mg Tablet 100 mg PO Q6H PRN (Reason: Headache) Referrals Referrals: Clare Johnson DO [Primary Care Provider] -
[2022-08-09 16:41] LABS: Basophils # (auto) 0.04 K/uL (0-0.2); Basophils % (auto) 0.4 %; Eosinophils # (auto) 0.22 K/uL (0-0.50); Eosinophils % (auto) 2.1 %; Hematocrit (blood only) 38.7 % (40.1-51.0); Hemoglobin 13.1 g/dl (14.0-18.0); Immature Granulocytes # (auto) 0.05 K/uL (0.00-0.02); Immature Granulocytes % (auto) 0.5 %; Lymphocytes # (auto) 2.57 K/uL (1.2-3.4); Lymphocytes % (auto) 24.6 %; Mean Corpuscular Hemoglobin 29.3 pg (25.0-34.0); Mean Corpuscular Hgb Conc 33.9 g/dL (32.0-36.0); Mean Corpuscular Volume 86.6 fL (80.0-100.0); Mean Platelet Volume 11.1 fL (9.4-12.4); Monocytes # (auto) 1.03 K/uL (0.24-0.82); Monocytes % (auto) 9.9 %; Neutrophils # (auto) 6.54 K/uL (1.4-6.5); Neutrophils % (auto) 62.5 %; Platelet Count 270 K/uL (130-400); RDW Coefficient of Variation 12.9 % (11.5-14.5); RDW Standard Deviation 40.3 fL (36.4-46.3); Red Blood Count 4.47 M/uL (4.63-6.08); White Blood Count 10.45 K/ul (4.8-10.8)
[2022-08-09 16:53] LABS: Partial Thromboplastin Ratio 0.8; Partial Thromboplastin Time 22.4 Seconds (21.0-31.0); Prothrombin Time 10.3 Seconds (9.0-12.0)
--- NOTE | 2022-08-09 17:09 | XRay Report ---
XR chest 1V not portable CLINICAL HISTORY: GIB TECHNIQUE: Single frontal radiograph of the chest was obtained. Comparison: Comparison is made to chest radiograph 01/05/2022 FINDINGS: Median sternotomy wires are unchanged. Cardiomegaly is noted. The lungs are clear. No evidence of ple ural effusion or pneumothorax. Partial visualization of a spinal stimulator. IMPRESSION: No acute chest disease. Cardiomegaly is noted. ACT 112: Negative or not required by law. Electronically signed by: Cedric Carvajal M.D. 08/09/2022 5:07 PM
--- NOTE | 2022-08-09 17:11 | XRay Report ---
KUB HISTORY: GI bleed. COMPARISON: None. FINDINGS: Moderate to large amount of well-formed stool seen throughout the colon. No dilated loops o f bowel to suggest an obstruction. Suture material noted within the right lower quadrant. Spinal stim ulator lead is partially visualized. There are poststernotomy changes. The lung bases appear clear. No renal calculi. No ureteral calculi. No pneumoperitoneum or pneumatosis. IMPRESSION: 1. No evidence for bowel obstruction. 2. Moderate to large amount of well-formed stool seen throughout the colon. ACT 112: Negative or not required by law. Electronically signed by: Anderson Mcelroy M.D. 08/09/2022 5:09 PM
[2022-08-09 17:12] LABS: Albumin Globulin Ratio 1.5 (0.9-2); Albumin Level 4.1 gm/dl (3.4-5.0); BUN Creatinine Ratio 13.8 (10-20); Bilirubin,Total 0.7 mg/dl (0.2-1.0); Calcium 9.2 mg/dl (8.5-10.1); Creatinine Clr Calc Pharmacy 94.2 ml/min; Est GFR (African American) 72.7 ml/min; Est GFR (Non-African American) 62.7 ml/min; Globulin 2.8 gm/dl (2.5-4.0); Potassium 3.9 mmol/L (3.5-5.1); Total Protein 6.9 gm/dl (6.0-8.3); Troponin I High Sensitivity 8.3 pg/ml (0-20)
[2022-08-09] MEDS ORDERED: OPTIRAY 350 100ml IV ONE (17:27)
--- NOTE | 2022-08-09 17:51 | CT Scan Report ---
CT abd pelvis IV con only CLINICAL HISTORY: GIB TECHNIQUE: Helical axial images of the abdomen and pelvis were obtained and displayed. Automated dose lowering techniques and/or adjustment according to patient size were utilized for this exam. This e xam was performed with intravenous contrast. CT DOSE: 1638.00 mGy.cm COMPARISON: Comparison is made to CT abdomen pelvis 08/13/2017 FINDINGS: Lower chest: Severe atherosclerotic disease is seen in the coronary arteries. There is a left lower lobe pulmonary nodule containing heterogeneous density, which may possibly represent a granuloma or h amartoma. Liver: Unremarkable. No focal lesions are seen. Gallbladder and biliary tree: No calcified gallstones. Normal caliber wall. No intra- or extrahepatic biliary ductal dilation. Pancreas: Unremarkable, no focal lesions. Spleen: Unremarkable. Adrenals: Bilateral adrenal lesions are seen which previously demonstrated signal characteristics of lipid rich adenoma. Kidneys and ureters: Perinephric stranding is noted bilaterally. Bladder: Diffuse homogeneous wall thickening is seen. Reproductive organs: Unremarkable. Bowel: Patient is status post appendectomy. Lymph nodes Retroperitoneal: Unremarkable. Pelvic: Unremarkable. Mesenteric: Unremarkable. Peritoneum: Normal. Vessels: Unremarkable. Abdominal wall: A spinal stimulator is noted. Bones: Degenerative changes in the visualized spine. IMPRESSION: 1. No acute abnormalities, in particular no evidence of intraperitoneal hemorrhage. 2. Status post appendectomy. 3. Left lower lobe pulmonary nodule as above. ACT 112: Negative or not required by law. Electronically signed by: Cedric Carvajal M.D. 08/09/2022 5:49 PM
--- NOTE | 2022-08-09 18:24 | History & Physical Report ---
Date of Service August 09, 2022 Assessment & Plan (1) Lower GI bleeding: Plan: -Bright red per rectum x 1 year, increased over past 2 days. 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 Follows with [facility]. (2) Coronary artery disease: Plan: - Extensive cardiac history; CABG 2009, most recent stents placed 2020 - Recent cardiology/GI notes recommending continuing Plavix, Aspirin for colonoscopy when it is completed - will continue Plavix/aspirin (3) HFrEF (heart failure with reduced ejection fraction): Plan: - Most recent echo 04/03/22; EF= 45-49% - Continue torsemide, Entresto, Metoprol, midodrine (4) CKD (chronic kidney disease) stage 3, GFR 30-59 ml/min: Plan: History of CKD; creatine= 1.3 with eGFR= 94.2 (5) Severe obstructive sleep apnea: Plan: - Continue CPAP with 4L oxygen at night (6) Type 2 diabetes mellitus: Plan: History of DM2; home insulin regimen is 100mg Lantus BID and sliding scale with meals - hold metformin, empagliflozin - Sliding scale insulin with 50mg Lantus BID (7) Pulmonary nodule seen on imaging study: Plan: - Incidental pulmonary nodule seen on CT; will needed OP f/u (8) Hyperlipidemia: Plan: - Continue statin (9) GERD (gastroesophageal reflux disease): Plan: - Continue pantoprazole (10) Peripheral neuropathy: Plan: - Continue duloxetine, amitriptyline (11) Anxiety: Plan: - Continue Diazepam prn for anxiety (12) Hyponatremia: Plan: - Chronic history of hyponatremia - Sodium= 131; continue to trend (13) Insomnia: Plan: - Continue Zolpidem (14) Left rotator cuff tear: Plan: - B/L rotator cuff tear, frozen shoulder that surgery has been deferred on jose maria use of cardiac history - Tylenol prn for mild pain, Percocet prn for moderate/severe pain Plan Admit to telemetry Full Code VTE Prophylaxis: SCD History of Present Illness Chief Complaint: GI Bleed Primary Care Provider: Clare Johnson DO 52 year old male with a past medical history of CKD stage 3, CAD, NSTEMI s/p PCI of the THK-V8-[id number]-OM2 with HARSHA x 2 and HARSHA x1 to pRCA on 02/07/21, HFrEF, CABG x5 vessels in 2009, HLD, HTN, JOY on CPAP, Type 2 DM presents with GI bleeding. Ongoing history of GI bleeding for the past year. Has been trying to get a colonoscopy, but has had multiple issues arise that have made it so he hasn't gotten one yet. Had a positive Cologuard. Most recently had coloscopy scheduled for 06/2022, but was unable to have completed due to COVID+. He follows with [facility]. He states that he came in today because he was having subjective increase bright red blood per rectum. Denies melena, does have some pain with bowel movements. Denies diarrhea, constipation. Denies any increased lightheadedness/dizziness; does have a history of hypotension which has improved since starting midodrine. Denies GI tenderness, does note pain with bowel movements. Has a history of B/L rotator cuff tear and secondary frozen shoulder. Surgery deferred due to cardiac history. Has been having increased pain in his left shoulder. Allergies Allergy/AdvReac Type Severity Reaction Status Date / Time No Known Allergies Allergy Verified 08/09/22 18:33 Home Medications Medication Instructions Recorded Confirmed Type clopidogrel 75 mg tablet 75 mg PO QAM 01/28/19 08/09/22 History rosuvastatin 40 mg tablet 40 mg PO HS 01/28/19 08/09/22 History zolpidem 10 mg tablet 10 mg PO HS 01/28/19 08/09/22 History insulin aspart U-100 100 unit/mL See Rx Instructions .Route .COMPLEX 02/04/19 08/09/22 History subcutaneous solution (Novolog U-100 Insulin aspart) nitroglycerin 0.4 mg sublingual 0.4 mg sublingual DIRECTED PRN 02/24/19 08/09/22 History tablet Chest Pain pantoprazole 40 mg tablet,delayed 40 mg PO QAM 05/10/20 08/09/22 History release aspirin 81 mg tablet,delayed 81 mg PO DAILY 08/02/20 08/09/22 History release (Howard Low Dose Aspirin) nitroglycerin 0.4 mg/hr 1 patch topical DIRECTED 08/02/20 08/09/22 History transdermal 24 hour patch empagliflozin 10 mg tablet 10 mg PO QAM 05/18/21 08/09/22 History icosapent ethyl 1 gram capsule 2 g PO BID 05/18/21 08/09/22 History (Vascepa) amitriptyline 25 mg tablet 50 mg PO HS #60 tabs 08/30/21 08/09/22 Rx metoprolol succinate 50 mg 50 mg PO QAM 08/30/21 08/09/22 History tablet,extended release 24 hr sacubitril 24 mg-valsartan 26 mg 1 tab PO BID 08/30/21 08/09/22 History tablet (Entresto) alpha lipoic acid 600 mg capsule 1,200 mg PO DAILY 12/27/21 08/09/22 History blood-glucose transmitter (Dexcom 12/27/21 02/02/22 History G4 Transmitter device) midodrine 10 mg tablet 0 mg PO DIRECTED 12/27/21 08/09/22 History torsemide 20 mg tablet 20 mg PO UD PRN WT GAIN 12/27/21 08/09/22 History torsemide 10 mg tablet 10 mg PO QAM 01/05/22 08/09/22 History cyanocobalamin (vitamin B-12) 1,000 mcg PO DAILY #90 caps 01/06/22 08/09/22 Rx 1,000 mcg capsule duloxetine 60 mg capsule,delayed 60 mg PO HS 07/05/22 08/09/22 History release acetaminophen 500 mg tablet 500 mg PO Q4H PRN PAIN/FEVER 08/09/22 08/09/22 History (Tylenol Extra Strength) diazepam 5 mg tablet 5 mg PO BID PRN Anxiety 08/09/22 08/09/22 History ezetimibe 10 mg tablet (Zetia) 10 mg PO DAILY 08/09/22 08/09/22 History hydroxyzine pamoate 25 mg capsule 25 mg PO DIRECTED PRN Anxiety 08/09/22 08/09/22 History insulin glargine 100 unit/mL (3 30 unit subcut BID 08/09/22 08/09/22 History mL) subcutaneous pen (Basaglar KwikPen U-100 Insulin) metformin 500 mg tablet,extended 1,000 mg PO QAM 08/09/22 08/09/22 History release 24 hr tapentadol 100 mg tablet (Nucynta) 100 mg PO Q6H PRN Headache 08/09/22 08/09/22 History Past Med/Surg History Medical History (Updated 08/09/22 @ 20:48 by Kusum Miller DO) Attention deficit disorder without hyperactivity Brachial plexopathy Right CHI (closed head injury) CKD (chronic kidney disease) stage 3, GFR 30-59 ml/min Coronary artery disease Difficult airway for intubation was told it was hard to intubate him for carpal tunnel surgery in 1999 at [facility] History of COVID-19 x2--diagnosed 06/25/22--sore throat, chills (states is improving at this time) via HOME TEST ONLY diagnosed 05/2021--had sinus congestion, headache, productive cough--pt states he received monoclonal antibodies History of Salmonella gastroenteritis Hx of renal calculi Hyperlipidemia Hypertension Morbid obesity with BMI of 40.0-44.9, adult Neuropathic pain NSTEMI (non-ST elevated myocardial infarction) [place] [facility] [place]/p PCI of the [id number]-U1-TU1-OM2 with HARSHA x 2 and HARSHA x1 to pRCA on 02/07/21; Recurrent HF related to LVEDP 30-34% Obesity On anticoagulant therapy plavix daily/aspirin 162mg daily Seizure AGE 10 S/P ACCIDENT-WAS ON MEDS COUPLE YRS-OFF MEDS AND NO SEIZURES 30+ YRS Severe obstructive sleep apnea cpap with 4L of oxygen at hs Substernal precordial chest pain hx of Type 2 diabetes mellitus Surgical History History of appendectomy History of arthroscopic knee surgery 1986, LEFT History of cardiac cath MULTIPLE-last 02/10/21 [place] [facility]--per pt 2 stents placed 12/2018?-NO STENTS NEEDED LAST STENT PLACED 10/2017 [facility] History of carpal tunnel release of both wrists History of coronary artery bypass graft 5 VESSELS History of tonsillectomy and adenoidectomy History of vasectomy Hx of heart artery stent X6-LAST ONE 01/2021 [facility] Status post insertion of spinal cord stimulator [facility] Family History Grandfather (Maternal) Family history of diabetes mellitus Mother Family history of diabetes mellitus Stroke Uncle Obstructive sleep apnea Grandmother (Maternal) Stroke Family history of reaction to anesthesia "lost some cognitive ability after heart surgery" Father Coronary heart disease Social History Smoking Status: Never smoker Second Hand Exposure: No; Hx Alcohol Use: Yes Alcohol type: hard liquor Hx Substance Use: No Preferred Language: Scottish Communication Ability: Effective Visual Impairment: No Limitations Hearing Ability: Normal Manpower Development Advisor Required: No Beliefs That Will Affect Care: None marital status: Current Living Situation: Spouse and Family Current Living Situation Comment: lives with and 2 kids current occupational status: unemployed 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 How many Children do You have: 2 Other Information That Helps Us Care for You: No Feels Safe at Home: Yes Safety Concerns: Feels Safe At This Time during the past year weight has: other Do you think of yourself as: straight/heterosexual Gender Identity: Male Assistive Devices: CPAP and Glasses Assistive Devices Comment: 4L O2 with CPAP HS Review of Systems Review of Systems: As per HPI Physical Exam Physical Exam: Constitutional: well-appearing, no acute distress HEENT: NCAT, no conjunctival injection CV: regular rhythm, no murmur appreciated, extremities well-perfused, no LE edema Resp: CTABL, no wheezes/rales/rhonchi appreciated, no increased work of breathing GI: soft, nondistended, nontender, BS normoactive MSK: no gross deformities appreciated. Strength in UE 5/5 Skin: warm, dry, no rash appreciated. Chronic well healing wounds right foot, hands B/L Neuro: alert, oriented, no focal neurologic deficit appreciated Results & Data Results & Data ([facility]) Vital Signs (Past 12 Hours) Vital Signs Temp Pulse Resp BP Pulse Ox O2 Del Method 08/09/22 17:38 94 08/09/22 17:38 102/54 L 08/09/22 17:05 99/29 L 08/09/22 17:05 76 20 94 08/09/22 16:36 99 Room Air 08/09/22 16:02 36.6 C 75 18 97/63 L 99 Room Air Laboratory Results Laboratory Results WBC 10.45 K/ul (4.8-10.8) 08/09/22 16:30 RBC 4.47 M/uL (4.63-6.08) L 08/09/22 16:30 Hgb 13.1 g/dl (14.0-18.0) L 08/09/22: Hct 38.7 % (40.1-51.0) L 08/09/22: MCV 86.6 fL (80.0-100.0) 08/09/22 16: MCH 29.3 pg (25.0-34.0) 08/09/22: MCHC 33.9 g/dL (32.0-36.0) 08/09/22: RDW Std Deviation 40.3 fL (36.4-46.3) 08/09/22 RDW Coeff of Triny 12.9 % (11.5-14.5) 08/09/22 Plt Count 270 K/uL (130-400) 08/09/22: MPV 11.1 fL (9.4-12.4) 08/09/22: Immature Gran % (Auto) 0.5 % 08/09/22: Neut % (Auto) 62.5 % 08/09/22: Lymph % (Auto) 24.6 % 08/09/22: [place] % (Auto) 9.9 % 08/09/22: Eos % (Auto) 2.1 % 08/09/22: Baso % (Auto) 0.4 % 08/09/22: Neut # (Auto) 6.54 K/uL (1.4-6.5) H 08/09/22: Lymph # (Auto) 2.57 K/uL (1.2-3.4) 08/09/22: [place] # (Auto) 1.03 K/uL (0.24-0.82) H 08/09/22: Eos # (Auto) 0.22 K/uL (0-0.50) 08/09/22: Baso # (Auto) 0.04 K/uL (0-0.2) 08/09/22: Immature Gran # (Auto) 0.05 K/uL (0.00-0.02) H 08/09/22: PT 10.3 Seconds (9.0-12.0) 08/09/22 16:30 INR 1.0 (0.9-1.1) 08/09/22 16:30 APTT 22.4 Seconds (21.0-31.0) 08/09/22 16:30 PTT Ratio 0.8 08/09/22 16:30 Sodium 131 mmol/L (136-145) L 08/09/22 16:30 Potassium 3.9 mmol/L (3.5-5.1) 08/09/22 16:30 Chloride 96 mmol/L (98-107) L 08/09/22 16:30 Carbon Dioxide 27 mmol/L (21-32) 08/09/22 16:30 Anion Gap 8 (3-11) 08/09/22 16:30 BUN 18 mg/dl (6-23) 08/09/22 16:30 Creatinine 1.30 mg/dl (0.6-1.4) 08/09/22 16:30 Est Cr Clr Drug Dosing 94.2 ml/min 08/09/22 16:30 Est GFR ( Amer) 72.7 ml/min 08/09/22 16:30 Est GFR (Non-Af Amer) 62.7 ml/min 08/09/22 16:30 BUN/Creatinine Ratio 13.8 (10-20) 08/09/22 16:30 Glucose 315 mg/dl (70-99(Fasting)) H* 08/09/22 16:30 POC Glucose 167 mg/dl (70-99) H 08/09/22 21:43 Calcium 9.2 mg/dl (8.5-10.1) 08/09/22 16:30 Total Bilirubin 0.7 mg/dl (0.2-1.0) 08/09/22 16:30 AST 12 U/L (13-39) L 08/09/22 16:30 ALT 11 U/L (7-52) 08/09/22 16:30 Alkaline Phosphatase 47 U/L (34-104) 08/09/22 16:30 Troponin I High Sens 8.3 pg/ml (0-20) 08/09/22 16:30 Total Protein 6.9 gm/dl (6.0-8.3) 08/09/22 16:30 Albumin 4.1 gm/dl (3.4-5.0) 08/09/22 16:30 Globulin 2.8 gm/dl (2.5-4.0) 08/09/22 16:30 Albumin/Globulin Ratio 1.5 (0.9-2) 08/09/22 16:30 Lipase 29 U/L (11-82) 08/09/22 16:30 SARS-CoV-2, RNA, NAAT NEGATIVE (NEGATIVE) 08/09/22 16:30 Blood Type AB Negative 08/09/22 17:30 Antibody Screen NEGATIVE 08/09/22 17:30 Impressions KUB X-Ray 08/09/22 16:11 KUB HISTORY: GI bleed. COMPARISON: None. FINDINGS: Moderate to large amount of well-formed stool seen throughout the colon. No dilated loops of bowel to suggest an obstruction. Suture material noted within the right lower quadrant. Spinal stimulator lead is partially visualized. There are poststernotomy changes. The lung bases appear clear. No renal calculi. No ureteral calculi. No pneumoperitoneum or pneumatosis. IMPRESSION: 1. No evidence for bowel obstruction. 2. Moderate to large amount of well-formed stool seen throughout the colon. ACT 112: Negative or not required by law. Electronically signed by: Anderson Mcelroy M.D. 08/09/2022 5:09 PM Chest X-Ray 08/09/22 16:12 XR chest 1V not portable CLINICAL HISTORY: GIB TECHNIQUE: Single frontal radiograph of the chest was obtained. Comparison: Comparison is made to chest radiograph 01/05/2022 FINDINGS: Median sternotomy wires are unchanged. Cardiomegaly is noted. The lungs are clear. No evidence of pleural effusion or pneumothorax. Partial visualization of a spinal stimulator. IMPRESSION: No acute chest disease. Cardiomegaly is noted. ACT 112: Negative or not required by law. Electronically signed by: Cedric Carvajal M.D. 08/09/2022 5:07 PM Abdomen/Pelvis CT 08/09/22 16:31 CT abd pelvis IV con only CLINICAL HISTORY: GIB TECHNIQUE: Helical axial images of the abdomen and pelvis were obtained and displayed. Automated dose lowering techniques and/or adjustment according to patient size were utilized for this exam. This exam was performed with intravenous contrast. CT DOSE: 1638.00 mGy.cm COMPARISON: Comparison is made to CT abdomen pelvis 08/13/2017 FINDINGS: Lower chest: Severe atherosclerotic disease is seen in the coronary arteries. There is a left lower lobe pulmonary nodule containing heterogeneous density, which may possibly represent a granuloma or hamartoma. Liver: Unremarkable. No focal lesions are seen. Gallbladder and biliary tree: No calcified gallstones. Normal caliber wall. No intra- or extrahepatic biliary ductal dilation. Pancreas: Unremarkable, no focal lesions. Spleen: Unremarkable. Adrenals: Bilateral adrenal lesions are seen which previously demonstrated signal characteristics of lipid rich adenoma. Kidneys and ureters: Perinephric stranding is noted bilaterally. Bladder: Diffuse homogeneous wall thickening is seen. Reproductive organs: Unremarkable. Bowel: Patient is status post appendectomy. Lymph nodes Retroperitoneal: Unremarkable. Pelvic: Unremarkable. Mesenteric: Unremarkable. Peritoneum: Normal. Vessels: Unremarkable. Abdominal wall: A spinal stimulator is noted. Bones: Degenerative changes in the visualized spine. IMPRESSION: 1. No acute abnormalities, in particular no evidence of intraperitoneal hemorrhage. 2. Status post appendectomy. 3. Left lower lobe pulmonary nodule as above. ACT 112: Negative or not required by law. Electronically signed by: Cedric Carvajal M.D. 08/09/2022 5:49 PM Supervising Physician Co-Signing Physician Notes Patient seen and examined, chart reviewed, case discussed with Dr. Miller and I agree with the assessment and plan as above. In brief, patient is a 52yo male with history of CAD s/p CABG x 5V in 2009 with subsequent stenting - most recently with HARSHA to grafts in January 2021 - he is on ASA and Plavix, follows with [facility]. Compliant with medications. Denies chest pain. Ongoing BRBPR and change in bowel movements for the last year. Also with positive Cologuard. He does endorse significant weight loss - thinks it may be due to his medications? On exam he is afebrile, HD stable, NAD, resting comfortably Skin - intact, no rash HEENT - MMM, Neck supple, PERRL Heart - +S1/S2, regular, no m/r/g Lungs - CTA Abd - +BS, soft, NT/ND, no fullness/masses Ext - Warm, well perfused Labs and images reviewed. Normochromic/normocytic anemia with Hgb=13.1, Hct=38.[address] of the abdomen with LLL pulmonary nodule with heterogenous density Assessment/Plan - 52yo male with history of CAD s/p CABG x 5V with subsequent graft stenting presenting with ongoing BRBPR, change in bowel habits, unintentional weight loss and positive Cologuard. Concern for underlying malignancy -GI consultation for colonoscopy Will continue ASA and Plavix per Cardiology recommendations Remainder of plan as above Resident Activity Tracking Resident Involvement: Resident Care Provided Care Provided: Adult [facility]
[2022-08-09] MEDS ORDERED: oxyCODONE/ACETAMINOPHEN 5mg/325mg TAB PO STA (19:52)
[2022-08-09] MEDS ORDERED: GLUCOSE 10 TAB/TUBE PO PRN (22:14)
[2022-08-09] MEDS ORDERED: ACETAMINOPHEN 500 MG TAB PO PRN (22:14)
[2022-08-09] MEDS ORDERED: GLUCAGON FOR INJ 1 MG VIAL SQ PRN (22:14)
[2022-08-09] MEDS ORDERED: diazePAM 5 MG TABLET PO PRN (22:14)
[2022-08-09] MEDS ORDERED: DEXTROSE 50% 50 ML SYRINGE IV PRN (22:14)
[2022-08-09] MEDS ORDERED: CARBOHYDRATES FOR HYPOGLYCEMIA PO PRN (22:14)
[2022-08-09] MEDS ORDERED: GLUCOSE 40% GEL 15 GM TUBE PO PRN (22:14)
[2022-08-09] MEDS ORDERED: oxyCODONE/ACETAMINOPHEN 5mg/325mg TAB PO PRN (22:14)
[2022-08-09] MEDS: INSULIN ASPART PER UNIT SC SCH (22:28)
[2022-08-09] MEDS: ZOLPIDEM TARTRATE 10 MG TAB PO SCH (22:39)
[2022-08-09] MEDS: VALSARTAN/SACUBITRIL 26/24MG TAB PO SCH (22:39)
[2022-08-09] MEDS: DULoxetine HCL 60 MG CAP PO SCH (22:40)
[2022-08-09] MEDS: AMITRIPTYLINE HCL 50 MG TAB PO SCH (22:40)
[2022-08-09] MEDS: LANTUS PER UNIT CHARGE SQ SCH (22:40)
[2022-08-09] MEDS: ROSUVASTATIN CALCIUM 20 MG TAB PO SCH (22:40)
[2022-08-09] MEDS ORDERED: HYDROmorphone INJ 0.5 MG/0.5 ML SYR IV STA (23:22)
--- NOTE | 2022-08-10 01:08 | Billing Data ---
Date of Service August 09, 2022 Coding Level of Care Code 84454 Initial Inpt Care Lvl 3
[2022-08-10] MEDS: INSULIN ASPART PER UNIT SC SCH ×3 (05:41→17:22)
[2022-08-10 06:07] LABS: Basophils # (auto) 0.05 K/uL (0-0.2); Basophils % (auto) 0.6 %; Eosinophils # (auto) 0.28 K/uL (0-0.50); Eosinophils % (auto) 3.6 %; Hematocrit (blood only) 36.6 % (40.1-51.0); Hemoglobin 12.4 g/dl (14.0-18.0); Immature Granulocytes # (auto) 0.06 K/uL (0.00-0.02); Immature Granulocytes % (auto) 0.8 %; Lymphocytes # (auto) 2.42 K/uL (1.2-3.4); Lymphocytes % (auto) 30.9 %; Mean Corpuscular Hgb Conc 33.9 g/dL (32.0-36.0); Mean Corpuscular Volume 85.5 fL (80.0-100.0); Mean Platelet Volume 10.7 fL (9.4-12.4); Monocytes # (auto) 0.93 K/uL (0.24-0.82); Monocytes % (auto) 11.9 %; Neutrophils # (auto) 4.08 K/uL (1.4-6.5); Neutrophils % (auto) 52.2 %; Platelet Count 245 K/uL (130-400); RDW Coefficient of Variation 13.1 % (11.5-14.5); RDW Standard Deviation 40.1 fL (36.4-46.3); Red Blood Count 4.28 M/uL (4.63-6.08); White Blood Count 7.82 K/ul (4.8-10.8)
[2022-08-10 06:45] LABS: Albumin Globulin Ratio 1.4 (0.9-2); Albumin Level 3.7 gm/dl (3.4-5.0); BUN Creatinine Ratio 15.8 (10-20); Bilirubin,Total 0.7 mg/dl (0.2-1.0); Calcium 9.1 mg/dl (8.5-10.1); Creatinine Clr Calc Pharmacy 128.9 ml/min; Est GFR (African American) 106.2 ml/min; Est GFR (Non-African American) 91.7 ml/min; Globulin 2.6 gm/dl (2.5-4.0); Magnesium 2.2 mg/dl (1.7-2.4); Potassium 3.7 mmol/L (3.5-5.1); Total Protein 6.3 gm/dl (6.0-8.3)
--- NOTE | 2022-08-10 09:29 | Gastrointestinal Consultation ---
Date of Consultation August 10, 2022 Assessment & Plan (1) Lower GI bleedin52 year old male with T2DM, CKD-3, CAD, NSTEMI with HARSHA 2020, HFrEF, CABG x5 vessels in 2009, HLD, HTN, JOY on CPAP with rectal bleeding x 1 year, unintentional weight loss and + Cologuard test admitted with rectal bleeding Clear liquids today NPO after midnight Start Golytely 4L once daily EGD/Colon Sunday Per last office visit, examination on his AC Thank you for allowing us to participate in the care of this patient. Please call with any acute changes, questions or concerns. Please see addendum below with additional recommendation from my supervising physician. Supervising Physician Co-Signing Physician Notes I have personally seen and examined the patient with BATSHEVA Cain. Her note reflects my exam and findings. I agree with her impression and plan. Colonoscopy in am. Maxim Ferrer M.D. History of Present Illness Reason for Consultation: rectal bleeding Requesting Physician: Eduardo Attending Physician: Shavonne Clark MD History of Present Illness 52 year old male with history of CKD-3, CAD, NSTEMI with HARSHA 2020, HFrEF, CABG x5 vessels in 2009, HLD, HTN, JOY on CPAP, T2DM admitted through the ED with rectal bleeding. Pt was seen and evaluated, chart reviewed. GI asked to help arrange colonoscopy. Of note he has been experiencing progressively worsening rectal bleeding x 1 year. Suggests this was intermittent to start, now with every BM. BRB. No rectal pain. He notes over the last year he has lost about 60/70 lbs. He suggests this was unintentional but also notes that he has had some medication changes this year as well. About 2 months ago he had cologuard testing done, positive. No fever, chills, CP, SOB. + cologuard CTAP 2021: No acute abnormalities, in particular no evidence of intraperitoneal hemorrhage. Status post appendectomy. Left lower lobe pulmonary nodule as above. Allergies Allergy/AdvReac Type Severity Reaction Status Date / Time No Known Allergies Allergy Verified 08/09/22 18:33 Home Medications Medication Instructions Recorded Confirmed Type clopidogrel 75 mg tablet 75 mg PO QAM 01/28/19 08/09/22 History rosuvastatin 40 mg tablet 40 mg PO HS 01/28/19 08/09/22 History zolpidem 10 mg tablet 10 mg PO HS 01/28/19 08/09/22 History insulin aspart U-100 100 unit/mL See Rx Instructions .Route .COMPLEX 02/04/19 08/09/22 History subcutaneous solution (Novolog U-100 Insulin aspart) nitroglycerin 0.4 mg sublingual 0.4 mg sublingual DIRECTED PRN 02/24/19 08/09/22 History tablet Chest Pain pantoprazole 40 mg tablet,delayed 40 mg PO QAM 05/10/20 08/09/22 History release aspirin 81 mg tablet,delayed 81 mg PO DAILY 08/02/20 08/09/22 History release (Howard Low Dose Aspirin) nitroglycerin 0.4 mg/hr 1 patch topical DIRECTED 08/02/20 08/09/22 History transdermal 24 hour patch empagliflozin 10 mg tablet 10 mg PO QAM 05/18/21 08/09/22 History icosapent ethyl 1 gram capsule 2 g PO BID 05/18/21 08/09/22 History (Vascepa) amitriptyline 25 mg tablet 50 mg PO HS #60 tabs 08/30/21 08/09/22 Rx metoprolol succinate 50 mg 50 mg PO QAM 08/30/21 08/09/22 History tablet,extended release 24 hr sacubitril 24 mg-valsartan 26 mg 1 tab PO BID 08/30/21 08/09/22 History tablet (Entresto) alpha lipoic acid 600 mg capsule 1,200 mg PO DAILY 12/27/21 08/09/22 History blood-glucose transmitter (Dexcom 12/27/21 02/02/22 History G4 Transmitter device) midodrine 10 mg tablet 0 mg PO DIRECTED 12/27/21 08/09/22 History torsemide 20 mg tablet 20 mg PO UD PRN WT GAIN 12/27/21 08/09/22 History torsemide 10 mg tablet 10 mg PO QAM 01/05/22 08/09/22 History cyanocobalamin (vitamin B-12) 1,000 mcg PO DAILY #90 caps 01/06/22 08/09/22 Rx 1,000 mcg capsule duloxetine 60 mg capsule,delayed 60 mg PO HS 07/05/22 08/09/22 History release acetaminophen 500 mg tablet 500 mg PO Q4H PRN PAIN/FEVER 08/09/22 08/09/22 History (Tylenol Extra Strength) diazepam 5 mg tablet 5 mg PO BID PRN Anxiety 08/09/22 08/09/22 History ezetimibe 10 mg tablet (Zetia) 10 mg PO DAILY 08/09/22 08/09/22 History hydroxyzine pamoate 25 mg capsule 25 mg PO DIRECTED PRN Anxiety 08/09/22 08/09/22 History insulin glargine 100 unit/mL (3 30 unit subcut BID 08/09/22 08/09/22 History mL) subcutaneous pen (Basaglar KwikPen U-100 Insulin) metformin 500 mg tablet,extended 1,000 mg PO QAM 08/09/22 08/09/22 History release 24 hr tapentadol 100 mg tablet (Nucynta) 100 mg PO Q6H PRN Headache 08/09/22 08/09/22 History Patient History Medical History (Updated 08/09/22 @ 20:48 by Kusum Miller DO) Attention deficit disorder without hyperactivity Brachial plexopathy Right CHI (closed head injury) CKD (chronic kidney disease) stage 3, GFR 30-59 ml/min Coronary artery disease Difficult airway for intubation was told it was hard to intubate him for carpal tunnel surgery in 1999 at [place] History of COVID-19 x2--diagnosed 06/25/22--sore throat, chills (states is improving at this time) via HOME TEST ONLY diagnosed 05/2021--had sinus congestion, headache, productive cough--pt states he received monoclonal antibodies History of Salmonella gastroenteritis Hx of renal calculi Hyperlipidemia Hypertension Morbid obesity with BMI of 40.0-44.9, adult Neuropathic pain NSTEMI (non-ST elevated myocardial infarction) NSTEMI at [facility] s/p PCI of the NPV-O2-JL6-OM2 with HARSHA x 2 and HARSHA x1 to pRCA on 02/07/21; Recurrent HF related to LVEDP 30-34% Obesity On anticoagulant therapy plavix daily/aspirin 162mg daily Seizure AGE 10 S/P ACCIDENT-WAS ON MEDS COUPLE YRS-OFF MEDS AND NO SEIZURES 30+ YRS Severe obstructive sleep apnea cpap with 4L of oxygen at hs Substernal precordial chest pain hx of Type 2 diabetes mellitus Surgical History History of appendectomy History of arthroscopic knee surgery 1986, LEFT History of cardiac cath MULTIPLE-last 02/10/21 @ [facility]--per pt 2 stents placed 12/2018?-NO STENTS NEEDED LAST STENT PLACED 10/2017 [facility] History of carpal tunnel release of both wrists History of coronary artery bypass graft 5 [facility] History of tonsillectomy and adenoidectomy History of vasectomy Hx of heart artery stent X6-LAST ONE 01/2021 [facility] Status post insertion of spinal cord stimulator [employer] Family History Grandfather (Maternal) Family history of diabetes mellitus Mother Family history of diabetes mellitus Stroke Uncle Obstructive sleep apnea Grandmother (Maternal) Stroke Family history of reaction to anesthesia "lost some cognitive ability after heart surgery" Father Coronary heart disease Social History Smoking Status: Never smoker Second Hand Exposure: No; Hx Alcohol Use: Yes Alcohol type: hard liquor Hx Substance Use: No Preferred Language: Mozambican Communication Ability: Effective Visual Impairment: No Limitations Hearing Ability: Normal Manager Cosmetic Required: No Beliefs That Will Affect Care: None marital status: Current Living Situation: Spouse and Family Current Living Situation Comment: lives with and 2 kids current occupational status: unemployed 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 How many Children do You have: 2 Other Information That Helps Us Care for You: No Feels Safe at Home: Yes Safety Concerns: Feels Safe At This Time during the past year weight has: other Do you think of yourself as: straight/heterosexual Gender Identity: Male Assistive Devices: CPAP and Oxygen - at Night Assistive Devices Comment: 4L O2 with CPAP HS Review of Systems Review of Systems: All systems reviewed & are unremarkable except as noted in HPI & below Physical Exam Constitutional: WD/WN, vitals as above Neck: trachea midline Respiratory: normal respiratory effort, lungs clear to auscultation Cardiovascular: Rate/Rhythm: regular rate and regular rhythm Gastrointestinal (Abdomen): Inspection/Auscultation: abdomen normal to inspection and normal bowel sounds; abdomen not distended Skin: no rashes, warm and dry Results & Data ([facility]) Vital Signs (Past 12 Hours) Vital Signs Temp Pulse Pulse Resp BP Pulse Ox O2 Del Method 08/10/22 08:45 68 08/10/22 07:19 36.9 C 68 20 108/68 97 Room Air 08/10/22 02:32 76 12 96 08/10/22 02:13 36.4 C L 16 104/66 97 Room Air 08/09/22 23:52 36.6 C 18 114/67 98 CPAP 08/09/22 23:35 71 21 96 08/09/22 22:59 75 08/09/22 22:49 79 08/09/22 21:35 36.7 C 18 102/66 97 Room Air O2 Flow Rate 08/10/22 08:45 08/10/22 07:19 08/10/22 02:32 4 08/10/22 02:13 08/09/22 23:52 4 08/09/22 23:35 4 08/09/22 22:59 08/09/22 22:49 08/09/22 21:35 Laboratory Results 08/10/22 08/10/22 08/10/22 Range/Units 05:41 05:41 05:37 WBC 7.82 (4.8-10.8) K/ul RBC 4.28 L (4.63-6.08) M/uL Hgb 12.4 L (14.0-18.0) g/dl Hct 36.6 L (40.1-51.0) % MCV 85.5 (80.0-100.0) fL MCH 29.0 (25.0-34.0) pg MCHC 33.9 (32.0-36.0) g/dL RDW Std Deviation 40.1 (36.4-46.3) fL RDW Coeff of Triny 13.1 (11.5-14.5) % Plt Count 245 (130-400) K/uL MPV 10.7 (9.4-12.4) fL Immature Gran % (Auto) 0.8 % Neut % (Auto) 52.2 % Lymph % (Auto) 30.9 % Carson % (Auto) 11.9 % Eos % (Auto) 3.6 % Baso % (Auto) 0.6 % Neut # (Auto) 4.08 (1.4-6.5) K/uL Lymph # (Auto) 2.42 (1.2-3.4) K/uL Carson # (Auto) 0.93 H (0.24-0.82) K/uL Eos # (Auto) 0.28 (0-0.50) K/uL Baso # (Auto) 0.05 (0-0.2) K/uL Immature Gran # (Auto) 0.06 H (0.00-0.02) K/uL PT (9.0-12.0) Seconds INR (0.9-1.1) APTT (21.0-31.0) Seconds PTT Ratio Sodium 135 L (136-145) mmol/L Potassium 3.7 (3.5-5.1) mmol/L Chloride 100 (98-107) mmol/L Carbon Dioxide 29 (21-32) mmol/L Anion Gap 6 (3-11) BUN 15 (6-23) mg/dl Creatinine 0.95 D (0.6-1.4) mg/dl Est Cr Clr Drug Dosing 128.9 ml/min Est GFR ( Amer) 106.2 ml/min Est GFR (Non-Af Amer) 91.7 ml/min BUN/Creatinine Ratio 15.8 (10-20) Glucose 157 H (70-99(Fasting)) mg/dl POC Glucose 178 H (70-99) mg/dl Calcium 9.1 (8.5-10.1) mg/dl Magnesium 2.2 (1.7-2.4) mg/dl Total Bilirubin 0.7 (0.2-1.0) mg/dl AST 13 (13-39) U/L ALT 10 (7-52) U/L Alkaline Phosphatase 45 (34-104) U/L Troponin I High Sens (0-20) pg/ml Total Protein 6.3 (6.0-8.3) gm/dl Albumin 3.7 (3.4-5.0) gm/dl Globulin 2.6 (2.5-4.0) gm/dl Albumin/Globulin Ratio 1.4 (0.9-2) Lipase (11-82) U/L SARS-CoV-2, RNA, NAAT (NEGATIVE) Blood Type Antibody Screen 08/09/22 08/09/22 08/09/22 Range/Units 21:43 17:30 16:30 WBC (4.8-10.8) K/ul RBC (4.63-6.08) M/uL Hgb (14.0-18.0) g/dl Hct (40.1-51.0) % MCV (80.0-100.0) fL MCH (25.0-34.0) pg MCHC (32.0-36.0) g/dL RDW Std Deviation (36.4-46.3) fL RDW Coeff of Triny (11.5-14.5) % Plt Count (130-400) K/uL MPV (9.4-12.4) fL Immature Gran % (Auto) % Neut % (Auto) % Lymph % (Auto) % Carson % (Auto) % Eos % (Auto) % Baso % (Auto) % Neut # (Auto) (1.4-6.5) K/uL Lymph # (Auto) (1.2-3.4) K/uL Carson # (Auto) (0.24-0.82) K/uL Eos # (Auto) (0-0.50) K/uL Baso # (Auto) (0-0.2) K/uL Immature Gran # (Auto) (0.00-0.02) K/uL PT (9.0-12.0) Seconds INR (0.9-1.1) APTT (21.0-31.0) Seconds PTT Ratio Sodium (136-145) mmol/L Potassium (3.5-5.1) mmol/L Chloride (98-107) mmol/L Carbon Dioxide (21-32) mmol/L Anion Gap (3-11) BUN (6-23) mg/dl Creatinine (0.6-1.4) mg/dl Est Cr Clr Drug Dosing ml/min Est GFR ( Amer) ml/min Est GFR (Non-Af Amer) ml/min BUN/Creatinine Ratio (10-20) Glucose (70-99(Fasting)) mg/dl POC Glucose 167 H (70-99) mg/dl Calcium (8.5-10.1) mg/dl Magnesium (1.7-2.4) mg/dl Total Bilirubin (0.2-1.0) mg/dl AST (13-39) U/L ALT (7-52) U/L Alkaline Phosphatase (34-104) U/L Troponin I High Sens (0-20) pg/ml Total Protein (6.0-8.3) gm/dl Albumin (3.4-5.0) gm/dl Globulin (2.5-4.0) gm/dl Albumin/Globulin Ratio (0.9-2) Lipase (11-82) U/L SARS-CoV-2, RNA, NAAT NEGATIVE (NEGATIVE) Blood Type AB Negative Antibody Screen NEGATIVE 08/09/22 08/09/22 08/09/22 Range/Units 16:30 16:30 16:30 WBC 10.45 (4.8-10.8) K/ul RBC 4.47 L (4.63-6.08) M/uL Hgb 13.1 L (14.0-18.0) g/dl Hct 38.7 L (40.1-51.0) % MCV 86.6 (80.0-100.0) fL MCH 29.3 (25.0-34.0) pg MCHC 33.9 (32.0-36.0) g/dL RDW Std Deviation 40.3 (36.4-46.3) fL RDW Coeff of Triny 12.9 (11.5-14.5) % Plt Count 270 (130-400) K/uL MPV 11.1 (9.4-12.4) fL Immature Gran % (Auto) 0.5 % Neut % (Auto) 62.5 % Lymph % (Auto) 24.6 % Carson % (Auto) 9.9 % Eos % (Auto) 2.1 % Baso % (Auto) 0.4 % Neut # (Auto) 6.54 H (1.4-6.5) K/uL Lymph # (Auto) 2.57 (1.2-3.4) K/uL Carson # (Auto) 1.03 H (0.24-0.82) K/uL Eos # (Auto) 0.22 (0-0.50) K/uL Baso # (Auto) 0.04 (0-0.2) K/uL Immature Gran # (Auto) 0.05 H (0.00-0.02) K/uL PT 10.3 (9.0-12.0) Seconds INR 1.0 (0.9-1.1) APTT 22.4 (21.0-31.0) Seconds PTT Ratio 0.8 Sodium 131 L (136-145) mmol/L Potassium 3.9 (3.5-5.1) mmol/L Chloride 96 L (98-107) mmol/L Carbon Dioxide 27 (21-32) mmol/L Anion Gap 8 (3-11) BUN 18 (6-23) mg/dl Creatinine 1.30 (0.6-1.4) mg/dl Est Cr Clr Drug Dosing 94.2 ml/min Est GFR ( Amer) 72.7 ml/min Est GFR (Non-Af Amer) 62.7 ml/min BUN/Creatinine Ratio 13.8 (10-20) Glucose 315 H* (70-99(Fasting)) mg/dl POC Glucose (70-99) mg/dl Calcium 9.2 (8.5-10.1) mg/dl Magnesium (1.7-2.4) mg/dl Total Bilirubin 0.7 (0.2-1.0) mg/dl AST 12 L (13-39) U/L ALT 11 (7-52) U/L Alkaline Phosphatase 47 (34-104) U/L Troponin I High Sens 8.3 (0-20) pg/ml Total Protein 6.9 (6.0-8.3) gm/dl Albumin 4.1 (3.4-5.0) gm/dl Globulin 2.8 (2.5-4.0) gm/dl Albumin/Globulin Ratio 1.5 (0.9-2) Lipase 29 (11-82) U/L SARS-CoV-2, RNA, NAAT (NEGATIVE) Blood Type Antibody Screen
--- NOTE | 2022-08-10 09:37 | XRay Report ---
LEFT SHOULDER 3 VIEWS CLINICAL HISTORY: Fall with left shoulder pain. FINDINGS: 3 views of the left shoulder are compared to study dated 05/02/2022. The skeletal structures are osteopenic. There is no radiographic evidence of fracture or dislocation. Moderate osteoarthritic change is seen at the glenohumeral articulation. Minimal productive degenerative change is noted at the acromioclavicular joint. There is evidence of calcific tendinopathy. The overlying soft tissues a re within normal limits. The visualized left apical lung parenchyma appears clear. Intrathecal lead p rojects over the lower cervical region. Midline sternotomy wires are partially imaged. IMPRESSION: 1. Osteopenia and arthritic change as above with no acute bony abnormality identified. 2. Calcific tendinopathy. Electronically signed by: Fernando Galindo M.D. 08/10/2022 9:35 AM
[2022-08-10 09:38] LABS: Appearance Urine Clear (Clear); Bacteria Urine Automated Negative (Negative); Bilirubin Urine Negative (Negative); Blood Urine Negative (Negative); Cast Urine Automated 0 /lpf (0-5); Color Urine Yellow; Glucose Urine UA 3+ (Negative); Ketones Urine Negative (Negative); Leukocyte Esterase Urine Negative (Negative); Nitrite Urine Negative (Negative); Protein Urine 1+ (Negative); RBC Urine Automated 0-4 /hpf (0-4); Specific Gravity Urine 1.031 (1.000-1.030); Urobilinogen Urine Negative (Negative); WBC Urine Automated 0 /hpf (0-5); pH Urine 5.5 (4.5-7.5)
[2022-08-10] MEDS: PANTOprazole 40 MG TAB PO SCH (09:44)
[2022-08-10] MEDS: CLOPIDOGREL BISULFATE 75 MG TAB PO SCH (09:44)
[2022-08-10] MEDS: METOPROLOL SUCC 50MG EXT REL TAB PO SCH (09:44)
[2022-08-10] MEDS: MIDODRINE HCL 10 MG TAB PO SCH (09:45)
[2022-08-10] MEDS: ASPIRIN 81 MG ECTAB PO SCH (09:45)
[2022-08-10] MEDS: TORSEMIDE 10 MG TAB PO SCH (09:45)
[2022-08-10] MEDS: VALSARTAN/SACUBITRIL 26/24MG TAB PO SCH ×2 (09:45→21:09)
[2022-08-10] MEDS: LANTUS PER UNIT CHARGE SQ SCH ×2 (09:48→21:23)
[2022-08-10] MEDS ORDERED: ACETAMINOPHEN 325 MG TAB PO PRN ×2 (09:55→16:21)
[2022-08-10] MEDS ORDERED: HYDROmorphone INJ 0.5 MG/0.5 ML SYR IV STA (09:56)
[2022-08-10] MEDS ORDERED: oxyCODONE/ACETAMINOPHEN 5mg/325mg TAB PO SCH (12:00)
--- NOTE | 2022-08-10 12:05 | Electrocardiogram Report ---
Test Reason : Blood Pressure : / mmHG Vent. Rate : 076 BPM Atrial Rate : 076 BPM P-R Int : 226 ms QRS Dur : 102 ms QT Int : 392 ms P-R-T Axes : 065 122 076 degrees QTc Int : 441 ms Sinus rhythm with 1st degree A-V block Incomplete right bundle branch block Diffuse Minor Nonspecific T wave abnormality Abnormal ECG When compared with ECG of 05-JAN-2022 20:24, Nonspecific T wave abnormality, improved in Inferior leads Confirmed by Siddhartha Forman ([id number]) on 08/10/2022 12:05:11 PM Referred By: Jose Martin Strickland Confirmed By:Siddhartha Forman
--- NOTE | 2022-08-10 13:51 | Hospitalist Progress Note ---
Date of Service August 10, 2022 Assessment & Plan (1) Lower GI bleeding: Plan: -Bright red per rectum x 1 year, increased over past 2 days. Positive Cologuard; hasn't been able to get colonoscopy -Hemodynamically stable, no obvious mass seen on CT -Seen by [facility] who recommend a colonoscopy. Patient placed on clear liquid and will start bowel prep today for Colonoscopy on 08/11. -Differential includes colitis, bleeding polyp/s, diverticular disease, an giodysplasia, and on the lower end of differential, colon cancer (2) Left rotator cuff tear: Plan: - B/L rotator cuff tear, frozen shoulder that surgery has been deferred on because of cardiac history. L>R - Due to history of fall last week with worsening pain, ordered left shoulder x- ray which was negative for fracture. - Tylenol prn for mild pain, Percocet prn for moderate/severe pain (3) Coronary artery disease: Plan: - Extensive cardiac history; CABG 2009, most recent stents placed 2020 - Recent cardiology/GI notes recommending continuing Plavix, Aspirin for colonoscopy when it is completed - will continue Plavix/aspirin (4) HFrEF (heart failure with reduced ejection fraction): Plan: - Most recent echo 04/03/22; EF= 45-49% - Continue torsemide, Entresto, Metoprol, midodrine (5) CKD (chronic kidney disease) stage 3, GFR 30-59 ml/min: Plan: History of CKD; creatine= 1.3 with eGFR= 94.2 (6) Severe obstructive sleep apnea: Plan: - Continue CPAP with 4L oxygen at night (7) Type 2 diabetes mellitus: Plan: History of DM2; home insulin regimen is 100mg Lantus BID and sliding scale with meals - hold metformin, empagliflozin - Sliding scale insulin with 50mg Lantus BID (8) Pulmonary nodule seen on imaging study: Plan: - Incidental pulmonary nodule seen on CT; will needed OP f/u (9) Hyperlipidemia: Plan: - Continue statin (10) GERD (gastroesophageal reflux disease): Plan: - Continue pantoprazole (11) Peripheral neuropathy: Plan: - Continue duloxetine, amitriptyline (12) Anxiety: Plan: - Continue Diazepam prn for anxiety (13) Hyponatremia: Plan: - Chronic history of hyponatremia - Sodium= 135; continue to trend (14) Insomnia: Plan: - Continue Zolpidem (15) Morbid obesity with BMI of 40.0-44.9, adult: Plan: - to discuss with management once clinically stable Plan Disposition: Telemetry with plan for colonoscopy on 08/11 Diet: Clear liquid Full Code VTE Prophylaxis: SCD, chemoprophylaxis contraindicated Admission and Anticipated Discharge Date Admission Date: August 09, 2022 Supervising Physician Co-Signing Physician Notes Resident Physician Supervision Note: I independently interviewed and examined the patient and verified the varghese history and physical, reviewed labs and image studies and agree with resident findings and care plan. Subjective Patient seen at bedside this morning. No acute events reported overnight. Discussed in length patient's history regarding his acute complaints. It sounds like over the past year he has had progressively worsening bloody diarrhea with abdominal pain that is relieved with bowel movements. Some days he will go only once if he takes enough Imodium other times he will go up to 10 times in a given day. Most of his bowel movements consist of very minimal solid particulate. Denies any family history of colon cancer or inflammatory bowel disease. Overall has little to no abdominal pain today. Has not had a bowel movement as of yet today. Otherwise patient complains of severe left shoulder pain. Unfortunately he sounds like he has a chronic history of left rotator cuff injury and it may have been exacerbated when he fell in the helm 1 week ago. It has been very painful since then. He is concerned if it is fractured or not. He has very limited range of motion per his history on the left side. 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 Otherwise no other complaints at this time. Review of Systems Review of Systems: All systems reviewed & are unremarkable except as noted in HPI & below Physical Exam Constitutional: WD/WN, vitals as above no acute distress Eyes: + anicteric sclerae Neck: normal visual inspection Respiratory: normal respiratory effort, lungs clear to auscultation Cardiovascular: Rate/Rhythm: regular rate and regular rhythm Vessels: no JVD Extremities: + edema (Trace) Gastrointestinal (Abdomen): Inspection/Auscultation: abdomen normal to inspection Percussion/Palpation: + abdomen tender (Lower quadrants bilaterally) and abdomen soft Musculoskeletal: Head/Neck/Chest: normocephalic and head atraumatic Extremities: strength 5/5 throughout Positive Hawkin and apprehension test on the left. Negative Yergason. Skin: no rashes, warm and dry Neurologic: moves all extremities Psychiatric: A+Ox3, euthymic affect Results & Data Results & Data ([facility]) Vital Signs (Past 12 Hours) Vital Signs Temp Pulse Pulse Resp BP Pulse Ox O2 Del Method 08/10/22 11:47 36.4 C L 68 20 111/73 97 Room Air 08/10/22 08:45 68 08/10/22 07:19 36.9 C 68 20 108/68 97 Room Air 08/10/22 02:32 76 12 96 08/10/22 02:13 36.4 C L 16 104/66 97 Room Air O2 Flow Rate 08/10/22 11:47 08/10/22 08:45 08/10/22 07:19 08/10/22 02:32 4 08/10/22 02:13
[2022-08-10] MEDS ORDERED: HYDROmorphone INJ 0.5 MG/0.5 ML SYR IV PRN (16:20)
[2022-08-10] MEDS ORDERED: LAVAGE SOLUTION 4000ML PO SCH (16:30)
[2022-08-10] MEDS: oxyCODONE/ACETAMINOPHEN 5mg/325mg TAB PO SCH ×2 (17:22→23:04)
[2022-08-10] MEDS: DULoxetine HCL 60 MG CAP PO SCH (21:08)
[2022-08-10] MEDS: AMITRIPTYLINE HCL 50 MG TAB PO SCH (21:08)
[2022-08-10] MEDS: ROSUVASTATIN CALCIUM 20 MG TAB PO SCH (21:08)
[2022-08-10] MEDS: ZOLPIDEM TARTRATE 10 MG TAB PO SCH (21:09)
[2022-08-11] MEDS: INSULIN ASPART PER UNIT SC SCH ×3 (00:59→11:52)
[2022-08-11] MEDS: oxyCODONE/ACETAMINOPHEN 5mg/325mg TAB PO SCH ×3 (05:05→16:31)
--- NOTE | 2022-08-11 08:38 | Anesthesiology Consultation ---
Date of Service August 11, 2022 Assessment & Plan (1) Encounter for pre-operative examination: Chart Review Chart Review: order entry administrator initiated History Surgery Operation Date: 08/11/22 15:30 Proposed Procedures p Colonoscopy EGD Dr Marco A Strickland, Height/Weight Height: 6 ft Weight: 133.6 kg Allergies Allergy/AdvReac Type Severity Reaction Status Date / Time No Known Allergies Allergy Verified 08/09/22 18:33 Medications Home Medications Medication Instructions Recorded Confirmed Last Taken clopidogrel 75 mg tablet 75 mg PO QAM 01/28/19 08/09/22 08/09/22 rosuvastatin 40 mg tablet 40 mg PO HS 01/28/19 08/09/22 08/08/22 zolpidem 10 mg tablet 10 mg PO HS 01/28/19 08/09/22 08/08/22 insulin aspart U-100 100 unit/mL See Rx Instructions .Route .COMPLEX 02/04/19 08/09/22 08/09/22 subcutaneous solution (Novolog U-100 Insulin aspart) nitroglycerin 0.4 mg sublingual 0.4 mg sublingual DIRECTED PRN 02/24/19 08/09/22 09/17/21 tablet Chest Pain pantoprazole 40 mg tablet,delayed 40 mg PO QAM 05/10/20 08/09/22 08/09/22 release aspirin 81 mg tablet,delayed 81 mg PO DAILY 08/02/20 08/09/22 08/09/22 release (Howard Low Dose Aspirin) nitroglycerin 0.4 mg/hr 1 patch topical DIRECTED 08/02/20 08/09/22 08/09/22 transdermal 24 hour patch empagliflozin 10 mg tablet 10 mg PO QAM 05/18/21 08/09/22 08/09/22 icosapent ethyl 1 gram capsule 2 g PO BID 05/18/21 08/09/22 08/09/22 08:00 (Vascepa) amitriptyline 25 mg tablet 50 mg PO HS #60 tabs 08/30/21 08/09/22 08/08/22 metoprolol succinate 50 mg 50 mg PO QAM 08/30/21 08/09/22 08/09/22 tablet,extended release 24 hr sacubitril 24 mg-valsartan 26 mg 1 tab PO BID 08/30/21 08/09/22 08/09/22 08:00 tablet (Entresto) alpha lipoic acid 600 mg capsule 1,200 mg PO DAILY 12/27/21 08/09/22 08/09/22 blood-glucose transmitter (Dexcom 12/27/21 02/02/22 Unknown G4 Transmitter device) midodrine 10 mg tablet 0 mg PO DIRECTED 12/27/21 08/09/22 08/09/22 08:00 torsemide 20 mg tablet 20 mg PO UD PRN WT GAIN 12/27/21 08/09/22 Unknown torsemide 10 mg tablet 10 mg PO QAM 01/05/22 08/09/22 08/09/22 cyanocobalamin (vitamin B-12) 1,000 mcg PO DAILY #90 caps 01/06/22 08/09/22 08/09/22 1,000 mcg capsule duloxetine 60 mg capsule,delayed 60 mg PO HS 07/05/22 08/09/22 08/08/22 release acetaminophen 500 mg tablet 500 mg PO Q4H PRN PAIN/FEVER 08/09/22 08/09/22 Unknown (Tylenol Extra Strength) diazepam 5 mg tablet 5 mg PO BID PRN Anxiety 08/09/22 08/09/22 Unknown ezetimibe 10 mg tablet (Zetia) 10 mg PO DAILY 08/09/22 08/09/22 08/09/22 hydroxyzine pamoate 25 mg capsule 25 mg PO DIRECTED PRN Anxiety 08/09/22 08/09/22 Unknown insulin glargine 100 unit/mL (3 30 unit subcut BID 08/09/22 08/09/22 08/09/22 08:00 mL) subcutaneous pen (Basaglar 30 UNITS KwikPen U-100 Insulin) metformin 500 mg tablet,extended 1,000 mg PO QAM 08/09/22 08/09/22 08/09/22 release 24 hr tapentadol 100 mg tablet (Nucynta) 100 mg PO Q6H PRN Headache 08/09/22 08/09/22 Unknown Active Medications Generic Name Dose Route Start Last Admin Trade Name Freq PRN Reason Stop Dose Admin Amitriptyline HCl 50 mg 08/09/22 22:14 08/10/22 21:08 Amitriptyline Hcl 50 Mg Tab PO 09/08/22 22:13 50 mg HS PERRY Administration Aspirin 81 mg 08/10/22 09:00 08/10/22 09:45 Aspirin 81 Mg Ectab PO 09/09/22 08:59 81 mg DAILY PERRY Administration Clopidogrel Bisulfate 75 mg 08/10/22 09:00 08/10/22 09:44 Clopidogrel Bisulfate 75 Mg Tab PO 09/09/22 08:59 75 mg QAM PERRY Administration Duloxetine HCl 60 mg 08/09/22 22:14 08/10/22 21:08 Duloxetine Hcl 60 Mg Cap PO 09/08/22 22:13 60 mg HS PERRY Administration Insulin Aspart 0 units 08/09/22 22:30 08/11/22 05:52 Insulin Aspart Per Unit SC 09/08/22 22:29 Not Given Q6 PERRY Insulin Glargine 30 units 08/10/22 21:00 08/10/22 21:23 Lantus Per Unit Charge SQ 09/09/22 20:59 30 units BID PERRY Administration Metoprolol Succinate 50 mg 08/10/22 09:00 08/10/22 09:44 Metoprolol Succ 50mg Ext Rel Tab PO 09/09/22 08:59 50 mg QAM PERRY Administration Midodrine 20 mg 08/10/22 09:00 08/10/22 09:45 Midodrine Hcl 10 Mg Tab PO 09/09/22 08:59 20 mg DAILY PERRY Administration Oxycodone/Acetaminophen 1 tab 08/10/22 16:30 08/11/22 05:05 Oxycodone/Acetaminophen 5mg/325mg Tab PO 08/24/22 16:29 1 tab Q6H PERRY Administration Pantoprazole Sodium 40 mg 08/10/22 09:00 08/10/22 09:44 Pantoprazole 40 Mg Tab PO 09/09/22 08:59 40 mg QAM PERRY Administration Rosuvastatin Calcium 40 mg 08/09/22 22:14 08/10/22 21:08 Rosuvastatin Calcium 20 Mg Tab PO 09/08/22 22:13 40 mg HS PERRY Administration Sacubitril/Valsartan 1 tab 08/09/22 22:14 08/10/22 21:09 Valsartan/Sacubitril 26/24mg Tab PO 09/08/22 22:13 1 tab BID PERRY Administration Torsemide 10 mg 08/10/22 09:00 08/10/22 09:45 Torsemide 10 Mg Tab PO 09/09/22 08:59 10 mg QAM PERRY Administration Zolpidem Tartrate 10 mg 08/09/22 22:14 08/10/22 21:09 Zolpidem Tartrate 10 Mg Tab PO 09/08/22 22:13 10 mg HS PERRY Administration Past Medical History Medical History Attention deficit disorder without hyperactivity Brachial plexopathy Right CHI (closed head injury) CKD (chronic kidney disease) stage 3, GFR 30-59 ml/min Coronary artery disease Difficult airway for intubation was told it was hard to intubate him for carpal tunnel surgery in 1999 at [place] History of COVID-19 x2--diagnosed 06/25/22--sore throat, chills (states is improving at this time) via HOME TEST ONLY diagnosed 05/2021--had sinus congestion, headache, productive cough--pt states he received monoclonal antibodies History of Salmonella gastroenteritis Hx of renal calculi Hyperlipidemia Hypertension Morbid obesity with BMI of 40.0-44.9, adult Morbid obesity with BMI of 40.0-44.9, adult Neuropathic pain NSTEMI (non-ST elevated myocardial infarction) NSTEMI at [facility] [place] s/p PCI of the OYX-L8-NN2-OM2 with HARSHA x 2 and HARSHA x1 to pRCA on 02/07/21; Recurrent HF related to LVEDP 30-34% Obesity On anticoagulant therapy plavix daily/aspirin 162mg daily Seizure AGE 10 S/P ACCIDENT-WAS ON MEDS COUPLE YRS-OFF MEDS AND NO SEIZURES 30+ YRS Severe obstructive sleep apnea cpap with 4L of oxygen at hs Substernal precordial chest pain hx of Type 2 diabetes mellitus Past Family History Family History Grandfather (Maternal) Family history of diabetes mellitus Mother Family history of diabetes mellitus Stroke Uncle Obstructive sleep apnea Grandmother (Maternal) Stroke Family history of reaction to anesthesia "lost some cognitive ability after heart surgery" Father Coronary heart disease Past Surgical History Surgical History History of appendectomy History of arthroscopic knee surgery 1986, LEFT History of cardiac cath MULTIPLE-last 02/10/21 @ [facility] [place]--per pt 2 stents placed 12/2018?-NO STENTS NEEDED LAST STENT PLACED 10/2017 [facility] [place] History of carpal tunnel release of both wrists History of coronary artery bypass graft 5 VESSELS History of tonsillectomy and adenoidectomy History of vasectomy Hx of heart artery stent X6-LAST ONE 01/2021 [facility] [place] Status post insertion of spinal cord stimulator Medtronic Social History Smoking Status: Never smoker Hx Alcohol Use: Yes Alcohol type: hard liquor alcohol intake frequency: a few times a week Hx Substance Use: No substance use type: marijuana Last Used Substance Other:: Last used April 2022 Physical Exam Vital Signs Last Vital Signs Temp 98.4 F 08/11/22 08:00 Pulse 60 08/11/22 08:00 Resp 16 08/11/22 08:00 BP 100/64 08/11/22 08:00 Pulse Ox 98 08/11/22 08:00 O2 Del Method 08/11/22 08:00 O2 Flow Rate 4 08/10/22 02:32 Testing Laboratory Results 08/10/22 05:41 08/10/22 05:41 PT 10.3 Seconds (9.0-12.0) 08/09/22 16:30 INR 1.0 (0.9-1.1) 08/09/22 16:30 APTT 22.4 Seconds (21.0-31.0) 08/09/22 16:30 Urine Color Yellow 08/09/22 Unknown Urine Appearance Clear (Clear) 08/09/22 Unknown Urine pH 5.5 (4.5-7.5) 08/09/22 Unknown Ur Specific [place] 1.031 (1.000-1.030) H 08/09/22 Unknown Urine Protein 1+ (Negative) H 08/09/22 Unknown Urine Glucose (UA) 3+ (Negative) H 08/09/22 Unknown Urine Ketones Negative (Negative) 08/09/22 Unknown Urine Nitrite Negative (Negative) 08/09/22 Unknown Ur Leukocyte Esterase Negative (Negative) 08/09/22 Unknown Urine WBC (Auto) 0 /hpf (0-5) 08/09/22 Unknown Urine RBC (Auto) 0-4 /hpf (0-4) 08/09/22 Unknown U Hyaline Cast (Auto) 0 /lpf (0-5) 08/09/22 Unknown U Epithel Cells (Auto) 5-10 /lpf (0-5) H 08/09/22 Unknown Urine Bacteria (Auto) Negative (Negative) 08/09/22 Unknown Blood Type AB Negative 08/09/22 17:30 Antibody Screen NEGATIVE 08/09/22 17:30 08/11/22 08/10/22 08/10/22 04:59 23:49 20:37 POC Glucose 128 H 180 H 185 H Electrocardiogram Date: 08/09/22 Sinus rhythm with 1st degree A-V block, rate 76 bpm Incomplete right bundle branch block Diffuse Minor Nonspecific T wave abnormality Abnormal ECG When compared with ECG of 05-JAN-2022 20:24, Nonspecific T wave abnormality, improved in Inferior leads Confirmed by Siddhartha Forman ([id number]) on 08/10/2022 12:05:11 PM Chest X-Ray Date: 08/09/22 IMPRESSION: No acute chest disease. Cardiomegaly is noted. Echocardiogram Date: 04/03/22 LV cavity size is normal The wall thickness is mildly increased in segments with normal wall motion There is mod hypokinesis of the mid anterior septum and apical septum and inferior wall. Other wall segments contract normally. EF 45-49% LV diastolic function is moderately abnormal There is no significant valvular disease, mitral insufficiency The mitral valve leaflets thickness is mildly increased There is no evidence of pulmonary HTN
[2022-08-11] MEDS: ASPIRIN 81 MG ECTAB PO SCH (08:55)
[2022-08-11] MEDS: TORSEMIDE 10 MG TAB PO SCH (08:55)
[2022-08-11] MEDS: MIDODRINE HCL 10 MG TAB PO SCH (08:55)
[2022-08-11] MEDS: METOPROLOL SUCC 50MG EXT REL TAB PO SCH (08:55)
[2022-08-11] MEDS: VALSARTAN/SACUBITRIL 26/24MG TAB PO SCH (08:55)
--- NOTE | 2022-08-11 08:55 | Gastroenterology Progress Note ---
Date of Service August 11, 2022 Assessment & Plan (1) Lower GI bleeding: Plan: 52 year old male with T2DM, CKD-3, CAD, NSTEMI with HARSHA 2020, HFrEF, CABG x5 vessels in 2009, HLD, HTN, JOY on CPAP with rectal bleeding x 1 year, unintentional weight loss and + Cologuard test admitted with rectal bleeding NPO for endoscopic evalation Thank you for allowing us to participate in the care of this patient. Please call with any acute changes, questions or concerns. Please see addendum below with additional recommendation from my supervising physician. Admission and Anticipated Discharge Date Admission Date: August 09, 2022 Supervising Physician Co-Signing Physician Notes Saw and evaluated the patient. We are planning to do an upper endoscopy colonoscopy today due to the patient's weight loss and history of hematochezia. The risks and benefits of the procedures have been discussed with the patient to include bleeding infection perforation pain and need for follow-up studies. Subjective Pt was seen, evaluated, chart reviewed. Almost completed entirety of bowel prep Notes stools liquid, clear. Had some BRB at onset of prep, now clear No black stools. No abd pain, nausea/vomiting Review of Systems Review of Systems: All systems reviewed & are unremarkable except as noted in HPI & below Physical Exam Constitutional: well developed and well nourished; no acute distress Respiratory: normal respiratory effort; no respiratory distress Cardiovascular: Rate/Rhythm: regular rate Gastrointestinal (Abdomen): normal bowel sounds, soft, nontender, no hepatosplenomegaly Skin: no rashes, warm and dry Results & Data ([facility]) Vital Signs (Past 12 Hours) Vital Signs Temp Pulse Pulse Resp BP Pulse Ox O2 Del Method 08/11/22 08:00 36.9 C 60 16 100/64 98 Room Air 08/11/22 03:20 36.8 C 64 18 102/66 96 Room Air 08/10/22 22:00 69 08/10/22 22:57 36.5 C 68 16 110/67 99 Room Air Laboratory Results 08/11/22 08/10/22 08/10/22 Range/Units 04:59 23:49 20:37 POC Glucose 128 H 180 H 185 H (70-99) mg/dl Urine Color Urine Appearance (Clear) Urine pH (4.5-7.5) Ur Specific [place] (1.000-1.030) Urine Protein (Negative) Urine Glucose (UA) (Negative) Urine Ketones (Negative) Urine Blood (Negative) Urine Nitrite (Negative) Urine Bilirubin (Negative) Urine Urobilinogen (Negative) Ur Leukocyte Esterase (Negative) Urine WBC (Auto) (0-5) /hpf Urine RBC (Auto) (0-4) /hpf U Hyaline Cast (Auto) (0-5) /lpf U Epithel Cells (Auto) (0-5) /lpf Urine Bacteria (Auto) (Negative) 08/10/22 08/10/22 08/09/22 Range/Units 16:24 11:26 Unknown POC Glucose 185 H 295 H (70-99) mg/dl Urine Color Yellow Urine Appearance Clear (Clear) Urine pH 5.5 (4.5-7.5) Ur Specific [place] 1.031 H (1.000-1.030) Urine Protein 1+ H (Negative) Urine Glucose (UA) 3+ H (Negative) Urine Ketones Negative (Negative) Urine Blood Negative (Negative) Urine Nitrite Negative (Negative) Urine Bilirubin Negative (Negative) Urine Urobilinogen Negative (Negative) Ur Leukocyte Esterase Negative (Negative) Urine WBC (Auto) 0 (0-5) /hpf Urine RBC (Auto) 0-4 (0-4) /hpf U Hyaline Cast (Auto) 0 (0-5) /lpf U Epithel Cells (Auto) 5-10 H (0-5) /lpf Urine Bacteria (Auto) Negative (Negative)
[2022-08-11] MEDS: PANTOprazole 40 MG TAB PO SCH (08:56)
[2022-08-11] MEDS: CLOPIDOGREL BISULFATE 75 MG TAB PO SCH (08:59)
[2022-08-11 09:06] LABS: Hematocrit (blood only) 41.7 % (40.1-51.0); Hemoglobin 13.7 g/dl (14.0-18.0); Mean Corpuscular Hemoglobin 29.1 pg (25.0-34.0); Mean Corpuscular Hgb Conc 32.9 g/dL (32.0-36.0); Mean Corpuscular Volume 88.5 fL (80.0-100.0); Platelet Count 288 K/uL (130-400); RDW Coefficient of Variation 13.1 % (11.5-14.5); RDW Standard Deviation 42.2 fL (36.4-46.3); Red Blood Count 4.71 M/uL (4.63-6.08); White Blood Count 9.77 K/ul (4.8-10.8)
[2022-08-11 09:32] LABS: BUN Creatinine Ratio 10.6 (10-20); Calcium 9.3 mg/dl (8.5-10.1); Creatinine Clr Calc Pharmacy 117.5 ml/min; Est GFR (African American) 95.2 ml/min; Est GFR (Non-African American) 82.2 ml/min; Potassium 3.8 mmol/L (3.5-5.1)
[2022-08-11] MEDS ORDERED: LANTUS PER UNIT CHARGE SQ STA (10:00)
[2022-08-11] MEDS: LANTUS PER UNIT CHARGE SQ SCH (10:04)
--- NOTE | 2022-08-11 13:25 | Orthopedic Consultation ---
Date of Consultation August 11, 2022 Assessment & Plan (1) Left rotator cuff tear: Patient was advised by Dr. Willis that his best option at this point is physical therapy. He also recommended that he contact the clinic after discharge from the hospital set up a follow-up appointment with either Dr. Copeland or SANDRITA Adrian. Patient understands that he is a poor candidate for any type of surgical intervention due to his history of multiple myocardial infarctions and quintuple bypass surgery for his heart. Also he has very poor control diabetes. Patient verbalized understanding of all information that was provided to him during his consultation today. He thanked us for the care that he received. He will plan on scheduling an appointment in our clinic after his discharge from the hospital. This chart was completed utilizing [employer] voice recognition software. Grammatical errors, random word insertions, pronoun errors, and in complete sentences are an occasional consequence of the system. Any questions or concerns about the content, text, or information contained within the body of this dictation should be addressed directly to the physician for clarification Supervising Physician Co-Signing Physician Notes I, Dr. Wills, saw and examined the patient and discussed the management with my PA. I reviewed my PAs note and agree with the documented findings and the plan of care I developed. History of Present Illness Reason for Consultation: left shoulder pain Requesting Physician: Billy Wills MD Attending Physician: Shavonne Clark MD History of Present Illness This 52-year-old male who is a known patient to our clinic. He has been seen multiple times for bilateral shoulder impingement/syndrome and osteoarthritis. He has received multiple corticosteroid injections. He is currently inpatient due to GI bleed but states that his left shoulder has been bothering him since being admitted. He states that he has very limited range of motion of the shoulder. He states that he did attend physical therapy for a few sessions but was advised that therapy would not help him. He is wondering if he will be possible to receive another steroid injection. Allergies Allergy/AdvReac Type Severity Reaction Status Date / Time No Known Allergies Allergy Verified 08/09/22 18:33 Home Medications Medication Instructions Recorded Confirmed Type clopidogrel 75 mg tablet 75 mg PO QAM 01/28/19 08/09/22 History rosuvastatin 40 mg tablet 40 mg PO HS 01/28/19 08/09/22 History zolpidem 10 mg tablet 10 mg PO HS 01/28/19 08/09/22 History insulin aspart U-100 100 unit/mL See Rx Instructions .Route .COMPLEX 02/04/19 08/09/22 History subcutaneous solution (Novolog U-100 Insulin aspart) nitroglycerin 0.4 mg sublingual 0.4 mg sublingual DIRECTED PRN 02/24/19 08/09/22 History tablet Chest Pain pantoprazole 40 mg tablet,delayed 40 mg PO QAM 05/10/20 08/09/22 History release aspirin 81 mg tablet,delayed 81 mg PO DAILY 08/02/20 08/09/22 History release (Howard Low Dose Aspirin) nitroglycerin 0.4 mg/hr 1 patch topical DIRECTED 08/02/20 08/09/22 History transdermal 24 hour patch empagliflozin 10 mg tablet 10 mg PO QAM 05/18/21 08/09/22 History icosapent ethyl 1 gram capsule 2 g PO BID 05/18/21 08/09/22 History (Vascepa) amitriptyline 25 mg tablet 50 mg PO HS #60 tabs 08/30/21 08/09/22 Rx metoprolol succinate 50 mg 50 mg PO QAM 08/30/21 08/09/22 History tablet,extended release 24 hr sacubitril 24 mg-valsartan 26 mg 1 tab PO BID 08/30/21 08/09/22 History tablet (Entresto) alpha lipoic acid 600 mg capsule 1,200 mg PO DAILY 12/27/21 08/09/22 History blood-glucose transmitter (Dexcom 12/27/21 02/02/22 History G4 Transmitter device) midodrine 10 mg tablet 0 mg PO DIRECTED 12/27/21 08/09/22 History torsemide 20 mg tablet 20 mg PO UD PRN WT GAIN 12/27/21 08/09/22 History torsemide 10 mg tablet 10 mg PO QAM 01/05/22 08/09/22 History cyanocobalamin (vitamin B-12) 1,000 mcg PO DAILY #90 caps 01/06/22 08/09/22 Rx 1,000 mcg capsule duloxetine 60 mg capsule,delayed 60 mg PO HS 07/05/22 08/09/22 History release acetaminophen 500 mg tablet 500 mg PO Q4H PRN PAIN/FEVER 08/09/22 08/09/22 History (Tylenol Extra Strength) diazepam 5 mg tablet 5 mg PO BID PRN Anxiety 08/09/22 08/09/22 History ezetimibe 10 mg tablet (Zetia) 10 mg PO DAILY 08/09/22 08/09/22 History hydroxyzine pamoate 25 mg capsule 25 mg PO DIRECTED PRN Anxiety 08/09/22 08/09/22 History insulin glargine 100 unit/mL (3 30 unit subcut BID 08/09/22 08/09/22 History mL) subcutaneous pen (Basaglar KwikPen U-100 Insulin) metformin 500 mg tablet,extended 1,000 mg PO QAM 08/09/22 08/09/22 History release 24 hr tapentadol 100 mg tablet (Nucynta) 100 mg PO Q6H PRN Headache 08/09/22 08/09/22 History Patient History Medical History Attention deficit disorder without hyperactivity Brachial plexopathy Right CHI (closed head injury) CKD (chronic kidney disease) stage 3, GFR 30-59 ml/min Coronary artery disease Difficult airway for intubation was told it was hard to intubate him for carpal tunnel surgery in 1999 at [place] History of COVID-19 x2--diagnosed 06/25/22--sore throat, chills (states is improving at this time) via HOME TEST ONLY diagnosed 05/2021--had sinus congestion, headache, productive cough--pt states he received monoclonal antibodies History of Salmonella gastroenteritis Hx of renal calculi Hyperlipidemia Hypertension Morbid obesity with BMI of 40.0-44.9, adult Morbid obesity with BMI of 40.0-44.9, adult Neuropathic pain NSTEMI (non-ST elevated myocardial infarction) NSTEMI at [facility] [place] s/p PCI of the MKL-W2-OC5-OM2 with HARSHA x 2 and HARSHA x1 to pRCA on 02/07/21; Recurrent HF related to LVEDP 30-34% Obesity On anticoagulant therapy plavix daily/aspirin 162mg daily Seizure AGE 10 S/P ACCIDENT-WAS ON MEDS COUPLE YRS-OFF MEDS AND NO SEIZURES 30+ YRS Severe obstructive sleep apnea cpap with 4L of oxygen at hs Substernal precordial chest pain hx of Type 2 diabetes mellitus Surgical History History of appendectomy History of arthroscopic knee surgery 1986, LEFT History of cardiac cath MULTIPLE-last 02/10/21 @ [facility] [place]--per pt 2 stents placed 12/2018?-NO STENTS NEEDED LAST STENT PLACED 10/2017 [facility] [place] History of carpal tunnel release of both wrists History of coronary artery bypass graft 5 VESSELS History of tonsillectomy and adenoidectomy History of vasectomy Hx of heart artery stent X6-LAST ONE 01/2021 [facility] Status post insertion of spinal cord stimulator [employer] Family History Grandfather (Maternal) Family history of diabetes mellitus Mother Family history of diabetes mellitus Stroke Uncle Obstructive sleep apnea Grandmother (Maternal) Stroke Family history of reaction to anesthesia "lost some cognitive ability after heart surgery" Father Coronary heart disease Social History Smoking Status: Never smoker Second Hand Exposure: No; Hx Alcohol Use: Yes Alcohol type: hard liquor Hx Substance Use: No Preferred Language: Belgian Communication Ability: Effective Visual Impairment: No Limitations Hearing Ability: Normal Eviction Specialist Required: No Beliefs That Will Affect Care: None marital status: Current Living Situation: Spouse and Family Current Living Situation Comment: lives with and 2 kids current occupational status: unemployed 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 Flexed elbow external rotation is limited to about 5 degrees. Active forward flexion is limited to 85 degrees and active AB duction is limited to about 75 degrees. Patient experiences significant pain in the s houlder when performing Neer's and Silva Romain impingement tests. He has pain with abducted internal and external rotation and range of motion is very minimal with these attempted movements. He is able to reach terminal flexion extension his elbow. Has full range of motion of his wrist. Appropriate dexterity of his fingers. He is neurovascularly intact in left upper extremity. Results & Data ([facility]) Vital Signs (Past 12 Hours) Vital Signs Temp Pulse Resp BP Pulse Ox O2 Del Method 08/11/22 12:00 36.7 C 66 16 119/78 99 Room Air 08/11/22 08:00 36.9 C 60 16 100/64 98 Room Air 08/11/22 03:20 36.8 C 64 18 102/66 96 Room Air
[2022-08-11] MEDS ORDERED: PROPOFOL IV EMULSION 10 MG/ML 20 ML VIAL IV ONE (14:51)
[2022-08-11] MEDS ORDERED: MIDAZOLAM HCL 1 MG/ML 2ML VIAL ONE (14:51)
[2022-08-11] MEDS ORDERED: fentaNYL citrate 100 MCG/2 ML VIAL ONE (14:51)
[2022-08-11] MEDS ORDERED: PHENYLEPHRINE 100MCG/ML 5ML SYR ONE (15:18)
--- NOTE | 2022-08-11 15:19 | Anesthesiology Progress Note ---
Date of Service August 11, 2022 Anesthesia Post Procedure Vital Signs Vital Signs: Temp Pulse Pulse Resp BP Pulse Ox O2 Del Method 08/11/22 14:05 35.9 C L 75 16 114/77 97 Room Air 08/11/22 12:00 36.7 C 66 16 119/78 99 Room Air 08/11/22 08:00 36.9 C 60 16 100/64 98 Room Air 08/11/22 03:20 36.8 C 64 18 102/66 96 Room Air 08/10/22 22:00 69 08/10/22 22:57 36.5 C 68 16 110/67 99 Room Air 08/10/22 19:34 36.4 C L 66 16 119/71 100 Room Air Pain Intensity Left Shoulder: Pain Intensity: 8 Transfer of Care Handoff Completed per policy Notes Mental Status: alert / awake / arousable Patient Amnestic to Procedure: Yes Nausea / Vomiting: adequately controlled Pain: adequately controlled Airway Patency, RR, SpO2: stable & adequate BP & HR: stable & adequate Hydration State: stable & adequate Anesthetic Complications: no major complications apparent
--- NOTE | 2022-08-11 15:32 | GI REPORT ---
Patient Name: Americo Forman Procedure Date: 08/11/2022 2:52 PM Date of : 1970 Admit Type: Inpatient Age: 52 Gender: Male Attending MD: Jose Martin Strickland DO, Procedure: Upper GI endoscopy Providers: Jose Martin Strickland DO Referring MD: Shavonne Clark Indications: Weight loss Medicines: Monitored Anesthesia Care Complications: No immediate complications. Estimated blood loss: Minimal. Estimated Blood Loss: Estimated blood loss was minimal. Procedure: Pre-Anesthesia Assessment: - Prior to the procedure, a History and Physical was performed, and patient medications, allergies and sensitivities were reviewed. The patient's tolerance of previous anesthesia was reviewed. - The risks and benefits of the procedure and the sedation options and risks were discussed with the patient. All questions were answered and informed consent was obtained. - Patient identification and proposed procedure were verified prior to the procedure by the physician, the nurse and the roll cutting operator. The procedure was verified in the procedure room. - Pre-procedure physical examination revealed no contraindications to sedation. - ASA Grade Assessment: III - A patient with severe systemic disease. - After reviewing the risks and benefits, the patient was deemed in satisfactory condition to undergo the procedure. - The anesthesia plan was to use monitored anesthesia care (MAC). - Immediately prior to administration of medications, the patient was re-assessed for adequacy to receive sedatives. - The heart rate, respiratory rate, oxygen saturations, blood pressure, adequacy of pulmonary ventilation, and response to care were monitored throughout the procedure. - The physical status of the patient was re-assessed after the procedure. After obtaining informed consent, the endoscope was passed under direct vision. Throughout the procedure, the patient's blood pressure, pulse, and oxygen saturations were monitored continuously. The Scope was introduced through the mouth, and advanced to the third part of duodenum. The upper GI endoscopy was accomplished without difficulty. The patient tolerated the procedure well. Findings: The examined esophagus was normal. Diffuse moderate inflammation characterized by congestion (edema), erythema and granularity was found in the entire examined stomach. Biopsies were taken with a cold forceps for histology. The pathology specimen was placed into Bottle B. Estimated blood loss was minimal. The examined duodenum was normal. Biopsies were taken with a cold forceps for histology. The pathology specimen was placed into Bottle A. Estimated blood loss was minimal. Impression: - Normal esophagus. - Gastritis. Biopsied. - Normal examined duodenum. Biopsied. Recommendation: - Perform a colonoscopy today. - Await pathology results. Jose Martin Strickland D.O. Jose Martin Strickland, 08/11/2022 3:32:32 PM This report has been signed electronically. Note Initiated On: 08/11/2022 2:52 PM Number of Addenda: 0 I attest to the content of the Intraoperative Record and orders documented therein, exceptions below {[id number]}
--- NOTE | 2022-08-11 15:36 | GI REPORT ---
Patient Name: Americo Forman Procedure Date: 08/11/2022 2:52 PM Date of : 1970 Admit Type: Inpatient Age: 52 Gender: Male Attending MD: Jose Martin Strickland DO, Procedure: Colonoscopy Providers: Jose Martin Strickland DO Referring MD: Shavonne Clark Indications: Hematochezia, Positive Cologuard test Medicines: Monitored Anesthesia Care Complications: No immediate complications. Estimated blood loss: Minimal. Estimated Blood Loss: Estimated blood loss was minimal. Procedure: Pre-Anesthesia Assessment: - Prior to the procedure, a History and Physical was performed, and patient medications, allergies and sensitivities were reviewed. The patient's tolerance of previous anesthesia was reviewed. - The risks and benefits of the procedure and the sedation options and risks were discussed with the patient. All questions were answered and informed consent was obtained. - Patient identification and proposed procedure were verified prior to the procedure by the physician, the nurse and the jacket preparer. The procedure was verified in the procedure room. - Pre-procedure physical examination revealed no contraindications to sedation. - ASA Grade Assessment: III - A patient with severe systemic disease. - After reviewing the risks and benefits, the patient was deemed in satisfactory condition to undergo the procedure. - The anesthesia plan was to use monitored anesthesia care (MAC). - Immediately prior to administration of medications, the patient was re-assessed for adequacy to receive sedatives. - The heart rate, respiratory rate, oxygen saturations, blood pressure, adequacy of pulmonary ventilation, and response to care were monitored throughout the procedure. - The physical status of the patient was re-assessed after the procedure. After I obtained informed consent, the scope was passed under direct vision. Throughout the procedure, the patient's blood pressure, pulse, and oxygen saturations were monitored continuously. The Colonoscope was introduced through the anus and advanced to the cecum, identified by the ileocecal valve. The colonoscopy was performed without difficulty. The patient tolerated the procedure well. The quality of the bowel preparation was fair. Findings: The perianal and digital rectal examinations were normal. Pertinent negatives include normal sphincter tone. A fungating and ulcerated non-obstructing large mass was found in the sigmoid colon at 11-12 cm from the Dentate line. The mass was circumferential. The mass measured five cm in length. Oozing was present. Biopsies were taken with a cold forceps for histology. The pathology specimen was placed into Bottle C. Estimated blood loss was minimal. Internal hemorrhoids were found during retroflexion. The hemorrhoids were mild. The exam was otherwise without abnormality. Impression: - Preparation of the colon was fair. - Likely malignant tumor in the sigmoid colon. Biopsied. - Internal hemorrhoids. - The examination was otherwise normal. Recommendation: - Return patient to hospital doe for ongoing care. - Advance diet as tolerated today. - Await pathology results. - Refer to a colo-rectal surgeon at appointment to be scheduled. - Repeat colonoscopy in 6 months because the bowel preparation was suboptimal. Jose Martin Strickland D.O. Jose Martin Strickland, DO 08/11/2022 3:35:37 PM This report has been signed electronically. Note Initiated On: 08/11/2022 2:52 PM Number of Addenda: 0 I attest to the content of the Intraoperative Record and orders documented therein, exceptions below {[id number]}
--- NOTE | 2022-08-11 15:42 | Communication Note ---
Date of Service: August 11, 2022 The patient underwent upper endoscopy and colonoscopy today. He was found to have evidence of mild gastritis within the stomach. Scope revealed a mass in the sigmoid colon beginning at approximately 11 cm from the dentate line. Recommendations Advance that as tolerated Colorectal surgery referral placed for outpatient evaluation Please call with any additional questions or concerns GI to sign off
--- NOTE | 2022-08-11 15:55 | Anesthesiology Progress Note ---
Date of Service August 11, 2022 Anesthesia Post Procedure Vital Signs Vital Signs: Temp Pulse Pulse Resp BP Pulse Ox O2 Del Method 08/11/22 15:49 70 14 104/50 L 93 Room Air 08/11/22 15:34 71 14 92/54 L 96 Oxymask 08/11/22 14:05 35.9 C L 75 16 114/77 97 Room Air 08/11/22 12:00 36.7 C 66 16 119/78 99 Room Air 08/11/22 08:00 36.9 C 60 16 100/64 98 Room Air 08/11/22 03:20 36.8 C 64 18 102/66 96 Room Air 08/10/22 22:00 69 08/10/22 22:57 36.5 C 68 16 110/67 99 Room Air 08/10/22 19:34 36.4 C L 66 16 119/71 100 Room Air O2 Flow Rate 08/11/22 15:49 08/11/22 15:34 6 08/11/22 14:05 08/11/22 12:00 08/11/22 08:00 08/11/22 03:20 08/10/22 22:00 08/10/22 22:57 08/10/22 19:34 Pain Intensity Left Shoulder: Pain Intensity: 8 Transfer of Care Handoff Completed per policy Notes Mental Status: alert / awake / arousable Patient Amnestic to Procedure: Yes Nausea / Vomiting: adequately controlled Pain: adequately controlled Airway Patency, RR, SpO2: stable & adequate BP & HR: stable & adequate Hydration State: stable & adequate Anesthetic Complications: no major complications apparent
--- NOTE | 2022-08-11 17:06 | Discharge Summary ---
Date of Service August 11, 2022 Admission HPI Per Admitting Provider 52 year old male with a past medical history of CKD stage 3, CAD, NSTEMI s/p PCI of the SUS-B5-DF4-OM2 with HARSHA x 2 and HARSHA x1 to pRCA on 02/07/21, HFrEF, CABG x5 vessels in 2009, HLD, HTN, JOY on CPAP, Type 2 DM presents with GI bleeding. Ongoing history of GI bleeding for the past year. Has been trying to get a colonoscopy, but has had multiple issues arise that have made it so he hasn't gotten one yet. Had a positive Cologuard. Most recently had coloscopy scheduled for 06/2022, but was unable to have completed due to COVID+. He follows with [facility] and [facility]. He states that he came in today because he was having subjective increase bright red blood per rectum. Denies melena, does have some pain with bowel movements. Denies diarrhea, constipation. Denies any increased lightheadedness/dizziness; does have a history of hypotension which has improved since starting midodrine. Denies GI tenderness, does note pain with bowel movements. Has a history of B/L rotator cuff tear and secondary frozen shoulder. Surgery deferred due to cardiac history. Has been having increased pain in his left shoulder. Principal Diagnosis Sigmoidal mass Discharge Exam Constitutional WD/WN, vitals as above no acute distress Eyes + anicteric sclerae Neck normal visual inspection Respiratory normal respiratory effort, lungs clear to auscultation Cardiovascular Rate/Rhythm: regular rate and regular rhythm Vessels: no JVD Extremities: + edema (Trace) Gastrointestinal (Abdomen) Inspection/Auscultation: abdomen normal to inspection Percussion/Palpation: + abdomen tender (Lower quadrants bilaterally) and abdomen soft Musculoskeletal Head/Neck/Chest: normocephalic and head atraumatic Skin no rashes, warm and dry Neurologic moves all extremities Psychiatric A+Ox3, euthymic affect Discharge Data Allergies Allergy/AdvReac Type Severity Reaction Status Date / Time No Known Allergies Allergy Verified 08/11/22 14:16 Consultations 08/09/22 19:39 ED Decision to Admit Stat 08/09/22 20:13 Consult Gastroenterology Routine 08/11/22 07:00 Consult Orthopedic Surgery Routine Procedures Performed Operation Date: 08/11/22 15:30 Actual Procedures p EGD Biopsy Cytology - Jose Martin Strickland DO s Colonoscopy Biopsy Cytology - Jose Martin Strickland DO Ordered Studies 08/09/22 16:31 CT abd pelvis IV con only Stat Hospital Course (1) Lower GI bleeding: -Bright red per rectum x 1 year, increased over past 2 days. Positive Cologuard; hasn't been able to get colonoscopy -Hemodynamically stable, no obvious mass seen on CT -Seen by [facility] GI who recommend a colonoscopy, patient tolerated this well -Unfortunately colonoscopy revealed a 5 cm sigmoidal mass. Biopsies were taken and pending at the time of discharge. -Referral has been placed by our GI team for a gastrointestinal surgeon at [facility] for evaluation/treatment. (2) Left rotator cuff tear: - B/L rotator cuff tear, frozen shoulder that surgery has been deferred on because of cardiac history. L>R - Due to history of fall last week with worsening pain, ordered left shoulder x- ray which was negative for fracture. - Follow-up with orthopedic surgeon outpatient, consider referral to pain management - Tylenol prn for mild pain, Percocet prn for moderate/severe pain (3) Coronary artery disease: - Extensive cardiac history; CABG 2009, most recent stents placed 2020 - Recent cardiology/GI notes recommending continuing Plavix, Aspirin for colonoscopy when it is completed - will continue Plavix/aspirin (4) HFrEF (heart failure with reduced ejection fraction): - Most recent echo 04/03/22; EF= 45-49% - Continue torsemide, Entresto, Metoprol, midodrine (5) CKD (chronic kidney disease) stage 3, GFR 30-59 ml/min: History of CKD; creatine= 1.3 with eGFR= 94.2 (6) Severe obstructive sleep apnea: - Continue CPAP with 4L oxygen at night (7) Type 2 diabetes mellitus: History of DM2; home insulin regimen is 100mg Lantus BID and sliding scale with meals - hold metformin, empagliflozin - Sliding scale insulin with 50mg Lantus BID (8) Pulmonary nodule seen on imaging study: - Incidental pulmonary nodule seen on CT; will needed OP f/u (9) Hyperlipidemia: - Continue statin (10) GERD (gastroesophageal reflux disease): - Continue pantoprazole (11) Peripheral neuropathy: - Continue duloxetine, amitriptyline (12) Anxiety: - Continue Diazepam prn for anxiety (13) Hyponatremia: - Chronic history of hyponatremia - Sodium= 135; continue to trend (14) Insomnia: - Continue Zolpidem Plan Disposition: Discharge home, self-care Diet: Clear liquid Full Code Total Time Total Time Spent Total Time Spent (In Minutes): 30 Discharge Plan Discharge Items Patient Disposition: Home - Self-Care Reason For Visit: GI BLEED Discharge Diagnosis: Sigmoidal mass Activity: Per Instructions section Non-emergency contact: Primary Care Provider and Pet Care Attendant Call non-emergency contact if: you have any medication questions, your symptoms worsen and your pain is not controlled Follow-up/Referrals: Clare Johnson, [Primary Care Provider] - Diet: Regular Addtl Attending Provider Instructions: You were seen in the hospital for the concern of worsening gastrointestinal bleeding. While you are here you were evaluated in the emergency department who did imaging of your abdomen pelvis which did not show any bryson cause of your bleeding. Because of your difficulties with getting a colonoscopy in the outpatient setting for the past year, you were admitted to the hospital to be evaluated by her sensory scientist. Our GI team recommended that you have a colonoscopy and endoscopy to evaluate for the cause of your bleeding. You were given a bowel prep and sent for colonoscopy on 08/11/2022. Unfortunately, a 5 cm mass was discovered in your sigmoid colon. Biopsies were taken to confirm what exactly the mass is. Regardless of the cause, it was recommended by the sensory scientist that you follow-up with a GI surgeon. This referral was made for you and you will be hearing from their office in order to get an appointment scheduled. While this mass is still present in your colon, he will likely still experience gastrointestinal bleeding. For this reason I recommend that you limit the amount of NSAIDs such as ibuprofen, naproxen, etc. as these can increase your bleeding risk which may cause an anemia. Please follow-up with your primary care provider within 1 week of discharge. Is been a pleasure to be a part of your care and we wish you the best in both your health and your recovery. Pending Studies at Discharge: No Stand-Alone Forms: My [employer], Smoking Cessation Medications and DC Order Prescriptions: Continued torsemide 20 mg tablet 20 mg PO UD PRN (Reason: WT GAIN) Rx Instructions: additional 20 mg prn for weight gain above 312lbs alpha lipoic acid 600 mg capsule 1,200 mg PO DAILY (DME) Dexcom G4 Transmitter Device See Rx Instructions .Route Rx Instructions: As directed midodrine 10 mg tablet 0 mg PO DIRECTED Rx Instructions: 20 mg in AM, may take up to an additional 40 mg prn throughout the day amitriptyline 25 mg tablet 50 mg PO HS Qty: 60 5RF icosapent ethyl [Vascepa] 1 gram capsule 2 g PO BID empagliflozin 10 mg tablet 10 mg PO QAM metoprolol succinate 50 mg tablet extended release 24 hr 50 mg PO QAM Entresto 24-26 mg tablet 1 tab PO BID rosuvastatin 40 mg Tablet 40 mg PO HS clopidogrel 75 mg Tablet 75 mg PO QAM zolpidem 10 mg Tablet 10 mg PO HS insulin aspart U-100 [Novolog U-100 Insulin aspart] 100 unit/mL Solution See Rx Instructions .ROUTE .COMPLEX Rx Instructions: COVERAGE DIRECTED BY SLIDING SCALE BEFORE MEALS AND BEDTIME, SUBCUTANEOUSLY nitroglycerin 0.4 mg/hr patch 24 hour 1 patch topical DIRECTED Rx Instructions: APPLY ONE PATCH TOPICALLY EVERY DAY FOR 12 TO 14 HOURS THEN REMOVE aspirin [Howard Low Dose Aspirin] 81 mg Tablet,Delayed Release (Dr/Ec) 81 mg PO DAILY nitroglycerin 0.4 mg tablet, sublingual 0.4 mg sublingual DIRECTED PRN (Reason: Chest Pain) Rx Instructions: PLACE ONE TABLET UNDER THE TONGUE EVERY 5 MINUTES FOR UP TO 3 DOSES OVER 15 MINUTES IF NEEDED FOR CHEST PAIN pantoprazole 40 mg tablet,delayed release (DR/EC) 40 mg PO QAM duloxetine 60 mg capsule,delayed release(DR/EC) 60 mg PO HS torsemide 10 mg tablet 10 mg PO QAM cyanocobalamin (vitamin B-12) 1,000 mcg capsule 1,000 mcg PO DAILY Qty: 90 3RF Rx Instructions: purchase [id number] acetaminophen [Tylenol Extra Strength] 500 mg Tablet 500 mg PO Q4H PRN (Reason: PAIN/FEVER) metformin 500 mg tablet extended release 24 hr 1,000 mg PO QAM diazepam 5 mg Tablet 5 mg PO BID PRN (Reason: Anxiety) hydroxyzine pamoate 25 mg Capsule 25 mg PO DIRECTED PRN (Reason: Anxiety) ezetimibe [Zetia] 10 mg Tablet 10 mg PO DAILY insulin glargine [Basaglar KwikPen U-100 Insulin] 100 unit/mL (3 mL) Insulin Pen 30 unit SUBCUT BID Rx Instructions: PER PT 30 UNITS BID, PER GMG 80 UNITS BID Nucynta 100 mg Tablet 100 mg PO Q6H PRN (Reason: Headache) Discharge Orders: Discharge Order (Routine); Ordered 08/11/22 Ordered By: Patrick Hugo Admission Data Admit Date/Time: 08/09/22 19:47 Attending Provider: Shavonne Clark Admit Provider: Kusum Miller Primary Care Provider: Clare Johnson Other Providers: Robe Valverde ; Maxim Ferrer ; Nyasia Alvarado ; Billy Wills Other Interventions: Discharge Summary Assessment (RN) Last Done: 08/11/22 16:04
[2022-08-11] MEDS ORDERED: LANTUS PER UNIT CHARGE SQ SCH (21:00)
--- NOTE | 2022-08-20 17:36 | Coding Query ---
PATHOLOGY To promote full compliance with coding requirements relating to patient care, physician participation is requested in all cases of road grader operator uncertainty. Please assist us with the question(s) below: Please review the Pathology report and please document any relevant diagnosis(es) below: Diagnosis(es): Colonic mass adenocarcinoma of the colon Thank you Mary Jo REAL
== END 2022-08-11 17:56 | disposition home or self-care (01) | DRG 375 ==
LOC: ED 15:59 → SUATTDRO 19:47 → 4W 19:47

== ENCOUNTER 2023-01-09 09:34 | Observation (INO) ==
--- NOTE | 2023-01-09 10:17 | Emergency Department Note ---
History of Present Illness General Chief complaint: Cardiac Assessment Stated complaint: HEART ATTACK SYMPTOMS Time Seen by Provider: 01/09/23 09:43 History of Present Illness Maximum Pain Intensity: 7 Patient is a 52-year-old male with past medical history significant for diabetes with neuropathy, hypertension, coronary artery disease status post UT, status post stenting, status post CABG, dyslipidemia, obesity, sleep apnea, colorectal cancer, currently being treated with chemotherapy, history of PE on Eliquis, who presents the emergency department accompanied by his for evaluation of chest pain and shortness of breath x4 days. Patient reports a history of chronic angina, states that over the last 4 days, he was out of town and was experiencing mild midsternal chest pain and shortness of breath. It was manageable. It was not particularly bothersome. It was unrelated to rest and exertion. He returned home on Sunday, 2 days ago. He woke acutely this morning at 0400, roughly 6 hours ago, with worsening chest pain. He had associated vomiting. He states that at its worst, the pain was a 10/10. They did several sublingual nitro over the course of the morning, as well as Zofran, and then placed a nitro patch, the patient now rates that his pain a 5/10. did a home COVID test which was negative. He had his Plavix this morning but not as Eliquis. She did also give him his long-acting insulin. He was diagnosed with colorectal cancer in the fall, he underwent a round of chemo and radiation, and is now receiving FOLFOX, he was due for treatment today. There is been no cough or sputum production. He does report a roughly 10 pound weight gain in the last 1-2 weeks. No peripheral edema. Blood pressure was low upon arrival today, which is chronic and relatively stable for him. He is on midodrine for this. He was seen in the ER few weeks ago after he suffered a a fall secondary to hypotension. Home Medications Medication Instructions Recorded Confirmed Type clopidogrel 75 mg tablet 75 mg PO QAM 01/28/19 01/09/23 History rosuvastatin 40 mg tablet 40 mg PO HS 01/28/19 01/09/23 History zolpidem 10 mg tablet 10 mg PO HS 01/28/19 01/09/23 History insulin aspart U-100 100 unit/mL 25 unit subcut TIDM 02/04/19 01/09/23 History subcutaneous solution (Novolog U-100 Insulin aspart) nitroglycerin 0.4 mg sublingual 0.4 mg sublingual DIRECTED PRN 02/24/19 01/09/23 History tablet Chest Pain nitroglycerin 0.4 mg/hr 1 patch topical DIRECTED 08/02/20 01/09/23 History transdermal 24 hour patch icosapent ethyl 1 gram capsule 2 g PO BID 05/18/21 01/09/23 History (Vascepa) amitriptyline 25 mg tablet 50 mg PO HS #60 tabs 08/30/21 01/09/23 Rx metoprolol succinate 50 mg 50 mg PO QPM 08/30/21 01/09/23 History tablet,extended release 24 hr sacubitril 24 mg-valsartan 26 mg 1 tab PO BID 08/30/21 01/09/23 History tablet (Entresto) alpha lipoic acid 600 mg capsule 1,200 mg PO QAM 12/27/21 01/09/23 History midodrine 10 mg tablet 20 mg PO AMHS 12/27/21 01/09/23 History cyanocobalamin (vitamin B-12) 1,000 mcg PO DAILY #90 caps 01/06/22 01/09/23 Rx 1,000 mcg capsule acetaminophen 500 mg tablet 500 mg PO Q4H PRN PAIN/FEVER 08/09/22 01/09/23 History (Tylenol Extra Strength) diazepam 5 mg tablet 5 mg PO BID PRN Anxiety 08/09/22 01/09/23 History ezetimibe 10 mg tablet (Zetia) 10 mg PO DAILY 08/09/22 01/09/23 History hydroxyzine pamoate 25 mg capsule 25 mg PO DIRECTED PRN Anxiety 08/09/22 01/09/23 History insulin glargine 100 unit/mL (3 60 unit subcut BID 08/09/22 01/09/23 History mL) subcutaneous pen (Basaglar KwikPen U-100 Insulin) metformin 500 mg tablet,extended 1,000 mg PO QAM 08/09/22 01/09/23 History release 24 hr tapentadol 100 mg tablet (Nucynta) 100 mg PO Q6H PRN Pain 08/09/22 01/09/23 History apixaban 5 mg tablet (Eliquis) 5 mg PO BID #60 tabs 08/26/22 01/09/23 Rx ondansetron HCl 8 mg tablet 8 mg PO Q8H 10/02/22 01/09/23 History torsemide 10 mg tablet 10 mg PO QAM 10/02/22 01/09/23 History duloxetine 60 mg capsule,delayed 60 mg PO HS #90 caps 12/28/22 01/09/23 Rx release empagliflozin 25 mg tablet 25 mg PO DAILY 01/09/23 01/09/23 History (Jardiance) famotidine 20 mg tablet 20 mg PO HS 01/09/23 01/09/23 History midodrine 10 mg tablet 20 mg PO DAILY PRN .. 01/09/23 01/09/23 History prochlorperazine maleate 10 mg 0 mg PO Q6H PRN Nausea 01/09/23 01/09/23 History tablet (Compazine) torsemide 10 mg tablet 10 mg PO DIRECTED PRN fluid 01/09/23 01/09/23 History build up Allergies Allergy/AdvReac Type Severity Reaction Status Date / Time No Known Allergies Allergy Verified 01/09/23 15:54 Past Med/Surg History Medical History Acute respiratory failure with hypoxia and hypercapnia Brachial plexopathy Right CHI (closed head injury) entered into EMR 07/2020 CKD (chronic kidney disease) stage 3, GFR 30-59 ml/min Confusion and disorientation Coronary artery disease h/o CABG x 5, NSTEMI 2020, s/p 6 stents Difficult airway for intubation was told it was hard to intubate him for carpal tunnel surgery in 1999 at [facility] HFrEF (heart failure with reduced ejection fraction) EF 45-49%, Grade II diastolic dysfunction History of blood transfusion 1979 History of COVID-19 x2--diagnosed 06/25/22--sore throat, chills,via HOME TEST ONLY- resolved diagnosed 05/2021--had sinus congestion, headache, productive cough--pt stat es he received monoclonal antibodies History of Salmonella gastroenteritis Hx of renal calculi Hyperlipidemia Hypertension Ischemic cardiomyopathy Ischemic cardiomyopathy Morbid obesity with BMI of 40.0-44.9, adult Neuropathic pain Nocturnal hypoxemia NSTEMI (non-ST elevated myocardial infarction) [place] [facility] [place] PCI of the [id number] with HARSHA x 2 and HARSHA x1 to pRCA on 02/07/21; Recurrent HF related to LVEDP 30-34% Obesity On anticoagulant therapy plavix daily/aspirin 162mg daily Peripheral neuropathy Pulmonary embolism recent diagnosis- being treated w/ eliquis Rectal cancer Rectosigmoid cancer adenocarcinoma, 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 Seizure AGE 10 S/P ACCIDENT-WAS ON MEDS COUPLE YRS-OFF MEDS AND NO SEIZURES 30+ YRS Severe obstructive sleep apnea cpap with 4L of oxygen at hs Type 2 diabetes mellitus IDDM Surgical History History of appendectomy History of arthroscopic knee surgery 1985, LEFT History of cardiac cath MULTIPLE-[place] [facility] [place] pt 2 stents placed 12/2018?-NO STENTS NEEDED LAST STENT PLACED 10/2017 [facility] [place] History of carpal tunnel release of both wrists History of coronary artery bypass graft 5 VESSELS History of tonsillectomy and adenoidectomy History of vasectomy Hx of colonoscopy Hx of heart artery stent X6-LAST ONE 01/2021 [facility] [place] Status post insertion of spinal cord stimulator [employer] Family History Grandfather (Maternal) Family history of diabetes mellitus Mother Family history of diabetes mellitus Stroke Uncle Obstructive sleep apnea Grandmother (Maternal) Stroke Family history of reaction to anesthesia "lost some cognitive ability after heart surgery" Father Coronary heart disease Social History Smoking Status: Never smoker Second Hand Exposure: Yes; Hx Alcohol Use: Yes Alcohol type: hard liquor Hx Substance Use: No Preferred Language: Citizen [place] Communication Ability: Effective Visual Impairment: No Limitations Hearing Ability: Normal 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 Beliefs That Will Affect Care: None marital status: Current Living Situation: Spouse and Family Current Living Situation Comment: lives with and 2 kids current occupational status: unemployed current occupation: retired/disable How many Children do You have: 3 Feels Safe at Home: Yes Childhood Exposure to Second-Hand Smoke: Yes during the past year weight has: other Do you think of yourself as: straight/heterosexual Gender Identity: Male Assistive Devices: CPAP and Oxygen - at Night Physical Exam Vital Signs Vital Signs - 24 hr 01/09/23 09:36 01/09/23 09:52 01/09/23 10:15 Temperature 36.9 C Temperature Source Temporal Artery Scan Pulse Rate 80 82 Respiratory Rate 18 Respiratory Effort / Characteristics Non-Labored Spontaneous Respiratory Depth Normal Respiratory Pattern Regular Blood Pressure 89/55 L Blood Pressure Mean 66 Blood Pressure Position Sitting Pulse Oximetry 97 97 Oxygen Delivery Method Room Air Room Air Sepsis Recent Fever Within 48 Hours No Sepsis New/Unexplained Change in Mental Status N/A Sepsis Action Taken by Nursing No Action Required 01/09/23 14:17 Temperature Temperature Source Pulse Rate 71 Respiratory Rate Respiratory Effort / Characteristics Respiratory Depth Respiratory Pattern Blood Pressure Blood Pressure Mean Blood Pressure Position Pulse Oximetry Oxygen Delivery Method Sepsis Recent Fever Within 48 Hours Sepsis New/Unexplained Change in Mental Status Sepsis Action Taken by Nursing CONSTITUTIONAL: Patient is an obese 52-year-old male who is awake and alert and laying semiupright on the gurney. Family is at the bedside. EYES: Pupils equal, round, reactive to light and accommodation. EOMs intact without nystagmus. Sclera are anicteric. ENT: Tympanic membranes intact, with normal landmarks. External canals are clear. Oral and nasopharynx are clear. Mucous membranes are moist, no lesions, tongue and gums appear normal. NECK: No bruits auscultated. Supple without lymphadenopathy. No thyromegaly. No meningeal signs. Full active range of motion without discomfort. CARDIOVASCULAR: Regular rate and rhythm, no murmur appreciated.. Peripheral pulses easy to palpable. RESPIRATORY: Breath sounds equal and clear to auscultation without wheezes, rales, or rhonchi heard. Full and equal chest expansion without accessory muscle use or retractions. GI: Bowel sounds are present. Abdomen is soft, nontender, nondistended. No organomegaly. No pulsatile masses. No guarding or rebound. MUSCULOSKELETAL: Full range of motion of extremities x 4 with good strength. No cyanosis, edema, joint tenderness or swelling. No deformity. INTEGUMENTARY: No lesions or rash, normal skin turgor. Course Course The patient was seen and assessed as above. External medical records are reviewed. He presents the emergency department for evaluation of chest pain, shortness of breath and vomiting. He has had some mild symptoms for the last few days that acutely worsened around 0400 today. 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 Initial pressures were little soft, in the 90s over 50s, therefore no additional nitro was administered. IV fluids were given, he was given a liter bolus, as quickly infused as his port can tolerate. EKG was obtained and he was placed on a telemetry monitor. Chest x-ray was performed and laboratory studies were collected. Case was reviewed with attending physician, Dr. REYNOLDS. Initial EKG was reviewed with him. CBC with differential, CMP, coags, lipase and 0 and 2-hour troponin were ordered. Laboratory studies per my interpretation note mild, chronic, stable anemia. Platelet count 129,000. Coags are normal. No gross electrolyte imbalance. He is hyperglycemic, nonfasting glucose at 345, initial high-sensitivity troponin 9.6. Chest x-ray per my interpretation notes no consolidation, pulmonary edema or pneumothorax. The patient was reassessed. Laboratory studies were reviewed. EKG and chest x- ray findings were also discussed with the family. He had rung his call epperson and was complaining of some increased chest pain worse when he sat up better when he laid back down but was asking if he could have something for pain. Repeat blood pressures are last was 114/64. IV fluids had been ordered but not hung yet. He was ordered morphine and Zofran IV. He is aware that he will be heading for the CT soon. CTA of the chest, per my interpretation and radiologist review note moderate cardiomegaly postsurgical changes and extensive coronary artery calcifications, no obvious pulmonary emboli identified although the segmental and subsegmental branches are suboptimally evaluated. No pneumothorax, pleural effusion, pulmonary edema or airspace consolidation. Patient was reassessed. CT scan results were reviewed with him and his family. A second troponin is pending. Second high-sensitivity troponin, is 9.5, not significantly changed from initial. Patient was reassessed. Troponin was discussed with the patient. Options for further care were reviewed with him, and I discussed his case with Dr. Vergara with cardiology, who did feel that it was reasonable to admit for observation, trend troponins, and for an echocardiogram. This was discussed with the patient, he was agreeable, but wanted to confirm with oncology that delaying his scheduled chemotherapy today would not be problematic. There was some delay in making this decision until he could hear from oncology, but they reassured him that pushing back his treatment for a week would not be problematic. Patient feels comfortable coming into the hospital for further cardiac evaluation, and with the adjusted chemotherapy schedule. He did report some increased pain and was ordered an additional dose of morphine. I also discussed with him whether there could be an element of GI pain, to which the patient notes he was switched from pantoprazole to Pepcid to be compatible with his chemotherapy regimen and he does not feel that the Pepcid is working as well as the pantoprazole, again, question whether may or may be an element of GERD or esophagitis, contributing to the midsternal chest pain over the last several days. Nonetheless, given his extensive cardiac history, does feel prudent to evaluate in-house. Patient was reviewed the ED family service caseworker, and discussed with the [facility] , Dr. Polo, for further care and management. Cardiac monitoring: An order was placed for continuous cardiac monitoring. The monitor shows a NSR in the 80s per my interpretation. Administered Medications Discontinued Medications Sodium Chloride (Nss 1000ml) 1,000 mls @ 999 mls/hr IV .Q1H1M PERRY Stop: 01/09/23 11:21 Last Infusion: 01/09/23 13:40 Dose: 0 mls/hr Documented By: Admin: 01/09/23 11:56 Dose: 999 mls/hr Documented By: HENRI Famotidine (Pepcid 20mg Iv Push) 20 mg in 5 mls @ 2.5 mls/min IV NOW STA Stop: 01/09/23 15:29 Last Admin: 01/09/23 15:48 Dose: 2.5 mls/min Documented By: HENRI Ioversol (Optiray 320 500ml) 105 ml IV ONCE ONE Stop: 01/09/23 11:36 Last Admin: 01/09/23 11:36 Dose: 105 ml Documented By: AMY Morphine Sulfate (Morphine Sulfate 4 Mg/Ml 1 Ml Carp\\Vial) 4 mg IV NOW STA Stop: 01/09/23 11:18 Last Admin: 01/09/23 11:57 Dose: 4 mg Documented By: RSJimmy Morphine Sulfate (Morphine Sulfate 4 Mg/Ml 1 Ml Carp\\Vial) 4 mg IV NOW STA Stop: 01/09/23 15:29 Last Admin: 01/09/23 15:48 Dose: 4 mg Documented By: RSJimmy Ondansetron HCl (Ondansetron Inj 2 Mg/Ml 2 Ml Vial) 4 mg IV NOW STA Stop: 01/09/23 11:18 Last Admin: 01/09/23 11:57 Dose: 4 mg Documented By: RSL Ondansetron HCl (Ondansetron Inj 2 Mg/Ml 2 Ml Vial) 4 mg IV NOW STA Stop: 01/09/23 15:29 Last Admin: 01/09/23 15:48 Dose: 4 mg Documented By: RSL Medical Decision Making Differential Diagnosis Differential diagnosis includes acute myocardial infarction, acute coronary syndrome, myocarditis, pericarditis, pericardial effusions /tamponade, GERD, gastritis, esophagitis, pulmonary embolism, pneumonia, pneumothorax, cardiomyopathy, congestive heart failure, anemia, musculoskeletal, anxiety, costochondritis, among others. Medical Records Attestation: I reviewed the patient's medical records. Home Medications Current Medication List: was personally reviewed by me Laboratory Data Attestation: I reviewed the patient's lab results. 01/09/23 10:10 01/09/23 10:10 Lab Results 01/09/23 01/09/23 01/09/23 Range/Units 10:10 10:10 10:10 WBC 8.06 (4.8-10.8) K/ul RBC 3.74 L (4.70-6.10) M/uL Hgb 11.3 L (14.0-18.0) g/dl Hct 34.9 L (42.0-52.0) % MCV 93.3 (80.0-100.0) fL MCH 30.2 (25.0-34.0) pg MCHC 32.4 (32.0-36.0) g/dL RDW Std Deviation 52.3 H (36.4-46.3) fL RDW Coeff of Triny 15.7 H (11.5-14.5) % Plt Count 129 L (130-400) K/uL MPV 10.2 (9.4-12.4) fL Immature Gran % (Auto) 0.5 % Neut % (Auto) 83.3 % Lymph % (Auto) 7.6 % [place] % (Auto) 8.2 % Eos % (Auto) 0.2 % Baso % (Auto) 0.2 % Neut # (Auto) 6.71 H (1.40-6.50) K/uL Lymph # (Auto) 0.61 L (1.2-3.4) K/uL [place] # (Auto) 0.66 H (0.11-0.59) K/uL Eos # (Auto) 0.02 (0-0.50) K/uL Baso # (Auto) 0.02 (0-0.2) K/uL Immature Gran # (Auto) 0.04 (0.01-0.20) K/uL PT 10.8 (9.0-12.0) Seconds INR 1.0 (0.9-1.1) APTT 22.2 (21.0-31.0) Seconds PTT Ratio 0.8 Sodium 132 L (136-145) mmol/L Potassium 5.0 (3.5-5.1) mmol/L Chloride 103 (98-107) mmol/L Carbon Dioxide 24 (21-32) mmol/L Anion Gap 5 (3-11) BUN 22 (6-23) mg/dl Creatinine 1.09 (0.6-1.4) mg/dl Est Cr Clr Drug Dosing 112.9 ml/min Est GFR ( Amer) 90.0 ml/min Est GFR (Non-Af Amer) 77.6 ml/min BUN/Creatinine Ratio 20.2 H (10-20) Glucose 345 H* (70-99(Fasting)) mg/dl Calcium 9.1 (8.6-10.3) mg/dl Total Bilirubin 0.7 (0.2-1.0) mg/dl AST 18 (13-39) U/L ALT 19 (7-52) U/L Alkaline Phosphatase 50 (34-104) U/L Troponin I High Sens 9.6 (0-20) pg/ml Total Protein 6.6 (6.0-8.3) gm/dl Albumin 3.8 (3.4-5.0) gm/dl Globulin 2.8 (2.5-4.0) gm/dl Albumin/Globulin Ratio 1.4 (0.9-2) Lipase 49 (11-82) U/L SARS-CoV-2, RNA, NAAT (NEGATIVE) 01/09/23 01/09/23 Range/Units 10:24 12:54 WBC (4.8-10.8) K/ul RBC (4.70-6.10) M/uL Hgb (14.0-18.0) g/dl Hct (42.0-52.0) % MCV (80.0-100.0) fL MCH (25.0-34.0) pg MCHC (32.0-36.0) g/dL RDW Std Deviation (36.4-46.3) fL RDW Coeff of Triny (11.5-14.5) % Plt Count (130-400) K/uL MPV (9.4-12.4) fL Immature Gran % (Auto) % Neut % (Auto) % Lymph % (Auto) % [place] % (Auto) % Eos % (Auto) % Baso % (Auto) % Neut # (Auto) (1.40-6.50) K/uL Lymph # (Auto) (1.2-3.4) K/uL [place] # (Auto) (0.11-0.59) K/uL Eos # (Auto) (0-0.50) K/uL Baso # (Auto) (0-0.2) K/uL Immature Gran # (Auto) (0.01-0.20) K/uL PT (9.0-12.0) Seconds INR (0.9-1.1) APTT (21.0-31.0) Seconds PTT Ratio Sodium (136-145) mmol/L Potassium (3.5-5.1) mmol/L Chloride (98-107) mmol/L Carbon Dioxide (21-32) mmol/L Anion Gap (3-11) BUN (6-23) mg/dl Creatinine (0.6-1.4) mg/dl Est Cr Clr Drug Dosing ml/min Est GFR ( Amer) ml/min Est GFR (Non-Af Amer) ml/min BUN/Creatinine Ratio (10-20) Glucose (70-99(Fasting)) mg/dl Calcium (8.6-10.3) mg/dl Total Bilirubin (0.2-1.0) mg/dl AST (13-39) U/L ALT (7-52) U/L Alkaline Phosphatase (34-104) U/L Troponin I High Sens 9.5 (0-20) pg/ml Total Protein (6.0-8.3) gm/dl Albumin (3.4-5.0) gm/dl Globulin (2.5-4.0) gm/dl Albumin/Globulin Ratio (0.9-2) Lipase (11-82) U/L SARS-CoV-2, RNA, NAAT NEGATIVE (NEGATIVE) Imaging Data Attestation: I personally reviewed and interpreted this imaging study as follows: Radiologist's Impression: Chest CTA 01/09/23 10:10 CT angio chest PE protocol CT DOSE: 919.90 mGy.cm HISTORY: 52 years-old Male with CP, SOB, HX OF PE. Acute shortness of breath in a patient with history of pulmonary emboli TECHNIQUE: Multiple CTA images of the chest were obtained after the intravenous administration of 105 ml Optiray. Coronal and sagittal MIPS were obtained from the axial data set and were submitted for review. All measurements were obtained according to NASCET criteria. A dose lowering technique was utilized adhering to the principles of ALARA. COMPARISON: Chest radiograph of same day, CTA chest 01/06/2022 FINDINGS: CTA: Moderate cardiomegaly. Prior median sternotomy and CABG. Extensive the [place] coronary artery calcifications. Atherosclerosis of the thoracic aorta without aneurysm or dissection. The opacified pulmonary arterial tree is unremarkable. The segmental and subsegmental branches are suboptimally evaluated secondary to contrast bolus timing and respiratory motion artifact. No definite pulmonary emboli are identified. CT CHEST: No thyroid nodule or lymphadenopathy. No pneumothorax, pleural effusion, airspace consolidation or overt pulmonary edema. Centrally calcified subpleural 8 mm nodule within the medial basal segment left lower lobe on image 87 series 4 is stable and likely benign. There are no suspicious pulmonary nodules or masses identified. Stable 5 mm subpleural nodule of the right middle lobe on image 109. Central airways are patent. Distended fluid and debris-filled stomach. Stable 1.7 cm soft tissue attenuating right adrenal gland lesion. Unremarkable soft tissues. No acute fracture identified. Partially imaged stimulator lead of the thoracic spine appears intact. IMPRESSION: 1. Cardiomegaly without pulmonary emboli identified. 2. No pleural effusion, lymphadenopathy or airspace consolidation. ACT 112: Negative or not required by law. The above report was generated using voice recognition software. It may contain grammatical, syntax or spelling errors. Electronically signed by: Singh Smith M.D. 01/09/2023 12:05 PM Chest X-Ray 01/09/23 10:10 XR chest 1V portable HISTORY: 52 years-old Male CP, SOB acute chest pain with shortness of breath COMPARISON: 12/14/2022 TECHNIQUE: AP view of the chest FINDINGS: Cardiomegaly. Prior median sternotomy with coronary arterial stenting. Spinal stimulator leads are noted overlying the cervical and thoracic spine. Right IJ [id number] catheter is noted with distal tip in the expected location of the pericaval junction. No pneumothorax, pleural effusion, airspace consolidation or overt pulmonary edema. There is unchanged mild right diaphragmatic elevation. Bones appear grossly intact. IMPRESSION: No acute process. ACT 112: Negative or not required by law. The above report was generated using voice recognition software. It may contain grammatical, syntax or spelling errors. Electronically signed by: Singh Smith M.D. 01/09/2023 10:29 AM ECG Data Attestation: I personally reviewed and interpreted this ECG as follows: Indication: + chest pain and + SOB/dyspnea Rate (beats per minute): 82 Rhythm: + sinus rhythm ECG Intervals/blocks: + First degree AV block, + Left posterior fascicular block and + Right Bundle branch block ECG Norris: + Normal ECG ST segments: no ST depression, no ST elevation or no T-wave inversions Comparison ECG Date: from (12/14/2322) Change: no significant change MDM Narrative See ED course. Impression & Plan Precordial chest pain, Shortness of breath Discharge Plan Visit Data Chief Complaint: Cardiac Assessment Stated Complaint: HEART ATTACK SYMPTOMS ED Provider: Lewis Montero ED Midlevel Provider: Purnima Oliva Discharge Problem: Precordial chest pain, Shortness of breath Patient Disposition: Being Evaluated by Hospitalist Forms Stand Alone Forms: My [facility] Prescriptions Prescriptions: No Action alpha lipoic acid 600 mg capsule 1,200 mg PO QAM midodrine 10 mg tablet 20 mg PO AMHS ondansetron HCl 8 mg tablet 8 mg PO Q8H amitriptyline 25 mg tablet 50 mg PO HS Qty: 60 5RF duloxetine 60 mg capsule,delayed release(DR/EC) 60 mg PO HS Qty: 90 1RF icosapent ethyl [Vascepa] 1 gram capsule 2 g PO BID metoprolol succinate 50 mg tablet extended release 24 hr 50 mg PO QPM Entresto 24-26 mg tablet 1 tab PO BID rosuvastatin 40 mg Tablet 40 mg PO HS clopidogrel 75 mg Tablet 75 mg PO QAM zolpidem 10 mg Tablet 10 mg PO HS insulin aspart U-100 [Novolog U-100 Insulin aspart] 100 unit/mL Solution 25 unit subcut TIDM Rx Instructions: Plus 3 units for Q 50 points >150 nitroglycerin 0.4 mg/hr patch 24 hour 1 patch topical DIRECTED Rx Instructions: APPLY ONE PATCH TOPICALLY EVERY DAY FOR 12 TO 14 HOURS THEN REMOVE nitroglycerin 0.4 mg tablet, sublingual 0.4 mg sublingual DIRECTED PRN (Reason: Chest Pain) Rx Instructions: PLACE ONE TABLET UNDER THE TONGUE EVERY 5 MINUTES FOR UP TO 3 DOSES OVER 15 MINUTES IF NEEDED FOR CHEST PAIN Eliquis 5 mg tablet 5 mg PO BID Qty: 60 0RF Jardiance 25 mg tablet 25 mg PO DAILY torsemide 10 mg tablet 10 mg PO DIRECTED PRN (Reason: fluid build up) Rx Instructions: prn midodrine 10 mg tablet 20 mg PO DAILY PRN (Reason: ..) prochlorperazine maleate [Compazine] 10 mg Tablet 0 mg PO Q6H PRN (Reason: Nausea) famotidine 20 mg tablet 20 mg PO HS cyanocobalamin (vitamin B-12) 1,000 mcg capsule 1,000 mcg PO DAILY Qty: 90 3RF Rx Instructions: purchase kkin-pil-jiusaok torsemide 10 mg tablet 10 mg PO QAM acetaminophen [Tylenol Extra Strength] 500 mg Tablet 500 mg PO Q4H PRN (Reason: PAIN/FEVER) metformin 500 mg tablet extended release 24 hr 1,000 mg PO QAM diazepam 5 mg Tablet 5 mg PO BID PRN (Reason: Anxiety) hydroxyzine pamoate 25 mg Capsule 25 mg PO DIRECTED PRN (Reason: Anxiety) ezetimibe [Zetia] 10 mg Tablet 10 mg PO DAILY insulin glargine [Basaglar KwikPen U-100 Insulin] 100 unit/mL (3 mL) Insulin Pen 60 unit SUBCUT BID Rx Instructions: PER PT 30 UNITS BID, PER GMG 80 UNITS BID Nucynta 100 mg Tablet 100 mg PO Q6H PRN (Reason: Pain) Referrals Referrals: Clare Johnson DO [Primary Care Provider] -
[2023-01-09] MEDS ORDERED: SODIUM CHLORIDE 0.9% 1000ML 1,000 ML IV SCH (10:21)
[2023-01-09 10:29] LABS: Basophils # (auto) 0.02 K/uL (0-0.2); Basophils % (auto) 0.2 %; Eosinophils # (auto) 0.02 K/uL (0-0.50); Eosinophils % (auto) 0.2 %; Hematocrit (blood only) 34.9 % (42.0-52.0); Hemoglobin 11.3 g/dl (14.0-18.0); Immature Granulocytes # (auto) 0.04 K/uL (0.01-0.20); Immature Granulocytes % (auto) 0.5 %; Lymphocytes # (auto) 0.61 K/uL (1.2-3.4); Lymphocytes % (auto) 7.6 %; Mean Corpuscular Hemoglobin 30.2 pg (25.0-34.0); Mean Corpuscular Hgb Conc 32.4 g/dL (32.0-36.0); Mean Corpuscular Volume 93.3 fL (80.0-100.0); Mean Platelet Volume 10.2 fL (9.4-12.4); Monocytes # (auto) 0.66 K/uL (0.11-0.59); Monocytes % (auto) 8.2 %; Neutrophils # (auto) 6.71 K/uL (1.40-6.50); Neutrophils % (auto) 83.3 %; Platelet Count 129 K/uL (130-400); RDW Coefficient of Variation 15.7 % (11.5-14.5); RDW Standard Deviation 52.3 fL (36.4-46.3); Red Blood Count 3.74 M/uL (4.70-6.10); White Blood Count 8.06 K/ul (4.8-10.8)
--- NOTE | 2023-01-09 10:31 | XRay Report ---
XR chest 1V portable HISTORY: 52 years-old Male CP, SOB acute chest pain with shortness of breath COMPARISON: 12/14/2022 TECHNIQUE: AP view of the chest FINDINGS: Cardiomegaly. Prior median sternotomy with coronary arterial stenting. Spinal stimulator leads are no ilan overlying the cervical and thoracic spine. Right IJ [id number] catheter is noted with distal t ip in the expected location of the pericaval junction. No pneumothorax, pleural effusion, airspace consolidation or overt pulmonary edema. There is unchange d mild right diaphragmatic elevation. Bones appear grossly intact. IMPRESSION: No acute process. ACT 112: Negative or not required by law. The above report was generated using voice recognition software. It may contain grammatical, syntax o r spelling errors. Electronically signed by: Singh Smith M.D. 01/09/2023 10:29 AM
--- NOTE | 2023-01-09 10:58 | Electrocardiogram Report ---
Test Reason : Blood Pressure : / mmHG Vent. Rate : 082 BPM Atrial Rate : 082 BPM P-R Int : 236 ms QRS Dur : 108 ms QT Int : 408 ms P-R-T Axes : 002 118 049 degrees QTc Int : 476 ms Sinus rhythm with 1st degree A-V block Incomplete right bundle branch block Left posterior fascicular block Abnormal ECG When compared with ECG of 14-DEC-2022 11:44, (RBBB and left posterior fascicular block) is now Present Confirmed by Jv Salmeron ([id number]) on 01/09/2023 10:57:57 AM Referred By: Confirmed By:Chritsiano Salmeron
[2023-01-09 11:01] LABS: Partial Thromboplastin Ratio 0.8; Partial Thromboplastin Time 22.2 Seconds (21.0-31.0); Prothrombin Time 10.8 Seconds (9.0-12.0)
[2023-01-09 11:06] LABS: Albumin Globulin Ratio 1.4 (0.9-2); Albumin Level 3.8 gm/dl (3.4-5.0); BUN Creatinine Ratio 20.2 (10-20); Bilirubin,Total 0.7 mg/dl (0.2-1.0); Calcium 9.1 mg/dl (8.6-10.3); Creatinine Clr Calc Pharmacy 112.9 ml/min; Est GFR (Non-African American) 77.6 ml/min; Globulin 2.8 gm/dl (2.5-4.0); Total Protein 6.6 gm/dl (6.0-8.3); Troponin I High Sensitivity 9.6 pg/ml (0-20)
[2023-01-09] MEDS ORDERED: ONDANSETRON INJ 2 MG/ML 2 ML VIAL IV STA ×2 (11:17→15:28)
[2023-01-09] MEDS ORDERED: MoRPHine SULFATE 4 MG/ML 1 ML CARP\\VIAL IV STA ×2 (11:17→15:28)
[2023-01-09] MEDS ORDERED: OPTIRAY 320 500ml IV ONE (11:35)
--- NOTE | 2023-01-09 12:07 | CT Scan Report ---
CT angio chest PE protocol CT DOSE: 919.90 mGy.cm HISTORY: 52 years-old Male with CP, SOB, HX OF PE. Acute shortness of breath in a patient with hist ory of pulmonary emboli TECHNIQUE: Multiple CTA images of the chest were obtained after the intravenous administration of 105 ml Optiray. Coronal and sagittal MIPS were obtained from the axial data set and were submitted for review. All measurements were obtained according to NASCET criteria. A dose lowering technique was u tilized adhering to the principles of ALARA. COMPARISON: Chest radiograph of same day, CTA chest 01/06/2022 FINDINGS: CTA: Moderate cardiomegaly. Prior median sternotomy and CABG. Extensive still[place]amish coronary artery calcificati ons. Atherosclerosis of the thoracic aorta without aneurysm or dissection. The opacified pulmonary ar terial tree is unremarkable. The segmental and subsegmental branches are suboptimally evaluated secon mai to contrast bolus timing and respiratory motion artifact. No definite pulmonary emboli are ident ified. CT CHEST: No thyroid nodule or lymphadenopathy. No pneumothorax, pleural effusion, airspace consolidation or ov ert pulmonary edema. Centrally calcified subpleural 8 mm nodule within the medial basal segment left lower lobe on image 87 series 4 is stable and likely benign. There are no suspicious pulmonary nodule s or masses identified. Stable 5 mm subpleural nodule of the right middle lobe on image 109. Central airways are patent. Distended fluid and debris-filled stomach. Stable 1.7 cm soft tissue attenuating right adrenal gland lesion. Unremarkable soft tissues. No acute fracture identified. Partially imaged stimulator lead of the thoracic spine appears intact. IMPRESSION: 1. Cardiomegaly without pulmonary emboli identified. 2. No pleural effusion, lymphadenopathy or airspace consolidation. ACT 112: Negative or not required by law. The above report was generated using voice recognition software. It may contain grammatical, syntax o r spelling errors. Electronically signed by: Singh Smith M.D. 01/09/2023 12:05 PM
[2023-01-09] MEDS ORDERED: FAMOTIDINE 20MG IV PUSH 20 MG/5 ML SYR IV STA (15:28)
--- NOTE | 2023-01-09 15:54 | History & Physical Report ---
Date of Service January 09, 2023 Assessment & Plan (1) Chest pain: Plan: -Admit to med/tele -The patient is currently afebrile, hemodynamically stable, and stable on RA -At this time the etiology of the patient's chest discomfort is not clear but the differential includes but is not limited to stable angina, ACS, CHF, esophagitis/gastritis, musculoskeletal pain, and anxiety -To this point his cardiac workup has been negative, but he has an extensive cardiac history, [facility] requested admission for further monitoring as it was too late to stress test him at the time of admission, [facility] consulted -Will continue to monitor on tele and trend high sen trops q6h overnight -The patient states that he has had an approximately 10 lb weight gain over the past week, has also been eating a more liberal diet to try and keep his weight stable with his cancer treatment. He feels as though he is retaining more fluid in his abdomen. -His symptoms sound more like GERD/reflux at this time, will try a GI cocktail and continue famotidine 20 mg IV BID for now and will see how he responds -Will obtain repeat TTE tomorrow, will add on BNP now -Monitor intake/output q shift and daily weights -The patient did not have his am torsemide, will give him 20 mg PO torsemide on admission then continue home dose of 10 mg PO daily -BL SCD's and Eliquis for DVT PPX (2) Shortness of breath: Plan: -Stable on RA -Ches xray and CTA of the chest with PE protocol was negative for acute findings -May be due to increased abdominal fluid causing decreased thoracic expansion, the patient also has a history of severe JOY on HS CPAP -Will continue with incentive spirometry, monitor for improvement with diuresis -Follow up TTE tomorrow (3) Hypertension: Plan: -Currently stable -BP typically runs soft, does take BID midodrine -Continue Midodrine on top of metoprolol, and Imdur (4) HFrEF (heart failure with reduced ejection fraction): Plan: -Abdomen is somewhat distended but is otherwise euvolemic on exam -Patient states he typically gains water weight in his abdomen and feels as though it is full, also has a recent 10lb weight gain -Continue with 20 mg PO torsemide now with 10 mg PO daily starting tomorrow -Follow up TTE and will FU on admission BNP (5) GERD (gastroesophageal reflux disease): Plan: -Hold any protonix at this time due to possible interactions with his chemotherapy -Will do a trial of GI cocktail and BID IV famotidine for now, monitor for improvement of symptoms (6) Type 2 diabetes mellitus: Plan: -Hold metformin -Monitor BSG ACHS, goal is 110-140 -Typical basal insulin is 60 units Glargine BID, will decrease to 30 units BID for now -CF of 50 with CR of 15 -Adjust regimen as needed -DMII and Heart healthy diet (7) Hyperlipidemia: Plan: -Continue statin and Zetia (8) Coronary artery disease: Plan: -Continue metoprolol, Eliquis, and plavix (9) Severe obstructive sleep apnea: Plan: -HS CPAP ordered (10) Pulmonary embolism: Plan: -Chronic -Continue Eliquis Plan The patient was discussed with Dr. 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 In the ED the patient was found to be afebrile, hypotensive at 89/55 (this is apparently close to his baseline), and stable on RA. Labs were significant for a stable Hgb of 11.3, platelet count of 129, lymphocyte count of 0.61, stable Cr at 1.09, corrected sodium of 136, glucose of 345, 2 negative high sensitivity troponins, and covid 19 negative. Chest xray was read as No acute process.. CTA of the chest with PE protocol was read as 1. Cardiomegaly without pulmonary emboli identified. 2. No pleural effusion, lymphadenopathy or airspace consolidation.. The patient was initially given 8 mg IV morphine, 1L NSS, 8 mg IV Zofran. At the time of the exam the patient was sitting in bed in no acute distress. He states that he has baseline angina with is extensive cardiac history, this is usually resolved with his sublingual nitroglycerine. Approximately 4 days ago he started to develop increased SOB and substernal/epigastric discomfort. This discomfort has been intermittent and is difficult for the patient to describe. The chest discomfort does not radiate anywhere, but he has had atypical symptoms with his previous ND's in the past. Over the weekend the patient was in [place] for work and was not eating his typical diet. He was eating lots of seafood. He states that he has been eating a more liberal diet with his cancer to try and keep his weight stable. He feels as though he has gained approximately 10 lbs over the past week. With his CHF he typically gains fluid in his abdomen, not in his lower extremities. When asked, he denies using a lot of butter with his seafood but does state that he frequently eats chocolate and spicy food. He had to be switched from pantoprazole to famotidine with his previous chemotherapy as there were interactions. At approximately 0400 this am he woke and his substernal chest discomfort was worse, he also experienced nausea and non-bloody emesis; which he experienced with previous ND's in the past. His symptoms were improved with nitroglycerine and zofran. Prior to my exam he received additional morphine and a dose of IV famotidine, he states that he is currently without chest discomfort. He denies recent fevrer, chills, cough abd pain, dysuria, hematuria, melena, bloody BM's, LE swelling and recent trauma. Please refer to Dr. Polo's attestation for any changes to the treatment plan Allergies Allergy/AdvReac Type Severity Reaction Status Date / Time No Known Allergies Allergy Verified 01/09/23 15:54 Home Medications Medication Instructions Recorded Confirmed Type clopidogrel 75 mg tablet 75 mg PO QAM 01/28/19 01/09/23 History rosuvastatin 40 mg tablet 40 mg PO HS 01/28/19 01/09/23 History zolpidem 10 mg tablet 10 mg PO HS 01/28/19 01/09/23 History insulin aspart U-100 100 unit/mL 25 unit subcut TIDM 02/04/19 01/09/23 History subcutaneous solution (Novolog U-100 Insulin aspart) nitroglycerin 0.4 mg sublingual 0.4 mg sublingual DIRECTED PRN 02/24/19 01/09/23 History tablet Chest Pain nitroglycerin 0.4 mg/hr 1 patch topical DIRECTED 08/02/20 01/09/23 History transdermal 24 hour patch icosapent ethyl 1 gram capsule 2 g PO BID 05/18/21 01/09/23 History (Vascepa) amitriptyline 25 mg tablet 50 mg PO HS #60 tabs 08/30/21 01/09/23 Rx metoprolol succinate 50 mg 50 mg PO QPM 08/30/21 01/09/23 History tablet,extended release 24 hr sacubitril 24 mg-valsartan 26 mg 1 tab PO BID 08/30/21 01/09/23 History tablet (Entresto) alpha lipoic acid 600 mg capsule 1,200 mg PO QAM 12/27/21 01/09/23 History midodrine 10 mg tablet 20 mg PO AMHS 12/27/21 01/09/23 History cyanocobalamin (vitamin B-12) 1,000 mcg PO DAILY #90 caps 01/06/22 01/09/23 Rx 1,000 mcg capsule acetaminophen 500 mg tablet 500 mg PO Q4H PRN PAIN/FEVER 08/09/22 01/09/23 History (Tylenol Extra Strength) diazepam 5 mg tablet 5 mg PO BID PRN Anxiety 08/09/22 01/09/23 History ezetimibe 10 mg tablet (Zetia) 10 mg PO DAILY 08/09/22 01/09/23 History hydroxyzine pamoate 25 mg capsule 25 mg PO DIRECTED PRN Anxiety 08/09/22 01/09/23 History insulin glargine 100 unit/mL (3 60 unit subcut BID 08/09/22 01/09/23 History mL) subcutaneous pen (Basaglar KwikPen U-100 Insulin) metformin 500 mg tablet,extended 1,000 mg PO QAM 08/09/22 01/09/23 History release 24 hr tapentadol 100 mg tablet (Nucynta) 100 mg PO Q6H PRN Pain 08/09/22 01/09/23 History apixaban 5 mg tablet (Eliquis) 5 mg PO BID #60 tabs 08/26/22 01/09/23 Rx ondansetron HCl 8 mg tablet 8 mg PO Q8H 10/02/22 01/09/23 History torsemide 10 mg tablet 10 mg PO QAM 10/02/22 01/09/23 History duloxetine 60 mg capsule,delayed 60 mg PO HS #90 caps 12/28/22 01/09/23 Rx release empagliflozin 25 mg tablet 25 mg PO DAILY 01/09/23 01/09/23 History (Jardiance) famotidine 20 mg tablet 20 mg PO HS 01/09/23 01/09/23 History midodrine 10 mg tablet 20 mg PO DAILY PRN .. 01/09/23 01/09/23 History prochlorperazine maleate 10 mg 0 mg PO Q6H PRN Nausea 01/09/23 01/09/23 History tablet (Compazine) torsemide 10 mg tablet 10 mg PO DIRECTED PRN fluid 01/09/23 01/09/23 History build up Past Med/Surg History Medical History (Updated 01/09/23 @ 17:06 by MELODY AlmarazC) Acute respiratory failure with hypoxia and hypercapnia Brachial plexopathy Right CHI (closed head injury) entered into EMR 07/2020 CKD (chronic kidney disease) stage 3, GFR 30-59 ml/min Confusion and disorientation Coronary artery disease h/o CABG x 5, NSTEMI 2020, s/p 6 stents Difficult airway for intubation was told it was hard to intubate him for carpal tunnel surgery in 1999 at [facility] HFrEF (heart failure with reduced ejection fraction) EF 45-49%, Grade II diastolic dysfunction History of blood transfusion 1979 History of COVID-19 x2--diagnosed 06/25/22--sore throat, chills,via HOME TEST ONLY- resolved diagnosed 05/2021--had sinus congestion, headache, productive cough--pt states he received monoclonal antibodies History of Salmonella gastroenteritis Hx of renal calculi Hyperlipidemia Hypertension Ischemic cardiomyopathy Ischemic cardiomyopathy Morbid obesity with BMI of 40.0-44.9, adult Neuropathic pain Nocturnal hypoxemia NSTEMI (non-ST elevated myocardial infarction) [place] [facility] [place] PCI of the [id number] with HARSHA x 2 and HARSHA x1 to pRCA on 02/07/21; Recurrent HF related to LVEDP 30-34% Obesity On anticoagulant therapy plavix daily/aspirin 162mg daily Peripheral neuropathy Pulmonary embolism recent diagnosis- being treated w/ eliquis Rectal cancer Rectosigmoid cancer adenocarcinoma, managed by [facility] heme/onc Seizure AGE 10 S/P ACCIDENT-WAS ON MEDS COUPLE YRS-OFF MEDS AND NO SEIZURES 30+ YRS Severe obstructive sleep apnea cpap with 4L of oxygen at hs Type 2 diabetes mellitus IDDM Surgical History History of appendectomy History of arthroscopic knee surgery 1985, LEFT History of cardiac cath MULTIPLE-[place] [facility] [place] pt 2 stents placed 12/2018?-NO STENTS NEEDED LAST STENT PLACED 10/2017 [facility] [place] History of carpal tunnel release of both wrists History of coronary artery bypass graft 5 VESSELS History of tonsillectomy and adenoidectomy History of vasectomy Hx of colonoscopy Hx of heart artery stent X6-LAST ONE 01[place]20[place] [facility] [place] Status post insertion of spinal cord stimulator [employer] Family History Grandfather (Maternal) Family history of diabetes mellitus Mother Family history of diabetes mellitus Stroke Uncle Obstructive sleep apnea Grandmother (Maternal) Stroke Family history of reaction to anesthesia "lost some cognitive ability after heart surgery" Father Coronary heart disease Social History Smoking Status: Never smoker Second Hand Exposure: Yes; Hx Alcohol Use: Yes Alcohol type: hard liquor Hx Substance Use: No Preferred Language: Syriac Communication Ability: Effective Visual Impairment: No Limitations Hearing Ability: Normal Anger Control Counselor Required: No Beliefs That Will Affect Care: None marital status: Current Living Situation: Spouse and Family Current Living Situation Comment: lives with and 2 kids current occupational status: unemployed current occupation: retired/disable How many Children do You have: 3 Feels Safe at Home: Yes Childhood Exposure to Second-Hand Smoke: Yes during the past year weight has: other Do you think of yourself as: straight/heterosexual Gender Identity: Male Assistive Devices: CPAP and Oxygen - at Night Physical Exam Physical Exam: Physical Exam: General: In no acute distress, stated age, well-nourished, good hygiene HEENT: Normocephalic, atraumatic, no scleral icterus, pupils around round, symmetrical, and reactive to light, dry mucus membranes, trachea midline, no thyromegaly Chest/Pulm: Mediport is in place in the right upper chest without signs of infection, no reproducible chest pain on palpation, No respiratory distress, symmetrical chest expansion, clear breath sounds throughout Cardiac: RRR, no murmurs noted Abdomen: Negative for ascites and bruising, normoactive bowel sounds, soft, minimal tenderness to plaption over the epigastric region, no rebound tenderness Musculoskeletal: Symmetrical and without signs of acute trauma, upper and lower extremities with full ROM, no atrophy, spasticity, or flaccidity Extremities: Radial, dorsalis pedis, and posterior tibial pulses are intact and symmetrical, no edema noted in the BL LE's Skin: Warm, dry, no rashes , lesions, or scars noted Neuro: Alert and oriented to person, place, month, year, and president, no focal defects, CN II-XII tested and intact, finger to nose test negative, no tremors noted Psych: No acute distress, calm and cooperative during the exam Results & Data Results & Data Vital Signs (Past 12 Hours) Vital Signs Temp Pulse Resp BP Pulse Ox O2 Del Method 01/09/23 14:17 71 01/09/23 10:15 97 Room Air 01/09/23 09:52 82 01/09/23 09:36 36.9 C 80 18 89/55 L 97 Room Air Laboratory Results Chest CTA 01/09/23 10:10 CT angio chest PE protocol CT DOSE: 919.90 mGy.cm HISTORY: 52 years-old Male with CP, SOB, HX OF PE. Acute shortness of breath i n a patient with history of pulmonary emboli TECHNIQUE: Multiple CTA images of the chest were obtained after the intravenous administration of 105 ml Optiray. Coronal and sagittal MIPS were obtained from the axial data set and were submitted for review. All measurements were obtained according to NASCET criteria. A dose lowering technique was utilized adhering to the principles of ALARA. COMPARISON: Chest radiograph of same day, CTA chest 01/06/2022 FINDINGS: CTA: Moderate cardiomegaly. Prior median sternotomy and CABG. Extensive [place] coronary artery calcifications. Atherosclerosis of the thoracic aorta without aneurysm or dissection. The opacified pulmonary arterial tree is unremarkable. The segmental and subsegmental branches are suboptimally evaluated secondary to contrast bolus timing and respiratory motion artifact. No definite pulmonary emboli are identified. CT CHEST: No thyroid nodule or lymphadenopathy. No pneumothorax, pleural effusion, airspace consolidation or overt pulmonary edema. Centrally calcified subpleural 8 mm nodule within the medial basal segment left lower lobe on image 87 series 4 is stable and likely benign. There are no suspicious pulmonary nodules or masses identified. Stable 5 mm subpleural nodule of the right middle lobe on image 109. Central airways are patent. Distended fluid and debris-filled stomach. Stable 1.7 cm soft tissue attenuating right adrenal gland lesion. Unremarkable soft tissues. No acute fracture identified. Partially imaged stimulator lead of the thoracic spine appears intact. IMPRESSION: 1. Cardiomegaly without pulmonary emboli identified. 2. No pleural effusion, lymphadenopathy or airspace consolidation. ACT 112: Negative or not required by law. The above report was generated using voice recognition software. It may contain grammatical, syntax or spelling errors. Electronically signed by: Singh Smith M.D. 01/09/2023 12:05 PM Chest X-Ray 01/09/23 10:10 XR chest 1V portable HISTORY: 52 years-old Male CP, SOB acute chest pain with shortness of breath COMPARISON: 12/14/2022 TECHNIQUE: AP view of the chest FINDINGS: Cardiomegaly. Prior median sternotomy with coronary arterial stenting. Spinal stimulator leads are noted overlying the cervical and thoracic spine. Right IJ Wwgpuh-a-[id number] catheter is noted with distal tip in the expected location of the pericaval junction. No pneumothorax, pleural effusion, airspace consolidation or overt pulmonary edema. There is unchanged mild right diaphragmatic elevation. Bones appear gross ly intact. IMPRESSION: No acute process. ACT 112: Negative or not required by law. The above report was generated using voice recognition software. It may contain grammatical, syntax or spelling errors. Electronically signed by: Singh Smith M.D. 01/09/2023 10:29 AM Diagnostic Findings Chest CTA 01/09/23 10:10 CT angio chest PE protocol CT DOSE: 919.90 mGy.cm HISTORY: 52 years-old Male with CP, SOB, HX OF PE. Acute shortness of breath in a patient with history of pulmonary emboli TECHNIQUE: Multiple CTA images of the chest were obtained after the intravenous administration of 105 ml Optiray. Coronal and sagittal MIPS were obtained from the axial data set and were submitted for review. All measurements were obtained according to NASCET criteria. A dose lowering technique was utilized adhering to the principles of ALARA. COMPARISON: Chest radiograph of same day, CTA chest 01/06/2022 FINDINGS: CTA: Moderate cardiomegaly. Prior median sternotomy and CABG. Extensive [place] coronary artery calcifications. Atherosclerosis of the thoracic aorta without aneurysm or dissection. The opacified pulmonary arterial tree is unremarkable. The segmental and subsegmental branches are suboptimally evaluated secondary to contrast bolus timing and respiratory motion artifact. No definite pulmonary emboli are identified. CT CHEST: No thyroid nodule or lymphadenopathy. No pneumothorax, pleural effusion, airspace consolidation or overt pulmonary edema. Centrally calcified subpleural 8 mm nodule within the medial basal segment left lower lobe on image 87 series 4 is stable and likely benign. There are no suspicious pulmonary nodules or masses identified. Stable 5 mm subpleural nodule of the right middle lobe on image 109. Central airways are patent. Distended fluid and debris-filled stomach. Stable 1.7 cm soft tissue attenuating right adrenal gland lesion. Unremarkable soft tissues. No acute fracture identified. Partially imaged stimulator lead of the thoracic spine appears intact. IMPRESSION: 1. Cardiomegaly without pulmonary emboli identified. 2. No pleural effusion, lymphadenopathy or airspace consolidation. ACT 112: Negative or not required by law. The above report was generated using voice recognition software. It may contain grammatical, syntax or spelling errors. Electronically signed by: Singh Smith M.D. 01/09/2023 12:05 PM Chest X-Ray 01/09/23 10:10 XR chest 1V portable HISTORY: 52 years-old Male CP, SOB acute chest pain with shortness of breath COMPARISON: 12/14/2022 TECHNIQUE: AP view of the chest FINDINGS: Cardiomegaly. Prior median sternotomy with coronary arterial stenting. Spinal stimulator leads are noted overlying the cervical and thoracic spine. Right IJ [id number]-[id number] catheter is noted with distal tip in the expected location of the pericaval junction. No pneumothorax, pleural effusion, airspace consolidation or overt pulmonary edema. There is unchanged mild right diaphragmatic elevation. Bones appear grossly intact. IMPRESSION: No acute process. ACT 112: Negative or not required by law. The above report was generated using voice recognition software. It may contain grammatical, syntax or spelling errors. Electronically signed by: Singh Smith M.D. 01/09/2023 10:29 AM ECG Additional Comments: Sinus rhythm with 1st degree A-V block Incomplete right bundle branch block Left posterior fascicular block Abnormal ECG When compared with ECG of 14-DEC-2022 11:44, (RBBB and left posterior fascicular block) is now Present Confirmed by Jv Salmeron ([id number]) on 01/09/2023 10:57:57 AM Code Status & VTE Plan Code Status Full code VTE Prophylaxis Plan VTE Prophylaxis will be ordered: Yes PG Care Time/CCT Total # of Minutes Spent Total Time Spent with Patient: Total time spent is greater than 50% in coordination of care (as documented) at patient's floor/unit and/or counseling patient: Coding [place] [address] INT INP/OBS CARE 3/75MIN Patient Type Established History Comprehensive Exam Comprehensive Medical Decision Making High Complexity Diagnoses Chest pain R07.9 Shortness of breath R06.02 Hypertension I10 HFrEF (heart failure with reduced ejection fraction) I50.20 GERD (gastroesophageal reflux disease) K21.9 Type 2 diabetes mellitus E11.9 Hyperlipidemia E78.5 Coronary artery disease I25.10 Coronary Disease-Associated Artery/Lesion type: unspecified vessel or lesion type [place] vs. transplanted heart: [place] heart Severe obstructive sleep apnea G47.33 Pulmonary embolism I26.99 (8) Coronary artery disease Coronary Disease-Associated Artery/Lesion type: unspecified vessel or lesion type [place] vs. transplanted heart: [place] heart
[2023-01-09] MEDS ORDERED: DEXTROSE 50% 50 ML SYRINGE IV PRN (15:59)
[2023-01-09] MEDS ORDERED: CARBOHYDRATES FOR HYPOGLYCEMIA PO PRN (15:59)
[2023-01-09] MEDS ORDERED: GLUCOSE 40% GEL 15 GM TUBE PO PRN (15:59)
[2023-01-09] MEDS ORDERED: GLUCAGON FOR INJ 1 MG VIAL SQ PRN (15:59)
[2023-01-09] MEDS ORDERED: GLUCOSE 10 TAB/TUBE PO PRN (15:59)
[2023-01-09] MEDS ORDERED: GI COCKTAIL ED USE PO ONE (16:27)
[2023-01-09] MEDS ORDERED: ACETAMINOPHEN 325 MG TAB PO PRN (16:31)
[2023-01-09] MEDS ORDERED: TORSEMIDE 10 MG TAB PO STA (16:48)
[2023-01-09] MEDS ORDERED: hydrOXYzine HCl 25 MG TAB PO PRN (17:02)
[2023-01-09] MEDS ORDERED: diazePAM 5 MG TABLET PO PRN (17:02)
[2023-01-09] MEDS: INSULIN ASPART PER UNIT CHARGE SC SCH ×2 (17:59→21:48)
[2023-01-09] MEDS ORDERED: AMITRIPTYLINE HCL 50 MG TAB PO SCH (21:00)
[2023-01-09] MEDS ORDERED: ROSUVASTATIN CALCIUM 20 MG TAB PO SCH (21:00)
[2023-01-09] MEDS ORDERED: DULoxetine HCL 60 MG CAP PO SCH (21:00)
[2023-01-09] MEDS ORDERED: METOPROLOL SUCC 50MG EXT REL TAB PO SCH (21:00)
[2023-01-09] MEDS ORDERED: MIDODRINE HCL 10 MG TAB PO SCH (21:00)
[2023-01-09] MEDS: FAMOTIDINE 20 MG in SYRINGE 3 ML IV SCH (21:48)
[2023-01-09] MEDS: LANTUS PER UNIT CHARGE SQ SCH (21:49)
[2023-01-09] MEDS: MIDODRINE HCL 10 MG TAB PO SCH (22:52)
[2023-01-09] MEDS: APIXABAN 5 MG TABLET PO SCH (23:05)
[2023-01-09] MEDS: VALSARTAN/SACUBITRIL 26/24MG TAB PO SCH (23:05)
[2023-01-09] MEDS ORDERED: ZOLPIDEM TARTRATE 10 MG TAB PO PRN (23:13)
[2023-01-10] MEDS: VASCEPA~ORDER AWAITING ACTION SCH ×3 (01:16→16:14)
[2023-01-10 03:33] LABS: Basophils # (auto) 0.02 K/uL (0-0.2); Basophils % (auto) 0.6 %; Eosinophils # (auto) 0.11 K/uL (0-0.50); Eosinophils % (auto) 3.1 %; Hematocrit (blood only) 32.7 % (42.0-52.0); Hemoglobin 11.3 g/dl (14.0-18.0); Immature Granulocytes # (auto) 0.02 K/uL (0.01-0.20); Immature Granulocytes % (auto) 0.6 %; Lymphocytes # (auto) 0.79 K/uL (1.2-3.4); Lymphocytes % (auto) 22.3 %; Mean Corpuscular Hgb Conc 34.6 g/dL (32.0-36.0); Mean Corpuscular Volume 89.8 fL (80.0-100.0); Mean Platelet Volume 10.5 fL (9.4-12.4); Monocytes % (auto) 19.8 %; Neutrophils % (auto) 53.6 %; Platelet Count 113 K/uL (130-400); RDW Coefficient of Variation 15.4 % (11.5-14.5); RDW Standard Deviation 50.2 fL (36.4-46.3); Red Blood Count 3.64 M/uL (4.70-6.10); White Blood Count 3.54 K/ul (4.8-10.8)
[2023-01-10 03:49] LABS: Calcium 8.9 mg/dl (8.6-10.3); Creatinine Clr Calc Pharmacy 123.4 ml/min; Est GFR (African American) 99.8 ml/min; Est GFR (Non-African American) 86.2 ml/min; Potassium 4.1 mmol/L (3.5-5.1)
[2023-01-10 03:56] LABS: Troponin I High Sensitivity 11.8 pg/ml (0-20)
[2023-01-10 04:00] LABS: Prothrombin Time 10.6 Seconds (9.0-12.0)
[2023-01-10] MEDS ORDERED: PERFLUTREN LIPID MICROSPHERE (DEFINITY) IV ONE (07:20)
--- NOTE | 2023-01-10 07:49 | Hospitalist Progress Note ---
Date of Service January 10, 2023 Assessment & Plan (1) Chest pain: Plan: -Admit to med/tele -The patient is currently afebrile, hemodynamically stable, and stable on RA -At this time the etiology of the patient's chest discomfort is not clear but the differential includes but is not limited to stable angina, ACS, CHF, esophagitis/gastritis, musculoskeletal pain, and anxiety -To this point his cardiac workup has been negative, but he has an extensive cardiac history, [facility] requested admission for further monitoring as it was too late to stress test him at the time of admission, [facility] consulted -Will continue to monitor on tele and trend high sen trops q6h overnight -The patient states that he has had an approximately 10 lb weight gain over the past week, has also been eating a more liberal diet to try and keep his weight stable with his cancer treatment. He feels as though he is retaining more fluid in his abdomen. -His symptoms sound more like GERD/reflux at this time, will try a GI cocktail and continue famotidine 20 mg IV BID for now and will see how he responds -Will obtain repeat TTE tomorrow, will add on BNP now -Monitor intake/output q shift and daily weights -The patient did not have his am torsemide, will give him 20 mg PO torsemide on admission then continue home dose of 10 mg PO daily -BL SCD's and Eliquis for DVT PPX 01/10 --> No further CP reported, but did have fall this morning RN to check orthostatic VS CT head w/o NOW given fall on eliquis/plavix, but answeing questions appropriately at present,mild=mod headache (2) Shortness of breath: Plan: -Stable on RA -Ches xray and CTA of the chest with PE protocol was negative for acute findings -May be due to increased abdominal fluid causing decreased thoracic expansion, the patient also has a history of severe JOY on HS CPAP -Will continue with incentive spirometry, monitor for improvement with diuresis -Follow up TTE tomorrow (3) Hypertension: Plan: -Currently stable -BP typically runs soft, does take BID midodrine -Continue Midodrine on top of metoprolol, and Imdur (4) HFrEF (heart failure with reduced ejection fraction): Plan: -Abdomen is somewhat distended but is otherwise euvolemic on exam -Patient states he typically gains water weight in his abdomen and feels as though it is full, also has a recent 10lb weight gain -Continue with 20 mg PO torsemide now with 10 mg PO daily starting tomorrow -Follow up TTE and will FU on admission BNP (5) GERD (gastroesophageal reflux disease): Plan: -Hold any protonix at this time due to possible interactions with his chemotherapy -Will do a trial of GI cocktail and BID IV famotidine for now, monitor for improvement of symptoms (6) Type 2 diabetes mellitus: Plan: -Hold metformin -Monitor BSG ACHS, goal is 110-140 -Typical basal insulin is 60 units Glargine BID, will decrease to 30 units BID for now -CF of 50 with CR of 15 -Adjust regimen as needed -DMII and Heart healthy diet (7) Hyperlipidemia: Plan: -Continue statin and Zetia (8) Coronary artery disease: Plan: -Continue metoprolol, Eliquis, and plavix (9) Severe obstructive sleep apnea: Plan: -HS CPAP ordered (10) Pulmonary embolism: Plan: -Chronic -Continue Eliquis Plan The patient was discussed with Dr. Polo at the time of the admission Admission and Anticipated Discharge Date Admission Date: January 09, 2023 Subjective Eval this morning, was seen by cards just prior (Joshua). Reports having ordered 3 spicy things when he got here w/ recurrence and thinking more reflux related. He notes he had recently been switched from pantoprazole to Pepcid given interactions w/ his chemo. Follows w/ Dr Villalobos and was supposed to get chemo yesterday but postponed until Sunday. Not having any chest pain at present, but did just have fall in bathroom. Reports was washing up and must have dropped some water on the floor and when standing he started falling and faceplate on the ground. Did have mild nose bleed, not bleeding at present. Has mild-moderate headache at present. Discussed CT head for eval. Tylenol for headache. Results & Data Results & Data Vital Signs (Past 12 Hours) Vital Signs Temp Pulse Pulse Resp BP BP Pulse Ox 01/10/23 07:41 70 01/10/23 03:54 36.3 C L 66 18 101/66 97 01/09/23 22:25 71 01/09/23 20:15 72 01/09/23 23:00 36.4 C L 77 16 95/53 L 98 01/09/23 23:02 36.4 C L 74 20 116/69 96 O2 Del Method 01/10/23 07:41 01/10/23 03:54 Room Air 01/09/23 22:25 01/09/23 20:15 01/09/23 23:00 Room Air 01/09/23 23:02 Room Air PG Care Time/CCT Total # of Minutes Spent Total Time Spent with Patient: Total time spent is greater than 50% in coordination of care (as documented) at patient's floor/unit and/or counseling patient: Coding Diagnoses Chest pain R07.9 Shortness of breath R06.02 Hypertension I10 HFrEF (heart failure with reduced ejection fraction) I50.20 GERD (gastroesophageal reflux disease) K21.9 Type 2 diabetes mellitus E11.9 Hyperlipidemia E78.5 Coronary artery disease I25.10 Coronary Disease-Associated Artery/Lesion type: unspecified vessel or lesion type [place] vs. transplanted heart: [place] heart Severe obstructive sleep apnea G47.33 Pulmonary embolism I26.99 (8) Coronary artery disease Coronary Disease-Associated Artery/Lesion type: unspecified vessel or lesion type [place] vs. transplanted heart: [place] heart
[2023-01-10] MEDS ORDERED: TORSEMIDE 10 MG TAB PO SCH (09:00)
[2023-01-10] MEDS ORDERED: EZETIMIBE 10 MG TABLET PO SCH (09:00)
[2023-01-10] MEDS ORDERED: CLOPIDOGREL BISULFATE 75 MG TAB PO SCH (09:00)
[2023-01-10] MEDS: FAMOTIDINE 20 MG in SYRINGE 3 ML IV SCH (09:00)
[2023-01-10] MEDS: MIDODRINE HCL 10 MG TAB PO SCH ×2 (09:50→18:41)
[2023-01-10] MEDS: INSULIN ASPART PER UNIT CHARGE SC SCH ×3 (09:51→18:42)
[2023-01-10] MEDS: LANTUS PER UNIT CHARGE SQ SCH (09:51)
[2023-01-10] MEDS ORDERED: ACETAMINOPHEN 500 MG TAB PO PRN (09:54)
--- NOTE | 2023-01-10 09:57 | Cardiology Consultation ---
Date of Consultation January 10, 2023 Assessment & Plan (1) Chest pain at rest: (2) Fall (on)(from) incline, initial encounter: (3) ASCVD (arteriosclerotic cardiovascular disease): (4) S/P CABG (coronary artery bypass graft): Plan Complex 52 year old male with history of premature multivessel coronary artery disease status post CABG in 2009 as detailed below. Patient admitted for evaluation of resting chest discomfort aggravated by spicy foods, relieved by over the counter antacids, occurring after replacing pantoprazole with famotidine. EKG without acute change. High sensitivity troponin negative x 4. Chest x-ray without acute process. CT negative for PE. Examination without overt hypervolemia. Continuous telemetry monitoring without arrhythmia. Options of management discussed. Resting echocardiography pending, along with evaluation by Dr. Vergara. CT of the head pending post fall, without preceding near syncope or associated loss of consciousness. Further recommendations to come. Supervising Physician Co-Signing Physician Notes 52-year-old male admitted secondary to chest discomfort with atypical features. Currently pain-free. This morning he slipped in the bathroom and struck his head. No calvarium fracture or subdural hematoma. Currently requesting discharge if possible. present at bedside. PE: VSS. Gen: NAD, AAO x3. Heart: Regular rhythm, normal S1-S2. No murmur. Lungs: Clear bilateral, no rales, rhonchi, wheeze. Extremities: No edema. A/P: Agree with above PA-C history, physical exam, assessment and plan. Patient admitted with chest discomfort and negative cardiac enzymes x4. The fifth high- sensitivity troponin is elevated although patient currently pain-free and suffered a mechanical fall with head injury. Repeat troponin pending. Bedside 2D transthoracic echocardiogram demonstrates stable ischemic heart disease with an anterior apical scar and preserved, low normal LV systolic function. Symptoms are atypical suspected GI etiology. Discussed further evaluation with pharmacologic stress testing, however, patient declines at this time. Repeat high-sensitivity troponin within normal limits. Patient denies exertional anginal symptoms. I will schedule him for outpatient cardiology follow-up. No further inpatient cardiology testing at this time. History of Present Illness Reason for Consultation: Chest pain Requesting Physician: Norris Attending Physician: Bryon History of Present Illness Mr. Americo Forman "Nghia" is a 52 male who is being seen today in cardiology consultation, evaluation of chest comfort. Patient notes chest discomfort intermittently over the last few days. Patient notes "with all my heart incidences, I've only been right once." Patient describes mild substernal chest pain that was aggravated by "three different spicy foods yesterday." Notes taking two bites and experiencing chest pain. Notes taking OTC antacids with immediate benefit. On one occasion the discomfort was associated with nausea and emesis. Patient notes that with initiation of chemotherapy pantoprazole was discontinued and he was prescribed Pepcid which does not work nearly as well. EKG on presentation was without acute change. High sensitivity troponin negative x 4. Continuous telemetry monitoring has demonstrated normal sinus rhythm in the 70's. Resting echocardiography is pending. Patient notes a fall in the bathroom just prior to my arrival. He notes cleaning up at the sink first. After using the commode, while attempting to stand up off the toilet, he slipped on the wet floor, feet backwards, falling face forward. Notes hitting his nose and forehead. + Right sided epistaxis. The event was not witnessed. He recalls the entire event. He denies loss of consciousness/syncope. He has a mild headache. No visual changes/disturbances. No unilateral weakness or changes. He is on clopidogrel and Apixiban. CT scan of the head has been requested. Problem List: Premature ASCVD. Presentation with unstable angina in 2009, evaluation revealing multivesselcoronary artery disease Status post 12/07/2009 off-pump coronary artery bypass grafting x5, age 39, receiving a left internal mammary artery to left anterior descending, aorta to posterior descending artery, aorta to diagonal, obtuse marginal 1, obtuse marginal. Postoperative complications included anemia, brachial plexus damage Status post PCI on 02/07/2021 at [facility] [place], successful PCI of the SVG - D1-OM-1-OM 2 with placement of two drug eluting stents in the body of the graft, with excellent results. The jump portion of the graft (OM1-OM2 was chronically occluded). The proximal to mid RCA was diffusely diseased. The mid to distal RCA was 100 % occluded with L-R collaterals The SVG-RCA was known to be occluded The VALENZUELA-LAD was patent. The LM-LCX was patent. LVEDP 47-51 mmm HG Ischemic cardiomyopathy, NYHA Class II, EF 45% (March 2022) Presentation in July 2022 with weight loss, diarrhea, and blood with bowel movements with colonoscopy on 08/11/22 revealing a large rectal mass, pathology yielded adenocarcinoma, status post radiation, currently receiving chemotherapy under the direction of Dr. Villalobos. CT on 08/21/2022 for cancer staging purposes, with no evidence of metastatic disease in the chest, revealing bilateral segmental and subsegmental pulmonary emboli without suggestion of right heart strain. Hypertension Dyslipidemia Fatthy liver Diabetes mellitus CKD Allergies Allergy/AdvReac Type Severity Reaction Status Date / Time No Known Allergies Allergy Verified 01/09/23 15:54 Home Medications Medication Instructions Recorded Confirmed Type clopidogrel 75 mg tablet 75 mg PO QAM 01/28/19 01/09/23 History rosuvastatin 40 mg tablet 40 mg PO HS 01/28/19 01/09/23 History zolpidem 10 mg tablet 10 mg PO HS 01/28/19 01/09/23 History insulin aspart U-100 100 unit/mL 25 unit subcut TIDM 02/04/19 01/09/23 History subcutaneous solution (Novolog U-100 Insulin aspart) nitroglycerin 0.4 mg sublingual 0.4 mg sublingual DIRECTED PRN 02/24/19 01/09/23 History tablet Chest Pain nitroglycerin 0.4 mg/hr 1 patch topical DIRECTED 08/02/20 01/09/23 History transdermal 24 hour patch icosapent ethyl 1 gram capsule 2 g PO BID 05/18/21 01/09/23 History (Vascepa) amitriptyline 25 mg tablet 50 mg PO HS #60 tabs 08/30/21 01/09/23 Rx metoprolol succinate 50 mg 50 mg PO QPM 08/30/21 01/09/23 History tablet,extended release 24 hr sacubitril 24 mg-valsartan 26 mg 1 tab PO BID 08/30/21 01/09/23 History tablet (Entresto) alpha lipoic acid 600 mg capsule 1,200 mg PO QAM 12/27/21 01/09/23 History midodrine 10 mg tablet 20 mg PO AMHS 12/27/21 01/09/23 History cyanocobalamin (vitamin B-12) 1,000 mcg PO DAILY #90 caps 01/06/22 01/09/23 Rx 1,000 mcg capsule acetaminophen 500 mg tablet 500 mg PO Q4H PRN PAIN/FEVER 08/09/22 01/09/23 History (Tylenol Extra Strength) diazepam 5 mg tablet 5 mg PO BID PRN Anxiety 08/09/22 01/09/23 History ezetimibe 10 mg tablet (Zetia) 10 mg PO DAILY 08/09/22 01/09/23 History hydroxyzine pamoate 25 mg capsule 25 mg PO HS PRN Anxiety 08/09/22 01/09/23 History insulin glargine 100 unit/mL (3 60 unit subcut BID 08/09/22 01/09/23 History mL) subcutaneous pen (Basaglar KwikPen U-100 Insulin) metformin 500 mg tablet,extended 1,000 mg PO QAM 08/09/22 01/09/23 History release 24 hr tapentadol 100 mg tablet (Nucynta) 100 mg PO Q6H PRN Pain 08/09/22 01/09/23 History apixaban 5 mg tablet (Eliquis) 5 mg PO BID #60 tabs 08/26/22 01/09/23 Rx ondansetron HCl 8 mg tablet 8 mg PO Q8H 10/02/22 01/09/23 History torsemide 10 mg tablet 10 mg PO QAM 10/02/22 01/09/23 History duloxetine 60 mg capsule,delayed 60 mg PO HS #90 caps 12/28/22 01/09/23 Rx release empagliflozin 25 mg tablet 25 mg PO DAILY 01/09/23 01/09/23 History (Jardiance) midodrine 10 mg tablet 20 mg PO DAILY PRN .. 01/09/23 01/09/23 History prochlorperazine maleate 10 mg 0 mg PO Q6H PRN Nausea 01/09/23 01/09/23 History tablet (Compazine) torsemide 10 mg tablet 10 mg PO DIRECTED PRN fluid 01/09/23 01/09/23 History build up pantoprazole 40 mg tablet,delayed 40 mg PO QAM #30 tabs 01/10/23 Rx release Patient History Medical History Acute respiratory failure with hypoxia and hypercapnia Brachial plexopathy Right CHI (closed head injury) entered into EMR 07/2020 CKD (chronic kidney disease) stage 3, GFR 30-59 ml/min Confusion and disorientation Coronary artery disease h/o CABG x 5, NSTEMI 2020, s/p 6 stents Difficult airway for intubation was told it was hard to intubate him for carpal tunnel surgery in 1999 at [facility] HFrEF (heart failure with reduced ejection fraction) EF 45-49%, Grade II diastolic dysfunction History of blood transfusion 1979 History of COVID-19 x2--diagnosed 06/25/22--sore throat, chills,via HOME TEST ONLY- resolved diagnosed 05/2021--had sinus congestion, headache, productive cough--pt s tates he received monoclonal antibodies History of Salmonella gastroenteritis Hx of renal calculi Hyperlipidemia Hypertension Ischemic cardiomyopathy Ischemic cardiomyopathy Morbid obesity with BMI of 40.0-44.9, adult Neuropathic pain Nocturnal hypoxemia NSTEMI (non-ST elevated myocardial infarction) NSTEMI at [facility] [place] s/p PCI of the DGU-Z4-PO6-OM2 with HARSHA x 2 and HARSHA x1 to pRCA on 02/07/21; Recurrent HF related to LVEDP 30-34% Obesity On anticoagulant therapy plavix daily/aspirin 162mg daily Peripheral neuropathy Pulmonary embolism recent diagnosis- being treated w/ eliquis Rectal cancer Rectosigmoid cancer adenocarcinoma, 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 Seizure AGE 10 S/P ACCIDENT-WAS ON MEDS COUPLE YRS-OFF MEDS AND NO SEIZURES 30+ YRS Severe obstructive sleep apnea cpap with 4L of oxygen at hs Type 2 diabetes mellitus IDDM Surgical History History of appendectomy History of arthroscopic knee surgery 1986, LEFT History of cardiac cath MULTIPLE-last 02/10/21 @ [facility] [place]--per pt 2 stents placed 12/2018?-NO STENTS NEEDED LAST STENT PLACED 10/2017 [facility] [place] History of carpal tunnel release of both wrists History of coronary artery bypass graft 5 VESSELS History of tonsillectomy and adenoidectomy History of vasectomy Hx of colonoscopy Hx of heart artery stent X6-LAST ONE 01/2021 [facility] [place] Status post insertion of spinal cord stimulator [employer] Family History Grandfather (Maternal) Family history of diabetes mellitus Mother Family history of diabetes mellitus Stroke Uncle Obstructive sleep apnea Grandmother (Maternal) Stroke Family history of reaction to anesthesia "lost some cognitive ability after heart surgery" Father Coronary heart disease Social History Smoking Status: Never smoker Second Hand Exposure: No; Hx Alcohol Use: No Hx Substance Use: Yes Last Used Substance: Unknown Last Used Substance Other:: Last used April 2022- not currebtly using Substance Use Type Other:: medical marijuana for sleep Preferred Language: [place] Communication Ability: Effective Visual Impairment: No Limitations Hearing Ability: Normal Insole Lip Turner Required: No Beliefs That Will Affect Care: None marital status: Current Living Situation: Family Current Living Situation Comment: Single family home with and kids current occupational status: unemployed current occupation: retired/disable How many Children do You have: 3 Feels Safe at Home: Yes Childhood Exposure to Second-Hand Smoke: Yes during the past year weight has: other Do you think of yourself as: straight/heterosexual Gender Identity: Male Assistive Devices: CPAP and Oxygen - at Night Review of Systems Review of Systems: No palpitations. + SOB/HANNON. + Weight gain. + Recent travel. Chronic hypotension/orthostasis. No peripheral edema. No current fevers or chills. History of Covid in 05/2021. Negative Covid testing prior to presentation. No melena, hematochezia, or hematuria. Complete Review of Systems is as stated above, negative, or noncontributory. Physical Exam Physical Exam: General: A&Ox3. NAD. HENT: + Forehead excoriation/bruise. + Right sided epistaxis. PER. Conjunctiva pink, sclera clear. Neck: No carotid bruits. No JVD. Heart: RRR, 72 bpm. No murmur. Lungs: Diminished. Clear to auscultation. No wheeze. Abdomen: +BS. Soft. Nontender. No masses or organomegaly. Extremities: No clubbing, cyanosis, or edema. Limited neurological examination is without focal deficits. Results & Data Vital Signs (Past 12 Hours) Vital Signs Temp Pulse Pulse Pulse Resp BP BP 01/10/23 07:50 36.6 C 68 14 120/80 01/10/23 07:41 70 01/10/23 03:54 36.3 C L 66 18 101/66 01/09/23 22:25 71 01/09/23 23:00 36.4 C L 77 16 95/53 L 01/09/23 23:02 36.4 C L 74 20 116/69 Pulse Ox O2 Del Method 01/10/23 07:50 96 Room Air 01/10/23 07:41 01/10/23 03:54 97 Room Air 01/09/23 22:25 01/09/23 23:00 98 Room Air 01/09/23 23:02 96 Room Air Laboratory Results Cardiac Enzymes 01/09/23 01/09/23 01/09/23 Range/Units 10:10 12:54 17:12 AST 18 (13-39) U/L Troponin I High Sens 9.6 9.5 (0-20) pg/ml B-Natriuretic Peptide 242 H (0-100) pg/ml 01/09/23 01/10/23 Range/Units 20:03 03:08 AST (13-39) U/L Troponin I High Sens 11.0 11.8 (0-20) pg/ml B-Natriuretic Peptide (0-100) pg/ml Coagulation 01/09/23 01/09/23 01/10/23 Range/Units 10:10 17:12 03:08 PT 10.8 10.6 (9.0-12.0) Seconds APTT 22.2 (21.0-31.0) Seconds B-Natriuretic Peptide 242 H (0-100) pg/ml CBC 01/09/23 01/10/23 Range/Units 10:10 03:08 WBC 8.06 3.54 L (4.8-10.8) K/ul RBC 3.74 L 3.64 L (4.70-6.10) M/uL Hgb 11.3 L 11.3 L (14.0-18.0) g/dl Hct 34.9 L 32.7 L (42.0-52.0) % Plt Count 129 L 113 L (130-400) K/uL Neut # (Auto) 6.71 H 1.90 (1.40-6.50) K/uL Lymph # (Auto) 0.61 L 0.79 L (1.2-3.4) K/uL [place] # (Auto) 0.66 H 0.70 H (0.11-0.59) K/uL Eos # (Auto) 0.02 0.11 (0-0.50) K/uL Baso # (Auto) 0.02 0.02 (0-0.2) K/uL Comprehensive Metabolic Panel 01/09/23 01/10/23 01/10/23 Range/Units 10:10 03:08 03:08 Sodium 132 L 135 L Cancelled (136-145) mmol/L Potassium 5.0 4.1 Cancelled (3.5-5.1) mmol/L Chloride 103 102 Cancelled (98-107) mmol/L Carbon Dioxide 24 27 Cancelled (21-32) mmol/L BUN 22 19 Cancelled (6-23) mg/dl Creatinine 1.09 1.00 Cancelled (0.6-1.4) mg/dl Glucose 345 H* 184 H Cancelled (70-99(Fasting)) mg/dl Calcium 9.1 8.9 Cancelled (8.6-10.3) mg/dl AST 18 (13-39) U/L ALT 19 (7-52) U/L Alkaline Phosphatase 50 (34-104) U/L Total Protein 6.6 (6.0-8.3) gm/dl Albumin 3.8 (3.4-5.0) gm/dl Intake and Output 01/09/23 01/10/23 01/10/23 22:59 06:59 14:59 Intake Total 550 / 1550 Output Total Balance -1548 550 / 1549 Intake: Oral 550 / 550 Output: # Bowel Movements Other: # Unmeasured Voids 1 Weight 136 kg Weight Measurement Method Standing Scale
[2023-01-10] MEDS: VALSARTAN/SACUBITRIL 26/24MG TAB PO SCH (10:00)
--- NOTE | 2023-01-10 10:40 | CT Scan Report ---
CT head/brain wo con CLINICAL HISTORY: 52 years-old Male with fall, head trauma. Acute head trauma status post fall TECHNIQUE: Multiple axial CT images of the head were obtained without contrast. A dose lowering tech nique was utilized adhering to the principles of ALARA. CT DOSE: 537.48 mGy.cm COMPARISON: 12/14/2022 FINDINGS: No acute intracranial hemorrhage, midline shift, intracranial mass, hydrocephalus, territorial ischem ia or abnormal extra-axial collection. Involutional changes with white matter hypodensities suggestiv e of chronic microvascular ischemic disease. Chronic left frontal lobe mendoza radiata lacunar infarct . The calvarium is intact. The paranasal sinuses, mastoid air cells, and middle ear cavities are clear . IMPRESSION: No acute intracranial abnormality or calvarial fracture. ACT 112: Negative or not required by law. The above report was generated using voice recognition software. It may contain grammatical, syntax o r spelling errors. Electronically signed by: Singh Smith M.D. 01/10/2023 10:39 AM
[2023-01-10 11:05] LABS: Lyme Ab IgG w/WB Rflx Negative (Negative); Lyme Ab IgM w/WB Rflx Negative (Negative)
--- NOTE | 2023-01-10 13:24 | Electrocardiogram Report ---
Test Reason : Blood Pressure : / mmHG Vent. Rate : 068 BPM Atrial Rate : 068 BPM P-R Int : 226 ms QRS Dur : 100 ms QT Int : 412 ms P-R-T Axes : 067 137 070 degrees QTc Int : 438 ms Sinus rhythm with 1st degree A-V block Right axis deviation Possible Right ventricular hypertrophy Nonspecific ST abnormality Abnormal ECG When compared with ECG of 09-JAN-2023 09:49, (RBBB and left posterior fascicular block) is no longer Present Confirmed by Jv Salmeron ([id number]) on 01/10/2023 1:24:31 PM Referred By: REFERRED SELF Confirmed By:Christiano Salmeron
[2023-01-10] MEDS: APIXABAN 5 MG TABLET PO SCH (14:41)
--- NOTE | 2023-01-10 15:48 | Discharge Summary ---
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 In the ED the patient was found to be afebrile, hypotensive at 89/55 (this is apparently close to his baseline), and stable on RA. Labs were significant for a stable Hgb of 11.3, platelet count of 129, lymphocyte count of 0.61, stable Cr at 1.09, corrected sodium of 136, glucose of 345, 2 negative high sensitivity troponins, and covid 19 negative. Chest xray was read as No acute process.. CTA of the chest with PE protocol was read as 1. Cardiomegaly without pulmonary emboli identified. 2. No pleural effusion, lymphadenopathy or airspace consolidation.. The patient was initially given 8 mg IV morphine, 1L NSS, 8 mg IV Zofran. At the time of the exam the patient was sitting in bed in no acute distress. He states that he has baseline angina with is extensive cardiac history, this is usually resolved with his sublingual nitroglycerine. Approximately 4 days ago he started to develop increased SOB and substernal/epigastric discomfort. This discomfort has been intermittent and is difficult for the patient to describe. The chest discomfort does not radiate anywhere, but he has had atypical symptoms with his previous CA's in the past. Over the weekend the patient was in [place] for work and was not eating his typical diet. He was eating lots of seafood. He states that he has been eating a more liberal diet with his cancer to try and keep his weight stable. He feels as though he has gained approximately 10 lbs over the past week. With his CHF he typically gains fluid in his abdomen, not in his lower extremities. When asked, he denies using a lot of butter with his seafood but does state that he frequently eats chocolate and spicy food. He had to be switched from pantoprazole to famotidine with his previous chemotherapy as there were interactions. At approximately 0400 this am he woke and his substernal chest discomfort was worse, he also experienced nausea and non-bloody emesis; which he experienced with previous CA's in the past. His symptoms were improved with nitroglycerine and zofran. Prior to my exam he received additional morphine and a dose of IV famotidine, he states that he is currently without chest discomfort. He denies recent fevrer, chills, cough abd pain, dysuria, hematuria, melena, bloody BM's, LE swelling and recent trauma. Please refer to Dr. Polo's attestation for any changes to the treatment plan Admission Exam Per Admitting Provider Physical Exam: Physical Exam: General:In no acute distress, stated age, well-nourished, good hygiene HEENT:Normocephalic, atraumatic, no scleral icterus, pupils around round, symmetrical, and reactive to light, dry mucus membranes, trachea midline, no thyromegaly Chest/Pulm:Mediport is in place in the right upper chest without signs of infection, no reproducible chest pain on palpation,No respiratory distress, symmetrical chest expansion, clear breath sounds throughout Cardiac:RRR, no murmurs noted Abdomen:Negative for ascites and bruising, normoactive bowel sounds, soft, minimal tenderness to plaption over the epigastric region, no rebound tenderness Musculoskeletal:Symmetrical and without signs of acute trauma, upper and lower extremities with full ROM, no atrophy, spasticity, or flaccidity Extremities:Radial, dorsalis pedis, and posterior tibial pulses are intact and symmetrical, no edema noted in the BL LE's Skin:Warm, dry, no rashes , lesions, or scars noted Neuro:Alert and oriented to person, place, month, year, and president, no focal defects, CN II-XII tested and intact, finger to nose test negative, no tremors noted Psych:No acute distress, calm and cooperative during the exam Principal Diagnosis Chest Pain, Reflux Discharge Exam General: WD/WN obese male sitting up in bed, NAD, at present HEENT: small hematoma/bruising to frontal left forehead, dried blood to nares, trachea midline, no deviation Chest: port in place, dressing c/d/i, no evidence for infection/erythema Resp: CTA, no w/c, on room air CV: RRR, no significant m/r/g, no pitting edema/calf tenderness GI: +BS, soft/NT : no fernandez MSK/Neuro: follows commands, no focal deficits, no slurred speech/facial droop, alternating movements intact, EOMI, pupils equal and reactive Psych: AOx3, cooperative, wanting to go home Discharge Data Allergies Allergy/AdvReac Type Severity Reaction Status Date / Time No Known Allergies Allergy Verified 01/09/23 15:54 Consultations 01/09/23 15:52 ED Decision to Admit Stat 01/09/23 16:55 Consult Cardiology Routine Ordered Studies Chest CTA 01/09/23 10:10 CT angio chest PE protocol CT DOSE: 919.90 mGy.cm HISTORY: 52 years-old Male with CP, SOB, HX OF PE. Acute shortness of breath in a patient with history of pulmonary emboli TECHNIQUE: Multiple CTA images of the chest were obtained after the intravenous administration of 105 ml Optiray. Coronal and sagittal MIPS were obtained from the axial data set and were submitted for review. All measurements were obtained according to NASCET criteria. A dose lowering technique was utilized adhering to the principles of ALARA. COMPARISON: Chest radiograph of same day, CTA chest 01/06/2022 FINDINGS: CTA: Moderate cardiomegaly. Prior median sternotomy and CABG. Extensive [place] coronary artery calcifications. Atherosclerosis of the thoracic aorta without aneurysm or dissection. The opacified pulmonary arterial tree is unremarkable. The segmental and subsegmental branches are suboptimally evaluated secondary to contrast bolus timing and respiratory motion artifact. No definite pulmonary emboli are identified. CT CHEST: No thyroid nodule or lymphadenopathy. No pneumothorax, pleural effusion, airspace consolidation or overt pulmonary edema. Centrally calcified subpleural 8 mm nodule within the medial basal segment left lower lobe on image 87 series 4 is stable and likely benign. There are no suspicious pulmonary nodules or masses identified. Stable 5 mm subpleural nodule of the right middle lobe on image 109. Central airways are patent. Distended fluid and debris-filled stomach. Stable 1.7 cm soft tissue attenuating right adrenal gland lesion. Unremarkable soft tissues. No acute fracture identified. Partially imaged stimulator lead of the thoracic spine appears intact. IMPRESSION: 1. Cardiomegaly without pulmonary emboli identified. 2. No pleural effusion, lymphadenopathy or airspace consolidation. ACT 112: Negative or not required by law. The above report was generated using voice recognition software. It may contain grammatical, syntax or spelling errors. Electronically signed by: Singh Smith M.D. 01/09/2023 12:05 PM Chest X-Ray 01/09/23 10:10 XR chest 1V portable HISTORY: 52 years-old Male CP, SOB acute chest pain with shortness of breath COMPARISON: 12/14/2022 TECHNIQUE: AP view of the chest FINDINGS: Cardiomegaly. Prior median sternotomy with coronary arterial stenting. Spinal stimulator leads are noted overlying the cervical and thoracic spine. Right IJ Vvtzkp-z-Htcd catheter is noted with distal tip in the expected location of the pericaval junction. No pneumothorax, pleural effusion, airspace consolidation or overt pulmonary edema. There is unchanged mild right diaphragmatic elevation. Bones appear grossly intact. IMPRESSION: No acute process. ACT 112: Negative or not required by law. The above report was generated using voice recognition software. It may contain grammatical, syntax or spelling errors. Electronically signed by: Singh Smith M.D. 01/09/2023 10:29 AM ECHOCARDIOGRAM The study technically limited. Compared to prior study, no significant change. EF 50-55%. Mild cLVH in segments with normal wall motion. There is small sized anteroseptal wall motion abnormality with hypokinesis to akinesis of segments. Left atrium is mildly dilated. Diastolic dysfunction Grade II. No significant valvular pathology Head CT 01/10/23 09:31 CT head/brain wo con CLINICAL HISTORY: 52 years-old Male with fall, head trauma. Acute head trauma status post fall TECHNIQUE: Multiple axial CT images of the head were obtained without contrast. A dose lowering technique was utilized adhering to the principles of ALARA. CT DOSE: 537.48 mGy.cm COMPARISON: 12/14/2022 FINDINGS: No acute intracranial hemorrhage, midline shift, intracranial mass, hydrocephalus, territorial ischemia or abnormal extra-axial collection. Involutional changes with white matter hypodensities suggestive of chronic microvascular ischemic disease. Chronic left frontal lobe mendoza radiata lacunar infarct. The calvarium is intact. The paranasal sinuses, mastoid air cells, and middle ear cavities are clear. IMPRESSION: No acute intracranial abnormality or calvarial fracture. ACT 112: Negative or not required by law. The above report was generated using voice recognition software. It may contain grammatical, syntax or spelling errors. Electronically signed by: Singh Smith M.D. 01/10/2023 10:39 AM Hospital Course (1) Chest pain: Admitted to telemetry, NSR on monitor in the 70s. Trop negative x 4, but repeat as not trneding down added to AM labs and elevated to 79.8 but repeat down to 15. No CP at that time. Discussed w/ Dr Vergara -- ECHO essentially unchanged. * Compared to prior study, no significant change. EF 50-55%. Mild cLVH in segments with normal wall motion. There is small sized anteroseptal wall motion abnormality with hypokinesis to akinesis of segments. Left atrium is mildly dilated. Diastolic dysfunction Grade II. No significant valvular pathology Patient was offered stress testing but declined at present. Given GI cocktail and continued famotidine 20mg IV BID given improvement but he does note he ordered several spicy items once admitted and exacerbated his symptoms, and notes increased discomfort/reflux like symptoms since switching from protonix to pepcid by his heme/onc Dr Villalobos given interactions with chemotherapy. --> I discussed w/ Dr Villalobos and that was when patient on Xeloda, and now that no longer on such, can resume protonix daily for his symptom control Will need to have outpt f/u [facility] Cards/consideration for stress testing if ongoing issues w/ switch from pepcid to protonix Discussed with patient/, they were concerned about the elevated troponin level this morning, despite normalized value on repeat. Repeating level prior to dc but if not significantly elevated and given remains CP free (16.7), will plan for dc (2) Shortness of breath: Reported on admission, ?related to chemo vs gastritis/reflux. CXR/CTA for PE NEGATIVE for acute findings ?increased abdominal fluid -- given torsemide on admit, continue usual dosing. Snoring loudly on exam -- per hx JOY on CPAP w/ O2 supplementation -- to continue/encourage compliance at d/c No increased SOB reported w/ acid therapy as above Continue low salt diet/monitoring weight outpatient and f/u [facility] cards (3) Hypertension: Stable, runs soft at baseline and takes midodrine BID Continued, as well as his metoprolol/imdur (4) HFrEF (heart failure with reduced ejection fraction): Abdomen is somewhat distended but is otherwise euvolemic on exam on admission BNP minimally elevated 242 Given 20mg torsemide on admission and continued 10mg daily. ECHO as above -- To use 10mg daily at home for fluid build up/weight gain outpt f/u [facility] for further ischemic work up as willing (declined when seen by Dr Vergara inpatient) (5) GERD (gastroesophageal reflux disease): Held any protonix at this time due to possible interactions with his chemotherapy on admission, but as above/discussed w/ Dr Villalobos from heme/onc, ok to resume his protonix daily now that no longer on Xeloda Was given GI cocktail and IV famotidine w/ relief but does note improved relief w/ PPI therapy -- rx for once daily at d/c and f/u outpatient (6) Type 2 diabetes mellitus: Held metformin while inpatient, placed on sliding scale BSGs acceptable and home regimen resumed at [facility] (7) Hyperlipidemia: Continued statin and Zetia (8) Coronary artery disease: Continued metoprolol, Eliquis, and plavix (9) Severe obstructive sleep apnea: HS CPAP w/ O2 -- compliance recommended (10) Pulmonary embolism: -Hx of such, remains on eliquis (11) Fall: AM /19 when getting cleaned up in bathroom -- reported dropping some water on ground and slipping on standing up. 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 During your stay at [facility], we have made an effort to correct the problem that brought you to the hospital while keeping you as comfortable as possible. Medications were used to bring your condition under control and your discharge instructions will include directions for any medications you should take after leaving the hospital. Please make sure you see your Primary Care Provider as part of your follow up plan. Activity: Resume your previous activity Non-emergency contact: Primary Care Provider and Traffic Coordinator Call non-emergency contact if: you have any medication questions, your symptoms worsen and your pain is concerning for you Follow-up/Referrals: Clare Johnson DO [Primary Care Provider] - Daniel Vergara DO [Traffic Coordinator] - Diet: Heart Healthy Addtl Attending Provider Instructions: You have been hospitalized for chest pain. Cardiology was consulted and you underwent imaging for ultrasound of the heart with echocardiogram. This was reviewed by Dr Vergara and felt to be stable and can consider stress testing outpatient if you decide to agree to further work-up with this. I have discussed your protonix use with Dr Villalobos given the switch from protonix to pepcid and what appears to be increased reflux/gastritis type symptoms, and he stated that as you are no longer on Xeloda, we can resume the protonix daily and hopefully this will help with symptoms. You did have a fall while in the hospital. Ct head was obtained, and negative. However, please monitor for any symptoms of concussion and follow up with your primary care provider this upcoming week to monitor your status after discharge from the hospital. Please return to the ER with any worsening chest pain, shortness of breath, bleeding, confusion , or for any other symptoms concerning for you. It was a pleasure being a part of the medical team providing for you while you have been in the hospital. Take care! Pending Studies at Discharge: No Stand-Alone Forms: My [facility] [place], Smoking Cessation Medications and DC Order Prescriptions: New pantoprazole 40 mg Tablet,Delayed Release (Dr/Ec) 40 mg PO QAM Qty: 30 0RF Continued alpha lipoic acid 600 mg capsule 1,200 mg PO QAM midodrine 10 mg tablet 20 mg PO AMHS ondansetron HCl 8 mg tablet 8 mg PO Q8H amitriptyline 25 mg tablet 50 mg PO HS Qty: 60 5RF duloxetine 60 mg capsule,delayed release(DR/EC) 60 mg PO HS Qty: 90 1RF icosapent ethyl [Vascepa] 1 gram capsule 2 g PO BID metoprolol succinate 50 mg tablet extended release 24 hr 50 mg PO QPM Entresto 24-26 mg tablet 1 tab PO BID rosuvastatin 40 mg Tablet 40 mg PO HS clopidogrel 75 mg Tablet 75 mg PO QAM zolpidem 10 mg Tablet 10 mg PO HS insulin aspart U-100 [Novolog U-100 Insulin aspart] 100 unit/mL Solution 25 unit subcut TIDM Rx Instructions: Plus 3 units for Q 50 points >150 nitroglycerin 0.4 mg/hr patch 24 hour 1 patch topical DIRECTED Rx Instructions: APPLY ONE PATCH TOPICALLY EVERY DAY FOR 12 TO 14 HOURS THEN REMOVE nitroglycerin 0.4 mg tablet, sublingual 0.4 mg sublingual DIRECTED PRN (Reason: Chest Pain) Rx Instructions: PLACE ONE TABLET UNDER THE TONGUE EVERY 5 MINUTES FOR UP TO 3 DOSES OVER 15 MINUTES IF NEEDED FOR CHEST PAIN Eliquis 5 mg tablet 5 mg PO BID Qty: 60 0RF Jardiance 25 mg tablet 25 mg PO DAILY torsemide 10 mg tablet 10 mg PO DIRECTED PRN (Reason: fluid build up) Rx Instructions: prn midodrine 10 mg tablet 20 mg PO DAILY PRN (Reason: ..) prochlorperazine maleate [Compazine] 10 mg Tablet 0 mg PO Q6H PRN (Reason: Nausea) cyanocobalamin (vitamin B-12) 1,000 mcg capsule 1,000 mcg PO DAILY Qty: 90 3RF Rx Instructions: purchase ufnz-aly-aeuccsb torsemide 10 mg tablet 10 mg PO QAM acetaminophen [Tylenol Extra Strength] 500 mg Tablet 500 mg PO Q4H PRN (Reason: PAIN/FEVER) metformin 500 mg tablet extended release 24 hr 1,000 mg PO QAM diazepam 5 mg Tablet 5 mg PO BID PRN (Reason: Anxiety) hydroxyzine pamoate 25 mg Capsule 25 mg PO HS PRN (Reason: Anxiety) ezetimibe [Zetia] 10 mg Tablet 10 mg PO DAILY insulin glargine [Basaglar KwikPen U-100 Insulin] 100 unit/mL (3 mL) Insulin Pen 60 unit SUBCUT BID Rx Instructions: PER PT 30 UNITS BID, PER GMG 80 UNITS BID Nucynta 100 mg Tablet 100 mg PO Q6H PRN (Reason: Pain) Discontinued famotidine 20 mg tablet 20 mg PO HS Discharge Orders: Discharge Order (Routine); Ordered 01/10/23 Ordered By: Laura Bell Admission Data Admit Date/Time: 01/09/23 15:58 Attending Provider: Kelvin Slater Admit Provider: Jc Polo Primary Care Provider: Clare Johnson Other Providers: Flora Olson ; Lenny Villar ; Robe Valverde ; Jos Su ; Daniel Vergara ; Valeriano Humphreys ; Lewis Denise ; Connie Caraballo ; Chuyita Mccabe ; Flora Bell ; Julio Mejia ; Valeria Holguin ; Jc Polo Other Interventions: Discharge Summary Assessment (RN) Last Done: 01/10/23 17:33 Supervising Physician Co-Signing Physician Notes The patient was seen by me. The case was discussed with CAITIE Davila. The chart was reviewed. Head CT scan is negative for any bleeding. Agree with assessment and plan. Cardiology has cleared him for discharge home today, January 10. Coding Level of Care Code 06927 INP/OBS DISCH >30 MIN Diagnoses Chest pain R07.9 Shortness of breath R06.02 Hypertension I10 HFrEF (heart failure with reduced ejection fraction) I50.20 GERD (gastroesophageal reflux disease) K21.9 Type 2 diabetes mellitus E11.9 Hyperlipidemia E78.5 Coronary artery disease I25.10 Coronary Disease-Associated Artery/Lesion type: unspecified vessel or lesion type [place] vs. transplanted heart: [place] heart Severe obstructive sleep apnea G47.33 Pulmonary embolism I26.99 Fall W19.XXXA
[2023-01-10] MEDS ORDERED: PANTOprazole 40 MG TAB PO SCH (16:00)
[2023-01-10] MEDS ORDERED: FAMOTIDINE 20 MG TAB PO SCH (21:00)
== END 2023-01-10 19:27 | disposition home or self-care (01) ==
LOC: EDINP 09:34 → ED 09:34 → SUATTDRO 15:58 → 2W 19:36

== ENCOUNTER 2024-07-11 12:37 | Inpatient (IN) ==
[2024-07-11] MEDS: HYDROmorphone INJ 0.5 MG/0.5 ML SYR IV PRN (13:41)
[2024-07-11] MEDS: SODIUM CHLORIDE 0.9% 1,000 ML IV STA (13:41)
[2024-07-11] MEDS: ONDANSETRON INJ 2 MG/ML 2 ML VIAL IV STA ×2 (13:41→18:27)
[2024-07-11 14:03] LABS: Basophils # (auto) 0.04 K/uL (0.00-0.20); Basophils % (auto) 0.4 %; Eosinophils # (auto) 0.07 K/uL (0.00-0.50); Eosinophils % (auto) 0.6 %; Hematocrit (blood only) 44.3 % (42.0-52.0); Hemoglobin 14.7 g/dl (14.0-18.0); Immature Granulocytes # (auto) 0.07 K/uL (0.01-0.20); Immature Granulocytes % (auto) 0.6 %; Lymphocytes % (auto) 8.2 %; Mean Corpuscular Hemoglobin 29.7 pg (25.0-34.0); Mean Corpuscular Hgb Conc 33.2 g/dL (32.0-36.0); Mean Corpuscular Volume 89.5 fL (80.0-100.0); Mean Platelet Volume 11.2 fL (9.4-12.4); Monocytes # (auto) 0.79 K/uL (0.11-0.59); Monocytes % (auto) 7.2 %; Neutrophils # (auto) 9.09 K/uL (1.40-6.50); Platelet Count 239 K/uL (130-400); RDW Standard Deviation 41.9 fL (36.4-46.3); Red Blood Count 4.95 M/uL (4.70-6.10); White Blood Count 10.96 K/ul (4.8-10.8)
[2024-07-11 14:13] LABS: Appearance Urine Clear (Clear); Bilirubin Urine Negative (Negative); Blood Urine Negative (Negative); Color Urine Yellow; Glucose Urine UA 3+ (Negative); Ketones Urine Negative (Negative); Leukocyte Esterase Urine Negative (Negative); Nitrite Urine Negative (Negative); Protein Urine Negative (Negative); Specific Gravity Urine 1.024 (1.000-1.030); Urobilinogen Urine Negative (Negative); pH Urine 5.5 (4.5-7.5)
--- NOTE | 2024-07-11 14:17 | CT Scan Report ---
CT abd pelvis wo con CLINICAL HISTORY: gen abd pain, ? obs TECHNIQUE: Helical axial images of the abdomen and pelvis were obtained. Automated dose lowering tech niques and/or adjustment according to patient size were utilized for this exam. This exam was perfor med without intravenous contrast. CT DOSE: 1605.89 mGy.cm COMPARISON: Comparison is made to CT abdomen pelvis 06/16/2023 FINDINGS: Lower chest: No acute abnormality. Liver: Unremarkable. No focal lesions are seen. Gallbladder and biliary tree: No calcified gallstones. Normal caliber wall. No intra- or extrahepatic biliary ductal dilation. Pancreas: Unremarkable, no focal lesions. Spleen: Unremarkable. Adrenals: Bilateral adrenal nodules are seen, the left represents a lipid rich adenoma in the right a lso likely represents an adenoma. Kidneys and ureters: Perinephric stranding is noted bilaterally. Bladder: Unremarkable. Reproductive organs: Unremarkable. Bowel: Post surgical changes are seen in the rectum with surrounding soft tissue thickening. Patient is status post appendectomy. Post surgical changes of small bowel resection. Numerous dilated loops o f small bowel are seen concerning for low-grade obstruction with a transition point of the small mike l resection site. Lymph nodes Retroperitoneal: Unremarkable. Pelvic: Unremarkable. Mesenteric: Unremarkable. Peritoneum: Normal. Vessels: Atherosclerotic calcifications are seen. Abdominal wall: Unremarkable. Bones: Degenerative changes in the visualized spine. IMPRESSION: Multiple small bowel loops are dilated with a transition point of the small bowel resection site. Fin dings are concerning for small bowel obstruction, possibly low-grade as the colon is not decompressed ., ACT 112: Negative or not required by law. Electronically signed by: Cedric Carvajal M.D. 07/11/2024 2:15 PM
[2024-07-11 14:20] LABS: Albumin Globulin Ratio 1.6 (0.9-2); Albumin Level 4.7 gm/dl (3.4-5.0); BUN Creatinine Ratio 15.5 (10-20); Bilirubin,Total 0.6 mg/dl (0.2-1.0); Calcium 10.2 mg/dl (8.6-10.3); Creatinine Clr Calc Pharmacy 114.2 ml/min; Potassium 4.1 mmol/L (3.5-5.1); Total Protein 7.7 gm/dl (6.0-8.3)
[2024-07-11] MEDS ORDERED: PHARMACY GLYCEMIC MGMT CONSULT PRN (14:47)
--- NOTE | 2024-07-11 15:17 | History & Physical Report ---
Date of Service July 11, 2024 Assessment & Plan (1) Small bowel obstruction: Plan: Acute and likely secondary to adhesions from prior abdominal surgery for his sigmoid-rectal adenCA - Admit to med/surg - Diet: NPO - NGT placement to LIS - Consult general surgery, appreciate assistance - mIVF with LR at 80 ml/hr - Pain control with tiered Morphine 2mg and 4mg for moderate and severe pain respectively - IV APAP for mild pain/headache - IV Zofran for n/v - Encourage ambulation (2) Hyperglycemia due to type 2 diabetes mellitus: Plan: Acute - BSG 432 on BMP - Treated with a dose of IV Insulin Regular 10 units x1 - Pharmacy consulted for glycemic management d/t NPO status - Hold metformin and jardiance d/t NPO - Accucheck q6 - Reduce basal insulin by 50% d/t NPO - Update a1c, last one in charting system is from 2022 (3) Coronary artery disease: Plan: Chronic, no chest pain symptoms - H/o extensive cad/nstemi/pci/cabg - His plavix, statin, toprol and zetia will be held - Can consider placing on IV Lopressor 5mg q6 scheduled, however, this will require a monitored floor (4) Severe obstructive sleep apnea: Plan: Chronic - Normally on cpap 10-20 cm water + 4L O2 - Will not be able to wear CPAP due to NGT - Utilize supplemental O2 overnight for now and titrate to keep >90% Plan Chronic medical problems: - h/o CVA - on plavix/statin therapy, held in setting of SBO - Anxiety/depression - chronically on duloxetine, amitriptyline and prn valium. hold meds. Can consider adding PRN IV Ativan low dose if needed. - HFrEF - on toprol and torsemide, both of which will be held. monitor volume status regularly in setting of IVF hydration d/t SBO/NPO. I/O ordered qshift. DVT ppx will be ordered with Lovenox. No active bleeding currently and H/H stable. If concern for worsening symptoms that may require surgical intervention, then can be discontinued. AM labs ordered. Appreciate general surgery assistance. Plan of care has been d/w Dr. Hines who will also see and evaluate this patient, further orders may be implemented as clinically warranted. 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 His reports that he began developing abdominal pain yesterday and had an episode of vomiting in the evening. He did have a small formed bowel movement. Today, his pain worsened to the point where he told his that he felt he needed to be evaluated in the ER. While here, he has had approx 4 bouts of emesis and 3 very small BMs. He continues to pass flatus. He denies hematemesis, hematochezia or melena. He denies fever or chills. His w/u in the ER demonstrated a minimally elevated wbc count of 10.96, unremarkable UA and normal BM with exception of hyperglycemia at 432. CTAP completed showing a low grade SBO with a transition point at the small bowel resection site. He was medicated with a dose of Zofran and Dilaudid was ordered for pain. He was started on NSS @ 125 ml/hr. General surgery has been consulted and patient has been referred to the hospital medicine team for admission. Allergies Allergy/AdvReac Type Severity Reaction Status Date / Time No Known Allergies Allergy Verified 05/22/24 00:40 Home Medications Medication Instructions Recorded Confirmed Type rosuvastatin 40 mg tablet 40 mg PO QAM 01/28/19 07/07/24 History zolpidem 10 mg tablet 10 mg PO HS 01/28/19 07/07/24 History nitroglycerin 0.4 mg sublingual 0.4 mg sublingual DIRECTED PRN 02/24/19 07/07/24 History tablet Chest Pain icosapent ethyl 1 gram capsule 2 g PO BID 05/18/21 07/07/24 History (Vascepa) alpha lipoic acid 600 mg capsule 1,200 mg PO QAM 12/27/21 07/07/24 History diazepam 5 mg tablet 5 mg PO BID PRN Anxiety 08/09/22 07/07/24 History ezetimibe 10 mg tablet (Zetia) 10 mg PO QAM 08/09/22 07/07/24 History insulin glargine 100 unit/mL (3 60 unit subcut BID 08/09/22 07/07/24 History mL) subcutaneous pen (Basaglar KwikPen U-100 Insulin) metformin 500 mg tablet,extended 1,000 mg PO QAM 08/09/22 07/07/24 History release 24 hr tapentadol 100 mg tablet (Nucynta) 100 mg PO Q4H PRN Pain 08/09/22 07/07/24 History empagliflozin 25 mg tablet 25 mg PO DAILY 01/09/23 07/07/24 History (Jardiance) pantoprazole 40 mg tablet,delayed 40 mg PO QAM #30 tabs 01/10/23 07/07/24 Rx release amitriptyline 50 mg tablet 50 mg PO HS 01/13/23 07/07/24 History sildenafil 100 mg tablet 100 mg PO DAILY PRN sexual 02/26/23 07/07/24 Rx activity #20 tabs duloxetine 30 mg capsule,delayed 30 mg PO QAM 06/19/23 07/07/24 History release insulin aspart U-100 100 unit/mL 25 unit subcut UD PRN sliding scale 06/19/23 07/07/24 History subcutaneous solution (Novolog U-100 Insulin aspart) clopidogrel 75 mg tablet 75 mg PO DAILY #30 tabs 07/17/23 07/07/24 Rx metoprolol succinate 25 mg 25 mg PO HS #30 tabs 07/17/23 07/07/24 Rx tablet,extended release 24 hr duloxetine 60 mg capsule,delayed 60 mg PO QAM 05/22/24 07/07/24 History release glucagon 3 mg/actuation nasal 3 mg intranasal DIRECTED PRN 05/22/24 07/07/24 History spray (Baqsimi) Hypoglycemia nitroglycerin 0.4 mg/hr 1 patch transdermal DAILY PRN HIGH 05/22/24 07/07/24 History transdermal 24 hour patch ACTIVITY PER SPOUSE torsemide 10 mg tablet 10 mg PO QAM 05/22/24 07/07/24 History linaclotide 145 mcg capsule 72 mcg PO DAILYBB 07/07/24 07/07/24 History (Linzess) midodrine 10 mg tablet 20 mg PO BID 07/07/24 07/07/24 History Past Med/Surg History Problem List (Updated 10/18/24 @ 15:33 by Annie Tolbert PA-C) Hyperglycemia due to type 2 diabetes mellitus Small bowel obstruction Peripheral neuropathic pain Orthostatic hypotension Bright red rectal bleeding (Acute) Anticoagulant long-term use (Acute) Urinary retention Acute hypotension (Acute) Hypothermia (Acute) Tachycardia (Acute) Urinary tract infection (Acute) Hypothermia Hx of heart artery stent (Chronic) X6-LAST ONE 01/20[place] [facility] [place] Coronary artery disease (Acute) h/o CABG x 5, NSTEMI 2020, s/p 6 stents Hyperlipidemia Obesity (Chronic) History of non-ST elevation myocardial infarction (NSTEMI) (Chronic) Hypertension Neuropathic pain (Chronic) Peripheral neuropathy (Chronic) Lateral femoral cutaneous neuropathy Type 2 diabetes mellitus IDDM Severe obstructive sleep apnea cpap with 4L of oxygen at hs Fever, intermittent (Acute) Positive Lyme disease serology (Acute) Morbid obesity with BMI of 40.0-44.9, adult (Acute) DINA (acute kidney injury) (Acute) Nocturnal hypoxemia Left-sided chest pain (Acute) Acute electrocardiogram changes (Acute) Metabolic syndrome Angina of effort Non-ST elevation SD (NSTEMI) DVT prophylaxis CKD (chronic kidney disease) stage 3, GFR 30-59 ml/min Hyponatremia Anxiety Organic periodic limb movement disorder COVID-19 (Acute) Nocturnal hypoxemia Nocturnal hypoxemia Acute encephalopathy Hypotension (Acute) Diabetic ulcer of left great toe (Acute) Lower GI bleeding Pulmonary nodule seen on imaging study HFrEF (heart failure with reduced ejection fraction) EF 45-49%, Grade II diastolic dysfunction GERD (gastroesophageal reflux disease) Insomnia Left rotator cuff tear Morbid obesity with BMI of 40.0-44.9, adult Encounter for pre-operative examination Colonic mass (Acute) Pulmonary embolism recent diagnosis- being treated w/ eliquis Encounter for pre-operative examination Colon cancer Rectal cancer Dysuria Precordial chest pain (Acute) Shortness of breath (Acute) Chest pain at rest ASCVD (arteriosclerotic cardiovascular disease) S/P CABG (coronary artery bypass graft) Fall (on)(from) incline, initial encounter Urinary retention due to benign prostatic hyperplasia Erectile dysfunction Medical History Priya glabrata infection Small bowel obstruction Sepsis Fall Rectosigmoid cancer adenocarcinoma, 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 Ischemic cardiomyopathy History of blood transfusion 1979 Confusion and disorientation Acute respiratory failure with hypoxia and hypercapnia On anticoagulant therapy plavix daily/aspirin 162mg daily History of COVID-19 x2--diagnosed 06/25/22--sore throat, chills,via HOME TEST ONLY- resolved diagnosed 05/2021--had sinus congestion, headache, productive cough--pt states he received monoclonal antibodies Difficult airway for intubation was told it was hard to intubate him for carpal tunnel surgery in 1999 at [place] NSTEMI (non-ST elevated myocardial infarction) [place]STEMI at [facility] [place] s/p PCI of the [id number] with HARSHA x 2 and HARSHA x1 to pRCA on 02/07/21; Recurrent HF related to LVEDP 30-34% Ischemic cardiomyopathy CHI (closed head injury) entered into EMR 07/2020 Fever Nocturnal hypoxemia Seizure AGE 10 S/P ACCIDENT-WAS ON MEDS COUPLE YRS-OFF MEDS AND NO SEIZURES 30+ YRS Brachial plexopathy Right History of Salmonella gastroenteritis Hx of renal calculi Surgical History Hx of colonoscopy History of tonsillectomy and adenoidectomy History of cardiac cath MULTIPLE-last 02/10/21 @ [facility] [place]--per pt 2 stents placed 12/2018?-NO STENTS NEEDED LAST STENT PLACED 10/2017 [facility] [place] History of coronary artery bypass graft 5 VESSELS Family History Grandfather (Maternal) Family history of diabetes mellitus Mother Family history of diabetes mellitus Stroke Uncle Obstructive sleep apnea Grandmother (Maternal) Stroke Family history of reaction to anesthesia "lost some cognitive ability after heart surgery" Father Coronary heart disease Social History Smoking Status: Never smoker Second Hand Exposure: No; Do You Dip or Chew Tobacco: No; Hx Alcohol Use: No Hx Substance Use: No Preferred Language: [place]i Communication Ability: Effective Visual Impairment: No Limitations Hearing Ability: Normal Student Services Counselor Required: No Beliefs That Will Affect Care: None marital status: Current Living Situation: Spouse Current Living Situation Comment: Single family home with and kids current occupational status: unemployed current occupation: retired/disable How many Children do You have: 3 Feels Safe at Home: Yes Childhood Exposure to Second-Hand Smoke: Yes Diet: diabetic and low salt during the past year weight has: other Do you think of yourself as: straight/heterosexual Gender Identity: Male Assistive Devices: CPAP Review of Systems 2 Review of Systems: All systems reviewed and are unremarkable except as noted in HPI and below. Denies fever, chills, fatigue, headache, nasal congestion, sore throat, cough, chest pain, shortness of breath, palpitations, orthopnea, PND, constipation, dysuria, hematuria, frequency, back pain, joint pain or swelling, easy bruising or bleeding, skin lesions or rashes. Physical Exam 2 Physical Exam: GENERAL: 54 yo obese WM. NAD. EYES: EOMI. PERRLA. Anicteric. HENT: Moist mucous membranes. No cervical lymphadenopathy. LUNGS: Clear to auscultation bilaterally. No accessory muscle use. No W/R/R. CARDIOVASCULAR: Regular rate and rhythm. No M/G/R. No JVD. ABDOMEN: Soft, moderately distended with tenderness predominately in the RLQ. No BS appreciated. EXTREMITIES: No edema. Non-tender. Peripheral pulses +2/4. NEUROLOGIC: A&O x3. No focal neurological deficits. CN II-XII grossly intact. PSYCHIATRIC: Cooperative. Appropriate mood and affect. SKIN: Warm, dry, intact. No rashes or lesions. Results & Data Results & Data Vital Signs (Past 12 Hours) Vital Signs Temp Pulse Resp BP Pulse Ox O2 Del Method 07/11/24 13:34 86 18 97 Room Air 07/11/24 12:56 36.5 C 88 22 116/71 95 Room Air Laboratory Results 07/11/24 13:33 07/11/24 13:33 Diagnostic Findings Abdomen/Pelvis CT 07/11/24 13:35 CT abd pelvis wo con CLINICAL HISTORY: gen abd pain, ? sbo TECHNIQUE: Helical axial images of the abdomen and pelvis were obtained. Automated dose lowering techniques and/or adjustment according to patient size were utilized for this exam. This exam was performed without intravenous contrast. CT DOSE: 1605.89 mGy.cm COMPARISON: Comparison is made to CT abdomen pelvis 06/16/2023 FINDINGS: Lower chest: No acute abnormality. Liver: Unremarkable. No focal lesions are seen. Gallbladder and biliary tree: No calcified gallstones. Normal caliber wall. No intra- or extrahepatic biliary ductal dilation. Pancreas: Unremarkable, no focal lesions. Spleen: Unremarkable. Adrenals: Bilateral adrenal nodules are seen, the left represents a lipid rich adenoma in the right also likely represents an adenoma. Kidneys and ureters: Perinephric stranding is noted bilaterally. Bladder: Unremarkable. Reproductive organs: Unremarkable. Bowel: Post surgical changes are seen in the rectum with surrounding soft tissue thickening. Patient is status post appendectomy. Post surgical changes of small bowel resection. Numerous dilated loops of small bowel are seen concerning for low-grade obstruction with a transition point of the small bowel resection site. Lymph nodes Retroperitoneal: Unremarkable. Pelvic: Unremarkable. Mesenteric: Unremarkable. Peritoneum: Normal. Vessels: Atherosclerotic calcifications are seen. Abdominal wall: Unremarkable. Bones: Degenerative changes in the visualized spine. IMPRESSION: Multiple small bowel loops are dilated with a transition point of the small bowel resection site. Findings are concerning for small bowel obstruction, possibly low-grade as the colon is not decompressed., ACT 112: Negative or not required by law. Electronically signed by: Cedric Carvajal M.D. 07/11/2024 2:15 PM Code Status & VTE Plan Code Status Full code - confirmed with patient and PG Care Time/CCT Total # of Minutes Spent Total Time Spent with Patient: Total time spent is greater than 50% in coordination of care (as documented) at patient's floor/unit and/or counseling patient: 76 minutes Coding Level of Care Code 52735 INT INP/OBS CARE 3/75MIN Diagnoses Small bowel obstruction K56.609 Hyperglycemia due to type 2 diabetes mellitus E11.65 Coronary artery disease I25.10 Coronary Disease-Associated Artery/Lesion type: unspecified vessel or lesion type [place] vs. transplanted heart: [place] heart Severe obstructive sleep apnea G47.33 (3) Coronary artery disease Coronary Disease-Associated Artery/Lesion type: unspecified vessel or lesion type [place] vs. transplanted heart: [place] heart
--- NOTE | 2024-07-11 15:23 | Surgery Consultation ---
Date of Consultation July 11, 2024 Assessment & Plan (1) Small bowel obstruction: Patient presented to the [facility] ER with c/o abdominal pain n/v . States last night he had more fluctuance than normal and started feeling abdominal pain. This AM the abdominal pain increased and he started vomiting and feel bloated. Has had 3 small bowel movements since being in the ER. CT scan abd/pelvis that is concerning for : Multiple small bowel loops are dilated with a transition point of the small bowel resection site. Findings are concerning for small bowel obstruction, possibly low-grade as the colon is not decompressed. He was ordered an NTG which nursing was preparing patient for during exam. VSS , WBC 10.9, afebirle, abd is large round and distended, TTP, firm. Recommending admission to medicine, keeping pt NPO, Continue NGT, IV Fluids for hydration, IV antiemetic and analgesics PRN, continue conservative treatment, will follow along. History of Present Illness Reason for Consultation: SBO Requesting Physician: Dr. Garcia History of Present Illness Patient is a pleasant 54 yo male with PMH Rectosigmoid CA, NSTEMI, CHF, seizure, PE, GERD, Obesity, Diabetes, anxiety, JOY, that presented to the [facility] ER with c/o abdominal pain n/v . States last night he had more fluctuance than normal and started feeling abdominal pain. This AM the abdominal pain increased and he started vomiting and feel bloated. Has had 3 small bowel movements since being in the ER. He has a hx of rectosigmoid CA and had a colostomy which was reversed last Aug 2023. He is status post radiation and chemotherapy. He follows with [facility] Dr Barbour and gets a lower GI scope every 2-3 months. 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 Bowel movements for him since surgery can be very frequent or infrequent and can go 4- 5 days without one. He underwent a CT scan abd/pelvis that is concerning for : Multiple small bowel loops are dilated with a transition point of the small bowel resection site. Findings are concerning for small bowel obstruction, possibly low-grade as the colon is not decompressed. Allergies Allergy/AdvReac Type Severity Reaction Status Date / Time No Known Allergies Allergy Verified 05/22/24 00:40 Home Medications Medication Instructions Recorded Confirmed Type rosuvastatin 40 mg tablet 40 mg PO QAM 01/28/19 07/07/24 History zolpidem 10 mg tablet 10 mg PO HS 01/28/19 07/07/24 History nitroglycerin 0.4 mg sublingual 0.4 mg sublingual DIRECTED PRN 02/24/19 07/07/24 History tablet Chest Pain icosapent ethyl 1 gram capsule 2 g PO BID 05/18/21 07/07/24 History (Vascepa) alpha lipoic acid 600 mg capsule 1,200 mg PO QAM 12/27/21 07/07/24 History diazepam 5 mg tablet 5 mg PO BID PRN Anxiety 08/09/22 07/07/24 History ezetimibe 10 mg tablet (Zetia) 10 mg PO QAM 08/09/22 07/07/24 History insulin glargine 100 unit/mL (3 60 unit subcut BID 08/09/22 07/07/24 History mL) subcutaneous pen (Basaglar KwikPen U-100 Insulin) metformin 500 mg tablet,extended 1,000 mg PO QAM 08/09/22 07/07/24 History release 24 hr tapentadol 100 mg tablet (Nucynta) 100 mg PO Q4H PRN Pain 08/09/22 07/07/24 History empagliflozin 25 mg tablet 25 mg PO DAILY 01/09/23 07/07/24 History (Jardiance) pantoprazole 40 mg tablet,delayed 40 mg PO QAM #30 tabs 01/10/23 07/07/24 Rx release amitriptyline 50 mg tablet 50 mg PO HS 01/13/23 07/07/24 History sildenafil 100 mg tablet 100 mg PO DAILY PRN sexual 02/26/23 07/07/24 Rx activity #20 tabs duloxetine 30 mg capsule,delayed 30 mg PO QAM 06/19/23 07/07/24 History release insulin aspart U-100 100 unit/mL 25 unit subcut UD PRN sliding scale 06/19/23 07/07/24 History subcutaneous solution (Novolog U-100 Insulin aspart) clopidogrel 75 mg tablet 75 mg PO DAILY #30 tabs 07/17/23 07/07/24 Rx metoprolol succinate 25 mg 25 mg PO HS #30 tabs 07/17/23 07/07/24 Rx tablet,extended release 24 hr duloxetine 60 mg capsule,delayed 60 mg PO QAM 05/22/24 07/07/24 History release glucagon 3 mg/actuation nasal 3 mg intranasal DIRECTED PRN 05/22/24 07/07/24 History spray (Baqsimi) Hypoglycemia nitroglycerin 0.4 mg/hr 1 patch transdermal DAILY PRN HIGH 05/22/24 07/07/24 History transdermal 24 hour patch ACTIVITY PER SPOUSE torsemide 10 mg tablet 10 mg PO QAM 05/22/24 07/07/24 History linaclotide 145 mcg capsule 72 mcg PO DAILYBB 07/07/24 07/07/24 History (Linzess) midodrine 10 mg tablet 20 mg PO BID 07/07/24 07/07/24 History Patient History Medical History Priya glabrata infection Small bowel obstruction Sepsis Fall Rectosigmoid cancer adenocarcinoma, 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[facility] heme/onc Ischemic cardiomyopathy History of blood transfusion 1979 Confusion and disorientation Acute respiratory failure with hypoxia and hypercapnia On anticoagulant therapy plavix daily/aspirin 162mg daily History of COVID-19 x2--diagnosed 06/25/22--sore throat, chills,via HOME TEST ONLY- resolved diagnosed 05/2021--had sinus congestion, headache, productive cough--pt states he received monoclonal antibodies Difficult airway for intubation was told it was hard to intubate him for carpal tunnel surgery in 1999 at [place] NSTEMI (non-ST elevated myocardial infarction) [place] [facility] of the [id number]-OM2 with HARSHA x 2 and HARSHA x1 to pRCA on 02/07/21; Recurrent HF related to LVEDP 30-34% Ischemic cardiomyopathy CHI (closed head injury) entered into EMR 07/2020 Fever Nocturnal hypoxemia Seizure AGE 10 S/P ACCIDENT-WAS ON MEDS COUPLE YRS-OFF MEDS AND NO SEIZURES 30+ YRS Brachial plexopathy Right History of Salmonella gastroenteritis Hx of renal calculi Surgical History Hx of colonoscopy History of tonsillectomy and adenoidectomy History of cardiac cath MULTIPLE-[place] [facility] 2 stents placed 12/2018?-NO STENTS NEEDED LAST STENT PLACED [place] [facility] History of coronary artery bypass graft 5 VESSELS Family History Grandfather (Maternal) Family history of diabetes mellitus Mother Family history of diabetes mellitus Stroke Uncle Obstructive sleep apnea Grandmother (Maternal) Stroke Family history of reaction to anesthesia "lost some cognitive ability after heart surgery" Father Coronary heart disease Social History Smoking Status: Never smoker Second Hand Exposure: No; Do You Dip or Chew Tobacco: No; Hx Alcohol Use: Yes Alcohol type: beer and hard liquor Hx Substance Use: No Preferred Language: Tamazight Communication Ability: Effective Visual Impairment: No Limitations Hearing Ability: Normal Photograph Mounter Required: No Beliefs That Will Affect Care: None marital status: Current Living Situation: Family Current Living Situation Comment: Single family home with and kids current occupational status: unemployed current occupation: retired/disable How many Children do You have: 3 Feels Safe at Home: Yes Safety Concerns: Feels Safe At This Time Childhood Exposure to Second-Hand Smoke: Yes Diet: diabetic and low salt during the past year weight has: other Do you think of yourself as: straight/heterosexual Gender Identity: Male Assistive Devices: Glasses and Other Assistive Devices Comment: walking stick Review of Systems Constitutional: no fever and no chills Gastrointestinal: + abdominal pain, + bloating, + nausea, + vomiting and + cramping Musculoskeletal: no muscle weakness Integumentary: no rash Psychiatric: no confusion Physical Exam Constitutional: + obese and cooperative; no acute distre ss Respiratory: normal respiratory effort and able to speak in complete sentences Cardiovascular: Rate/Rhythm: regular rate Gastrointestinal (Abdomen): Inspection/Auscultation: + abdomen distended and + abdominal surgical scar Percussion/Palpation: + abdomen tender and + abdomen firm large abdomen Skin: no rashes, warm and dry Results & Data Vital Signs (Past 12 Hours) Vital Signs Temp Pulse Resp BP Pulse Ox O2 Del Method 07/11/24 13:34 86 18 97 Room Air 07/11/24 12:56 97.7 F 88 22 116/71 95 Room Air Diagnostic Findings [facility], [place] [phone] CT Scan Report Patient: LJ CEDILLO Sheridan Admit Date: 07/11/24 MR#: [id number] Address1: [address] Acct ID:[id number] Address2: Date: 1970 [facility] Zip: [place] [address] Age: 54 Location: ED Sex: M Room/Bed: Att Phy: Diagnosis: SEVERE ABD PAIN, BLOATING/GAS, VOMITING Valerie Phy: Clare Johnson D.O. Service Date: 07/11/24 [facility] Phy: Interpreting Phy: Cedric Carvajal MDAit Phy: Ordering Phy: Ezequiel Garcia MD cc: ~ CT abd pelvis wo con CLINICAL HISTORY: gen abd pain, ? obs TECHNIQUE: Helical axial images of the abdomen and pelvis were obtained. Automated dose lowering techniques and/or adjustment according to patient size were utilized for this exam. This exam was performed without intravenous contrast. CT DOSE: 1605.89 mGy.cm COMPARISON: Comparison is made to CT abdomen pelvis 06/16/2023 FINDINGS: Lower chest: No acute abnormality. Liver: Unremarkable. No focal lesions are seen. Gallbladder and biliary tree: No calcified gallstones. Normal caliber wall. No intra- or extrahepatic biliary ductal dilation. Pancreas: Unremarkable, no focal lesions. Spleen: Unremarkable. Adrenals: Bilateral adrenal nodules are seen, the left represents a lipid rich adenoma in the right also likely represents an adenoma. Kidneys and ureters: Perinephric stranding is noted bilaterally. Bladder: Unremarkable. Reproductive organs: Unremarkable. Bowel: Post surgical changes are seen in the rectum with surrounding soft tissue thickening. Patient is status post appendectomy. Post surgical changes of small bowel resection. Numerous dilated loops of small bowel are seen concerning for low-grade obstruction with a transition point of the small bowel resection site. Lymph nodes Retroperitoneal: Unremarkable. Pelvic: Unremarkable. Mesenteric: Unremarkable. Peritoneum: Normal. Vessels: Atherosclerotic calcifications are seen. Abdominal wall: Unremarkable. Bones: Degenerative changes in the visualized spine. IMPRESSION: Multiple small bowel loops are dilated with a transition point of the small bowel resection site. Findings are concerning for small bowel obstruction, possibly low-grade as the colon is not decompressed., ACT 112: Negative or not required by law. Electronically signed by: Cedric Carvajal M.D. 07/11/2024 2:15 PM Dictated: 07/11/24 1400 Transcribed: 07/11/24 1400 Results CBC w Diff Results: RBC 4.63 M/uL (4.70-6.10) L 07/12/24 WBC 7.96 K/ul (4.8-10.8) 07/12/24 Hgb 13.6 g/dl (14.0-18.0) L 07/12/24 Hct 42.2 % (42.0-52.0) 07/12/24 MCV 91.1 fL (80.0-100.0) 07/12/24 MCH 29.4 pg (25.0-34.0) 07/12/24 MCHC 32.2 g/dL (32.0-36.0) 07/12/24 RDW Standard Deviation 43.5 fL (36.4-46.3) 07/12/24 RDW Coefficient of Variation 13.0 % (11.5-14.5) 07/12/24 Plt Count 211 K/uL (130-400) 07/12/24 MPV 10.7 fL (9.4-12.4) 07/12/24 Neutrophils (%) (Auto) 78.0 % 07/12/24 Lymphocytes (%) (Auto) 9.9 % 07/12/24 Monocytes # (Auto) 0.78 K/uL (0.11-0.59) H 07/12/24 Eosinophils # (Auto) 0.12 K/uL (0.00-0.50) 07/12/24 Immature Granulocyte % (Auto) 0.5 % 07/12/24 Neutrophils # (Auto) 6.21 K/uL (1.40-6.50) 07/12/24 Lymphocytes # (Auto) 0.79 K/uL (1.20-3.40) L 07/12/24 Monocytes # (Auto) 0.78 K/uL (0.11-0.59) H 07/12/24 Eosinophils # (Auto) 0.12 K/uL (0.00-0.50) 07/12/24 Basophils # (Auto) 0.02 K/uL (0.00-0.20) 07/12/24 Immature Granulocyte # (Auto) 0.04 K/uL (0.01-0.20) 4 PG Care Time/CCT Total # of Minutes Spent Total Time Spent with Patient: Total time spent is greater than 50% in coordination of care (as documented) at patient's floor/unit and/or counseling patient: Coding Level of Care Code 41766 IN/OBS CONSULT LVL 3,45M Diagnoses Small bowel obstruction K56.609
[2024-07-11] MEDS: LIDOCAINE 2% JELLY 5 ML TUBE EXT ONE (15:49)
[2024-07-11] MEDS: NovoLIN-R INSULIN PER UNIT CHARGE IV STA (15:54)
--- NOTE | 2024-07-11 16:20 | XRay Report ---
XR chest 1V portable CLINICAL HISTORY: CHF TECHNIQUE: Single frontal radiograph of the chest was obtained. Comparison: Comparison is made to chest radiograph 07/16/2023 FINDINGS: Lines and tubes are stable. The cardiomediastinal silhouette is normal. Lungs are underinflated but c lear. No evidence of pulmonary edema. No evidence of pleural effusion or pneumothorax. IMPRESSION: No acute chest disease. ACT 112: Negative or not required by law. Electronically signed by: Cedric Carvajal M.D. 07/11/2024 4:19 PM
--- NOTE | 2024-07-11 17:02 | Emergency Department Note ---
Impression & Plan SBO (small bowel obstruction) ED Provider Note NAME: LJ CEDILLO AGE: 54 SEX: Male INFORMANT: Patient and ED PROVIDER(S): Ezequiel Garcia MD CHIEF COMPLAINT: Abdominal pain PLAN: Disposition: Admitted Outpatient prescription management: none Referral: None MEDICAL DECISION MAKING: Patient presented because of abdominal pain. He was distended on examination. His port was accessed. Patient was hydrated and treated with Dilaudid and Zofran. He was feeling better with this. His CBC shows a mild leukocytosis. Chemistry panel was unremarkable except for hyperglycemia. Patient underwent CT imaging and was found to have a bowel obstruction. This appeared to be small bowel related to adhesion. NG tube was ordered. Consultation was made with general surgery. Case was discussed. Patient will be evaluated in the ER. Agreed with NG tube placement and conservative management. Consultation was made with Dr. Hines of the [facility] service. Patient was evaluated in the ER for further management. 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 Vital Signs: reviewed and remarkable for no significant abnormalities Additional History obtained from: Patient's . She notes has had prior NG tube placement. Chronic Medical/Social Conditions affecting care: Diabetes Prior/ Outside/ External records reviewed: none Differential Diagnosis: Obstruction, complication of cancer, constipation, renal colic, UTI, appendicitis, diverticulitis, mesenteric ischemia, aortic pathology, infections, inflammatory bowel disease, PUD, biliary pathology, as well as other pathologies. Diagnostics, independently interpreted by me: ECG: none Cardiac Monitoring: Cardiac monitoring ordered by me: The patient was placed on continuous cardiac monitoring and observed. It revealed a normal sinus rhythm at 94 beats per minute without ectopy or evidence of dysrhythmia. Medical decision rules: none Imaging studies: CT scan of the abdomen pelvis reveals the presence of a small bowel obstruction. I refer you to the EMR for further details. HPI: 54 year old Male arrives for evaluation of abdominal pain. This started last night and is worsening. The patient also notes the following associated symptoms, distention, nausea, vomiting, feeling short of breath secondary to abdominal distention. The patient has found no relieving factors. Current pain is rated as 8/10. Patient has history of rectal cancer and bowel surgery. Pt denies LOC, headache, fevers, chills, diaphoresis, visual changes, neck pain, chest pain, back pain, melena, hematochezia, urinary symptoms, numbness, weakness, lymphadenopathy, rash, or other complaints.. PAST MEDICAL HISTORY: See Below, rectal cancer, CHF PAST SURGICAL HISTORY: See Below, SOCIAL HISTORY: See Below, HOME MEDICATIONS: See Below ALLERGIES: See Below VITALS: See Below PHYSICAL EXAMINATION: GENERAL: Awake, alert, uncomfortable-appearing, in no distress HENT: Normocephalic, atraumatic. Oropharynx unremarkable. EYES: Normal conjunctiva. Sclera non-icteric. NECK: Inspection normal. Non-tender. Supple. No nuchal rigidity. FROM. No masses. RESPIRATORY: Clear to auscultation. No wheezes. No rales. Normal respiratory effort. CARDIAC: Normal rate. Normal rhythm. No murmurs. No rubs. Extremities warm and well perfused. Pulses equal. No JVD. GI: Soft, moderately-distended. Generalized tenderness to palpation. No rebound or guarding. No masses. RECTAL: Deferred. MUSCULOSKELETAL: Atraumatic. Chest examination reveals no tenderness. The back is symmetrical on inspection without obvious abnormality. There is no CVA tenderness to palpation. No joint edema. LOWER EXTREMITIES: Calves are equal size bilaterally and non-tender. 1+ edema. No discoloration. NEURO: Normal sensorium. No sensory or motor deficits noted. SKIN: No rash or jaundice noted. PROCEDURES: none CRITICAL CARE: none OBSERVATION NOTE: none Past Med/Surg History Problem List (Updated 07/11/24 @ 17:02 by Ezequiel Garcia MD) SBO (small bowel obstruction) (Acute) Hyperglycemia due to type 2 diabetes mellitus Small bowel obstruction Peripheral neuropathic pain Orthostatic hypotension Bright red rectal bleeding (Acute) Anticoagulant long-term use (Acute) Urinary retention Acute hypotension (Acute) Hypothermia (Acute) Tachycardia (Acute) Urinary tract infection (Acute) Hypothermia Hx of heart artery stent (Chronic) X6-[place] [facility] [place]ary artery disease (Acute) h/o CABG x 5, NSTEMI 2020, s/p 6 stents Hyperlipidemia Obesity (Chronic) History of non-ST elevation myocardial infarction (NSTEMI) (Chronic) Hypertension Neuropathic pain (Chronic) Peripheral neuropathy (Chronic) Lateral femoral cutaneous neuropathy Type 2 diabetes mellitus IDDM Severe obstructive sleep apnea cpap with 4L of oxygen at hs Fever, intermittent (Acute) Positive Lyme disease serology (Acute) Morbid obesity with BMI of 40.0-44.9, adult (Acute) DINA (acute kidney injury) (Acute) Nocturnal hypoxemia Left-sided chest pain (Acute) Acute electrocardiogram changes (Acute) Metabolic syndrome Angina of effort Non-ST elevation GA (NSTEMI) DVT prophylaxis CKD (chronic kidney disease) stage 3, GFR 30-59 ml/min Hyponatremia Anxiety Organic periodic limb movement disorder COVID-19 (Acute) Nocturnal hypoxemia Nocturnal hypoxemia Acute encephalopathy Hypotension (Acute) Diabetic ulcer of left great toe (Acute) Lower GI bleeding Pulmonary nodule seen on imaging study HFrEF (heart failure with reduced ejection fraction) EF 45-49%, Grade II diastolic dysfunction GERD (gastroesophageal reflux disease) Insomnia Left rotator cuff tear Morbid obesity with BMI of 40.0-44.9, adult Encounter for pre-operative examination Colonic mass (Acute) Pulmonary embolism recent diagnosis- being treated w/ eliquis Encounter for pre-operative examination Colon cancer Rectal cancer Dysuria Precordial chest pain (Acute) Shortness of breath (Acute) Chest pain at rest ASCVD (arteriosclerotic cardiovascular disease) S/P CABG (coronary artery bypass graft) Fall (on)(from) incline, initial encounter Urinary retention due to benign prostatic hyperplasia Erectile dysfunction Medical History Priya glabrata infection Small bowel obstruction Sepsis Fall Rectosigmoid cancer adenocarcinoma, managed by [facility] heme/onc Ischemic cardiomyopathy History of blood transfusion 1979 Confusion and disorientation Acute respiratory failure with hypoxia and hypercapnia On anticoagulant therapy plavix daily/aspirin 162mg daily History of COVID-19 x2--diagnosed 06/25/22--sore throat, chills,via HOME TEST ONLY- resolved diagnosed 05/2021--had sinus congestion, headache, productive cough--pt states he received monoclonal antibodies Difficult airway for intubation was told it was hard to intubate him for carpal tunnel surgery in 1999 at [facility] NSTEMI (non-ST elevated myocardial infarction) [place] [facility] [place]p PCI of the [id number] with HARSHA x 2 and HARSHA x1 to pRCA on 02/07/21; Recurrent HF related to LVEDP 30-34% Ischemic cardiomyopathy CHI (closed head injury) entered into EMR 07/2020 Fever Nocturnal hypoxemia Seizure AGE 10 S/P ACCIDENT-WAS ON MEDS COUPLE YRS-OFF MEDS AND NO SEIZURES 30+ YRS Brachial plexopathy Right History of Salmonella gastroenteritis Hx of renal calculi Surgical History Hx of colonoscopy History of tonsillectomy and adenoidectomy History of cardiac cath MULTIPLE-last 02/10/21 [place] [facility] [place]per pt 2 stents placed 12/2018?-NO STENTS NEEDED LAST STENT PLACED 10/[place] [facility] [place] History of coronary artery bypass graft 5 VESSELS Family History Grandfather (Maternal) Family history of diabetes mellitus Mother Family history of diabetes mellitus Stroke Uncle Obstructive sleep apnea Grandmother (Maternal) Stroke Family history of reaction to anesthesia "lost some cognitive ability after heart surgery" Father Coronary heart disease Social History Smoking Status: Never smoker Second Hand Exposure: No; Do You Dip or Chew Tobacco: No; Hx Alcohol Use: No Hx Substance Use: No Preferred Language: Slovak Communication Ability: Effective Visual Impairment: No Limitations Hearing Ability: Normal Housing And Residence Life Director Required: No Beliefs That Will Affect Care: None marital status: Current Living Situation: Spouse Current Living Situation Comment: Single family home with and kids current occupational status: unemployed current occupation: retired/disable How many Children do You have: 3 Feels Safe at Home: Yes Childhood Exposure to Second-Hand Smoke: Yes Diet: diabetic and low salt during the past year weight has: other Do you think of yourself as: straight/heterosexual Gender Identity: Male Assistive Devices: CPAP Allergies Allergies Allergy/AdvReac Type Severity Reaction Status Date / Time No Known Allergies Allergy Verified 05/22/24 00:40 Home Meds Home Medications Medication Instructions Recorded Confirmed rosuvastatin 40 mg tablet 40 mg PO QAM 01/28/19 07/07/24 zolpidem 10 mg tablet 10 mg PO HS 01/28/19 07/07/24 nitroglycerin 0.4 mg sublingual 0.4 mg sublingual DIRECTED PRN 02/24/19 07/07/24 tablet Chest Pain icosapent ethyl 1 gram capsule 2 g PO BID 05/18/21 07/07/24 (Vascepa) alpha lipoic acid 600 mg capsule 1,200 mg PO QAM 12/27/21 07/07/24 diazepam 5 mg tablet 5 mg PO BID PRN Anxiety 08/09/22 07/07/24 ezetimibe 10 mg tablet (Zetia) 10 mg PO QAM 08/09/22 07/07/24 insulin glargine 100 unit/mL (3 60 unit subcut BID 08/09/22 07/07/24 mL) subcutaneous pen (Basaglar KwikPen U-100 Insulin) metformin 500 mg tablet,extended 1,000 mg PO QAM 08/09/22 07/07/24 release 24 hr tapentadol 100 mg tablet (Nucynta) 100 mg PO Q4H PRN Pain 08/09/22 07/07/24 empagliflozin 25 mg tablet 25 mg PO DAILY 01/09/23 07/07/24 (Jardiance) amitriptyline 50 mg tablet 50 mg PO HS 01/13/23 07/07/24 duloxetine 30 mg capsule,delayed 30 mg PO QAM 06/19/23 07/07/24 release insulin aspart U-100 100 unit/mL 25 unit subcut UD PRN sliding scale 06/19/23 07/07/24 subcutaneous solution (Novolog U-100 Insulin aspart) duloxetine 60 mg capsule,delayed 60 mg PO QAM 05/22/24 07/07/24 release glucagon 3 mg/actuation nasal 3 mg intranasal DIRECTED PRN 05/22/24 07/07/24 spray (Baqsimi) Hypoglycemia nitroglycerin 0.4 mg/hr 1 patch transdermal DAILY PRN HIGH 05/22/24 07/07/24 transdermal 24 hour patch ACTIVITY PER SPOUSE torsemide 10 mg tablet 10 mg PO QAM 05/22/24 07/07/24 linaclotide 145 mcg capsule 72 mcg PO DAILYBB 07/07/24 07/07/24 (Linzess) midodrine 10 mg tablet 20 mg PO BID 07/07/24 07/07/24 Previous Rx's Medication Instructions Recorded pantoprazole 40 mg tablet,delayed 40 mg PO QAM #30 tabs 01/10/23 release sildenafil 100 mg tablet 100 mg PO DAILY PRN sexual 02/26/23 activity #20 tabs clopidogrel 75 mg tablet 75 mg PO DAILY #30 tabs 07/17/23 metoprolol succinate 25 mg 25 mg PO HS #30 tabs 07/17/23 tablet,extended release 24 hr Results & Data (ED) Vital Signs Vital Signs - 24 hr 07/11/24 12:56 07/11/24 13:34 07/11/24 14:38 Temperature 36.5 C Temperature Source Temporal Artery Scan Pulse Rate 88 86 94 H Pulse Rhythm Regular Respiratory Rate 22 18 Respiratory Effort / Characteristics Non-Labored Respiratory Depth Normal Blood Pressure 116/71 Blood Pressure Mean 86 Pulse Oximetry 95 97 Oxygen Delivery Method Room Air Room Air Sepsis Recent Fever Within 48 Hours No Sepsis New/Unexplained Change in Mental Status No Sepsis Action Taken by Nursing No Action Required Laboratory Data 07/11/24 13:33 07/11/24 13:33 Lab Results 07/11/24 07/11/24 Range/Units 13:33 Unknown WBC 10.96 H (4.8-10.8) K/ul RBC 4.95 (4.70-6.10) M/uL Hgb 14.7 (14.0-18.0) g/dl Hct 44.3 (42.0-52.0) % MCV 89.5 (80.0-100.0) fL MCH 29.7 (25.0-34.0) pg MCHC 33.2 (32.0-36.0) g/dL RDW Std Deviation 41.9 (36.4-46.3) fL RDW Coeff of Triny 13.0 (11.5-14.5) % Plt Count 239 (130-400) K/uL MPV 11.2 (9.4-12.4) fL Immature Gran % (Auto) 0.6 % Neut % (Auto) 83.0 % Lymph % (Auto) 8.2 % [place] % (Auto) 7.2 % Eos % (Auto) 0.6 % Baso % (Auto) 0.4 % Neut # (Auto) 9.09 H (1.40-6.50) K/uL Lymph # (Auto) 0.90 L (1.20-3.40) K/uL [place] # (Auto) 0.79 H (0.11-0.59) K/uL Eos # (Auto) 0.07 (0.00-0.50) K/uL Baso # (Auto) 0.04 (0.00-0.20) K/uL Immature Gran # (Auto) 0.07 (0.01-0.20) K/uL Sodium 134 L (136-145) mmol/L Potassium 4.1 (3.5-5.1) mmol/L Chloride 98 (98-107) mmol/L Carbon Dioxide 28 (21-32) mmol/L Anion Gap 8 (3-11) BUN 16 (6-23) mg/dl Creatinine 1.03 (0.6-1.4) mg/dl Est Cr Clr Drug Dosing 114.2 ml/min eGFR 86.32 BUN/Creatinine Ratio 15.5 (10-20) Glucose 432 H* (70-99(Fasting)) mg/dl Calcium 10.2 (8.6-10.3) mg/dl Total Bilirubin 0.6 (0.2-1.0) mg/dl AST 21 (13-39) U/L ALT 15 (7-52) U/L Alkaline Phosphatase 79 (34-104) U/L Total Protein 7.7 (6.0-8.3) gm/dl Albumin 4.7 (3.4-5.0) gm/dl Globulin 3.0 (2.5-4.0) gm/dl Albumin/Globulin Ratio 1.6 (0.9-2) Lipase 38 (11-82) U/L Urine Color Yellow Urine Appearance Clear (Clear) Urine pH 5.5 (4.5-7.5) Ur Specific [place] 1.024 (1.000-1.030) Urine Protein Negative (Negative) Urine Glucose (UA) 3+ H (Negative) Urine Ketones Negative (Negative) Urine Blood Negative (Negative) Urine Nitrite Negative (Negative) Urine Bilirubin Negative (Negative) Urine Urobilinogen Negative (Negative) Ur Leukocyte Esterase Negative (Negative) Administered Medications Hydromorphone HCl (Hydromorphone Inj 0.5 Mg/0.5 Ml Syr) 0.5 mg IV Q15M PRN PRN Reason: Pain Stop: 07/25/24 13:33 Last Admin: 07/11/24 15:55 Dose: 0.5 mg Documented By: [facility] Admin: 07/11/24 13:41 Dose: 0.5 mg Documented By: TEDDY Sodium Chloride (Nss) 1,000 mls @ 125 mls/hr IV .Q8H STA Stop: 07/11/24 21:33 Last Admin: 07/11/24 13:41 Dose: 125 mls/hr Documented By: TEDDY Discontinued Medications Insulin Human Regular (Novolin-R Insulin Per Unit Charge) 10 units IV NOW STA Stop: 07/11/24 14:47 Last Admin: 07/11/24 15:54 Dose: 10 units Documented By: SLIVANA Co-signed By: BELINDA Lidocaine HCl (Lidocaine 2% Jelly 5 Ml Tube) 3 ml EXT NOW ONE Stop: 07/11/24 14:33 Last Admin: 07/11/24 15:49 Dose: 3 ml Documented By: SIVLANA Ondansetron HCl (Ondansetron Inj 2 Mg/Ml 2 Ml Vial) 4 mg IV NOW STA Stop: 07/11/24 13:35 Last Admin: 07/11/24 13:41 Dose: 4 mg Documented By: TEDDY Imaging Data Radiologist's Impression: Abdomen/Pelvis CT 07/11/24 13:35 CT abd pelvis wo con CLINICAL HISTORY: gen abd pain, ? obs TECHNIQUE: Helical axial images of the abdomen and pelvis were obtained. Automated dose lowering techniques and/or adjustment according to patient size were utilized for this exam. This exam was performed without intravenous contrast. CT DOSE: 1605.89 mGy.cm COMPARISON: Comparison is made to CT abdomen pelvis 06/16/2023 FINDINGS: Lower chest: No acute abnormality. Liver: Unremarkable. No focal lesions are seen. Gallbladder and biliary tree: No calcified gallstones. Normal caliber wall. No intra- or extrahepatic biliary ductal dilation. Pancreas: Unremarkable, no focal lesions. Spleen: Unremarkable. Adrenals: Bilateral adrenal nodules are seen, the left represents a lipid rich adenoma in the right also likely represents an adenoma. Kidneys and ureters: Perinephric stranding is noted bilaterally. Bladder: Unremarkable. Reproductive organs: Unremarkable. Bowel: Post surgical changes are seen in the rectum with surrounding soft tissue thickening. Patient is status post appendectomy. Post surgical changes of small bowel resection. Numerous dilated loops of small bowel are seen concerning for low-grade obstruction with a transition point of the small bowel resection site. Lymph nodes Retroperitoneal: Unremarkable. Pelvic: Unremarkable. Mesenteric: Unremarkable. Peritoneum: Normal. Vessels: Atherosclerotic calcifications are seen. Abdominal wall: Unremarkable. Bones: Degenerative changes in the visualized spine. IMPRESSION: Multiple small bowel loops are dilated with a transition point of the small bowel resection site. Findings are concerning for small bowel obstruction, possibly low-grade as the colon is not decompressed., ACT 112: Negative or not required by law. Electronically signed by: Cedric Carvajal M.D. 07/11/2024 2:15 PM Chest X-Ray 07/11/24 15:54 XR chest 1V portable CLINICAL HISTORY: CHF TECHNIQUE: Single frontal radiograph of the chest was obtained. Comparison: Comparison is made to chest radiograph 07/16/2023 FINDINGS: Lines and tubes are stable. The cardiomediastinal silhouette is normal. Lungs are underinflated but clear. No evidence of pulmonary edema. No evidence of pleural effusion or pneumothorax. IMPRESSION: No acute chest disease. ACT 112: Negative or not required by law. Electronically signed by: Cedric Carvajal M.D. 07/11/2024 4:19 PM Discharge Plan Visit Data Chief Complaint: Flu Like Symptoms Stated Complaint: SEVERE ABD PAIN, BLOATING/GAS, VOMITING ED Provider: Ezequiel Garcia Discharge Problem: SBO (small bowel obstruction) Forms Stand Alone Forms: [facility] Prescriptions Prescriptions: No Action alpha lipoic acid 600 mg capsule 1,200 mg PO QAM midodrine 10 mg tablet 20 mg PO BID Rx Instructions: morning noon and bedtime icosapent ethyl [Vascepa] 1 gram capsule 2 g PO BID sildenafil 100 mg tablet 100 mg PO DAILY PRN (Reason: sexual activity) Qty: 20 11RF Rx Instructions: administer 30 minutes to 4 hours before activity DO NOT USE WITH NITROGLYCERIN!! rosuvastatin 40 mg Tablet 40 mg PO QAM zolpidem 10 mg Tablet 10 mg PO HS nitroglycerin 0.4 mg tablet, sublingual 0.4 mg sublingual DIRECTED PRN (Reason: Chest Pain) Rx Instructions: PLACE ONE TABLET UNDER THE TONGUE EVERY 5 MINUTES FOR UP TO 3 DOSES OVER 15 MINUTES IF NEEDED FOR CHEST PAIN Jardiance 25 mg tablet 25 mg PO DAILY pantoprazole 40 mg Tablet,Delayed Release (Dr/Ec) 40 mg PO QAM Qty: 30 0RF metoprolol succinate 25 mg Tablet Extended Release 24 Hr 25 mg PO HS Qty: 30 0RF clopidogrel 75 mg Tablet 75 mg PO DAILY Qty: 30 0RF metformin 500 mg tablet extended release 24 hr 1,000 mg PO QAM diazepam 5 mg Tablet 5 mg PO BID PRN (Reason: Anxiety) ezetimibe [Zetia] 10 mg Tablet 10 mg PO QAM insulin glargine [Basaglar KwikPen U-100 Insulin] 100 unit/mL (3 mL) Insulin Pen 60 unit SUBCUT BID Nucynta 100 mg Tablet 100 mg PO Q4H PRN (Reason: Pain) amitriptyline 50 mg tablet 50 mg PO HS insulin aspart U-100 [Novolog U-100 Insulin aspart] 100 unit/mL solution 25 unit subcut UD PRN (Reason: sliding scale) Rx Instructions: PLUS 3 UNIT FOR EVERY 50 PTS OVER 150 BSG. duloxetine 30 mg capsule,delayed release(DR/EC) 30 mg PO QAM Rx Instructions: Takes along with 60 mg equaling 90 mg total torsemide 10 mg tablet 10 mg PO QAM nitroglycerin 0.4 mg/hr Patch 24 Hour 1 patch TRANSDERMAL DAILY PRN (Reason: HIGH ACTIVITY PER SPOUSE) Rx Instructions: allow nitrate-free interval of approx. 10-12 hrs per 24-hour period Baqsimi 3 mg/actuation spray,non-aerosol 3 mg INTRANASAL DIRECTED PRN (Reason: Hypoglycemia) duloxetine 60 mg capsule,delayed release(DR/EC) 60 mg PO QAM Rx Instructions: Takes along with 30 mg equaling 90 mg total Linzess 145 mcg capsule 72 mcg PO DAILYBB Referrals Referrals: Clare Johnson DO [Primary Care Provider] -
[2024-07-11] MEDS: INSULIN ASPART PER UNIT CHARGE SC SCH (17:19)
[2024-07-11] MEDS ORDERED: DEXTROSE 50% 50 ML SYRINGE IV PRN (19:27)
[2024-07-11] MEDS ORDERED: GLUCOSE 40% GEL 15 GM TUBE PO PRN (19:27)
[2024-07-11] MEDS ORDERED: CARBOHYDRATES FOR HYPOGLYCEMIA PO PRN (19:27)
[2024-07-11] MEDS ORDERED: GLUCOSE 10 TAB/TUBE PO PRN (19:27)
[2024-07-11] MEDS ORDERED: ONDANSETRON INJ 2 MG/ML 2 ML VIAL IV PRN (19:27)
[2024-07-11] MEDS ORDERED: MoRPHine SULFATE 2 MG/ML CARP IV PRN (19:27)
[2024-07-11] MEDS ORDERED: GLUCAGON FOR INJ 1 MG VIAL SQ PRN (19:27)
[2024-07-11] MEDS: LACTATED RINGER'S 1,000 ML IV SCH (19:44)
[2024-07-11] MEDS: LANTUS PER UNIT CHARGE SC SCH (20:57)
[2024-07-12] MEDS ORDERED: Nursing to Pharmacy Communication SCH ×2 (01:45→15:45)
[2024-07-12] MEDS: CHLORASEPTIC (PHENOL) 1.4% SOLN 180 ML BTL MT PRN (06:32)
[2024-07-12 07:10] LABS: Basophils # (auto) 0.02 K/uL (0.00-0.20); Basophils % (auto) 0.3 %; Eosinophils # (auto) 0.12 K/uL (0.00-0.50); Eosinophils % (auto) 1.5 %; Hematocrit (blood only) 42.2 % (42.0-52.0); Hemoglobin 13.6 g/dl (14.0-18.0); Immature Granulocytes # (auto) 0.04 K/uL (0.01-0.20); Immature Granulocytes % (auto) 0.5 %; Lymphocytes # (auto) 0.79 K/uL (1.20-3.40); Lymphocytes % (auto) 9.9 %; Mean Corpuscular Hemoglobin 29.4 pg (25.0-34.0); Mean Corpuscular Hgb Conc 32.2 g/dL (32.0-36.0); Mean Corpuscular Volume 91.1 fL (80.0-100.0); Mean Platelet Volume 10.7 fL (9.4-12.4); Monocytes # (auto) 0.78 K/uL (0.11-0.59); Monocytes % (auto) 9.8 %; Neutrophils # (auto) 6.21 K/uL (1.40-6.50); Platelet Count 211 K/uL (130-400); RDW Standard Deviation 43.5 fL (36.4-46.3); Red Blood Count 4.63 M/uL (4.70-6.10); White Blood Count 7.96 K/ul (4.8-10.8)
[2024-07-12 07:22] LABS: BUN Creatinine Ratio 13.6 (10-20); Creatinine Clr Calc Pharmacy 131.7 ml/min; Magnesium 1.9 mg/dl (1.7-2.4); Potassium 4.3 mmol/L (3.5-5.1)
[2024-07-12 07:43] LABS: Estimated Average Glucose 232 mg/dl; Hemoglobin A1C 9.7 % (4.5-5.6)
--- NOTE | 2024-07-12 07:43 | XRay Report ---
XR KUB/Abdomen 1 view CLINICAL HISTORY: NG tube placement TECHNIQUE: 1 view of the abdomen was obtained. Comparison: Comparison is made to CT abdomen pelvis 07/11/2024 FINDINGS: Exam is limited by underpenetration. An enteric tube is seen with its tip in side port below the fiel d-of-view of the image. An additional external lead is seen projecting to the left of midline. The os seous structures are grossly unremarkable. The bowel gas pattern is nonobstructive. A moderate amount of stool is noted within the large bowel. IMPRESSION: Limited exam due to underpenetration. Enteric tube tip in side-port lie below the diaphragm are not w ell seen. ACT 112: Negative or not required by law. Electronically signed by: Cedric Carvajal M.D. 07/12/2024 7:40 AM
--- NOTE | 2024-07-12 08:17 | Hospitalist Progress Note ---
Date of Service July 12, 2024 Assessment & Plan (1) Small bowel obstruction: Plan: Acute - likely secondary to adhesions from prior abdominal surgeries - CT A/P consistent with low-grade SBO - General surgery consult placed, appreciate recs: - Per phone communication later in the day -Given resolution of abdominal pain/N/V and active flatus, will remove NG tube and advance to clear liquid diet - mIVF with LR at 80 ml/hr (stop time: 07/12 @ 1999) - Pain control with IV Tylenol, Morphine PRN - IV Zofran PRN for N/V (2) Hyperglycemia due to type 2 diabetes mellitus: Plan: Acute - BSG 432 on admission, AM repeat 177 - Pharmacy consult for glycemic management d/t NPO status - Hold metformin and Jardiance - Accucheck q6H - A1c 9.7%, recommend addressing as outpatient (3) Coronary artery disease: Plan: Chronic, no chest pain symptoms - H/o extensive cad/nstemi/pci/cabg - Plavix, statin, toprol and zetia will be held while NPO, resume in AM if tolerating clears (4) Severe obstructive sleep apnea: Plan: Chronic - Normally on cpap 10-20 cm water + 4L O2 - Will not be able to wear CPAP due to NGT - Utilize supplemental O2 overnight for now and titrate to keep >90% Plan Chronic medical problems: - h/o CVA - on plavix/statin therapy, held in setting of SBO, resume in AM if tolerating clears - Anxiety/depression - duloxetine, amitriptyline and prn valium, held. resume in AM if tolerating clears - HFrEF - on toprol and torsemide, held. Monitor volume status in setting of IVF hydration d/t SBO/NPO. I/O ordered qshift. VTE ppx: Lovenox FEN/GI: LR @80mL/hour, clear liquids Admission and Anticipated Discharge Date Admission Date: July 11, 2024 Supervising Physician Co-Signing Physician Notes Attending Physician Supervision Note: I independently interviewed and examined the patient and verified the varghese history and physical, reviewed labs and image studies and agree with findings and care plan noted above. Subjective Patient reports multiple bowel movements overnight, watery and large volume compared to baseline. Passing gas. Denies abdominal pain, N/V. Abdominal surgical history significant for colorectal surgery x2 and appendectomy. Review of Systems Review of Systems: as per HPI Physical Exam Physical Exam: General: Alert and oriented. No acute distress Cardiac: Regular rate and rhythm, no murmurs appreciated Respiratory: Lungs clear to auscultation bilaterally, No increased work of breathing Abdominal: Soft, non-distended, mild TTP in RLQ. Bowel sounds present. Results & Data Results & Data Vital Signs (Past 12 Hours) Vital Signs Temp Pulse Resp BP Pulse Ox O2 Del Method 07/12/24 07:38 36.6 C 91 H 18 146/83 H 91 Room Air 07/11/24 20:56 36.8 C 95 H 18 120/74 91 Room Air Resident Activity Tracking Resident Involvement: Resident Care Provided Care Provided: Adult Hospital Medicine (3) Coronary artery disease Coronary Disease-Associated Artery/Lesion type: unspecified vessel or lesion type [place] vs. transplanted heart: [place] heart
--- NOTE | 2024-07-12 08:57 | XRay Report ---
XR KUB/Abdomen 1 view CLINICAL HISTORY: NGT placement TECHNIQUE: 1 view of the abdomen was obtained. Comparison: Comparison is made to abdomen radiograph 07/11/2024 FINDINGS: Satisfactory placement of enteric tube. A spinal stimulator is noted. The osseous structures are tonio sly unremarkable. The bowel gas pattern is nonobstructive. A moderate amount of stool is noted within the large bowel. IMPRESSION: Satisfactory position of enteric tube. ACT 112: Negative or not required by law. Electronically signed by: Cedric Carvajal M.D. 07/12/2024 8:55 AM
--- NOTE | 2024-07-12 09:19 | Surgery Progress Note ---
Date of Service July 12, 2024 Assessment & Plan (1) SBO (small bowel obstruction): Plan: He did have multiple bowel movements overnight Repeat KUB shows the NG tube does go below the diaphragm, but would advance at 3 cm to have it in a better place in the stomach Keep this in place for today, if he continues to do well and have bowel movements, can consider removing it tomorrow morning and initiating clear liquids Admission and Anticipated Discharge Date Admission Date: July 11, 2024 Subjective Patient seen and examined. States he had multiple large liquid bowel movements overnight. States his abdominal pain is much improved. Denies any nausea or vomiting. Review of Systems Constitutional: no fever and no chills Respiratory: no cough and no dyspnea Cardiovascular: no chest pain and no dyspnea on exertion Gastrointestinal: + diarrhea/loose stools; no abdominal pa in, no nausea, no vomiting and no constipation Genitourinary: no dysuria or no nocturia Psychiatric: no behavioral changes and no depression Physical Exam Constitutional: WD/WN, vitals as above Respiratory: normal respiratory effort, lungs clear to auscultation Cardiovascular: RRR, no murmur, no edema Gastrointestinal (Abdomen): normal bowel sounds, soft, nontender, no hepatosplenomegaly Skin: no rashes, warm and dry Psychiatric: A+Ox3, euthymic affect Results & Data Vital Signs (Past 12 Hours) Vital Signs Temp Pulse Resp BP Pulse Ox O2 Del Method 07/12/24 07:38 36.6 C 91 H 18 146/83 H 91 Room Air PG Care Time/CCT Total # of Minutes Spent Total Time Spent with Patient: Total time spent is greater than 50% in coordination of care (as documented) at patient's floor/unit and/or counseling patient: Coding Level of Care Code 47445 SUB INP/OBS CARE 10/18MIN Diagnoses SBO (small bowel obstruction) K56.609
[2024-07-12] MEDS: ENOXAPARIN INJ 40 MG/0.4 ML SYR SQ SCH (09:30)
[2024-07-12] MEDS: LANTUS PER UNIT CHARGE SC ONE (09:39)
[2024-07-12] MEDS: MoRPHine SULFATE 4 MG/ML 1 ML CARP\\VIAL IV PRN (10:01)
--- NOTE | 2024-07-12 14:11 | Pharmacy Report ---
Pharmacy Glycemic Short Note 2 - Date of Service July 12, 2024 - Glycemic Short BSG Results (Last 24 hours): 07/11/24 07/11/24 07/11/24 13:33 17:11 20:11 Glucose 432 H* POC Glucose 288 H 307 H* 07/11/24 07/12/24 07/12/24 20:20 01:30 04:44 Glucose POC Glucose 279 H 180 H 184 H 07/12/24 07/12/24 07/12/24 06:27 07:42 12:50 Glucose 177 H POC Glucose 177 H 177 H OUTPATIENT ANTIDIABETIC REGIMEN: * Lantus 60 units bid, Novolog SSI, Jardiance 25 mg daily, metformin 1 gm daily ASSESSMENT: * 54 year old admitted with abdominal pain, NPO status - pharmacy consulted for glycemic management. Patient received total of 63 units of insulin yesterday, of which 30 units were basal * Fasting BSG 177 mg/dL - plan to continue with same basal, but will split BID dosing due to ongoing NPO status PLAN FOR INPATIENT GLYCEMIC CONTROL: * Hold outpatient oral diabetes medications * Basal insulin * Lantus 15 units SQ BID - for NPO status * Bolus insulin * NovoLog per scale ACHS or Q6hrs while NPO * Goal Range: Low 110 mg/dL - High 140 mg/dL * Correction Factor: 15 mg/dL/unit * Nutritional / Prandial insulin per carb ratio of 1 unit per 5 grams CHO consumed
[2024-07-12] MEDS: INSULIN ASPART PER UNIT CHARGE SC SCH (16:55)
[2024-07-12] MEDS ORDERED: INSULIN ASPART PER UNIT CHARGE SC SCH (18:00)
--- NOTE | 2024-07-12 20:36 | Communication Note ---
Date of Service: July 12, 2024 I was notified by nursing at approximately 20:00 that Mr. Forman was lethargic and hypoxic. Nursing noted that they went into the patient's room and he was difficult to rouse, when his vitals were checked his O2 was ~70%. He was placed on a nonrebreather. I went to bedside and patient would open his eyes to his name, but would quickly then close his eyes. BP stable, tachycardic (low 100s), O2 stable in mid 90s while on 3L NC. ABG obtained which showed mild ?respiratory acidosis. STAT CT head, CXR obtained. Started IV antibiotics for concern of poss ible aspiration event. After CT head was completed, patient was placed on BiPAP (which he uses at home but had been held while having NG tube). Patient was moved to PCU. I went to bedside later in the evening after transfer to PCU, patient was wearing bipap and fully able to participate in conversation and alert/oriented. Called and talked with who visited after the initial episode, she states that patient can be "very difficult" to wake up in the evenings. Due to concern that this somnolent/less responsive episode could be secondary to aspiration, I made the patient NPO and initiated antibiotics as above. Resident Activity Tracking Resident Involvement: Resident Care Provided Care Provided: Adult Hospital Medicine
[2024-07-12 20:43] LABS: Base Excess ABG 0.4 mEq/L (-9-1.8); HCO3 ABG 28 mmol/L (19-24); PCO2 ABG 57 mmHg (35-46); PO2 ABG 97 mmHg (80-95)
[2024-07-12 20:44] LABS: Allen Test Pos (Pos)
[2024-07-12] MEDS ORDERED: LANTUS PER UNIT CHARGE SC SCH (21:00)
[2024-07-12 21:37] LABS: Basophils # (auto) 0.02 K/uL (0.00-0.20); Basophils % (auto) 0.3 %; Eosinophils # (auto) 0.09 K/uL (0.00-0.50); Eosinophils % (auto) 1.5 %; Hematocrit (blood only) 40.3 % (42.0-52.0); Hemoglobin 13.1 g/dl (14.0-18.0); Immature Granulocytes # (auto) 0.02 K/uL (0.01-0.20); Immature Granulocytes % (auto) 0.3 %; Lymphocytes # (auto) 0.73 K/uL (1.20-3.40); Lymphocytes % (auto) 12.2 %; Mean Corpuscular Hemoglobin 29.8 pg (25.0-34.0); Mean Corpuscular Hgb Conc 32.5 g/dL (32.0-36.0); Mean Corpuscular Volume 91.6 fL (80.0-100.0); Mean Platelet Volume 10.8 fL (9.4-12.4); Monocytes # (auto) 0.79 K/uL (0.11-0.59); Monocytes % (auto) 13.3 %; Neutrophils # (auto) 4.31 K/uL (1.40-6.50); Neutrophils % (auto) 72.4 %; Platelet Count 201 K/uL (130-400); RDW Coefficient of Variation 12.7 % (11.5-14.5); RDW Standard Deviation 42.7 fL (36.4-46.3); White Blood Count 5.96 K/ul (4.8-10.8)
[2024-07-12] MEDS: LANTUS PER UNIT CHARGE SC SCH (21:45)
[2024-07-12 21:46] LABS: Albumin Globulin Ratio 1.5 (0.9-2); Albumin Level 3.9 gm/dl (3.4-5.0); BUN Creatinine Ratio 9.4 (10-20); Bilirubin,Total 0.7 mg/dl (0.2-1.0); Calcium 8.6 mg/dl (8.6-10.3); Creatinine Clr Calc Pharmacy 109.3 ml/min; Globulin 2.6 gm/dl (2.5-4.0); Potassium 4.1 mmol/L (3.5-5.1); Total Protein 6.5 gm/dl (6.0-8.3)
[2024-07-12] MEDS: PIPERACILLIN/TAZOBACTAM 4.5 GM/100 ML BAG IV ONE (21:57)
[2024-07-12] MEDS: ACETAMINOPHEN 1,000 MG/100 ML VIAL IV PRN (22:50)
[2024-07-13] MEDS ORDERED: Nursing to Pharmacy Communication SCH ×2 (00:15→11:00)
--- NOTE | 2024-07-13 01:03 | CT Scan Report ---
Exam(s): CT HEAD Without Contrast EXAM: CT Head Without Intravenous Contrast CLINICAL HISTORY: Reason for exam: altered mental status. TECHNIQUE: Axial computed tomography images of the head/brain without intravenous contrast. CTDI is 53 mGy and DLP is 874 mGy-cm. Automated exposure control was utilized for the study. A dose lowering technique was utilized adhering to the principles of ALARA. COMPARISON: No relevant prior studies available. FINDINGS: Brain: No hemorrhage, extra-axial fluid collection, mass effect, or edema. Ventricles: Unremarkable. Bones/joints: Unremarkable. No fracture. Soft tissues: Unremarkable. Sinuses: No acute sinusitis. Mastoid air cells: Unremarkable as visualized. IMPRESSION: 1. No acute intracranial abnormality. Electronically signed by: Daniel Marley MD 07/13/24 01:02 AM
[2024-07-13] MEDS: PIPERACILLIN/TAZOBACTAM 4.5 GM/100 ML BAG IV SCH (03:23)
[2024-07-13 05:27] LABS: Hematocrit (blood only) 38.1 % (42.0-52.0); Hemoglobin 12.6 g/dl (14.0-18.0); Mean Corpuscular Hemoglobin 29.9 pg (25.0-34.0); Mean Corpuscular Hgb Conc 33.1 g/dL (32.0-36.0); Mean Corpuscular Volume 90.5 fL (80.0-100.0); Mean Platelet Volume 10.7 fL (9.4-12.4); Platelet Count 186 K/uL (130-400); RDW Coefficient of Variation 12.9 % (11.5-14.5); RDW Standard Deviation 42.4 fL (36.4-46.3); Red Blood Count 4.21 M/uL (4.70-6.10); White Blood Count 4.52 K/ul (4.8-10.8)
[2024-07-13 05:34] LABS: BUN Creatinine Ratio 9.7 (10-20); Calcium 8.7 mg/dl (8.6-10.3); Creatinine Clr Calc Pharmacy 124.6 ml/min; Potassium 3.6 mmol/L (3.5-5.1)
[2024-07-13] MEDS: INSULIN ASPART PER UNIT CHARGE SC SCH ×2 (05:55→12:50)
--- NOTE | 2024-07-13 08:02 | Hospitalist Progress Note ---
Date of Service July 13, 2024 Assessment & Plan (1) Small bowel obstruction: Plan: Acute - likely secondary to adhesions from prior abdominal surgeries - CT A/P consistent with low-grade SBO - General surgery consult placed, appreciate recs: - Given resolution of abdominal pain/N/V and active flatus, will remove NG tube and advance to clear liquid diet - mIVF with LR at 80 ml/hr (stop time: 07/12 @ 1999) - Pain control with IV Tylenol, Morphine PRN - IV Zofran PRN for N/V (2) Hyperglycemia due to type 2 diabetes mellitus: Plan: Acute - BSG 432 on admission, AM repeat 177 - Pharmacy consult for glycemic management d/t NPO status - Hold metformin and Jardiance - Accucheck q6H - A1c 9.7%, recommend addressing as outpatient (3) Coronary artery disease: Plan: Chronic, no chest pain symptoms - H/o extensive cad/nstemi/pci/cabg - Plavix, statin, toprol and zetia will be held while NPO, resume in AM if tolerating clears (4) Severe obstructive sleep apnea: Plan: Chronic - Normally on cpap 10-20 cm water + 4L O2 - Will not be able to wear CPAP due to NGT - Utilize supplemental O2 overnight for now and titrate to keep >90% Plan Chronic medical problems: - h/o CVA - on plavix/statin therapy, held in setting of SBO, resume in AM if tolerating clears - Anxiety/depression - duloxetine, amitriptyline and prn valium, held. resume in AM if tolerating clears - HFrEF - on toprol and torsemide, held. Monitor volume status in setting of IVF hydration d/t SBO/NPO. I/O ordered qshift. VTE ppx: Lovenox FEN/GI: LR @80mL/hour, clear liquids Admission and Anticipated Discharge Date Admission Date: July 11, 2024 Subjective Patient reports multiple bowel movements overnight, watery and large volume compared to baseline. Passing gas. Denies abdominal pain, N/V. Abdominal surgical history significant for colorectal surgery x2 and appendectomy. Review of Systems Review of Systems: as per HPI Physical Exam Physical Exam: General: Alert and oriented. No acute distress Cardiac: Regular rate and rhythm, no murmurs appreciated Respiratory: Lungs clear to auscultation bilaterally, No increased work of breathing Abdominal: Soft, non-distended, mild TTP in RLQ. Bowel sounds present. Results & Data Results & Data Vital Signs (Past 12 Hours) Vital Signs Temp Pulse Pulse Resp BP BP Pulse Ox 07/13/24 07:32 66 07/13/24 07:13 36.5 C 69 22 129/74 100 07/13/24 03:39 36.4 C L 69 18 111/76 92 07/13/24 02:31 72 13 99 07/12/24 23:47 36.5 C 87 18 103/65 98 07/12/24 22:54 96 H 14 99 07/12/24 21:30 07/12/24 21:30 97 H 07/12/24 21:06 36.8 C 98 H 16 115/73 98 07/12/24 21:05 105 H 22 99 07/12/24 20:15 106 H 16 113/69 100 07/12/24 20:12 100 07/12/24 20:10 74 L O2 Del Method FiO2 07/13/24 07:32 07/13/24 07:13 BiPAP 07/13/24 03:39 BiPAP 07/13/24 02:31 40 07/12/24 23:47 BiPAP 07/12/24 22:54 40 07/12/24 21:30 BiPAP 07/12/24 21:30 07/12/24 21:06 BiPAP 07/12/24 21:05 40 07/12/24 20:15 Non-rebreather 07/12/24 20:12 Non-rebreather 07/12/24 20:10 Room Air (3) Coronary artery disease Coronary Disease-Associated Artery/Lesion type: unspecified vessel or lesion type Tribe vs. transplanted heart: eek heart
--- NOTE | 2024-07-13 09:47 | XRay Report ---
XR chest 1V portable CLINICAL HISTORY: hypoxia TECHNIQUE: Single frontal radiograph of the chest was obtained. Comparison: Comparison is made to chest radiograph 07/11/2024 FINDINGS: Lines and tubes are stable. Cardiomegaly is noted. Lungs are underinflated but clear. No evidence of pleural effusion or pneumothorax. IMPRESSION: Underinflated lungs. No definite abnormalities are seen. If clinical concern remains, repeat exam wit h improved inspiratory effort is recommended. ACT 112: Negative or not required by law. Electronically signed by: Cedric Carvajal M.D. 07/13/2024 9:46 AM
--- NOTE | 2024-07-13 09:49 | XRay Report ---
XR KUB/Abdomen 1 view CLINICAL HISTORY: SBO TECHNIQUE: 1 view of the abdomen was obtained. Comparison: Comparison is made to abdomen radiograph 07/12/2024 FINDINGS: Interval removal of previously noted enteric tube. The osseous structures are grossly unremarkable. A few gas-distended loops of bowel are seen. A moderate amount of stool is noted within the large mike l. IMPRESSION: Gas-distended loops of small bowel compatible with ongoing small bowel obstruction. ACT 112: Negative or not required by law. Electronically signed by: Cedric Carvajal M.D. 07/13/2024 9:48 AM
--- NOTE | 2024-07-13 11:59 | Surgery Progress Note ---
Date of Service July 13, 2024 Assessment & Plan (1) SBO (small bowel obstruction): Plan: Can trial clears again as he has no abdominal pain and has been passing lots of flatus He is saturating 100% on room air, aspiration is unlikely If he becomes nauseated or is able to tolerate clears, will plan on a small bowel follow-through tomorrow Admission and Anticipated Discharge Date Admission Date: July 11, 2024 Subjective Patient seen and examined. Continues to have flatus. Denies any nausea or vomiting. Was made n.p.o. last night for concern of aspiration event. Review of Systems Constitutional: no fever and no chills Respiratory: no cough and no dyspnea Cardiovascular: no chest pain and no dyspnea on exertion Gastrointestinal: + diarrhea/loose stools; no abdominal pa in, no nausea, no vomiting and no constipation Genitourinary: no dysuria or no nocturia Psychiatric: no behavioral changes and no depression Physical Exam Constitutional: WD/WN, vitals as above Respiratory: normal respiratory effort, lungs clear to auscultation Cardiovascular: RRR, no murmur, no edema Gastrointestinal (Abdomen): normal bowel sounds, soft, nontender, no hepatosplenomegaly Skin: no rashes, warm and dry Psychiatric: A+Ox3, euthymic affect Results & Data Vital Signs (Past 12 Hours) Vital Signs Temp Pulse Pulse Resp BP BP Pulse Ox 07/13/24 11:09 36.6 C 80 15 155/82 H 96 07/13/24 07:32 66 07/13/24 07:13 36.5 C 69 22 129/74 100 07/13/24 03:39 36.4 C L 69 18 111/76 92 07/13/24 02:31 72 13 99 O2 Del Method FiO2 07/13/24 11:09 Room Air 07/13/24 07:32 07/13/24 07:13 BiPAP 07/13/24 03:39 BiPAP 07/13/24 02:31 40 PG Care Time/CCT Total # of Minutes Spent Total Time Spent with Patient: Total time spent is greater than 50% in coordination of care (as documented) at patient's floor/unit and/or counseling patient: Coding Level of Care Code 68479 SUB INP/OBS CARE 10/18MIN Diagnoses SBO (small bowel obstruction) K56.609
[2024-07-13 15:24] VITALS: RESP 20; TEMP 98.4; O2SAT 97
--- NOTE | 2024-07-13 15:39 | XRay Report ---
XR KUB/Abdomen 1 view CLINICAL HISTORY: check for SBO resolution TECHNIQUE: 1 view of the abdomen was obtained. Comparison: Comparison is made to abdomen radiograph 07/12/2024 FINDINGS: Lung bases are unremarkable. The osseous structures are grossly unremarkable. Scant bowel gas is seen . No definite dilation. A moderate amount of stool is noted within the large bowel. IMPRESSION: Scant bowel gas is seen. No definite dilation is noted to suggest small bowel obstruction. ACT 112: Negative or not required by law. Electronically signed by: Cedric Carvajal M.D. 07/13/2024 3:38 PM
--- NOTE | 2024-07-13 17:03 | Discharge Summary ---
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 His reports that he began developing abdominal pain yesterday and had an episode of vomiting in the evening. He did have a small formed bowel movement. Today, his pain worsened to the point where he told his that he felt he needed to be evaluated in the ER. While here, he has had approx 4 bouts of emesis and 3 very small BMs. He continues to pass flatus. He denies hematemesis, hematochezia or melena. He denies fever or chills. His w/u in the ER demonstrated a minimally elevated wbc count of 10.96, unremarkable UA and normal BM with exception of hyperglycemia at 432. CTAP completed showing a low grade SBO with a transition point at the small bowel resection site. He was medicated with a dose of Zofran and Dilaudid was ordered for pain. He was started on NSS @ 125 ml/hr. General surgery has been consulted and patient has been referred to the hospital medicine team for admission. Admission Exam Per Admitting Provider GENERAL: 54 yo obese WM. NAD. EYES: EOMI. PERRLA. Anicteric. HENT: Moist mucous membranes. No cervical lymphadenopathy. LUNGS: Clear to auscultation bilaterally. No accessory muscle use. No W/R/R. CARDIOVASCULAR: Regular rate and rhythm. No M/G/R. No JVD. ABDOMEN: Soft, moderately distended with tenderness predominately in the RLQ. No BS appreciated. EXTREMITIES: No edema. Non-tender. Peripheral pulses +2/4. NEUROLOGIC: A&O x3. No focal neurological deficits. CN II-XII grossly intact. PSYCHIATRIC: Cooperative. Appropriate mood and affect. SKIN: Warm, dry, intact. No rashes or lesions. Principal Diagnosis SBO Discharge Exam General: Alert and oriented. No acute distress Cardiac: Regular rate and rhythm, no murmurs appreciated Respiratory: Lungs clear to auscultation bilaterally, No increased work of breathing Abdominal: Soft, non-distended, mild TTP in RLQ. Bowel sounds present. Discharge Data Allergies Allergy/AdvReac Type Severity Reaction Status Date / Time No Known Allergies Allergy Verified 05/22/24 00:40 Consultations 07/11/24 14:37 ED Decision to Admit Stat 07/11/24 19:27 Consult General Surgery Routine Ordered Studies 07/11/24 13:35 CT abd pelvis wo con Stat 07/12/24 20:19 CT head/brain wo con Stat Diabetes Follow up Diabetes Follow-up Needed for HgbA1c >9% Hospital Course (1) Small bowel obstruction: (2) Hyperglycemia due to type 2 diabetes mellitus: (3) Coronary artery disease: (4) Severe obstructive sleep apnea: Plan (1) Small bowel obstruction: Acute - likely secondary to adhesions from prior abdominal surgeries - CT A/P consistent with low-grade SBO - General surgery consulted, conservative approach taken (NPO w/ NG tube placement, IV fluids -> diet progression) with resolution of SBO on KUB prior to discharge: (2) Hyperglycemia due to type 2 diabetes mellitus: - BSG 432 on admission - A1c 9.7%, recommend addressing as outpatient (3) Coronary artery disease: Chronic, no chest pain symptoms - H/o extensive cad/nstemi/pci/cabg - Continue home meds (4) Severe obstructive sleep apnea: - Patient with apneic episode during hospital stay with drop in SpO2 to ~70%, very difficult to rouse - rapid improvement on BiPAP - Strongly recommend resuming CPAP + O2 in outpatient setting Total Time Total Time Spent Total Time Spent (In Minutes): see attending attestation Discharge Plan Discharge Items Patient Disposition: Home - Self-Care Reason For Visit: SBO Discharge Diagnosis: SBO Activity: Resume your previous activity Non-emergency contact: Primary Care Provider Call non-emergency contact if: you have any medication questions, your symptoms worsen and you have a fever Follow-up/Referrals: Clare Johnson DO [Primary Care Provider] - Diet: Other - See Diet Comment Diet Comment: slow diet progression from full liquids Addtl Attending Provider Instructions: You were admitted to the hospital with a small bowel obstruction. Unfortunately, having had multiple abdominal surgeries puts you at higher risk for recurrence. Following discharge, please advance your diet slowly, starting from a full liquid diet at least until tomorrow with subsequent progression as tolerated. We also strongly recommend using your CPAP machine at night. Pending Studies at Discharge: No Stand-Alone Forms: My [facility], Smoking Cessation Medications and DC Order Prescriptions: Continued alpha lipoic acid 600 mg capsule 1,200 mg PO QAM midodrine 10 mg tablet 20 mg PO BID Rx Instructions: morning noon and bedtime icosapent ethyl [Vascepa] 1 gram capsule 2 g PO BID sildenafil 100 mg tablet 100 mg PO DAILY PRN (Reason: sexual activity) Qty: 20 11RF Rx Instructions: administer 30 minutes to 4 hours before activity DO NOT USE WITH NITROGLYCERIN!! rosuvastatin 40 mg Tablet 40 mg PO QAM zolpidem 10 mg Tablet 10 mg PO HS nitroglycerin 0.4 mg tablet, sublingual 0.4 mg sublingual DIRECTED PRN (Reason: Chest Pain) Rx Instructions: PLACE ONE TABLET UNDER THE TONGUE EVERY 5 MINUTES FOR UP TO 3 DOSES OVER 15 MINUTES IF NEEDED FOR CHEST PAIN Jardiance 25 mg tablet 25 mg PO DAILY pantoprazole 40 mg Tablet,Delayed Release (Dr/Ec) 40 mg PO QAM Qty: 30 0RF metoprolol succinate 25 mg Tablet Extended Release 24 Hr 25 mg PO HS Qty: 30 0RF clopidogrel 75 mg Tablet 75 mg PO DAILY Qty: 30 0RF metformin 500 mg tablet extended release 24 hr 1,000 mg PO QAM diazepam 5 mg Tablet 5 mg PO BID PRN (Reason: Anxiety) ezetimibe [Zetia] 10 mg Tablet 10 mg PO QAM insulin glargine [Basaglar KwikPen U-100 Insulin] 100 unit/mL (3 mL) Insulin Pen 60 unit SUBCUT BID Nucynta 100 mg Tablet 100 mg PO Q4H PRN (Reason: Pain) amitriptyline 50 mg tablet 50 mg PO HS insulin aspart U-100 [Novolog U-100 Insulin aspart] 100 unit/mL solution 25 unit subcut UD PRN (Reason: sliding scale) Rx Instructions: PLUS 3 UNIT FOR EVERY 50 PTS OVER 150 BSG. duloxetine 30 mg capsule,delayed release(DR/EC) 30 mg PO QAM Rx Instructions: Takes along with 60 mg equaling 90 mg total torsemide 10 mg tablet 10 mg PO QAM nitroglycerin 0.4 mg/hr Patch 24 Hour 1 patch TRANSDERMAL DAILY PRN (Reason: HIGH ACTIVITY PER SPOUSE) Rx Instructions: allow nitrate-free interval of approx. 10-12 hrs per 24-hour period Baqsimi 3 mg/actuation spray,non-aerosol 3 mg INTRANASAL DIRECTED PRN (Reason: Hypoglycemia) duloxetine 60 mg capsule,delayed release(DR/EC) 60 mg PO QAM Rx Instructions: Takes along with 30 mg equaling 90 mg total Linzess 145 mcg capsule 72 mcg PO DAILYBB Discharge Orders: Discharge Order (Routine); Ordered 07/13/24 Ordered By: Pramod Gutierrez/Other Patient Handouts: High Blood Sugar (Hyperglycemia), Managing Type 2 Diabetes Admission Data Admit Date/Time: 07/11/24 14:46 Attending Provider: Shavonne Clark Admit Provider: Jasiel Hines Primary Care Provider: Clare Johnson Other Providers: Jasiel Hines; Kailash Villatoro Resident Activity Tracking Resident Involvement: Resident Care Provided Care Provided: Adult Hospital Medicine
[2024-07-13 18:20] VITALS: BP 111/76; PULSE 86
[2024-07-13] MEDS: HEPARIN 100 UNIT/ML 5ML FLUSH ONE (18:45)
[2024-07-13] MEDS ORDERED: DOCUSATE SODIUM SYRUP 100 MG/10 ML UDC PO SCH (21:00)
== END 2024-07-13 19:00 | disposition home or self-care (01) | DRG 389 ==
LOC: SUATTDRO → ED 12:37 → 3W 14:46 → SUATTDRO 14:46 → 3W 18:30 → 4W 07-12 21:04

== ENCOUNTER 2025-05-15 11:51 | Inpatient (IN) ==
[2025-05-15 12:40] LABS: Hematocrit (blood only) 38.4 % (42.0-52.0); Hemoglobin 12.9 g/dl (14.0-18.0); Immature Granulocytes # (auto) 0.08 K/uL (0.01-0.20); Immature Granulocytes % (auto) 0.7 %; Mean Corpuscular Hemoglobin 29.7 pg (25.0-34.0); Mean Corpuscular Volume 88.3 fL (80.0-100.0); Platelet Count 198 K/uL (130-400); RDW Standard Deviation 40.7 fL (36.4-46.3); Red Blood Count 4.35 M/uL (4.70-6.10); White Blood Count 10.68 K/ul (4.8-10.8)
[2025-05-15 13:00] LABS: Alanine Aminotransferase 21.0 U/L (7-52); Albumin Globulin Ratio 1.4 (0.9-2); Alkaline Phosphatase 58.0 U/L (34-104); Anion Gap 5.0 (3-11); Bilirubin,Total 0.8 mg/dl (0.2-1.0); Blood Urea Nitrogen 14.0 mg/dl (6-23); Calcium 9.0 mg/dl (8.6-10.3); Carbon Dioxide 28.0 mmol/L (21-32); Chloride 100.0 mmol/L (98-107); Creatinine Clr Calc Pharmacy 117.6 ml/min; Globulin 2.9 gm/dl (2.5-4.0); Glucose 216.0 mg/dl (70-99(Fasting)); Magnesium 1.7 mg/dl (1.7-2.4); Potassium 4.1 mmol/L (3.5-5.1); Sodium 133.0 mmol/L (136-145); Total Protein 6.9 gm/dl (6.0-8.3)
--- NOTE | 2025-05-15 13:00 | XRay Report ---
XR chest 1V not portable CLINICAL HISTORY: Chest pain, nonspecific COMPARISON STUDY: 12/08/2024 FINDINGS: Stable CABG, chest port, and cervical neurostimulator. Stable mild cardiomegaly with increa sed pulmonary vascular congestion. There are interval diffuse pulmonary interstitial opacities. No lo bar consolidation, pleural effusion, or pneumothorax seen. IMPRESSION: 1. CHF. 2. Interval pulmonary interstitial opacities could represent pulmonary edema or pneumonia. ACT 112: Negative or not required by law. Electronically signed by: Lenny Corado M.D. 05/15/2025 12:58 PM
--- NOTE | 2025-05-15 13:39 | Emergency Department Note ---
Impression & Plan Acute CHF, Elevated brain natriuretic peptide (BNP) level, Acute dyspnea, Non- ST elevation CA (NSTEMI), Pulmonary edema ED Provider Note HISTORY OF PRESENT ILLNESS: Patient is a 55-year-old male presenting with shortness of breath and weight gain. Patient reports that over the last 24 hours he has had an increasing shortness of breath. He denies any current chest pain, but does report that last night he had some discomfort in his chest. He reports that he takes torsemide daily and takes anywhere from 10 to 20 mg, alternating between those doses every other day. He is unsure if he took 10 mg or 20 mg today, but he did take an extra dose of 20 mg of torsemide prior to coming into the ER. He states that total today he would have taken anywhere from 30 to 40 mg of torsemide. He denies any lower extremity edema. He reports that yesterday he was significantly short of breath just walking a few steps. He reports he was unable to sleep well last night secondary to being short of breath and not being able to breathe with his CPAP. He denies any nausea or vomiting. He is on aspirin and Plavix daily. Denies any recent cough or fevers. Patient also reports that he has had a significant weight gain over the last few weeks. He states that when he gets a CHF exacerbation he gains weight in his abdomen. He reports that he was in the 260 pound range just 2 or 3 weeks ago and today he weighed himself and he was over 300 pounds. ROS: as above PHYSICAL EXAM: Constitutional: Patient appears in no acute distress. HENT: Head: Normocephalic and atraumatic. Eyes: EOMI, PERRL Mouth/Throat: Mucous membranes moist. Neck: Trachea midline. Neck supple. Cardiovascular: RRR, No murmurs, rubs or gallops. Intact distal pulses. Pulmonary/Chest: No respiratory distress. Breath sounds clear and equal bilaterally. Coarse breath sounds bilaterally. Abdominal: Abdomen soft, no tenderness, rebound or guarding. Musculoskeletal: No edema, tenderness or deformity noted. Skin: Warm and dry. No rash, erythema, pallor or cyanosis Psychiatric: Appropriate mood and affect for situation. Neurological: Alert and keenly responsive. CN II-XII grossly intact, moving all extremities equally and fully. MDM: - Vitals signs stable. - History obtained via patient. History as above. - Chronic conditions affecting care: CKD; CHF; obesity; DM-2; HTN; HLD; CAD (s/p PCI) - Differential diagnoses include, but are not limited to: Congestive heart failure; acute coronary syndrome; COPD/asthma exacerbation; pulmonary edema; pulmonary embolism; pneumonia; pneumothorax; viral syndrome - Order placed for continuous cardiac monitoring. At this time, monitor showed rate of 80 bpm with normal sinus rhythm, per my interpretation. - External medical records reviewed. Cardiology consultation dated 07/16/2023 was reviewed. Patient was admitted at that time for bright red blood per rectum. His Eliquis and clopidogrel were held during that acute visit - EKG image interpreted by myself showed normal sinus rhythm. Rate 82 bpm. QT 372. No acute ischemic changes. - Laboratory workup interpreted by myself showed normal WBC; slight hyponatremia (Na 133); normal creatinine; hyperglycemia (glucose 216); elevated troponin (113.4); elevated BNP (1106) - CXR image reviewed by myself showed pulmonary edema, per my interpretation. Radiology notes CHF and interval pulmonary interstitial opacities concerning for pulmonary edema versus pneumonia. - Patient given 40 mg IV lasix in ER. - Discussed case with resident director on-call, Dr. Valverde, at 13:30. He agrees with admission for diuresis. Will be by to see patient. - Discussion was had with case management assistant about patient's case and need for admission - Hospitalist, Dr. Louis, consulted for admission at 13:57 - [facility] ASSESSMENT AND PLAN: Diagnosis: Acute CHF exacerbation; pulmonary edema; NSTEMI; elevated BNP; acute dyspnea Plan: admit Past Med/Surg History Problem List (Updated 05/15/25 @ 14:11 by Michelle Louis MD) Acute on chronic heart failure with reduced ejection fraction (HFrEF, <= 40%) Pulmonary edema (Acute) Non-ST elevation CA (NSTEMI) (Acute) Acute dyspnea (Acute) Elevated brain natriuretic peptide (BNP) level (Acute) Acute CHF (Acute) Soft tissue radionecrosis (Acute) Late effect of radiation (Acute) History of rectal or anal cancer (Acute) Chemotherapy-induced neuropathy Diabetic peripheral neuropathy Hyperglycemia due to type 2 diabetes mellitus Peripheral neuropathic pain Orthostatic hypotension Bright red rectal bleeding (Acute) Anticoagulant long-term use (Acute) Urinary retention Acute hypotension (Acute) Hypothermia (Acute) Tachycardia (Acute) Urinary tract infection (Acute) Hypothermia Hx of heart artery stent (Chronic) X6-LAST ONE 01/2021 [facility] [place] Coronary artery disease (Acute) h/o CABG x 5, NSTEMI 2020, s/p 6 stents Hyperlipidemia Obesity (Chronic) History of non-ST elevation myocardial infarction (NSTEMI) (Chronic) Hypertension Neuropathic pain (Chronic) Peripheral neuropathy (Chronic) Lateral femoral cutaneous neuropathy Type 2 diabetes mellitus IDDM Severe obstructive sleep apnea cpap with 4L of oxygen at hs Fever, intermittent (Acute) Positive Lyme disease serology (Acute) Morbid obesity with BMI of 40.0-44.9, adult (Acute) DINA (acute kidney injury) (Acute) Nocturnal hypoxemia Left-sided chest pain (Acute) Acute electrocardiogram changes (Acute) Metabolic syndrome Angina of effort Non-ST elevation CA (NSTEMI) DVT prophylaxis CKD (chronic kidney disease) stage 3, GFR 30-59 ml/min Hyponatremia Anxiety Organic periodic limb movement disorder COVID-19 (Acute) Nocturnal hypoxemia Nocturnal hypoxemia Acute encephalopathy Hypotension (Acute) Diabetic ulcer of left great toe (Acute) Lower GI bleeding Pulmonary nodule seen on imaging study HFrEF (heart failure with reduced ejection fraction) EF 45-49%, Grade II diastolic dysfunction GERD (gastroesophageal reflux disease) Insomnia Left rotator cuff tear Morbid obesity with BMI of 40.0-44.9, adult Encounter for pre-operative examination Colonic mass (Acute) Pulmonary embolism recent diagnosis- being treated w/ eliquis Encounter for pre-operative examination Colon cancer Rectal cancer Dysuria Precordial chest pain (Acute) Shortness of breath (Acute) Chest pain at rest ASCVD (arteriosclerotic cardiovascular disease) S/P CABG (coronary artery bypass graft) Fall (on)(from) incline, initial encounter Urinary retention due to benign prostatic hyperplasia Erectile dysfunction Medical History SBO (small bowel obstruction) Priya glabrata infection Sepsis Fall Rectosigmoid cancer adenocarcinoma, 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 Ischemic cardiomyopathy History of blood transfusion 1979 Confusion and disorientation Acute respiratory failure with hypoxia and hypercapnia On anticoagulant therapy plavix daily/aspirin 162mg daily History of COVID-19 x2--diagnosed 06/25/22--sore throat, chills,via HOME TEST ONLY- resolved diagnosed 05/2021--had sinus congestion, headache, productive cough--pt states he received monoclonal antibodies Difficult airway for intubation was told it was hard to intubate him for carpal tunnel surgery in 1999 at [place] NSTEMI (non-ST elevated myocardial infarction) NSTEMI at [facility] [place] s/p PCI of the [id number] with HARSHA x 2 and HARSHA x1 to pRCA on 02/07/21; Recurrent HF related to LVEDP 30-34% Ischemic cardiomyopathy CHI (closed head injury) entered into EMR 07/2020 Fever Nocturnal hypoxemia Seizure AGE 10 S/P ACCIDENT-WAS ON MEDS COUPLE YRS-OFF MEDS AND NO SEIZURES 30+ YRS Brachial plexopathy Right History of Salmonella gastroenteritis Hx of renal calculi Surgical History Hx of colonoscopy History of tonsillectomy and adenoidectomy History of cardiac cath MULTIPLE-last 02/10/21 @ [facility] [place]--per pt 2 stents placed 12/2018?-NO STENTS NEEDED LAST STENT PLACED 10/2017 [facility] [place] History of coronary artery bypass graft 5 VESSELS Family History Grandfather (Maternal) Family history of diabetes mellitus Mother Family history of diabetes mellitus Stroke Uncle Obstructive sleep apnea Grandmother (Maternal) Stroke Family history of reaction to anesthesia "lost some cognitive ability after heart surgery" Father Coronary heart disease Social History Smoking Status: Never smoker Second Hand Exposure: No; Do You Dip or Chew Tobacco: No; Hx Alcohol Use: Yes Alcohol type: hard liquor Alcohol Intake Frequency: 2-3 x/Week Hx Substance Use: No Preferred Language: Bulgarian Communication Ability: Effective Visual Impairment: No Limitations Hearing Ability: Normal Cake Batter Mixer Required: No Beliefs That Will Affect Care: None marital status: Current Living Situation: Family Current Living Situation Comment: Single family home with and kids current occupational status: unemployed current occupation: retired/disable How many Children do You have: 3 Feels Safe at Home: Yes Childhood Exposure to Second-Hand Smoke: Yes Diet: diabetic caffeine: No during the past year weight has: other Do you think of yourself as: straight/heterosexual Gender Identity: Male Assistive Devices: Glasses and Other Allergies Allergies Allergy/AdvReac Type Severity Reaction Status Date / Time No Known Allergies Allergy Verified 05/15/25 13:55 Home Meds Home Medications Medication Instructions Recorded Confirmed rosuvastatin 40 mg tablet 40 mg PO QAM 01/28/19 05/15/25 nitroglycerin 0.4 mg sublingual 0.4 mg sublingual DIRECTED PRN 02/24/19 05/15/25 tablet Chest Pain icosapent ethyl 1 gram capsule 2 g PO BID 05/18/21 05/15/25 (Vascepa) ezetimibe 10 mg tablet (Zetia) 10 mg PO QAM 08/09/22 05/15/25 insulin glargine 100 unit/mL (3 60 unit subcut BID 08/09/22 05/15/25 mL) subcutaneous pen (Basaglar KwikPen U-100 Insulin) metformin 500 mg tablet,extended 500 mg PO BID 08/09/22 05/15/25 release 24 hr empagliflozin 25 mg tablet 25 mg PO QAM 01/09/23 05/15/25 (Jardiance) insulin aspart U-100 100 unit/mL 25 unit subcut QID PRN sliding 06/19/23 05/15/25 subcutaneous solution (Novolog scale U-100 Insulin aspart) glucagon 3 mg/actuation nasal 3 mg intranasal DIRECTED PRN 05/22/24 05/15/25 spray (Baqsimi) Hypoglycemia nitroglycerin 0.4 mg/hr 1 patch transdermal DAILY PRN HIGH 05/22/24 05/15/25 transdermal 24 hour patch ACTIVITY PER SPOUSE torsemide 10 mg tablet 10 mg PO Q OTHER DAY 05/22/24 05/15/25 midodrine 10 mg tablet 20 mg PO QAM 07/07/24 05/15/25 clopidogrel 75 mg tablet 75 mg PO QAM 05/15/25 05/15/25 diazepam 5 mg tablet 5 mg PO BID PRN Anxiety 05/15/25 05/15/25 duloxetine 30 mg capsule,delayed 30 mg PO HS 05/15/25 05/15/25 release duloxetine 60 mg capsule,delayed 60 mg PO HS 05/15/25 05/15/25 release midodrine 10 mg tablet 20 mg PO QPM PRN - 08/22/25 08/22/25 torsemide 10 mg tablet 20 mg PO Q OTHER DAY 05/15/25 05/15/25 zolpidem 12.5 mg tablet,extended 12.5 mg PO HS 05/15/25 05/15/25 release,multiphase Previous Rx's Medication Instructions Recorded pantoprazole 40 mg tablet,delayed 40 mg PO QAM #30 tabs 01/10/23 release metoprolol succinate 25 mg 25 mg PO HS #30 tabs 07/17/23 tablet,extended release 24 hr amitriptyline 75 mg tablet 75 mg PO HS 90 days #90 tabs 11/07/24 tadalafil 20 mg tablet 20 mg PO DAILY PRN sexual activity 01/27/25 #30 tabs Results & Data (ED) Vital Signs Vital Signs - 24 hr 05/15/25 11:52 05/15/25 11:57 05/15/25 13:24 Temperature 36.3 C L Temperature Source Temporal Artery Scan Pulse Rate 86 Pulse Rate [Apical] Respiratory Rate 22 Respiratory Effort / Characteristics Non-Labored Spontaneous Non-Labored Spontaneous Respiratory Depth Normal Respiratory Pattern Regular Blood Pressure 143/82 H Blood Pressure [Right Arm] Blood Pressure Mean 102 Blood Pressure Mean [Right Arm] Pulse Oximetry 98 96 Oxygen Delivery Method Room Air Room Air Sepsis Recent Fever Within 48 Hours No Sepsis New/Unexplained Change in Mental Status N/A Sepsis Action Taken by Nursing No Action Required 05/15/25 13:24 05/15/25 13:24 Temperature Temperature Source Pulse Rate 80 Pulse Rate [Apical] 80 Respiratory Rate 16 16 Respiratory Effort / Characteristics Non-Labored Spontaneous Respiratory Depth Normal Respiratory Pattern Regular Blood Pressure Blood Pressure [Right Arm] 131/86 Blood Pressure Mean Blood Pressure Mean [Right Arm] 101 Pulse Oximetry 96 96 Oxygen Delivery Method Room Air Room Air Sepsis Recent Fever Within 48 Hours Sepsis New/Unexplained Change in Mental Status Sepsis Action Taken by Nursing Laboratory Data 05/15/25 12:28 05/15/25 12:28 Lab Results 05/15/25 Range/Units 12:28 WBC 10.68 (4.8-10.8) K/ul RBC 4.35 L (4.70-6.10) M/uL Hgb 12.9 L (14.0-18.0) g/dl Hct 38.4 L (42.0-52.0) % MCV 88.3 (80.0-100.0) fL MCH 29.7 (25.0-34.0) pg MCHC 33.6 (32.0-36.0) g/dL RDW Std Deviation 40.7 (36.4-46.3) fL RDW Coeff of Triny 12.7 (11.5-14.5) % Plt Count 198 (130-400) K/uL MPV 10.7 (9.4-12.4) fL Immature Gran % (Auto) 0.7 % Neut % (Auto) 75.8 % Lymph % (Auto) 11.5 % [place] % (Auto) 10.8 % Eos % (Auto) 1.0 % Baso % (Auto) 0.2 % Neut # (Auto) 8.09 H (1.40-6.50) K/uL Lymph # (Auto) 1.23 (1.20-3.40) K/uL [place] # (Auto) 1.15 H (0.11-0.59) K/uL Eos # (Auto) 0.11 (0.00-0.50) K/uL Baso # (Auto) 0.02 (0.00-0.20) K/uL Immature Gran # (Auto) 0.08 (0.01-0.20) K/uL PT Cancelled INR Cancelled APTT Cancelled PTT Ratio Cancelled Sodium 133 L (136-145) mmol/L Potassium 4.1 (3.5-5.1) mmol/L Chloride 100 (98-107) mmol/L Carbon Dioxide 28 (21-32) mmol/L Anion Gap 5 (3-11) BUN 14 (6-23) mg/dl Creatinine 1.04 (0.6-1.4) mg/dl Est Cr Clr Drug Dosing 117.6 ml/min eGFR 84.80 BUN/Creatinine Ratio 13.5 (10-20) Glucose 216 H (70-99(Fasting)) mg/dl Calcium 9.0 (8.6-10.3) mg/dl Magnesium 1.7 (1.7-2.4) mg/dl Total Bilirubin 0.8 (0.2-1.0) mg/dl AST 23 (13-39) U/L ALT 21 (7-52) U/L Alkaline Phosphatase 58 (34-104) U/L Troponin I High Sens 113.4 H* (0-20) pg/ml B-Natriuretic Peptide 1106 H (0-100) pg/ml Total Protein 6.9 (6.0-8.3) gm/dl Albumin 4.0 (3.4-5.0) gm/dl Globulin 2.9 (2.5-4.0) gm/dl Albumin/Globulin Ratio 1.4 (0.9-2) Administered Medications Discontinued Medications Furosemide (Furosemide 40 Mg/4 Ml Vial) 40 mg IV ONE ONE Stop: 05/15/25 13:58 Last Admin: 05/15/25 14:05 Dose: 40 mg Documented By: STEPHANIE Imaging Data Radiologist's Impression: Chest X-Ray 05/15/25 11:57 XR chest 1V not portable CLINICAL HISTORY: Chest pain, nonspecific COMPARISON STUDY: 12/08/2024 FINDINGS: Stable CABG, chest port, and cervical neurostimulator. Stable mild cardiomegaly with increased pulmonary vascular congestion. There are interval diffuse pulmonary interstitial opacities. No lobar consolidation, pleural effusion, or pneumothorax seen. IMPRESSION: 1. CHF. 2. Interval pulmonary interstitial opacities could represent pulmonary edema or pneumonia. ACT 112: Negative or not required by law. Electronically signed by: Lenny Corado M.D. 05/15/2025 12:58 PM Discharge Plan Visit Data Chief Complaint: Respiratory Problems Stated Complaint: SHORTNESS OF BREATH/RETAINING FLUID ED Provider: Elise Talavera Discharge Problem: Acute CHF, Elevated brain natriuretic peptide (BNP) level, Acute dyspnea, Non- ST elevation CA (NSTEMI), Pulmonary edema Condition: Fair Forms Stand Alone Forms: My [facility] ison furniture Prescriptions Prescriptions: No Action midodrine 10 mg tablet 20 mg PO QAM icosapent ethyl [Vascepa] 1 gram capsule 2 g PO BID tadalafil 20 mg tablet 20 mg PO DAILY PRN (Reason: sexual activity) Qty: 30 2RF Rx Instructions: administer approximately 30min before sexual activity; do not use more than 1 dose per 24hrs DO NOT USE WITH NITROGLYCERIN!! amitriptyline 75 mg tablet 75 mg PO HS 90 Days Qty: 90 1RF rosuvastatin 40 mg Tablet 40 mg PO QAM nitroglycerin 0.4 mg tablet, sublingual 0.4 mg sublingual DIRECTED PRN (Reason: Chest Pain) Rx Instructions: PLACE ONE TABLET UNDER THE TONGUE EVERY 5 MINUTES FOR UP TO 3 DOSES OVER 15 MINUTES IF NEEDED FOR CHEST PAIN Jardiance 25 mg tablet 25 mg PO QAM pantoprazole 40 mg Tablet,Delayed Release (Dr/Ec) 40 mg PO QAM Qty: 30 0RF metoprolol succinate 25 mg Tablet Extended Release 24 Hr 25 mg PO HS Qty: 30 0RF metformin 500 mg tablet extended release 24 hr 500 mg PO BID ezetimibe [Zetia] 10 mg Tablet 10 mg PO QAM insulin glargine [Basaglar KwikPen U-100 Insulin] 100 unit/mL (3 mL) Insulin Pen 60 unit SUBCUT BID insulin aspart U-100 [Novolog U-100 Insulin aspart] 100 unit/mL solution 25 unit subcut QID PRN (Reason: sliding scale) Rx Instructions: PLUS 3 UNIT FOR EVERY 50 PTS OVER 150 BSG. torsemide 10 mg tablet 10 mg PO Q OTHER DAY Rx Instructions: Alternate w/ 20mg every other day nitroglycerin 0.4 mg/hr Patch 24 Hour 1 patch TRANSDERMAL DAILY PRN (Reason: HIGH ACTIVITY PER SPOUSE) Rx Instructions: allow nitrate-free interval of approx. 10-12 hrs per 24-hour period Baqsimi 3 mg/actuation spray,non-aerosol 3 mg INTRANASAL DIRECTED PRN (Reason: Hypoglycemia) torsemide 10 mg tablet 20 mg PO Q OTHER DAY Rx Instructions: Alternate w/ 10mg every other day diazepam 5 mg tablet 5 mg PO BID PRN (Reason: Anxiety) midodrine 10 mg Tablet 20 mg PO QPM PRN (Reason: -) Rx Instructions: do not give last dose of day after 6PM or within 4 hrs of bedtime zolpidem 12.5 mg tablet,ext release multiphase 12.5 mg PO HS clopidogrel 75 mg tablet 75 mg PO QAM duloxetine 30 mg capsule,delayed release(DR/EC) 30 mg PO HS Rx Instructions: Takes along with 60 mg equaling 90 mg total duloxetine 60 mg capsule,delayed release(DR/EC) 60 mg PO HS Rx Instructions: Takes along with 30 mg equaling 90 mg total Referrals Referrals: Clare Johnson DO [Primary Care Provider] -
--- NOTE | 2025-05-15 14:00 | History & Physical Report ---
Date of Service May 15, 2025 Assessment & Plan (1) Acute on chronic heart failure with reduced ejection fraction (HFrEF, <= 40%): (2) Coronary artery disease: (3) Hypertension: (4) Type 2 diabetes mellitus: Plan 55 y/o with CAD CABGx5 at age 39, last PCI 2020, HFrEF, ischemic CM, HTN, DM type 2 who came to ED with shortness of breath. Dyspnea is related to exacerbation of heart failure - he appears volume overloaded on exam, pulmonary edema on chest X-ray, BNP elevated to 1100. Had chest pain with dyspnea last night and trop 110s but EKG unchanged from baseline and does not appear to be in an ACS. # Acute on chronic HFpEF - has systolic and diastolic heart failure # CAD history of CABGx5 and PCI last in 2020, ischemic cardiomyopathy # Hypertension history, chronic orthostatic hypotension -consulted cardiology Dr. Valverde - reviewed recs in his note -he did take 20-30 mg of torsemide this am. Usual dose 10 alt 20. Ordered lasix 40 mg IV and assess response -will not order repeat TTE since he had one three weeks ago which I reviewed. also reviewed previous cardiology clinic notes from [facility] -monitor I/O, daily weights, daily BMP and mag -low salt diet -not on SNRI/ANDIE/ARB because of chronic orthostatic hypotension -continue metoprolol and midodrine. 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 Balloon dilatation performed by flexible sigmoidoscopy on 05/13/2025." also per Dr. Valverde's note he was not thought to be a good candidate for hyperbaric treatment of rectal ulcer because of his CHF/risk of pulmonary edema. #Hx PE when he had active cancer, not chronically anticoagulated - DVT ppx with enoxaparin History of Present Illness Chief Complaint: shortness of breath Primary Care Provider: Clare Johnson, DO 55 y/o with CAD CABGx5 at age 39, last PCI 2020, HFrEF, ischemic CM, HTN, DM type 2 who came to ED with shortness of breath 24h of increasing shortness of breath, starting last evening, felt dyspneic tying shoes, orthopnea at night and felt he couldn't tolerate his CPAP. Had dramatic increase in weight and increased abdominal girth overnight. Doesn't ever get a lot of leg edema. Had brief chest pain when he was most short of breath, none now. took 30-40 mg of po torsemide today and did have increase in UOP. Between this and the lasix IV he had urinated more than 3L by the time I saw him EF 35-40% Echo 04/24 [facility] - reviewed. 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 Weight 298-->313 pounds overnight He does feel less short of breath now after increased diuretics. HANNON improved. He admits to some dietary salt last few days - had broths while on clears for endoscopy and had some franco with Bfast yesterday. Cough, nasal congestion x 2 weeks, no fevers Endoscopy two days ago and vocal cord abnormality ? Headache after tripping and hitting head, CT head was neg Allergies Allergy/AdvReac Type Severity Reaction Status Date / Time No Known Allergies Allergy Verified 05/15/25 13:55 Home Medications Medication Instructions Recorded Confirmed Type rosuvastatin 40 mg tablet 40 mg PO QAM 01/28/19 05/15/25 History nitroglycerin 0.4 mg sublingual 0.4 mg sublingual DIRECTED PRN 02/24/19 05/15/25 History tablet Chest Pain icosapent ethyl 1 gram capsule 2 g PO BID 05/18/21 05/15/25 History (Vascepa) ezetimibe 10 mg tablet (Zetia) 10 mg PO QAM 08/09/22 05/15/25 History insulin glargine 100 unit/mL (3 60 unit subcut BID 08/09/22 05/15/25 History mL) subcutaneous pen (Basaglar KwikPen U-100 Insulin) metformin 500 mg tablet,extended 500 mg PO BID 08/09/22 05/15/25 History release 24 hr empagliflozin 25 mg tablet 25 mg PO QAM 01/09/23 05/15/25 History (Jardiance) pantoprazole 40 mg tablet,delayed 40 mg PO QAM #30 tabs 01/10/23 05/15/25 Rx release insulin aspart U-100 100 unit/mL 25 unit subcut QID PRN sliding 06/19/23 05/15/25 History subcutaneous solution (Novolog scale U-100 Insulin aspart) metoprolol succinate 25 mg 25 mg PO HS #30 tabs 07/17/23 05/15/25 Rx tablet,extended release 24 hr glucagon 3 mg/actuation nasal 3 mg intranasal DIRECTED PRN 05/22/24 05/15/25 History spray (Baqsimi) Hypoglycemia nitroglycerin 0.4 mg/hr 1 patch transdermal DAILY PRN HIGH 05/22/24 05/15/25 History transdermal 24 hour patch ACTIVITY PER SPOUSE torsemide 10 mg tablet 10 mg PO Q OTHER DAY 05/22/24 05/15/25 History midodrine 10 mg tablet 20 mg PO QAM 07/07/24 05/15/25 History amitriptyline 75 mg tablet 75 mg PO HS 90 days #90 tabs 11/07/24 05/15/25 Rx tadalafil 20 mg tablet 20 mg PO DAILY PRN sexual activity 01/27/25 05/15/25 Rx #30 tabs clopidogrel 75 mg tablet 75 mg PO QAM 05/15/25 05/15/25 History diazepam 5 mg tablet 5 mg PO BID PRN Anxiety 05/15/25 05/15/25 History duloxetine 30 mg capsule,delayed 30 mg PO HS 05/15/25 05/15/25 History release duloxetine 60 mg capsule,delayed 60 mg PO HS 05/15/25 05/15/25 History release midodrine 10 mg tablet 20 mg PO QPM PRN - 05/15/25 05/15/25 History torsemide 10 mg tablet 20 mg PO Q OTHER DAY 05/15/25 05/15/25 History zolpidem 12.5 mg tablet,extended 12.5 mg PO HS 05/15/25 05/15/25 History release,multiphase Past Med/Surg History Problem List Acute on chronic heart failure with reduced ejection fraction (HFrEF, <= 40%) Pulmonary edema (Acute) Non-ST elevation TX (NSTEMI) (Acute) Acute dyspnea (Acute) Elevated brain natriuretic peptide (BNP) level (Acute) Acute CHF (Acute) Soft tissue radionecrosis (Acute) Late effect of radiation (Acute) History of rectal or anal cancer (Acute) Chemotherapy-induced neuropathy Diabetic peripheral neuropathy Hyperglycemia due to type 2 diabetes mellitus Peripheral neuropathic pain Orthostatic hypotension Bright red rectal bleeding (Acute) Anticoagulant long-term use (Acute) Urinary retention Acute hypotension (Acute) Hypothermia (Acute) Tachycardia (Acute) Urinary tract infection (Acute) Hypothermia Hx of heart artery stent (Chronic) X6-LAST ONE 01/2021 [facility] Coronary artery disease (Acute) h/o CABG x 5, NSTEMI 2020, s/p 6 stents Hyperlipidemia Obesity (Chronic) History of non-ST elevation myocardial infarction (NSTEMI) (Chronic) Hypertension Neuropathic pain (Chronic) Peripheral neuropathy (Chronic) Lateral femoral cutaneous neuropathy Type 2 diabetes mellitus IDDM Severe obstructive sleep apnea cpap with 4L of oxygen at hs Fever, intermittent (Acute) Positive Lyme disease serology (Acute) Morbid obesity with BMI of 40.0-44.9, adult (Acute) DINA (acute kidney injury) (Acute) Nocturnal hypoxemia Left-sided chest pain (Acute) Acute electrocardiogram changes (Acute) Metabolic syndrome Angina of effort Non-ST elevation TX (NSTEMI) DVT prophylaxis CKD (chronic kidney disease) stage 3, GFR 30-59 ml/min Hyponatremia Anxiety Organic periodic limb movement disorder COVID-19 (Acute) Nocturnal hypoxemia Nocturnal hypoxemia Acute encephalopathy Hypotension (Acute) Diabetic ulcer of left great toe (Acute) Lower GI bleeding Pulmonary nodule seen on imaging study HFrEF (heart failure with reduced ejection fraction) EF 45-49%, Grade II diastolic dysfunction GERD (gastroesophageal reflux disease) Insomnia Left rotator cuff tear Morbid obesity with BMI of 40.0-44.9, adult Encounter for pre-operative examination Colonic mass (Acute) Pulmonary embolism recent diagnosis- being treated w/ eliquis Encounter for pre-operative examination Colon cancer Rectal cancer Dysuria Precordial chest pain (Acute) Shortness of breath (Acute) Chest pain at rest ASCVD (arteriosclerotic cardiovascular disease) S/P CABG (coronary artery bypass graft) Fall (on)(from) incline, initial encounter Urinary retention due to benign prostatic hyperplasia Erectile dysfunction Medical History SBO (small bowel obstruction) Priya glabrata infection Sepsis Fall Rectosigmoid cancer adenocarcinoma, 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 Ischemic cardiomyopathy History of blood transfusion 1979 Confusion and disorientation Acute respiratory failure with hypoxia and hypercapnia On anticoagulant therapy plavix daily/aspirin 162mg daily History of COVID-19 x2--diagnosed 06/25/22--sore throat, chills,via HOME TEST ONLY- resolved diagnosed 05/2021--had sinus congestion, headache, productive cough--pt states he received monoclonal antibodies Difficult airway for intubation was told it was hard to intubate him for carpal tunnel surgery in 1999 at [place] NSTEMI (non-ST elevated myocardial infarction) NSTEMI at [facility] s/p PCI of the [id number] with HARSHA x 2 and HARSHA x1 to pRCA on 02/07/21; Recurrent HF related to LVEDP 30-34% Ischemic cardiomyopathy CHI (closed head injury) entered into EMR 07/2020 Fever Nocturnal hypoxemia Seizure AGE 10 S/P ACCIDENT-WAS ON MEDS COUPLE YRS-OFF MEDS AND NO SEIZURES 30+ YRS Brachial plexopathy Right History of Salmonella gastroenteritis Hx of renal calculi Surgical History Hx of colonoscopy History of tonsillectomy and adenoidectomy History of cardiac cath MULTIPLE-last 02/10/21 @ [facility] [place]--per pt 2 stents placed 12/2018?-NO STENTS NEEDED LAST STENT PLACED 10/2017 [facility] [place] History of coronary artery bypass graft 5 VESSELS Family History Grandfather (Maternal) Family history of diabetes mellitus Mother Family history of diabetes mellitus Stroke Uncle Obstructive sleep apnea Grandmother (Maternal) Stroke Family history of reaction to anesthesia "lost some cognitive ability after heart surgery" Father Coronary heart disease Social History Smoking Status: Never smoker Second Hand Exposure: No; Do You Dip or Chew Tobacco: No; Hx Alcohol Use: Yes Alcohol type: hard liquor Alcohol Intake Frequency: 2-3 x/Week Hx Substance Use: No Preferred Language: Portuguese Communication Ability: Effective Visual Impairment: No Limitations Hearing Ability: Normal Yarn Comber Required: No Beliefs That Will Affect Care: None marital status: Current Living Situation: Family Current Living Situation Comment: Single family home with and kids current occupational status: unemployed current occupation: retired/disable How many Children do You have: 3 Feels Safe at Home: Yes Childhood Exposure to Second-Hand Smoke: Yes Diet: diabetic caffeine: No during the past year weight has: other Do you think of yourself as: straight/heterosexual Gender Identity: Male Assistive Devices: Glasses and Other Review of Systems 2 Review of Systems: All systems reviewed & are unremarkable except as noted in HPI & below Physical Exam 2 Physical Exam: Last 24h vitals reviewed GEN: no acute distress, sitting EOB. His in room. HEENT: pupils equal, sclerae anicteric, moist MM RESP: normal WOB, distant but there are fine crackles prison up bilaterally without wheezing CV: reg no mrg, can;t see neck veins ABD: soft/nt/nd +BT : no fernandez EXT: very mild fiona pedal/ankle edema. wwp SKIN: warm and dry, no generalized rashes NEURO: AOx person, place, and situation. Face symmetric, speech normal, moves 4 ext spontaneously and equally Results & Data Results & Data Vital Signs (Past 12 Hours) Vital Signs Temp Pulse Pulse Resp BP BP Pulse Ox 05/15/25 13:24 80 16 96 05/15/25 13:24 80 16 131/86 96 05/15/25 13:24 96 05/15/25 11:52 36.3 C L 86 22 143/82 H 98 O2 Del Method 05/15/25 13:24 Room Air 05/15/25 13:24 Room Air 05/15/25 13:24 Room Air 05/15/25 11:52 Room Air Laboratory Results 05/15/25 12:28 05/15/25 12:28 Tn 113 BNP 1106 (last 200s) CXR - personally interpreted film - sternotomy wires, pulmonary edema, left pleural effusion EKG - personally interpreted tracing - sinus, old septal infarct PG Care Time/CCT Total # of Minutes Spent Total Time Spent with Patient: Total time spent is greater than 50% in coordination of care (as documented) at patient's floor/unit and/or counseling patient: Coding Level of Care Code 11058 INT INP/OBS CARE 75MIN Diagnoses Acute on chronic heart failure with reduced ejection fraction (HFrEF, <= 40%) I50.23 Coronary artery disease I25.10 Coronary Disease-Associated Artery/Lesion type: unspecified vessel or lesion type [place] vs. transplanted heart: [place] heart Hypertension I10 Type 2 diabetes mellitus E11.9 (2) Coronary artery disease Coronary Disease-Associated Artery/Lesion type: unspecified vessel or lesion type [place] vs. transplanted heart: [place] heart
[2025-05-15] MEDS: FUROSEMIDE 40 MG/4 ML VIAL IV ONE (14:05)
--- NOTE | 2025-05-15 14:25 | Electrocardiogram Report ---
Test Reason : Blood Pressure : */* mmHG Vent. Rate : 82 BPM Atrial Rate : 82 BPM P-R Int : 218 ms QRS Dur : 104 ms QT Int : 372 ms P-R-T Axes : 88 127 107 degrees QTcB Int : 434 ms Sinus rhythm with 1st degree A-V block Right axis deviation Pulmonary disease pattern Septal infarct (cited on or before 11-Jan-2025) Abnormal ECG When compared with ECG of 11-Jan-2025 15:32, Questionable change in initial forces of Septal leads Confirmed by Sheldon Leal ([id number]) on 05/15/2025 2:24:42 PM Referred By: Confirmed By: Sheldon Leal
[2025-05-15 15:18] LABS: INR 0.9 (0.9-1.1); Partial Thromboplastin Time 25 Seconds (21-31); Prothrombin Time 10.3 Seconds (9.0-12.0)
[2025-05-15] MEDS ORDERED: GLUCOSE 40% GEL 15 GM TUBE PO PRN (15:22)
[2025-05-15] MEDS ORDERED: ALUMINUM/MAGNESIUM SUSP 30 ML UDC PO PRN (15:22)
[2025-05-15] MEDS ORDERED: MAGNESIUM HYDROXIDE SUSP 30 ML UDC PO PRN (15:22)
[2025-05-15] MEDS ORDERED: GLUCAGON FOR INJ 1 MG VIAL SQ PRN (15:22)
[2025-05-15] MEDS ORDERED: ONDANSETRON INJ 2 MG/ML 2 ML VIAL IV PRN (15:22)
[2025-05-15] MEDS ORDERED: MELATONIN 3 MG TAB PO PRN (15:22)
[2025-05-15] MEDS ORDERED: POLYETHYLENE (MIRALAX) 17 GM PACK PO PRN (15:22)
[2025-05-15] MEDS ORDERED: NITROGLYCERIN SL 0.4 MG/TAB TAB SL PRN (15:22)
[2025-05-15] MEDS ORDERED: GLUCOSE 10 TAB/TUBE PO PRN (15:22)
[2025-05-15] MEDS ORDERED: CARBOHYDRATES FOR HYPOGLYCEMIA PO PRN (15:22)
[2025-05-15] MEDS ORDERED: DEXTROSE 50% 50 ML SYRINGE IV PRN (15:22)
[2025-05-15] MEDS: INSULIN ASPART PER UNIT CHARGE SC SCH (17:33)
[2025-05-15] MEDS: ENOXAPARIN INJ 40 MG/0.4 ML SYR SQ SCH (17:34)
--- NOTE | 2025-05-15 18:11 | Cardiology Consultation ---
Date of Consultation May 15, 2025 Assessment & Plan (1) Acute on chronic heart failure with reduced ejection fraction (HFrEF, <= 40%): History of premature aggressive coronary heart disease.Resultant ischemic cardiomyopathy, LVEF 35-39%. * agree with furosemide 40 mg IV BID * Continue Jardiance 25 mg daily, metoprolol, Midodrine * On clopidogrel monotherapy for complex CAD with CABD and history of complex PCI , completed course of Eliquis for pulmonary embolism * Continue rosuvastatin. * Off Entresto due to hypotension (2) Soft tissue radionecrosis: * h/o rectal stricture with Area of poor healing around his the rectal anastomosis. There had been discussions with regards to hyperbaric oxygen therapy, but it is felt that the patient is not a candidate due to his heart failure status and risk for developing pulmonary edema with such therapy. On most recent flexible sigmoidoscopy earlier this week, the area appeared to be making some progress with regards to healing. I spent a total of 80 minutes on the date of service in preparation, delivery, and documentation of the care provided to this patient, excluding any time spent in the performance of separately billed services. Gina Valverde DO History of Present Illness Attending Physician: Michelle Louis MD History of Present Illness Americo Forman is a 55 year old male seen in cardiology consultation per the request of Dr Talavera for the evaluation of acute on chronic heart failure with reduced ejection fraction. The patient is accompanied at bedside by his spouse, Dafne. The patient is well-known to the undersigned as I followed him as an inpatient and outpatient dating back to 2009. He also has followed with Dr Edwards of the advance heart failure clinic at [facility]. Patient he notes progressive weight gain over the last few weeks. He patient visual attention to his daily weight and 5 weeks ago he weighed consistent 266 pounds. As of yesterday he weighed 298 pounds and today he weighed 313 pounds. His diuretic dose had been limited because his volume status had recently been well-controlled and he had been prone to symptomatic hypotension. As of recently he has been taking torsemide 10 mg daily alternating with 20 mg daily and will take an extra 10 mg on an as needed basis for edema or shortness of breath. This morning he took an extra 20 mg of torsemide. He continues to take midodrine on an as-needed basis for symptomatic low blood pressure. Past Medical / Surgical History: He has complex history including CAD with multivessel coronary artery disease and underwent CABG x 5 at [facility] on 12/07/09 at the age of 39. Most recent coronary angiography was in 01/2021 with complex PCI of the grayling RCA and to a sequential vein graft to the D1 and OM territory. LVEF 50 to 55%, [facility] , 01/10/2023. He has a history of chronic heart failure with varying degrees of left ventricular systolic dysfunction with ejection fraction as high as 50% in 2022, 35-39% on 05/01/2025 In July he presented to the [facility] with 6 months of weight loss, diarrhea, and blood with bowel movements. On 08/11/22 he underwent colonoscopy with findings of a large rectal mass , pathology yielded adenocarcinoma. A CT of the chest with contrast had been performed on 08/21/2022 for cancer staging purposes, with no evidence of metastatic disease in the chest, however he was found to have bilateral segmental and subsegmental pulmonary emboli, without suggestion of right heart strain. Shortly thereafter, 08/26/2022, he was referred to the emergency department at [facility], and a lower extremity venous duplex was negative for DVT. In April 2023, patient completed chemo and radiation. He underwent resection of his rectal carcinoma on 05/31/2023. Admitted 05/31-06/08/23 to [facility] for rectosigmoid resection. Surgery complicated by ileus, requiring prolonged NGT placement. Also had Shipley placed multiple times as well as straight cath due to urinary retention. Was seen in ER 06/16 and transferred to [facility] for concerns SBO and discharged on 06/17 as just observed overnight. 05/2023: found to have Priya glabrata UTI with difficult Shipley catheter placement -catheter placed by Urology on 06/19 Left he has had a rectal stricture at the site of his anastomosis and has had 2 previously placed stents placed in December,, the first of of which was removed due to bleeding in the second due to rectal pain. Balloon dilatation performed by flexible sigmoidoscopy on 05/13/2025. Allergies Allergy/AdvReac Type Severity Reaction Status Date / Time No Known Allergies Allergy Verified 05/15/25 13:55 Home Medications Medication Instructions Recorded Confirmed Type rosuvastatin 40 mg tablet 40 mg PO QAM 01/28/19 05/15/25 History nitroglycerin 0.4 mg sublingual 0.4 mg sublingual DIRECTED PRN 02/24/19 05/15/25 History tablet Chest Pain icosapent ethyl 1 gram capsule 2 g PO BID 05/18/21 05/15/25 History (Vascepa) ezetimibe 10 mg tablet (Zetia) 10 mg PO QAM 08/09/22 05/15/25 History insulin glargine 100 unit/mL (3 60 unit subcut BID 08/09/22 05/15/25 History mL) subcutaneous pen (Basaglar KwikPen U-100 Insulin) metformin 500 mg tablet,extended 500 mg PO BID 08/09/22 05/15/25 History release 24 hr empagliflozin 25 mg tablet 25 mg PO QAM 01/09/23 05/15/25 History (Jardiance) pantoprazole 40 mg tablet,delayed 40 mg PO QAM #30 tabs 01/10/23 05/15/25 Rx release insulin aspart U-100 100 unit/mL 25 unit subcut QID PRN sliding 06/19/23 05/15/25 History subcutaneous solution (Novolog scale U-100 Insulin aspart) metoprolol succinate 25 mg 25 mg PO HS #30 tabs 07/17/23 05/15/25 Rx tablet,extended release 24 hr glucagon 3 mg/actuation nasal 3 mg intranasal DIRECTED PRN 05/22/24 05/15/25 History spray (Baqsimi) Hypoglycemia nitroglycerin 0.4 mg/hr 1 patch transdermal DAILY PRN HIGH 05/22/24 05/15/25 History transdermal 24 hour patch ACTIVITY PER SPOUSE torsemide 10 mg tablet 10 mg PO Q OTHER DAY 05/22/24 05/15/25 History midodrine 10 mg tablet 20 mg PO QAM 07/07/24 05/15/25 History amitriptyline 75 mg tablet 75 mg PO HS 90 days #90 tabs 11/07/24 05/15/25 Rx tadalafil 20 mg tablet 20 mg PO DAILY PRN sexual activity 01/27/25 05/15/25 Rx #30 tabs clopidogrel 75 mg tablet 75 mg PO QAM 05/15/25 05/15/25 History diazepam 5 mg tablet 5 mg PO BID PRN Anxiety 05/15/25 05/15/25 History duloxetine 30 mg capsule,delayed 30 mg PO HS 05/15/25 05/15/25 History release duloxetine 60 mg capsule,delayed 60 mg PO HS 05/15/25 05/15/25 History release midodrine 10 mg tablet 20 mg PO QPM PRN - 05/15/25 05/15/25 History torsemide 10 mg tablet 20 mg PO Q OTHER DAY 05/15/25 05/15/25 History zolpidem 12.5 mg tablet,extended 12.5 mg PO HS 05/15/25 05/15/25 History release,multiphase Patient History Medical History SBO (small bowel obstruction) Priya glabrata infection Sepsis Fall Rectosigmoid cancer adenocarcinoma, 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 Ischemic cardiomyopathy History of blood transfusion 1979 Confusion and disorientation Acute respiratory failure with hypoxia and hypercapnia On anticoagulant therapy plavix daily/aspirin 162mg daily History of COVID-19 x2--diagnosed 06/25/22--sore throat, chills,via HOME TEST ONLY- resolved diagnosed 05/2021--had sinus congestion, headache, productive cough--pt states he received monoclonal antibodies Difficult airway for intubation was told it was hard to intubate him for carpal tunnel surgery in 1999 at [place] NSTEMI (non-ST elevated myocardial infarction) NSTEMI at [facility] s/p PCI of the [id number]-C7-MT1-OM2 with HARSHA x 2 and HARSHA x1 to pRCA on 02/07/21; Recurrent HF related to LVEDP 30-34% Ischemic cardiomyopathy CHI (closed head injury) entered into EMR 07/2020 Fever Nocturnal hypoxemia Seizure AGE 10 S/P ACCIDENT-WAS ON MEDS COUPLE YRS-OFF MEDS AND NO SEIZURES 30+ YRS Brachial plexopathy Right History of Salmonella gastroenteritis Hx of renal calculi Surgical History Hx of colonoscopy History of tonsillectomy and adenoidectomy History of cardiac cath MULTIPLE-last 02/10/21 @ [facility]--per pt 2 stents placed 12/2018?-NO STENTS NEEDED LAST STENT PLACED 10/2017 [facility] History of coronary artery bypass graft 5 VESSELS Family History Grandfather (Maternal) Family history of diabetes mellitus Mother Family history of diabetes mellitus Stroke Uncle Obstructive sleep apnea Grandmother (Maternal) Stroke Family history of reaction to anesthesia "lost some cognitive ability after heart surgery" Father Coronary heart disease Social History Smoking Status: Never smoker Second Hand Exposure: Yes; Do You Dip or Chew Tobacco: No; Tobacco Cessation Education Requested by Patient: No Hx Alcohol Use: Yes Alcohol type: wine and hard liquor Alcohol Intake Frequency: 2-3 x/Week Hx Substance Use: Yes Last Used Substance: Hours (ago) Last Used Substance Other:: Last used April 2022- not currebtly using Substance Use Type Other:: Ambien Preferred Language: French Communication Ability: Effective Visual Impairment: No Limitations Hearing Ability: Normal Bell Spinner Sousaphones Required: No Beliefs That Will Affect Care: Spiritual marital status: Current Living Situation: Spouse and Family Current Living Situation Comment: Single family home with and kids current occupational status: unemployed current occupation: retired/disable How many Children do You have: 3 Other Information That Helps Us Care for You: No Feels Safe at Home: Yes Safety Concerns: Feels Safe At This Time Childhood Exposure to Second-Hand Smoke: Yes Diet: diabetic caffeine: No during the past year weight has: other Do you think of yourself as: straight/heterosexual Gender Identity: Male Assistive Devices: CPAP and Glasses Review of Systems Review of Systems: All systems reviewed & are unremarkable except as noted in HPI & below Physical Exam Physical Exam: General: no acute distress and stated age Eyes: conjunctiva are pink and non-injected, sclera clear Neck: normal jugular venous pulse, no hepatojugular reflux Chest: normal shape and normal respiratory effort Lungs: clear to auscultation and percussion Cardiac Exam: - regular heart sounds, no murmurs,Elevated jugular venous pressure Abdomen: abdomen soft, non-tender, no abnormal masses and no hepatosplenomegaly Extremities: 2+ bilateral lower extremity Neuro:awake, conversant, follows commands, no focal motor deficits Psych: appropriate affect and insight. Results & Data Vital Signs (Past 12 Hours) Vital Signs Temp Pulse Pulse Resp BP BP Pulse Ox 05/15/25 16:52 85 05/15/25 15:27 05/15/25 15:27 36.7 C 83 20 127/77 97 05/15/25 13:24 80 16 96 05/15/25 13:24 80 16 131/86 96 05/15/25 13:24 96 05/15/25 11:52 36.3 C L 86 22 143/82 H 98 O2 Del Method 05/15/25 16:52 05/15/25 15:27 Room Air 05/15/25 15:27 Room Air 05/15/25 13:24 Room Air 05/15/25 13:24 Room Air 05/15/25 13:24 Room Air 05/15/25 11:52 Room Air Laboratory Results Cardiac Enzymes 05/15/25 05/15/25 05/15/25 Range/Units 12:28 14:08 15:57 AST 23 (13-39) U/L Troponin I High Sens 113.4 H* 132.7 H* 143.6 H* (0-20) pg/ml B-Natriuretic Peptide 1106 H (0-100) pg/ml Coagulation 05/15/25 05/15/25 Range/Units 12:28 13:11 PT Cancelled 10.3 APTT Cancelled 25 B-Natriuretic Peptide 1106 H (0-100) pg/ml CBC 05/15/25 Range/Units 12:28 WBC 10.68 (4.8-10.8) K/ul RBC 4.35 L (4.70-6.10) M/uL Hgb 12.9 L (14.0-18.0) g/dl Hct 38.4 L (42.0-52.0) % Plt Count 198 (130-400) K/uL Neut # (Auto) 8.09 H (1.40-6.50) K/uL Lymph # (Auto) 1.23 (1.20-3.40) K/uL Powell # (Auto) 1.15 H (0.11-0.59) K/uL Eos # (Auto) 0.11 (0.00-0.50) K/uL Baso # (Auto) 0.02 (0.00-0.20) K/uL Comprehensive Metabolic Panel 05/15/25 Range/Units 12:28 Sodium 133 L (136-145) mmol/L Potassium 4.1 (3.5-5.1) mmol/L Chloride 100 (98-107) mmol/L Carbon Dioxide 28 (21-32) mmol/L BUN 14 (6-23) mg/dl Creatinine 1.04 (0.6-1.4) mg/dl Glucose 216 H (70-99(Fasting)) mg/dl Calcium 9.0 (8.6-10.3) mg/dl AST 23 (13-39) U/L ALT 21 (7-52) U/L Alkaline Phosphatase 58 (34-104) U/L Total Protein 6.9 (6.0-8.3) gm/dl Albumin 4.0 (3.4-5.0) gm/dl Intake and Output 05/15/25 05/15/25 05/15/25 06:59 14:59 22:59 Output Total 900 / 900 Balance -900 / -900 Output: Urine 900 / 900 Other: Weight 142.5 kg 135.806 kg Weight Measurement Method Chair Scale Built in [facility] Patient Weight 05/16/25 06:59 Weight 135.806 kg Diagnostic Findings - EKG performed today 05/15/2025 interpreted independently: Sinus rhythm with first-degree AV block 82 bpm. Age-indeterminate septal infarct pattern. No acute repolarization abnormalities Summary of transthoracic echocardiogram performed 05/01/2025 as outpatient at [facility] The left ventricular cavity size is normal. The LV wall thickness is mildly increased (concentric). There is moderate hypokinesis to akinesis of the mid anterior and inferior septum and apical septum and inferior wall. Other wall segments contract normally The qualitative LV ejection fraction is 35-39% (moderately reduced). The left ventricular diastolic function is moderately abnormal (grade II). Mild aortic valve sclerosis is present. The aortic root and proximal ascending aorta are mildly enlarged. (4.2 cm/4.0 cm) Compared to prior study of May 29, 2024, there is no significant change. Chest x-ray performed today with image reviewed independently: Interstitial edema consistent with CHF Coding [place] [address] IN/OBS CONSULT LVL 5,80M Patient Type Established History Comprehensive Medical Decision Making High Complexity Diagnoses Acute on chronic heart failure with reduced ejection fraction (HFrEF, <= 40%) I50.23 Soft tissue radionecrosis L59.8; Y84.2
[2025-05-15] MEDS: ACETAMINOPHEN 325 MG TAB PO PRN (18:31)
[2025-05-15] MEDS: ZOLPIDEM TARTRATE 5 MG TAB PO SCH (20:54)
[2025-05-15] MEDS: LANTUS PER UNIT CHARGE SQ SCH (20:54)
[2025-05-15] MEDS: AMITRIPTYLINE HCL 25 MG TAB PO SCH (20:56)
[2025-05-15] MEDS: METOPROLOL SUCC 25MG EXT REL TAB PO SCH (20:57)
[2025-05-15] MEDS: IBUPROFEN 200 MG TAB PO STA (20:57)
[2025-05-15] MEDS ORDERED: MIDODRINE HCL 10 MG TAB PO PRN (21:00)
[2025-05-16 07:32] LABS: Anion Gap 6.0 (3-11); Blood Urea Nitrogen 21.0 mg/dl (6-23); Calcium 8.7 mg/dl (8.6-10.3); Carbon Dioxide 31.0 mmol/L (21-32); Chloride 101.0 mmol/L (98-107); Creatinine Clr Calc Pharmacy 113.4 ml/min; Glucose 180.0 mg/dl (70-99(Fasting)); Magnesium 2.0 mg/dl (1.7-2.4); Potassium 3.6 mmol/L (3.5-5.1); Sodium 138.0 mmol/L (136-145)
[2025-05-16 08:26] LABS: Hemoglobin A1C 9.0 % (4.5-5.6)
[2025-05-16 08:53] VITALS: RESP 20; TEMP 98.2; O2SAT 96
[2025-05-16] MEDS: EMPAGLIFLOZIN 25 MG TAB PO SCH (09:22)
[2025-05-16] MEDS: ROSUVASTATIN CALCIUM 20 MG TAB PO SCH (09:23)
[2025-05-16] MEDS: CLOPIDOGREL BISULFATE 75 MG TAB PO SCH (09:23)
[2025-05-16] MEDS: EZETIMIBE 10 MG TAB PO SCH (09:23)
[2025-05-16] MEDS: MIDODRINE HCL 10 MG TAB PO SCH (09:23)
[2025-05-16] MEDS: FUROSEMIDE 40 MG/4 ML VIAL IV SCH (09:30)
--- NOTE | 2025-05-16 09:30 | Cardiology Progress Note ---
Date of Service May 16, 2025 Assessment & Plan (1) Acute on chronic heart failure with reduced ejection fraction (HFrEF, <= 40%): Plan: History of premature aggressive coronary heart disease.Resultant ischemic cardiomyopathy, LVEF 35-39%. -Interval improvement in his HF symptoms overnight with aggressive diuresis -Down approx 7 kg since admission -improved edema and respiratory status -Labs acceptable this moring. Potassium lower limit of normal. -Give potassium 20 meq x 1 dose now. -Transition to oral torsemide 20 mg daily on discharge (patient was taking 10 mg alternating with 20 mg every other day prior to admission) -Continue Jardiance 25 mg daily, metoprolol, Midodrine - -On clopidogrel monotherapy for complex CAD with CABD and history of complex PCI , completed course of Eliquis for pulmonary embolism -Continue rosuvastatin. -Off Entresto due to hypotension (2) Soft tissue radionecrosis: Plan: * h/o rectal stricture with Area of poor healing around his the rectal anastomosis. There had been discussions with regards to hyperbaric oxygen therapy, but it is felt that the patient is not a candidate due to his heart failure status and risk for developing pulmonary edema with such therapy. On most recent flexible sigmoidoscopy earlier this week, the area appeared to be making some progress with regards to healing. Plan Improved cardiac symptoms. Patient anxious for discharge. Message sent to hospitalist Discharge on torsemide 20 mg daily (increase from 10 alternating with 20 mg prior to admission) He has an appt in 5 days on 05/[address] Valverde. Volume status can be re- evaluated at that time and BMP drawn after taking higher dose torsemide. Patient to continue daily weights and increase torsemide to 20 mg BID if he gains 3-5 lbs until his appt. Case to be discussed with Dr. Vergara. I spent a total of 40 minutes on the date of service in preparation, delivery, and documentation of the care provided to this patient, excluding any time spent in the performance of separately billed services. Connie Caraballo PA-C Department of Cardiology, [facility] This chart was completed in part utilizing Speech Voice Recognition Software. Grammatical errors, random word insertions, pronoun errors, and incomplete sentences are an occasional consequence of this system due to software limi tations, ambient noise, and hardware issues. Any formal questions or concerns about the content, text, or information contained within the body of this dictation should be directly addressed to the provider for clarification. Admission and Anticipated Discharge Date Admission Date: May 15, 2025 Supervising Physician Co-Signing Physician Notes Patient discharged prior to being evaluated by the undersigned. I have reviewed the advance practitioner's documentation, and I agree with, and take responsibility for the plan of care. Repeat lab studies and outpatient cardiology follow-up as scheduled. Daniel Vergara DO, [facility] Subjective Patient resting in bed feeling well this morning. Notes frequent urination since yesterday with interval improvement in his dyspnea/SOB. No chest pain. No dizziness. He reports urine is becoming darker and he is concerned that he is getting "dehydrated". Labs acceptable this morning. Patient lost approx 7 kg since yesterday. He is anxious to go home. Review of Systems Review of Systems: All systems reviewed & are unremarkable except as noted in HPI & below Physical Exam Physical Exam: General: no acute distress and stated age Eyes: conjunctiva are pink and non-injected, sclera clear Neck: normal jugular venous pulse, no hepatojugular reflux Chest: normal shape and normal respiratory effort Lungs: clear to auscultation and percussion. No rales/crackles Cardiac Exam: - regular heart sounds, no murmurs Abdomen: abdomen soft, non-tender, no abnormal masses and no hepatosplenomegaly Extremities: Trace pretibial edema Neuro:awake, conversant, follows commands, no focal motor deficits Psych: appropriate affect and insight. Results & Data Vital Signs (Past 12 Hours) Vital Signs Temp Pulse Pulse Resp BP BP Pulse Ox 05/16/25 07:30 36.8 C 77 20 101/70 96 05/16/25 04:07 36.5 C 63 18 98/63 L 94 05/15/25 23:41 36.7 C 72 16 107/68 95 05/15/25 23:00 82 O2 Del Method 05/16/25 07:30 Room Air 05/16/25 04:07 Room Air 05/15/25 23:41 Room Air 05/15/25 23:00 Laboratory Results Cardiac Enzymes 05/15/25 05/15/25 05/15/25 Range/Units 12:28 14:08 15:57 AST 23 (13-39) U/L Troponin I High Sens 113.4 H* 132.7 H* 143.6 H* (0-20) pg/ml B-Natriuretic Peptide 1106 H (0-100) pg/ml 05/16/25 Range/Units 06:21 AST (13-39) U/L Troponin I High Sens 88.5 H* D (0-20) pg/ml B-Natriuretic Peptide (0-100) pg/ml Coagulation 05/15/25 05/15/25 Range/Units 12:28 13:11 PT Cancelled 10.3 APTT Cancelled 25 B-Natriuretic Peptide 1106 H (0-100) pg/ml CBC 05/15/25 Range/Units 12:28 WBC 10.68 (4.8-10.8) K/ul RBC 4.35 L (4.70-6.10) M/uL Hgb 12.9 L (14.0-18.0) g/dl Hct 38.4 L (42.0-52.0) % Plt Count 198 (130-400) K/uL Neut # (Auto) 8.09 H (1.40-6.50) K/uL Lymph # (Auto) 1.23 (1.20-3.40) K/uL [place] # (Auto) 1.15 H (0.11-0.59) K/uL Eos # (Auto) 0.11 (0.00-0.50) K/uL Baso # (Auto) 0.02 (0.00-0.20) K/uL Comprehensive Metabolic Panel 05/15/25 05/16/25 Range/Units 12:28 06:21 Sodium 133 L 138 (136-145) mmol/L Potassium 4.1 3.6 (3.5-5.1) mmol/L Chloride 100 101 (98-107) mmol/L Carbon Dioxide 28 31 (21-32) mmol/L BUN 14 21 (6-23) mg/dl Creatinine 1.04 1.05 (0.6-1.4) mg/dl Glucose 216 H 180 H (70-99(Fasting)) mg/dl Calcium 9.0 8.7 (8.6-10.3) mg/dl AST 23 (13-39) U/L ALT 21 (7-52) U/L Alkaline Phosphatase 58 (34-104) U/L Total Protein 6.9 (6.0-8.3) gm/dl Albumin 4.0 (3.4-5.0) gm/dl Intake and Output 05/15/25 05/16/25 05/16/25 22:59 06:59 14:59 Intake Total 350 / 572 222 / 572 Output Total 900 / 2100 1200 / 2100 Balance -550 / -1528 -978 / -1528 Intake: Oral 350 / 572 222 / 572 Output: Urine 900 / 2100 1200 / 2100 Other: # Unmeasured Voids 1 Weight 135.806 kg 137.3 kg Weight Measurement Method Built in Bedscale Standing Scale Patient Weight 05/17/25 06:59 Weight 137.3 kg Diagnostic Findings Telemetry reviewed this morning: NSR in the 60's Chest X-Ray 05/15/25 11:57 XR chest 1V not portable CLINICAL HISTORY: Chest pain, nonspecific COMPARISON STUDY: 12/08/2024 FINDINGS: Stable CABG, chest port, and cervical neurostimulator. Stable mild cardiomegaly with increased pulmonary vascular congestion. There are interval diffuse pulmonary interstitial opacities. No lobar consolidation, pleural effusion, or pneumothorax seen. IMPRESSION: 1. CHF. 2. Interval pulmonary interstitial opacities could represent pulmonary edema or pneumonia. Medications Administered Current Inpatient Medications Acetaminophen (Acetaminophen 325 Mg Tab) 650 mg PO Q4H PRN PRN Reason: Pain or Fever Stop: 06/14/25 15:21 Last Admin: 05/15/25 18:31 Dose: 650 mg Al Hydrox/Mg Hydrox/Simethicone (Aluminum/Magnesium Susp 30 Ml Udc) 15 ml PO Q4H PRN PRN Reason: Dyspepsia Stop: 06/14/25 15:21 Amitriptyline HCl (Amitriptyline Hcl 25 Mg Tab) 75 mg PO HS PERRY Stop: 06/14/25 20:59 Last Admin: 05/15/25 20:56 Dose: 75 mg Clopidogrel Bisulfate (Clopidogrel Bisulfate 75 Mg Tab) 75 mg PO QAM PERRY Stop: 06/15/25 08:59 Last Admin: 05/16/25 09:23 Dose: 75 mg Dextrose (Dextrose 50% 50 Ml Syringe) 25 - 50 ml IV UD PRN; Protocol PRN Reason: Hypoglycemia Protocol Stop: 06/14/25 15:21 Diazepam (Diazepam 5 Mg Tablet) 5 mg PO BID PRN PRN Reason: Anxiety Stop: 06/14/25 15:21 Duloxetine HCl (Duloxetine Hcl 30 Mg Cap) 30 mg PO HS [facility] Stop: 06/14/25 20:59 Last Admin: 05/15/25 20:57 Dose: 30 mg Duloxetine HCl (Duloxetine Hcl 60 Mg Cap) 60 mg PO HS [facility] Stop: 06/14/25 20:59 Last Admin: 05/15/25 20:57 Dose: 60 mg Ezetimibe (Ezetimibe 10 Mg Tab) 10 mg PO QAM [facility] Stop: 06/15/25 08:59 Last Admin: 05/16/25 09:23 Dose: 10 mg Empagliflozin (Empagliflozin 25 Mg Tab) 25 mg PO QAM [facility] Stop: 06/15/25 08:59 Last Admin: 05/16/25 09:22 Dose: 25 mg Enoxaparin Sodium (Enoxaparin Inj 40 Mg/0.4 Ml Syr) 40 mg SQ Q12H [facility] Stop: 06/14/25 17:59 Last Admin: 05/16/25 05:59 Dose: 40 mg Furosemide (Furosemide 40 Mg/4 Ml Vial) 40 mg IV BID17 PERRY Stop: 06/15/25 08:59 Last Admin: 05/16/25 09:30 Dose: 40 mg Glucagon (Glucagon For Inj 1 Mg Vial) 1 mg SQ UD PRN; Protocol PRN Reason: Hypoglycemia Protocol Stop: 06/14/25 15:21 Glucose (Glucose 40% Gel 15 Gm Tube) 15 - 30 gm PO UD PRN; Protocol PRN Reason: Hypoglycemia Protocol Stop: 06/14/25 15:21 Glucose (Glucose 10 Tab/Tube) 4 - 8 tab PO UD PRN; Protocol PRN Reason: Hypoglycemia Protocol Stop: 06/14/25 15:21 Insulin Aspart (Insulin Aspart Per Unit Charge) 0 units SC ACHS [facility] Stop: 06/14/25 16:29 Last Admin: 05/16/25 08:23 Dose: 8 units Insulin Glargine (Lantus Per Unit Charge) 24 units SQ BID [facility] Stop: 06/14/25 20:59 Last Admin: 05/16/25 08:23 Dose: 24 units Magnesium Hydroxide (Magnesium Hydroxide Susp 30 Ml Udc) 30 ml PO Q12H PRN PRN Reason: Constipation Stop: 06/14/25 15:21 Melatonin (Melatonin 3 Mg Tab) 3 mg PO HS PRN PRN Reason: Sleep Stop: 06/14/25 15:21 Metoprolol Succinate (Metoprolol Succ 25mg Ext Rel Tab) 25 mg PO [facility] Stop: 06/14/25 20:59 Last Admin: 05/15/25 20:57 Dose: 25 mg Midodrine (Midodrine Hcl 10 Mg Tab) 20 mg PO QAM [facility] Stop: 06/15/25 08:59 Last Admin: 05/16/25 09:23 Dose: 20 mg Midodrine (Midodrine Hcl 10 Mg Tab) 20 mg PO QPM PRN PRN Reason: SBP < 110 Stop: 06/14/25 20:59 Miscellaneous (Carbohydrates For Hypoglycemia ) 15 - 30 gm PO UD PRN PRN Reason: Hypoglycemia Protocol Stop: 06/14/25 15:21 Nitroglycerin (Nitroglycerin Sl 0.4 Mg/Tab Tab) 0.4 mg SL Q5M PRN PRN Reason: Chest Pain Stop: 06/14/25 15:21 Ondansetron HCl (Ondansetron Inj 2 Mg/Ml 2 Ml Vial) 4 mg IV Q6H PRN PRN Reason: Nausea Stop: 06/14/25 15:21 Pantoprazole Sodium (Pantoprazole 40 Mg Tab) 40 mg PO QAM [facility] Stop: 06/15/25 08:59 Last Admin: 05/16/25 09:24 Dose: 40 mg Polyethylene Glycol (Polyethylene (Miralax) 17 Gm Pack) 17 gm PO DAILY PRN PRN Reason: Constipation Stop: 06/14/25 15:21 Rosuvastatin Calcium (Rosuvastatin Calcium 20 Mg Tab) [facility] Stop: 06/15/25 08:59 Last Admin: 05/16/25 09:23 Dose: 40 mg Zolpidem Tartrate (Zolpidem Tartrate 5 Mg Tab) 10 mg PO [facility] Stop: 06/14/25 20:59 Last Admin: 05/15/25 20:54 Dose: 10 mg PG Care Time/CCT Total # of Minutes Spent Total Time Spent with Patient: Total time spent is greater than 50% in coordination of care (as documented) at patient's floor/unit and/or counseling patient: 40 minutes Coding Level of Care Code 70140 SUB INP/OBS CARE 3/50MIN Diagnoses Acute on chronic heart failure with reduced ejection fraction (HFrEF, <= 40%) I50.23 Soft tissue radionecrosis L59.8; Y84.2
[2025-05-16] MEDS: POTASSIUM CHLORIDE CRTAB 20 MEQ TABCR PO ONE (09:40)
--- NOTE | 2025-05-16 10:03 | Communication Note ---
Date of Service: May 16, 2025 By CMS guidelines, a determination that the admission or continued stay is not medically necessary has been made by a member of the UR committee and a phy sician for this hospital stay, therefore a Code 44 will be completed and the Inpatient admission will be changed to outpatient.
--- NOTE | 2025-05-16 10:04 | Discharge Summary ---
Discharge Summary Date of Service May 16, 2025 Principal Dx & Hospital Course #1 = Principal Diagnosis (1) Acute on chronic heart failure with reduced ejection fraction (HFrEF, <= 40%): (2) Coronary artery disease: (3) Hypertension: (4) Type 2 diabetes mellitus: Plan 55 y/o with CAD CABGx5 at age 39, last PCI 2020, HFrEF, ischemic CM, HTN, DM type 2 who came to ED with shortness of breath. Dyspnea is related to exacerbat ion of heart failure - he appears volume overloaded on exam, pulmonary edema on chest X-ray, BNP elevated to 1100. Had chest pain with dyspnea last night and trop 110s but EKG unchanged from baseline and does not appear to be in an ACS. # Acute on chronic HFpEF - has systolic and diastolic heart failure # CAD history of CABGx5 and PCI last in 2020, ischemic cardiomyopathy # Hypertension history, chronic orthostatic hypotension -trigger was mild dietary indiscretion -consulted cardiology Dr. Valverde - discussed with his PA today -did not order repeat TTE since he had one three weeks ago which I reviewed. -not on SNRI/ANDIE/ARB because of chronic orthostatic hypotension -continue metoprolol jardiance and midodrine -continue statin and clopidogrel -diuresed very well with 40 mg IV lasix and symptoms substantially resolved, on discharge increased home torsemide dose to 20 mg. 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 Balloon dilatation performed by flexible sigmoidoscopy on 05/13/2025." also per Dr. Valverde's note he was not thought to be a good candidate for hyperbaric treatment of rectal ulcer because of his CHF/risk of pulmonary edema. #Hx PE when he had active cancer, not chronically anticoagulated Notes For Next Care Provider CHF exac increased torsemide A1c 9.0%, easy control on hospital diet adjust doses vs better effort on diet Admission HPI Per Admitting Provider 55 y/o with CAD CABGx5 at age 39, last PCI 2020, HFrEF, ischemic CM, HTN, DM type 2 who came to ED with shortness of breath 24h of increasing shortness of breath, starting last evening, felt dyspneic tying shoes, orthopnea at night and felt he couldn't tolerate his CPAP. Had dramatic increase in weight and increased abdominal girth overnight. Doesn't ever get a lot of leg edema. Had brief chest pain when he was most short of breath, none now. took 30-40 mg of po torsemide today and did have increase in UOP. Between this and the lasix IV he had urinated more than 3L by the time I saw him EF 35-40% Echo 04/24 [facility] - reviewed. Dr. Valverde is his hims manager. Weight 298-->313 pounds overnight He does feel less short of breath now after increased diuretics. HANNON improved. He admits to some dietary salt last few days - had broths while on clears for endoscopy and had some franco with Bfast yesterday. Cough, nasal congestion x 2 weeks, no fevers Endoscopy two days ago and vocal cord abnormality ? Headache after tripping and hitting head, CT head was neg Discharge Exam Last 24h vitals reviewed GEN: no acute distress, sitting EOB. His in room. HEENT: pupils equal, sclerae anicteric, moist MM RESP: normal WOB, distant but there are fine crackles care home up bilaterally without wheezing CV: reg no mrg, can;t see neck veins ABD: soft/nt/nd +BT : no fernandez EXT: very mild fiona pedal/ankle edema. wwp SKIN: warm and dry, no generalized rashes NEURO: AOx person, place, and situation. Face symmetric, speech normal, moves 4 ext spontaneously and equally Discharge Plan Discharge Items Patient Disposition: Home - Self-Care Reason For Visit: CHF EXACERBATION Discharge Diagnosis: Acute on chronic HFpEF Condition on Discharge: Good Activity: Resume your previous activity Non-emergency contact: Primary Care Provider and Cell Cleaner Call non-emergency contact if: you have any medication questions and your symptoms worsen Follow-up/Referrals: Robe Valverde DO [Cell Cleaner] - Clare Johnson DO [Primary Care Provider] - Diet: Carb Consistent or DM2 and Low Sodium (2gm) Addtl Attending Provider Instructions: Increase your torsemide to 20 mg qAM and monitor your weight on bathroom scale If you gain 5 pounds or more in a week or less, you can double your diuretic dose for 1-2 days. If weight doesn't come back down or you're getting short of breath call your hims manager office for advice Follow up with Dr. Valverde as scheduled this week It was a pleasure taking care of you in the hospital, Michelle Louis MD Addtl [employer] Provider Instructions: Call your Primary Care doctor if any of the following symptoms or problems start or get worse: * Shortness of breath or difficulty breathing * Wake up at night short of breath * Chest pain * Cough * Swelling of your hands, feet, or legs * More fatigued or tired with your normal activity * Palpitations - sudden fast heart beats WEIGHT * Weigh yourself every morning after using the bathroom. * Use the same scale. * Wear the same amount of clothing. * Write your weight down on a chart. * Call your Primary Care doctor if you gain more than 2-3 pounds in 1-2 days. MEDICATIONS * Use this discharge instruction sheet for medication instructions. * Take your medications at the time your doctor ordered. * Do not skip a dose of your medicines. * If you miss a dose of medicine, take it as soon as possible, but DO NOT DOUBLE A DOSE. * Read your medicine information when you get home. * Know all of the side effects of your medicine. If in doubt, ask your pharmacist * Call your Primary Care doctor's office if you have any side effects. * Be sure all of your doctors know what medicine and herbs you take (including cold, flu, and herbal medicine). Take the following with you to your follow-up doctor appointments: * Weight Chart * Medication List * List of questions Do not drink excessive alcohol, beer or wine. Pending Studies at Discharge: No Stand-Alone Forms: [employer], Smoking Cessation Medications and DC Order Prescriptions: Continued midodrine 10 mg tablet 20 mg PO QAM icosapent ethyl [Vascepa] 1 gram capsule 2 g PO BID tadalafil 20 mg tablet 20 mg PO DAILY PRN (Reason: sexual activity) Qty: 30 2RF Rx Instructions: administer approximately 30min before sexual activity; do not use more than 1 dose per 24hrs DO NOT USE WITH NITROGLYCERIN!! amitriptyline 75 mg tablet 75 mg PO HS 90 Days Qty: 90 1RF rosuvastatin 40 mg Tablet 40 mg PO QAM nitroglycerin 0.4 mg tablet, sublingual 0.4 mg sublingual DIRECTED PRN (Reason: Chest Pain) Rx Instructions: PLACE ONE TABLET UNDER THE TONGUE EVERY 5 MINUTES FOR UP TO 3 DOSES OVER 15 MINUTES IF NEEDED FOR CHEST PAIN Jardiance 25 mg tablet 25 mg PO QAM pantoprazole 40 mg Tablet,Delayed Release (Dr/Ec) 40 mg PO QAM Qty: 30 0RF metoprolol succinate 25 mg Tablet Extended Release 24 Hr 25 mg PO HS Qty: 30 0RF metformin 500 mg tablet extended release 24 hr 500 mg PO BID ezetimibe [Zetia] 10 mg Tablet 10 mg PO QAM insulin glargine [Basaglar KwikPen U-100 Insulin] 100 unit/mL (3 mL) Insulin Pen 60 unit SUBCUT BID insulin aspart U-100 [Novolog U-100 Insulin aspart] 100 unit/mL solution 25 unit subcut QID PRN (Reason: sliding scale) Rx Instructions: PLUS 3 UNIT FOR EVERY 50 PTS OVER 150 BSG. nitroglycerin 0.4 mg/hr Patch 24 Hour 1 patch TRANSDERMAL DAILY PRN (Reason: HIGH ACTIVITY PER SPOUSE) Rx Instructions: allow nitrate-free interval of approx. 10-12 hrs per 24-hour period Baqsimi 3 mg/actuation spray,non-aerosol 3 mg INTRANASAL DIRECTED PRN (Reason: Hypoglycemia) diazepam 5 mg tablet 5 mg PO BID PRN (Reason: Anxiety) midodrine 10 mg Tablet 20 mg PO QPM PRN (Reason: -) Rx Instructions: do not give last dose of day after 6PM or within 4 hrs of bedtime zolpidem 12.5 mg tablet,ext release multiphase 12.5 mg PO HS clopidogrel 75 mg tablet 75 mg PO QAM duloxetine 30 mg capsule,delayed release(DR/EC) 30 mg PO HS Rx Instructions: Takes along with 60 mg equaling 90 mg total duloxetine 60 mg capsule,delayed release(DR/EC) 60 mg PO HS Rx Instructions: Takes along with 30 mg equaling 90 mg total Changed torsemide 10 mg tablet 20 mg PO DAILY Qty: 0 0RF Rx Instructions: Alternate w/ 10mg every other day Discontinued torsemide 10 mg tablet 10 mg PO Q OTHER DAY Rx Instructions: Alternate w/ 20mg every other day Discharge Orders: Discharge Order- CHF (Routine); Ordered 05/16/25 Ordered By: Michelle Gutierrez/Other Patient Handouts: Managing Type 2 Diabetes Admission Data Admit Date/Time: 05/15/25 14:32 Attending Provider: Michelle Louis Admit Provider: Michelle Louis Primary Care Provider: Clare Johnson Other Providers: Robe Valverde Other Interventions: Discharge Summary Assessment (RN) Last Done: 05/16/25 10:27 Hospital Stay Data Consultations 05/15/25 13:53 Consult Cardiology Stat Pending Results Patient Have Any Pending Studies at Discharge: No Discharge Instructions Given to Patient (Per Discharging Provider) Increase your torsemide to 20 mg qAM and monitor your weight on bathroom scale If you gain 5 pounds or more in a week or less, you can double your diuretic dose for 1-2 days. If weight doesn't come back down or you're getting short of breath call your hims manager office for advice Follow up with Dr. Valverde as scheduled this week It was a pleasure taking care of you in the hospital, Michelle Louis MD Total Time Total Time Spent Total Time Spent (In Minutes): <30 Coding Level of Care Code 87414 IN/OBS DISCH 30 MIN/LESS Diagnoses Acute on chronic heart failure with reduced ejection fraction (HFrEF, <= 40%) I50.23 Coronary artery disease I25.10 Coronary Disease-Associated Artery/Lesion type: unspecified vessel or lesion type [place] vs. transplanted heart: [place] heart Hypertension I10 Type 2 diabetes mellitus E11.9
[2025-05-16 10:28] VITALS: BP 107/68; PULSE 77
== END 2025-05-16 11:08 | disposition home or self-care (01) | DRG 291 ==
LOC: ED 11:51 → 2S 14:32